=== PATIENT | female | born 1950 | race Caucasian/White ===

== ENCOUNTER 2018-11-19 18:16 | Inpatient (IN) | payer MEDICARE, OTHER ==
[~2018-11-19] VITALS: Ht 165.1 cm; Wt 105.5 kg
[2018-11-19] MEDS ORDERED: NORepinephrine 8MG/250 ML (PMX 250 ML IV STA ×2 (18:43→19:00)
[2018-11-19] MEDS ORDERED: ACET-2047 GTB (19:50)
[2018-11-19] MEDS ORDERED: ASCO500C7 GTB (19:50)
[2018-11-19] MEDS ORDERED: ASPI-903 GTB (19:51)
[2018-11-19] MEDS ORDERED: CALC600T24 GTB (19:51)
[2018-11-19] MEDS ORDERED: CLON-379 GTB (19:52)
[2018-11-19] MEDS ORDERED: UDFER GTB (19:52)
[2018-11-19] MEDS ORDERED: UDPHE GTB (19:53)
[2018-11-19] MEDS ORDERED: LISI10TA2 GTB (19:53)
[2018-11-19] MEDS ORDERED: FOLI-49 GTB (19:53)
[2018-11-19] MEDS ORDERED: LABE200T25 GTB (19:54)
[2018-11-19] MEDS ORDERED: SENN-120 GTB (19:55)
[2018-11-19] MEDS ORDERED: ALBU2.5V3 NEB (19:56)
[2018-11-19] MEDS ORDERED: AMIN887L GTB (19:56)
[2018-11-19] MEDS ORDERED: KEP100S GTB (19:56)
[2018-11-19] MEDS ORDERED: RANI150T5 GTB (19:57)
[2018-11-19] MEDS ORDERED: CHOL400T10 GTB (19:57)
--- NOTE | 2018-11-19 20:28 | ERD ---
ER Documentation Chief Complaint Chief Complaint HPI This is a 68-year-old female who is coming from [facility], who is chronically trach and vent dependent who presents for evaluation of low blood pressure, and concern for possible sepsis. At baseline patient is nonverbal, Dr. Montalvo, was contacted and recommended that the patient be evaluated in the emergency department. Patient had no noted fever on arrival, ROS All systems reviewed and are negative except as per history of present illness. Medications Home Meds Reported Medications Ranitidine Hcl* (Ranitidine Hcl*) 150 Mg Tablet, 150 MG GTB Q12, #60 TAB 11/19/18 Cholecalciferol* (Vitamin D*) 400 Unit Tablet, 400 UNIT GTB DAILY, TAB 11/19/18 Amino Acids/Protein Hydrolys (Pro-Stat 64 Liquid) 887 Ml Liquid, 30 ML GTB BID 11/19/18 Albuterol Sulfate* (Albuterol Sulfate* Neb) 0.083%-3 Ml Neb, 2.5 MG NEB Q6 PRN for WHEEZING AND SOB, #30 VIAL 11/19/18 Levetiracetam* (Keppra* (Ped)) 100 Mg/Ml Liq, 1500 MG GTB BID for 30 Days, BOTTL E 11/19/18 Sennosides* (Senna Lax*) 8.6 Mg Tablet, 1 TAB GTB DAILY, TAB 11/19/18 Labetalol Hcl* (Labetalol Hcl*) 200 Mg Tablet, 200 MG GTB BID PRN for ELEVATED BLOOD PRESSURE, TAB 11/19/18 Folic Acid* (Folic Acid*) 1 Mg Tablet, 1 MG GTB DAILY, TAB 11/19/18 Phenobarbital* (Phenobarbital* Liq) 20 Mg/5 Ml Elix, 5 MG GTB BID for 30 Days, BOTTLE 11/19/18 Lisinopril* (Lisinopril*) 10 Mg Tablet, 10 MG GTB DAILY, #30 TAB 11/19/18 Ferrous Sulfate (Ferrous Sulfate) 300 Mg/5 Ml Liquid, 300 MG GTB BID 11/19/18 Clonidine Hcl* (Clonidine Hcl*) 0.1 Mg Tab, 0.1 MG GTB Q6 PRN for ELEVATED BLOOD PRESSURE, TAB 11/19/18 Calcium Carbonate* (Calcium Carbonate*) 600 MG Ca Tab, 1200 MG GTB DAILY, TAB 11/19/18 Aspirin* (Aspirin* Chew) 81 Mg Tab.chew, 81 MG GTB DAILY, TAB.CHEW 11/19/18 Acetaminophen* (Acetaminophen*) 650 Mg Tablet, 650 MG GTB Q6H PRN for MILD PAIN LEVEL 1-3, #30 TAB 11/19/18 Ascorbic Acid* (Vitamin C*) 500 Mg Capsule.sa, 500 MG GTB DAILY, CAP 11/19/18 Allergies Allergies: Coded Allergies: No Known Allergy (Unverified , 11/19/18) PMhx/Soc Hx Neurological Disorder: Yes (Seizure) Hx Respiratory Disorders: Yes (Trach) Hx Cardiac Disorders: Yes (HTN) Hx Miscellaneous Medical Probl: Yes (Brain CA, Anemia) Smoking Status: Unknown if ever smoked Physical Exam Vitals Vital Signs Date Temp Pulse Resp B/P (MAP) Pulse Ox O2 O2 Flow FiO2 Time Delivery Rate 11/19/18 84 28 77/46 (56) 98 Trach 20:11 Collar 11/19/18 98.3 82 27 90/53 (65) 99 Trach 18:30 Collar Physical Exam Const: Chronically ill-appearing, on vent Head: Atraumatic Eyes: Normal Conjunctiva ENT: Normal External Ears, Nose and Mouth. Neck: Full range of motion. No meningismus. Trach site clean dry and intact Resp: Clear to auscultation bilaterally Cardio: Regular rate and rhythm, no murmurs Abd: Soft, non tender, non distended. Normal bowel sounds Skin: No petechiae or rashes Back: No midline or flank tenderness Ext: No cyanosis, diffuse anasarca Neur: Patient responsive to voice, nonverbal Psych: Unable to assess Result Diagram: 11/19/181945 Results 24 hrs Laboratory Tests Test 11/19/18 19:46 White Blood Count 17.2 10^3/ul Red Blood Count 2.77 10^6/ul Hemoglobin 9.4 g/dl Hematocrit 31.2 % Mean Corpuscular Volume 112.6 fl Mean Corpuscular Hemoglobin 33.9 pg Mean Corpuscular Hemoglobin Concent 30.1 g/dl Red Cell Distribution Width 13.9 % Platelet Count 256 10^3/UL Mean Platelet Volume 11.9 fl Immature Granulocytes % 0.900 % Neutrophils % 83.5 % Lymphocytes % 6.1 % Monocytes % 9.2 % Eosinophils % 0.1 % Basophils % 0.2 % Nucleated Red Blood Cells % 0.0 /100WBC Immature Granulocytes # 0.160 10^3/ul Neutrophils # 14.4 10^3/ul Lymphocytes # 1.1 10^3/ul Monocytes # 1.6 10^3/ul Eosinophils # 0.0 10^3/ul Basophils # 0.0 10^3/ul Nucleated Red Blood Cells # 0.0 10^3/ul Current Medications Medications Dose Sig/Pratik Start Time Status Last (Trade) Ordered Route PRN Stop Time Admin Dose Reason Admin 250 ml @ ONCE STAT 11/19/18 DC Norepinephrin 7.5 mls/hr IV 18:43 e 11/19/18 18:58 Clonidine 0.1 mg ONCE ONCE 11/19/18 DC (Catapres) PO 19:00 11/19/18 19:00 250 ml @ ONCE STAT 11/19/18 11/19/18 Norepinephrin 7.5 mls/hr IV 19:00 19:04 e 11/21/18 04:19 Albumin 100 ml @ Q1H IV 11/19/18 UNV Human 100 mls/hr 20:00 11/19/18 21:59 Procedures/MDM This is a 68-year-old female presents for evaluation of hypotension, patient's blood pressure was noted to be low, thus treated for severe sepsis, leukocytosis 17.2 was also noted, patient was given vancomycin and cefepime, noted elevation in LFTs as well. Patient will be admitted to medicine team. Sepsis Documentation: Patient's infectious symptoms have not stabilized and the patient is at risk of rapid decompensation. The patient will be admitted for careful hydration, antibiotic therapy, and infectious source control. SEVERE SEPSIS CRITERIA: Infectious source: [Pulmonary versus pyelonephritis End organ damage indicated by: Hypotension SEPSIS MANAGEMENT Time of recognition of sepsis: [Upon arrival]. Time of recognition of severe sepsis: [No severe sepsis at this time]. Time of recognition of septic shock: [No septic shock at this time]. 3 HOUR BUNDLE Blood cultures x 2 before broad-spectrum antibiotics: [Yes] 30 ml/kg NS bolus [Completed] Initial lactate [1.6] Repeat lactate 1.1] SEPTIC SHOCK ASSESSMENT: Persistent hypotension (SBP < 90 or 40 mmHg drop, MAP < 65) despite 30 mL/kg IV fluid bolus VOLUME REASSESSMENT FOR SEPTIC SHOCK: Reevaluation Time: 8:22 PM Temp [98.3 BP [77/46*], HR 84], RR[], Pox [98%] Heart [Regular rate & rhythm] Lungs crackles bilaterally Skin [Warm & dry] Cap Refill [Less than 2 seconds] Peripheral pulses [Radially present] PERSISTENT HYPOTENSION TREATMENT: Comfort care [No] Central line central line placed Vasopressor started Levophed I considered further perfusion assessment with CVP measurement, SCVO2, bedside ultrasound volume assessment, passive leg raise, trial of further fluid bolus. And proceeded with [Central line placement and pressor support, as the patient had diffuse anasarca, I felt that IV fluids, would not be beneficial, as she already appears significantly volume overloaded, she responded well to pressor support, she will be admitted to the ICU in critical condition. CRITICAL CARE Critical care time [35] minutes Emergent fluid management while maintaining close respiratory support. Provision of immediate and broad-spectrum antibiotic therapy. Simultaneous assessment for possible sources in order to direct targeted therapy. Considera tion for invasive and chemical support to prevent cardiopulmonary collapse. Critical care time is independent of procedures performed. Departure Diagnosis: Primary Impression: Hypotension Hypotension type: unspecified hypotension type Qualified Codes: I95.9 - Hypotension, unspecified Additional Impression: Septic shock Condition: Stable KAYLA ROMAN MD Nov 19, 2018 20:23
[2018-11-19] MEDS ORDERED: ONDANSETRON 4 MG INJ IV PRN (20:30)
[2018-11-19] MEDS ORDERED: VANCOMYCIN IV PER PHARMACY XX SCH (21:30)
[2018-11-19] MEDS: ALBUMIN HUMAN 25% 100 ML IV SCH ×2 (21:58→23:04)
[2018-11-19] MEDS ORDERED: VANCOMYCIN HCL 1.5 GM in SOD CHLORIDE 0.9% 250 ML IVPB ONE (22:00)
--- NOTE | 2018-11-19 22:14 | HP ---
Date/Time of Note Date/Time of Note DATE: 11/19/18 TIME: 22:14 Assessment/Plan VTE Prophylaxis SCD applied (from Nsg): Yes Pharmacological prophylaxis: NA/contraindicated Pharm contraindication: low risk/ambulating Assessment/Plan Hospital Course This is a 68-year-old female being admitted to the ICU floor for: #1 Suspect septic shock: Suspect underlying GI pathology. Patient does have hyperbilirubinemia with transaminitis concern for possible underlying choledocholithiasis versus stricture versus other. Given that she is septic and has an elevated white blood cell count will also keep a high suspicion for acute cholangitis. At the current time we will continue the patient on vancomycin and Zosyn. She did receive antibiotics already in the ED as well. Continue vasopressor support. IV fluid hydration with half-normal saline. Consult pulm falls at home. #2 hypernatremia: Secondary likely to dehydration. We will continue the patient at the current time with D5 half-normal saline at 75 cc an hour. Patient does appear to be clinically dry and likely will need volume resuscitation so we will give boluses as needed #3 dehydration: Mucous members dry, hypernatremia. Fluid management monitor sodium. #4 Painless jaundice: Patient does have scleral icterus, she has transaminitis along with hyperbilirubinemia. CAT scan does show concern for possible choledocholithiasis versus stricture versus gallbladder sludge. Will obtain an MRCP to further evaluate. GI is Kimani been consulted . Will also check a hepatitis panel. Avoid NSAIDs, will limit acetaminophen intake to 2 g daily. #5 history of malignant neoplasm of the brain: Patient is chronically bedridden and debilitated. She normally tracks to the eyes apparently however the current time she only is opening her eyes to verbal stimuli but she is not tracking. Continue supportive care. #6 tracheostomy: Continue trach care From 190 #7 dysphagia: Continue G-tube care #8 seizure disorder: Continue Keppra and phenobarbital #9 hypertension: Hold patient's home blood pressure medications given patient's septic shock and low blood pressures. #10 macrocytic anemia: We will check folate, B12, no signs of bleeding at the current time. Will check iron stores as well. #11 obesity: We will check hemoglobin A 1C, lipid panel, TSH #12 DVT GI prophylaxis: SCDs, Protonix IV CODE STATUS: Patient is a full code. POLST is in the chart, patient also has a conservator Further treatment strategy will be implemented as per the clinical course Greater than 45 minutes of critical care time was spent on care management this patient. Result Diagram: 11/19/18194511/19/18 194 Results 24hrs Laboratory Tests Test 11/19/18 19:46 11/19/18 20:45 White Blood Count 17.2 H Red Blood Count 2.77 L Hemoglobin 9.4 L Hematocrit 31.2 L Mean Corpuscular Volume 112.6 H Mean Corpuscular Hemoglobin 33.9 H Mean Corpuscular Hemoglobin Concent 30.1 L Red Cell Distribution Width 13.9 Platelet Count 256 Mean Platelet Volume 11.9 H Immature Granulocytes % 0.900 H Neutrophils % 83.5 H Lymphocytes % 6.1 L Monocytes % 9.2 Eosinophils % 0.1 Basophils % 0.2 Nucleated Red Blood Cells % 0.0 Immature Granulocytes # 0.160 H Neutrophils # 14.4 H Lymphocytes # 1.1 Monocytes # 1.6 H Eosinophils # 0.0 Basophils # 0.0 Nucleated Red Blood Cells # 0.0 Sodium Level 149 H Potassium Level 4.8 Chloride Level 114 H Carbon Dioxide Level 26 Anion Gap 9 Blood Urea Nitrogen 57 H Creatinine 1.42 H Est Glomerular Filtrat Rate mL/min 37 L Glucose Level 148 Calcium Level 8.8 Magnesium Level 3.4 H Total Bilirubin 3.9 H Direct Bilirubin 3.50 H Indirect Bilirubin 0.4 Aspartate Amino Transf (AST/SGOT) 307 H Alanine Aminotransferase (ALT/SGPT) 426 H Alkaline Phosphatase 362 H C-Reactive Protein Total Protein 7.0 Albumin 3.3 Globulin 3.70 H Albumin/Globulin Ratio 0.89 Thyroid Stimulating Hormone (TSH) 0.054 L Lactic Acid Level 1.4 Hepatitis A Antibody Total Pending Hepatitis B Surface Antigen NEGATIVE Hepatitis B Core Total Antibody Pending Hepatitis C Antibody Pending HPI/ROS Admit Date/Time Admit Date/Time Nov 19, 2018 at 19:01 Hx of Present Illness Chief complaint: Sent for evaluation of low blood pressure The following history was obtained from the ED physician documentation as well as from the chart as patient is not able to provide history given her clinical condition. This is a 68-year-old female with a history of malignant neoplasm of the brain, anemia seizures and hypertension who is bedbound chronic trach dependent G-tube dependent female was brought in from [facility] for low blood pressures. Patient was noted to have low blood pressures and presented to the ER. Recent lab work that was performed as an outpatient was significant for a white blood cell count of 15.01 hemoglobin of 10.5 hematocrit of 34.3 a sodium of 149 and potassium of 5.1 creatinine 0.87 as well as AST of 273 ALT of 437 and an alk phos of 302 and a total bilirubin of 4.8. Patient was noted to be hypotensive in the ED and a central line was placed and vasopressors were started. CT scan of the abdomen pelvis was ordered which showed Dilated common bile duct to the level of the ampulla. Differential diagnosis includes choledocholithiasis, distal duct sludge and distal duct stricture. Dr. Bartholomew of GI was consulted. Patient was subsequently brought to the ICU secondary to hypotension requiring pressor support. Patient apparently at baseline does track with her eyes, which she was doing less of as well today. Allergies: NKDA Medications: See MAR ROS Subjective hx not possible: pt non-verbal PMH/Family/Social Past Medical History history of malignant neoplasm of the brain, anemia seizures and hypertension, trach dependent, G-tube dependent Medications Current Medications Norepinephrine 250 ml @ 7.5 mls/hr ONCE STAT IV Last administered on 11/19/18at 19:04; Admin Dose 11.25 MLS/HR; Start 11/19/18 at 19:00; Stop 11/21/18 at 04:19 Ondansetron HCl (Zofran Inj) 4 mg Q6H PRN IV NAUSEA AND/OR VOMITING; Start 11/19/18 at 20:30 Pantoprazole (Protonix Iv) 40 mg DAILY@06 IV ; Start 11/20/18 at 06:00 Phenylephrine HCl 40 mg/Dextrose 250 ml @ 37.5 mls/hr TITRATE IV ; Start 11/19/18 at 20:30 Vancomycin HCl (Vanco Iv Per Pharmacy) VANCOMYCIN PER PHARMACY PER PROTOCOL XX ; Start 11/19/18 at 21:30 Vancomycin HCl 1.5 gm/Sodium Chloride 250 ml @ 166.667 mls/hr ONCE ONCE IVPB Last administered on 11/19/18at 22:00; Admin Dose 166.667 MLS/HR; Start 11/19/18 at 22:00; Stop 11/19/18 at 23:29 Vancomycin HCl 250 ml @ 125 mls/hr Q24H IVPB ; Start 11/20/18 at 22:00 Coded Allergies: No Known Allergy (Unverified , 11/19/18) Past Surgical History Tracheostomy, G-tube placement Family History Significant Family History: other (Unable to obtain secondary to clinical condition) Social History Smoking Status: Unknown if ever smoked Exam/Review of Systems Vital Signs Vitals Vital Signs Date Temp Pulse Resp B/P (MAP) Pulse Ox O2 O2 Flow FiO2 Time Delivery Rate 11/19/18 88 22 96 T Tube 8.0 35 20:40 11/19/18 101/50 20:26 (67) 11/19/18 98.3 18:30 Exam Exam General: Patient is currently lying in bed, she does open her eyes to verbal stimuli however she is currently not tracking. HEENT: Atraumatic, normocephalic. The pupils are equal, round and reactive. Extraocular motor are intact, tracheostomy site intact, mucous membranes dry, scleral icterus Neck: Supple with full range of motion. No rigidity or meningismus Chest: Nontender Lungs: Clear to auscultation bilaterally no crackles rales or wheezing Heart: Normal S1-S2, Regular rhythm and rate. No murmur, S3, or S4 Abdomen: Soft, nontender to palpation, nondistended, G-tube site in place, normal bowel sounds Extremities: Normal to inspection, no edema no cyanosis Neurologic: Opens eyes to verbal commands, she is not tracking with her eyes. Further neurological status unable to obtain given her patient's chronic debilitated mental and physical condition. Additional Comments PROCEDURE: CT abdomen and pelvis without contrast. CLINICAL INDICATION: Possible sepsis. TECHNIQUE: CT scan of the abdomen and pelvis without contrast was performed on a multi-slice CT scanner utilizing axial imaging from the lung bases through the pubis symphysis. One or more the following does reduction techniques were utilized: Automated exposure control, adjustment of the mA/ or kV according to patient's size, or use of iterative reconstruction technique. Sagittal and coronal reformatted images were made. DICOM images are available for review. The CTDIvol is 23.32 mGy and the DLP is 216 of 7.73 mGycm. COMPARISON: None. FINDINGS: CT abdomen Visualized lung bases: Atelectasis posterior inferior left right lower lobes. No significant pleural or pericardial effusion. Liver: Limited evaluation without IV contrast. No gross lesion. Gallbladder and bile ducts: Distended gallbladder with minimal pericholecystic fluid. 3 calcified gallstones are present in the gallbladder. Dilated common bile duct, measuring 14.5 mm. No distal ductal calcification. Spleen: Normal appearance. Pancreas: Normal appearance. No ductal dilatation. No mass. No peripancreatic stranding. Adrenal glands: Thickened left adrenal gland. Negative right adrenal gland. Kidneys: No hydronephrosis or renal stones. Vasculature: No abdominal aortic aneurysm. Calcified plaque present. Negative IVC. Lymph nodes: No adenopathy. GI: Small hiatal hernia. Percutaneous gastrostomy tube, tip and balloon in the gastric lumen. Mildly dilated air and fluid-filled small bowel loops left and right abdomen. Nondistended, stool containing colon. Gas distended sigmoid colon extends into the mid abdomen. Diverticulosis descending colon. Malrotated cecum. Peritoneal cavity: No free fluid or free air. CT pelvis GI: Negative terminal ileum. The appendix is not identified. Sigmoid diverticulosis. Sigmoid colon extends into the midabdomen. Negative rectum. : Jaime catheter decompresses the urinary bladder. Small uterus. 2.4 cm right ovarian cyst. Atrophic left ovary. Peritoneal cavity: No free fluid or loculated fluid collections. Lymph nodes: No adenopathy. Osseous structures: Bones are demineralized. No lytic or blastic lesions. No endplate fractures. IMPRESSION: 1. Cholelithiasis with distended gallbladder suspected acute cholecystitis. 2. Dilated common bile duct to the level of the ampulla. Differential diagnosis includes choledocholithiasis, distal duct sludge and distal duct stricture. 3. Atelectasis posterior inferior lower lobes. For percutaneous gastrostomy tube, tip and balloon in the gastric lumen. 5. Gas distended sigmoid colon extending to the mid abdomen. No evidence of obstruction. 6. Mildly dilated air and fluid-filled small bowel loops, probable ileus. 7. 2.4 cm right ovarian cyst.. RPTAT: [facility] Physician Silvestre Date Time Electronically viewed and signed by Physician Silvestre on 11/19/2018 23:22 RS/ CC: KAYLA ROMAN MD [id number] PROCEDURE: CT Brain without contrast. CLINICAL INDICATION: Infectious process. Right craniotomy. TECHNIQUE: A CT of the brain was performed utilizing axial imaging from the skull base through the vertex without IV contrast. Multiplanar reformatted images were made. Images were reviewed on a PACS workstation. The CTDIvol is 38.79 mGy and the DLP is 778.03 mGycm. DICOM images are available. One or more of the following dose reduction techniques were utilized: 1.) Automated exposure control 2.) Adjustment of the mA +/- kV according to patient's size 3.) Use of iterative reconstruction technique. COMPARISON: None FINDINGS: Remote right frontal temporal parietal craniotomy. Chronic changes of atrophy and small vessel disease of white matter, greater in the posterior fossa. Dilation of the left lateral ventricle may be secondary to volume loss. The remaining ventricles are unremarkable. 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 There is no intracranial hemorrhage, mass effect, or midline shift. No extra- axial fluid collection is seen. The sulci are otherwise normal in size and configuration. The density of the remaining brain is otherwise normal, and the bautista white matter differentiation appears well-preserved. The visualized paranasal sinuses and osseous structures are grossly unremarkable. IMPRESSION: 1. Dilation left lateral ventricle may be secondary to volume loss. 2. Chronic changes of atrophy and small vessel disease white matter, greater in the posterior fossa. 3. Small remote infarct in the left todd radiata. 4. Otherwise, no evident acute process in the head. RPTAT: [facility] Physician Bridgette Date Time Electronically viewed and signed by Physician Bridgette on 11/19/2018 22:43 RS/ CC: KAYLA ROMAN MD [id number] EKG: Normal sinus rhythm at approximately 80 bpm, no ST or T wave abnormalities concerning for acute ischemia SHANNON DURON Nov 19, 2018 22:14
[2018-11-19 22:40] VITALS: PULSE 87
[2018-11-19 22:45] VITALS: BP 135/63; PULSE 95; RESP 27
[2018-11-19 23:00] VITALS: BP 105/51; PULSE 88; RESP 26; Ht 165.1 cm; Wt 105.5 kg
[2018-11-19 23:15] VITALS: BP 95/52; PULSE 95; RESP 21
[2018-11-19 23:30] VITALS: BP 112/57; PULSE 91; RESP 24
[2018-11-19 23:45] VITALS: BP 118/57; PULSE 91; RESP 25
[2018-11-20] VITALS (102 sets, daily range): BP systolic 67–166; BP diastolic 30–135; PULSE 83–107; RESP 17–35
[2018-11-20] MEDS ORDERED: SOD CHLORIDE 0.9% 1,000 ML IV ONE (01:00)
[2018-11-20] MEDS: DEXTROSE 5%-0.45% NACL 1,000 ML IV SCH ×3 (01:14→21:55)
[2018-11-20] MEDS: PANTOPRAZOLE 40 MG INJ IV SCH (05:44)
[2018-11-20] MEDS: PIPER-TAZO 3.375 GM IV (PMX) 100 ML IVPB SCH ×3 (05:44→21:29)
[2018-11-20] MEDS ORDERED: SODIUM CHLORIDE 0.45% 500 ML BAG IV* ONE (06:30)
[2018-11-20] MEDS: ALBUTEROL 0.083% (NEB) 2.5 MG/3 ML AMP NEB PRN ×2 (07:52→14:14)
[2018-11-20] MEDS: FOLIC ACID 1 MG TAB GTB SCH (08:15)
[2018-11-20] MEDS: ACETAMINOPHEN 325 MG TAB GTB PRN ×2 (08:15→19:56)
[2018-11-20] MEDS: LEVETIRACETAM (100 MG/ML) 5ML CUP GTB SCH ×2 (08:15→20:25)
[2018-11-20] MEDS: PHENOBARBITAL (4 MG/ML) 5ML CUP GTB SCH ×2 (09:02→20:25)
--- NOTE | 2018-11-20 09:07 | PN ---
Date/Time of Note Date/Time of Note DATE: 11/20/18 TIME: 09:07 Assessment/Plan VTE Prophylaxis Risk score (from Ns)>0 risk: 11 SCD applied (from Ns): Yes Pharmacological prophylaxis: other Lines/Catheters IV Catheter Type (from Nrsg): Mid Line Urinary Cath still in place: Yes Reason Cath still needed: pres ulcer contaminated by urine Assessment/Plan Assessment/Plan 1. Septic shock secondary to GI pathology - Continue on pressor support with goal MAP >65 - Continue IVF and antibiotics - Lactic acid normal at presentation - low grade temp and WBC trending downward 2. Elevated LFT - CT abd shows choledocholithiasis and acute cholecystitis - GI on board and appreciate recommendations. MRCP ordered - continue monitoring 3. Acute kindra - give patients condition, she may be better off with percutaneous cholecystostomy rather than lap kindra once stable 4. Hypernatremia - most likely dehydration related - IVF on board 5. JUSTO - Nephrology consultation appreciated and will avoid nephrotoxic agents - IVF continued - most likely prerenal vs ATN 6. h/o Malignant neoplasm of brain - Patient is chronically bedridden and debilitated. She normally tracks to the eyes apparently however the current time she only is opening her eyes to verbal stimuli but she is not tracking. Continue supportive care. 7. Seizure disorder - Continue Keppra and phenobarbital 8. HTN - hold home BP medications in setting of hypotension 9. Iron deficiency anemia - no need for transfusion at this time 10. Chronic respiratory failure - trach dependent - continue trach care - Pulmonology on board and appreciate recommendations 11. Disposition - Continue monitoring in ICU while requiring pressor support >35 minutes of critical care time spent with patient Result Diagram: 11/20/18 0400 11/20/18 0400 Results 24hrs Laboratory Tests Test 11/19/18 19:46 11/19/18 20:45 11/20/18 04:00 11/20/18 04:30 White Blood Count 17.2 H 15.5 H Red Blood Count 2.77 L 2.39 L Hemoglobin 9.4 L 8.3 L Hematocrit 31.2 L 26.8 L Mean Corpuscular 112.6 H 112.1 H Volume Mean Corpuscular 33.9 H 34.7 H Hemoglobin Mean Corpuscular 30.1 L 31.0 L Hemoglobin Concen t Red Cell 13.9 14.1 Distribution Width Platelet Count 256 215 Mean Platelet 11.9 H 12.9 H Volume Immature 0.900 H 0.600 H Granulocytes % Neutrophils % 83.5 H 82.6 H Lymphocytes % 6.1 L 7.8 L Monocytes % 9.2 8.6 Eosinophils % 0.1 0.2 Basophils % 0.2 0.2 Nucleated Red 0.0 0.0 Blood Cells % Immature 0.160 H 0.100 H Granulocytes # Neutrophils # 14.4 H 12.8 H Lymphocytes # 1.1 1.2 Monocytes # 1.6 H 1.3 H Eosinophils # 0.0 0.0 Basophils # 0.0 0.0 Nucleated Red 0.0 0.0 Blood Cells # Sodium Level 149 H 149 H Potassium Level 4.8 4.2 Chloride Level 114 H 114 H Carbon Dioxide 26 25 Level Anion Gap 9 10 Blood Urea 57 H 54 H Nitrogen Creatinine 1.42 H 1.56 H Est Glomerular 37 L 33 L Filtrat Rate mL/min Glucose Level 148 147 Calcium Level 8.8 8.7 Magnesium Level 3.4 H Total Bilirubin 3.9 H 4.4 H Direct Bilirubin 3.50 H 3.90 H Indirect 0.4 0.5 Bilirubin Aspartate Amino 307 H 187 H Transf (AST/SGOT) Alanine 426 H 311 H Aminotransferase (ALT/SGPT) Alkaline 362 H 290 H Phosphatase C-Reactive Protein Total Protein 7.0 7.2 Albumin 3.3 3.6 Globulin 3.70 H 3.60 H Albumin/Globulin 0.89 1.00 Ratio Thyroid 0.054 L Stimulating Hormone (TSH) Lactic Acid Level 1.4 Hepatitis A POSITIVE H Antibody Total Hepatitis B NEGATIVE Surface Antigen Hepatitis B POSITIVE H Surface Antibody Hepatitis B Core NEGATIVE Total Antibody Hepatitis C NEGATIVE Antibody Iron Level 19 L Total Iron 188 L Binding Capacity Percent Iron 10 L Saturation Ferritin 390.0 H Triglycerides 144 Level Cholesterol Level 142 LDL Cholesterol, 95 Calculated HDL Cholesterol 18 L Cholesterol/HDL 7.8 Ratio Vitamin B12 Level 889 Folate > 20.0 H Free Thyroxine 1.62 Free 3.11 Triiodothyronine (T3) pg/mL Acetaminophen < 10.0 L Level Blood Gas Blood arterial Specimen Source Arterial Blood 11/20/2018 4:45:4 Date Drawn 8 AM Arterial Blood pH 7.408 (Temp corrected) Arterial Blood 38.3 pCO2 (Temp correct) Arterial Blood 77.2 L pO2 (Temp corrected) Arterial Blood 23.6 HCO3 Arterial Blood -0.8 Base Excess Arterial Blood 95.7 Oxygen Saturation Moshe Test N/A Arterial Blood Right Radial Gas Puncture Site Arterial 0.1 Blood Carboxyhemo globin Arterial Blood 0.3 Methemoglobin Blood Gas A-a O2 308.5 H Differential Oxyhemoglobin 95.3 Percent Blood Gas 37.0 Temperature Blood Gas Actual 27 Respiration Rate Blood Gas TRACH COLLAR Modality FiO2 60.0 Blood Gas [facility] Notified Whom Blood Gas 11/20/2018 4:52:0 Notified Time 4 AM Subjective 24 Hr Interval Summary Free Text/Dictation Patient remains lethargic. Opens eye to touch but not tracking. Still requiring pressor support. Exam/Review of Systems Exam Vitals Vital Signs Date Temp Pulse Resp B/P (MAP) Pulse Ox O2 O2 Flow FiO2 Time Delivery Rate 11/20/18 100.0 09:05 11/20/18 100 08:54 11/20/18 10.0 80 07:54 11/20/18 94 07:52 11/20/18 33 Aerosol 07:52 T Tube 11/20/18 166/135 07:45 (145) Intake and Output 11/19/18 11/19/18 11/20/18 1515:00 23:00 07:00 IntakeIntake Total 196.455 ml 1881.920 ml OutputOutput Total 10 ml 155 ml BalanceBalance 186.455 ml 1726.920 ml Exam General: Patient is currently lying in bed, opens eyes to touch but not tracking Neck: Supple, trach in place Lungs: Clear to auscultation bilaterally no crackles rales or wheezing Heart: Normal S1-S2, Regular rhythm and rate. No murmur, S3, or S4 Abdomen: Soft, nontender to palpation, nondistended, G-tube site in place, normal bowel sounds Skin: diffuse jaundice Ext: no edema appreciate Results Results 24hrs Laboratory Tests Test 11/19/18 19:46 11/19/18 20:45 11/20/18 04:00 11/20/18 04:30 White Blood Count 17.2 H 15.5 H Red Blood Count 2.77 L 2.39 L Hemoglobin 9.4 L 8.3 L Hematocrit 31.2 L 26.8 L Mean Corpuscular 112.6 H 112.1 H Volume Mean Corpuscular 33.9 H 34.7 H Hemoglobin Mean Corpuscular 30.1 L 31.0 L Hemoglobin Concen t Red Cell 13.9 14.1 Distribution Width Platelet Count 256 215 Mean Platelet 11.9 H 12.9 H Volume Immature 0.900 H 0.600 H Granulocytes % Neutrophils % 83.5 H 82.6 H Lymphocytes % 6.1 L 7.8 L Monocytes % 9.2 8.6 Eosinophils % 0.1 0.2 Basophils % 0.2 0.2 Nucleated Red 0.0 0.0 Blood Cells % Immature 0.160 H 0.100 H Granulocytes # Neutrophils # 14.4 H 12.8 H Lymphocytes # 1.1 1.2 Monocytes # 1.6 H 1.3 H Eosinophils # 0.0 0.0 Basophils # 0.0 0.0 Nucleated Red 0.0 0.0 Blood Cells # Sodium Level 149 H 149 H Potassium Level 4.8 4.2 Chloride Level 114 H 114 H Carbon Dioxide 26 25 Level Anion Gap 9 10 Blood Urea 57 H 54 H Nitrogen Creatinine 1.42 H 1.56 H Est Glomerular 37 L 33 L Filtrat Rate mL/min Glucose Level 148 147 Calcium Level 8.8 8.7 Magnesium Level 3.4 H Total Bilirubin 3.9 H 4.4 H Direct Bilirubin 3.50 H 3.90 H Indirect 0.4 0.5 Bilirubin Aspartate Amino 307 H 187 H Transf (AST/SGOT) Alanine 426 H 311 H Aminotransferase (ALT/SGPT) Alkaline 362 H 290 H Phosphatase C-Reactive Protein Total Protein 7.0 7.2 Albumin 3.3 3.6 Globulin 3.70 H 3.60 H Albumin/Globulin 0.89 1.00 Ratio Thyroid 0.054 L Stimulating Hormone (TSH) Lactic Acid Level 1.4 Hepatitis A POSITIVE H Antibody Total Hepatitis B NEGATIVE Surface Antigen Hepatitis B POSITIVE H Surface Antibody Hepatitis B Core NEGATIVE Total Antibody Hepatitis C NEGATIVE Antibody Iron Level 19 L Total Iron 188 L Binding Capacity Percent Iron 10 L Saturation Ferritin 390.0 H Triglycerides 144 Level Cholesterol Level 142 LDL Cholesterol, 95 Calculated HDL Cholesterol 18 L Cholesterol/HDL 7.8 Ratio Vitamin B12 Level 889 Folate > 20.0 H Free Thyroxine 1.62 Free 3.11 Triiodothyronine (T3) pg/mL Acetaminophen < 10.0 L Level Blood Gas Blood arterial Specimen Source Arterial Blood 11/20/2018 4:45:4 Date Drawn 8 AM Arterial Blood pH 7.408 (Temp corrected) Arterial Blood 38.3 pCO2 (Temp correct) Arterial Blood 77.2 L pO2 (Temp corrected) Arterial Blood 23.6 HCO3 Arterial Blood -0.8 Base Excess Arterial Blood 95.7 Oxygen Saturation Moshe Test N/A Arterial Blood Right Radial Gas Puncture Site Arterial 0.1 Blood Carboxyhemo globin Arterial Blood 0.3 Methemoglobin Blood Gas A-a O2 308.5 H Differential Oxyhemoglobin 95.3 Percent Blood Gas 37.0 Temperature Blood Gas Actual 27 Respiration Rate Blood Gas TRACH COLLAR Modality FiO2 60.0 Blood Gas [facility] Notified Whom Blood Gas 11/20/2018 4:52:0 Notified Time 4 AM Medications Medication Current Medications Norepinephrine 250 ml @ 7.5 mls/hr ONCE STAT IV Last administered on 11/19/18at 19:04; Admin Dose 11.25 MLS/HR; Start 11/19/18 at 19:00; Stop 11/21/18 at 04:19 Ondansetron HCl (Zofran Inj) 4 mg Q6H PRN IV NAUSEA AND/OR VOMITING; Start 11/19/18 at 20:30 Pantoprazole (Protonix Iv) 40 mg DAILY@06 IV Last administered on 11/20/18at 05:44; Admin Dose 40 MG; Start 11/20/18 at 06:00 Phenylephrine HCl 40 mg/Dextrose 250 ml @ 37.5 mls/hr TITRATE IV ; Start 11/19/18 at 20:30 Vancomycin HCl (Vanco Iv Per Pharmacy) VANCOMYCIN PER PHARMACY PER PROTOCOL XX ; Start 11/19/18 at 21:30 Vancomycin HCl 250 ml @ 125 mls/hr Q24H IVPB ; Start 11/20/18 at 22:00 Dextrose/Sodium Chloride 1,000 ml @ 100 mls/hr Q10H IV Last administered on 11/20/18at 01:14; Admin Dose 75 MLS/HR; Start 11/20/18 at 01:00 Piperacillin Sod/ Tazobactam Sod 100 ml @ 200 mls/hr Q8 IVPB Last administered on 11/20/18at 05:44; Admin Dose 200 MLS/HR; Start 11/20/18 at 06:00 Acetaminophen (Tylenol Tab) 650 mg Q6H PRN GTB MILD PAIN LEVEL 1-3 Last administered on 11/20/18 08:15; Admin Dose 650 MG; Start 11/20/18 at 06:00 Albuterol (Proventil 0.083% (Neb)) 2.5 mg Q6H RESP THERAPY PRN NEB WHEEZING AND SOB Last administered on 11/20/18 07:52; Admin Dose 2.5 MG; Start 11/20/18 at 06:00 Folic Acid (Folic Acid) 1 mg DAILY GTB Last administered on 11/20/18 08:15; Admin Dose 1 MG; Start 11/20/18 at 09:00 Levetiracetam (Keppra Liquid) 1,500 mg BID GTB Last administered on 11/20/18 08:15; Admin Dose 1,500 MG; Start 11/20/18 at 09:00 Phenobarbital (Luminal) 140 mg BID GTB Last administered on 11/20/18 09:02; Admin Dose 140 MG; Start 11/20/18 at 09:00 KENNETH SANTILLAN MD Nov 20, 2018 09:07
--- NOTE | 2018-11-20 10:08 | PN ---
Date/Time of Note Date/Time of Note DATE: 11/20/18 TIME: 10:05 Assessment/Plan VTE Prophylaxis Risk score (from Ns)>0 risk: 11 SCD applied (from Ns): Yes Pharmacological prophylaxis: LMWH Lines/Catheters IV Catheter Type (from Nrs): Mid Line Urinary Cath still in place: Yes Reason Cath still needed: other (indicate) Assessment/Plan Assessment/Plan resp failure ch/trach sepsis hypernatremia oliguria cholestasis monitor labs high risk for kizzy/sec to liver dz may develope atn supportive care Result Diagram: 11/20/18 0400 11/20/180 Results 24hrs Laboratory Tests Test 11/19/18 19:46 11/19/18 20:45 11/20/18 04:00 11/20/18 04:30 White Blood Count 17.2 H 15.5 H Red Blood Count 2.77 L 2.39 L Hemoglobin 9.4 L 8.3 L Hematocrit 31.2 L 26.8 L Mean Corpuscular 112.6 H 112.1 H Volume Mean Corpuscular 33.9 H 34.7 H Hemoglobin Mean Corpuscular 30.1 L 31.0 L Hemoglobin Concen t Red Cell 13.9 14.1 Distribution Width Platelet Count 256 215 Mean Platelet 11.9 H 12.9 H Volume Immature 0.900 H 0.600 H Granulocytes % Neutrophils % 83.5 H 82.6 H Lymphocytes % 6.1 L 7.8 L Monocytes % 9.2 8.6 Eosinophils % 0.1 0.2 Basophils % 0.2 0.2 Nucleated Red 0.0 0.0 Blood Cells % Immature 0.160 H 0.100 H Granulocytes # Neutrophils # 14.4 H 12.8 H Lymphocytes # 1.1 1.2 Monocytes # 1.6 H 1.3 H Eosinophils # 0.0 0.0 Basophils # 0.0 0.0 Nucleated Red 0.0 0.0 Blood Cells # Sodium Level 149 H 149 H Potassium Level 4.8 4.2 Chloride Level 114 H 114 H Carbon Dioxide 26 25 Level Anion Gap 9 10 Blood Urea 57 H 54 H Nitrogen Creatinine 1.42 H 1.56 H Est Glomerular 37 L 33 L Filtrat Rate mL/min Glucose Level 148 147 Calcium Level 8.8 8.7 Magnesium Level 3.4 H Total Bilirubin 3.9 H 4.4 H Direct Bilirubin 3.50 H 3.90 H Indirect 0.4 0.5 Bilirubin Aspartate Amino 307 H 187 H Transf (AST/SGOT) Alanine 426 H 311 H Aminotransferase (ALT/SGPT) Alkaline 362 H 290 H Phosphatase C-Reactive Protein Total Protein 7.0 7.2 Albumin 3.3 3.6 Globulin 3.70 H 3.60 H Albumin/Globulin 0.89 1.00 Ratio Thyroid 0.054 L Stimulating Hormone (TSH) Lactic Acid Level 1.4 Hepatitis A POSITIVE H Antibody Total Hepatitis B NEGATIVE Surface Antigen Hepatitis B POSITIVE H Surface Antibody Hepatitis B Core NEGATIVE Total Antibody Hepatitis C NEGATIVE Antibody Iron Level 19 L Total Iron 188 L Binding Capacity Percent Iron 10 L Saturation Ferritin 390.0 H Triglycerides 144 Level Cholesterol Level 142 LDL Cholesterol, 95 Calculated HDL Cholesterol 18 L Cholesterol/HDL 7.8 Ratio Vitamin B12 Level 889 Folate > 20.0 H Free Thyroxine 1.62 Free 3.11 Triiodothyronine (T3) pg/mL Acetaminophen < 10.0 L Level Blood Gas Blood arterial Specimen Source Arterial Blood 11/20/2018 4:45:4 Date Drawn 8 AM Arterial Blood pH 7.408 (Temp corrected) Arterial Blood 38.3 pCO2 (Temp correct) Arterial Blood 77.2 L pO2 (Temp corrected) Arterial Blood 23.6 HCO3 Arterial Blood -0.8 Base Excess Arterial Blood 95.7 Oxygen Saturation Moshe Test N/A Arterial Blood Right Radial Gas Puncture Site Arterial 0.1 Blood Carboxyhemo globin Arterial Blood 0.3 Methemoglobin Blood Gas A-a O2 308.5 H Differential Oxyhemoglobin 95.3 Percent Blood Gas 37.0 Temperature Blood Gas Actual 27 Respiration Rate Blood Gas TRACH COLLAR Modality FiO2 60.0 Blood Gas [facility] Notified Whom Blood Gas 11/20/2018 4:52:0 Notified Time 4 AM Exam/Review of Systems Exam Vitals Vital Signs Date Temp Pulse Resp B/P (MAP) Pulse Ox O2 O2 Flow FiO2 Time Delivery Rate 11/20/18 100.0 09:05 11/20/18 100 08:54 11/20/18 10.0 80 07:54 11/20/18 94 07:52 11/20/18 33 Aerosol 07:52 T Tube 11/20/18 166/135 07:45 (145) Intake and Output 11/19/18 11/19/18 11/20/18 1515:00 23:00 07:00 IntakeIntake Total 196.455 ml 1881.920 ml OutputOutput Total 10 ml 155 ml BalanceBalance 186.455 ml 1726.920 ml Constitutional: non-verbal Head: normocephalic, atraumatic Eyes: nl conjunctiva, EOMI ENMT: nl external ears & nose Neck: supple, non-tender Respiratory: normal air movement, diminished breath sounds Cardiovascular: regular rate and rhythm, nl pulses Gastrointestinal: soft Musculoskeletal: nl extremities to inspection Results Results 24hrs Laboratory Tests Test 11/19/18 19:46 11/19/18 20:45 11/20/18 04:00 11/20/18 04:30 White Blood Count 17.2 H 15.5 H Red Blood Count 2.77 L 2.39 L Hemoglobin 9.4 L 8.3 L Hematocrit 31.2 L 26.8 L Mean Corpuscular 112.6 H 112.1 H Volume Mean Corpuscular 33.9 H 34.7 H Hemoglobin Mean Corpuscular 30.1 L 31.0 L Hemoglobin Concen t Red Cell 13.9 14.1 Distribution Width Platelet Count 256 215 Mean Platelet 11.9 H 12.9 H Volume Immature 0.900 H 0.600 H Granulocytes % Neutrophils % 83.5 H 82.6 H Lymphocytes % 6.1 L 7.8 L Monocytes % 9.2 8.6 Eosinophils % 0.1 0.2 Basophils % 0.2 0.2 Nucleated Red 0.0 0.0 Blood Cells % Immature 0.160 H 0.100 H Granulocytes # Neutrophils # 14.4 H 12.8 H Lymphocytes # 1.1 1.2 Monocytes # 1.6 H 1.3 H Eosinophils # 0.0 0.0 Basophils # 0.0 0.0 Nucleated Red 0.0 0.0 Blood Cells # Sodium Level 149 H 149 H Potassium Level 4.8 4.2 Chloride Level 114 H 114 H Carbon Dioxide 26 25 Level Anion Gap 9 10 Blood Urea 57 H 54 H Nitrogen Creatinine 1.42 H 1.56 H Est Glomerular 37 L 33 L Filtrat Rate mL/min Glucose Level 148 147 Calcium Level 8.8 8.7 Magnesium Level 3.4 H Total Bilirubin 3.9 H 4.4 H Direct Bilirubin 3.50 H 3.90 H Indirect 0.4 0.5 Bilirubin Aspartate Amino 307 H 187 H Transf (AST/SGOT) Alanine 426 H 311 H Aminotransferase (ALT/SGPT) Alkaline 362 H 290 H Phosphatase C-Reactive Protein Total Protein 7.0 7.2 Albumin 3.3 3.6 Globulin 3.70 H 3.60 H Albumin/Globulin 0.89 1.00 Ratio Thyroid 0.054 L Stimulating Hormone (TSH) Lactic Acid Level 1.4 Hepatitis A POSITIVE H Antibody Total Hepatitis B NEGATIVE Surface Antigen Hepatitis B POSITIVE H Surface Antibody Hepatitis B Core NEGATIVE Total Antibody Hepatitis C NEGATIVE Antibody Iron Level 19 L Total Iron 188 L Binding Capacity Percent Iron 10 L Saturation Ferritin 390.0 H Triglycerides 144 Level Cholesterol Level 142 LDL Cholesterol, 95 Calculated HDL Cholesterol 18 L Cholesterol/HDL 7.8 Ratio Vitamin B12 Level 889 Folate > 20.0 H Free Thyroxine 1.62 Free 3.11 Triiodothyronine (T3) pg/mL Acetaminophen < 10.0 L Level Blood Gas Blood arterial Specimen Source Arterial Blood 11/20/2018 4:45:4 Date Drawn 8 AM Arterial Blood pH 7.408 (Temp corrected) Arterial Blood 38.3 pCO2 (Temp correct) Arterial Blood 77.2 L pO2 (Temp corrected) Arterial Blood 23.6 HCO3 Arterial Blood -0.8 Base Excess Arterial Blood 95.7 Oxygen Saturation Moshe Test N/A Arterial Blood Right Radial Gas Puncture Site Arterial 0.1 Blood Carboxyhemo globin Arterial Blood 0.3 Methemoglobin Blood Gas A-a O2 308.5 H Differential Oxyhemoglobin 95.3 Percent Blood Gas 37.0 Temperature Blood Gas Actual 27 Respiration Rate Blood Gas TRACH COLLAR Modality FiO2 60.0 Blood Gas [facility] Notified Whom Blood Gas 11/20/2018 4:52:0 Notified Time 4 AM Medications Medication Current Medications Norepinephrine 250 ml @ 7.5 mls/hr ONCE STAT IV Last administered on 9at 19:04; Admin Dose 11.25 MLS/HR; Start 11/19/18 at 19:00; Stop 11/21/18 at 04:19 Ondansetron HCl (Zofran Inj) 4 mg Q6H PRN IV NAUSEA AND/OR VOMITING; Start 11/19/18 at 20:30 Pantoprazole (Protonix Iv) 40 mg DAILY@06 IV Last administered on 11/20/18at 05:44; Admin Dose 40 MG; Start 11/20/18 at 06:00 Phenylephrine HCl 40 mg/Dextrose 250 ml @ 37.5 mls/hr TITRATE IV ; Start 11/19/18 at 20:30 Vancomycin HCl (Vanco Iv Per Pharmacy) VANCOMYCIN PER PHARMACY PER PROTOCOL XX ; Start 11/19/18 at 21:30 Vancomycin HCl 250 ml @ 125 mls/hr Q24H IVPB ; Start 11/20/18 at 22:00 Dextrose/Sodium Chloride 1,000 ml @ 100 mls/hr Q10H IV Last administered on 11/20/18at 01:14; Admin Dose 75 MLS/HR; Start 11/20/18 at 01:00 Piperacillin Sod/ Tazobactam Sod 100 ml @ 200 mls/hr Q8 IVPB Last administered on 11/20/18at 05:44; Admin Dose 200 MLS/HR; Start 11/20/18 at 06:00 Acetaminophen (Tylenol Tab) 650 mg Q6H PRN GTB MILD PAIN LEVEL 1-3 Last administered on 11/20/18at 08:15; Admin Dose 650 MG; Start 11/20/18 at 06:00 Albuterol (Proventil 0.083% (Neb)) 2.5 mg Q6H RESP THERAPY PRN NEB WHEEZING AND SOB Last administered on 11/20/18at 07:52; Admin Dose 2.5 MG; Start 11/20/18 at 06:00 Folic Acid (Folic Acid) 1 mg DAILY GTB Last administered on 11/20/18 08:15; Admin Dose 1 MG; Start 11/20/18 at 09:00 Levetiracetam (Keppra Liquid) 1,500 mg BID GTB Last administered on 11/20/18 08:15; Admin Dose 1,500 MG; Start 11/20/18 at 09:00 Phenobarbital (Luminal) 140 mg BID GTB Last administered on 11/20/18 09:02; Admin Dose 140 MG; Start 11/20/18 at 09:00 SADAF AMBROSE MD Nov 20, 2018 10:08
--- NOTE | 2018-11-20 11:50 | CONS ---
DATE OF ADMISSION: 11/19/2018 DATE OF CONSULTATION: REASON FOR CONSULTATION: Shortness of breath. Thank you, Dr. Montalvo, for this consultation. HISTORY OF PRESENT ILLNESS: This is an unfortunate 68-year-old lady with a history of chronic respir atory failure, tracheostomy, transferred from retirement facility yesterday for change in mentat ion. Apparently she has history of brain tumor, has chronic encephalopathy, but yesterday was even m ore lethargic, was brought here for further evaluation, found to have leukocytosis, mildly elevated p otassium and sodium with transaminitis. Central line was placed, vasopressor started. GI consult wa s called for evaluation of possible choledocholithiasis. PAST MEDICAL HISTORY: [employer] neoplasm, encephalopathy, chronic respiratory failure with tracheostomy, G -tube for dysphagia. MEDICATIONS: Per chart. ALLERGIES: NONE. SOCIAL HISTORY: She is a nonsmoker, no alcohol, no history of drug use. FAMILY HISTORY: Noncontributory. SYSTEMS REVIEW: A 12-point review of systems unable to perform. PHYSICAL EXAMINATION: GENERAL: Elderly-appearing lady, appears comfortable cool air aerosol. VITAL SIGNS: Currently afebrile, temperature 98, pulse is 90, blood pressure 102/50, O2 saturation 9 6%, FIO2 6%. HEENT: Extraocular movements intact. CARDIAC: S1, S2, no added sounds or murmurs. CHEST: Diminished air entry bilaterally. ABDOMEN: Soft, nontender. No guarding or rebound. EXTREMITIES: No cyanosis, clubbing. NEUROLOGIC: Unable to assess. LABORATORY DATA: White count initially 15.2, now 15.5, hemoglobin 8.3, platelets of 215, BUN 54, cre atinine 1.56, AST, ALT elevated as stated. Arterial blood gas pH 7.4, pCO2 38, pO2 of 77. U-tox unr emarkable. DIAGNOSTIC STUDIES: CT brain shows atrophy, remote infarct and dilatation of left lateral ventricle. CT abdomen and pelvis demonstrates choledocholithiasis, possible acute cholecystitis. IMPRESSION: 1. Acute on chronic encephalopathy, possibly secondary to acute cholecystitis. 2. Chronic respiratory failure. 3. Questionable [employer] lesion. 4. Dysphagia with G-tube. PLAN: 1. Broad-spectrum antibiotics. 2. Gastrointestinal evaluation. 3. Renal recommendations for cool aerosol as tolerated. 4. Deep venous thrombosis and GI prophylaxis. Dictated By: MONO HOYOS MD SV/NTS Conf#: [id number] DID#: [id number] CC: KENNETH SANTILLAN MD;*EndCC*
[2018-11-20] MEDS ORDERED: NA PHOSPHATE/BIPHOS 133 ML ENEMA PR ONE (12:00)
--- NOTE | 2018-11-20 14:20 | RADRPT ---
Echocardiogram Report Patient Name: IRMA DOVERatient ID: [id number] : 1950 (68y 2m)Study Date: 11/20/2018 7:37:45 AM Gender: FAccession #: [id number] Tech: LE Location: Ref.Physician: SHANNON DURON Height(Cm): BSA: Weight(Kg): Quality: Technically Difficult StudyAccount #: Procedures: Echocardiographic Report: Transthoracic echocardiogram with complete 2D, M-Mode, and doppler examination. Indications: Cardiomegaly. Measurements: 2D/M Mode Doppler Measurement Value Normal Range Measurement Value Normal Range LVIDd 2D 4.6 [ 3.8 - 5.2 ] cm AV Mean Jorge 1.1 [ 70.0 - 90.0 ] cm/sec LVIDs 2D 2.8 [ 2.2 - 3.5 ] cm AV Mean PG 5.0 [ 2.0 - 4.0 ] mmHg LVPWd 2D 1.2 [ 0.6 - 0.9 ] cm AV Peak Jorge 1.5 [ 100.0 - 170.0 ] cm/sec IVSd 2D 1.2 [ 0.6 - 0.9 ] cm AV Peak PG 9.0 [ 2.0 - 9.0 ] mmHg EDV 2D 84.0 [ 46.0 - 106.0 ] ml AV VTI 26.7 cm ESV 2D 37.9 [ 14.0 - 42.0 ] ml LVOT Peak Jorge 1.1 [ 70.0 - 110.0 ] cm/sec EF 2D 70.0 [ 54.0 - 74.0 ] percent LVOT Peak PG 5.0 [ 2.0 - 6.0 ] mmHg LVOT Diam 2.0 [ 2.1 - 2.5 ] cm MV E Peak Jorge 0.8 [ 60.0 - 130.0 ] cm/sec MV A Peak Jorge 1.2 [ 100.0 - 120.0 ] cm/sec MV E/A 0.7 [ 0.8 - 1.5 ] ratio MV Decel Time 162 [ 104 - 258 ] msec Lat E` Jorge 0.1 [ 10.0 - 15.0 ] cm/sec Lateral E/E` 9.8 [ 1.0 - 2.0 ] ratio Med E` Jorge 0.1 cm/sec MV E/A 0.7 [ 0.8 - 1.5 ] ratio PV Peak Jorge 0.9 [ 40.0 - 80.0 ] cm/sec PV Peak PG 3.0 mmHg Findings: Left Ventricle: Hyperdynamic left ventricular systolic function. Normal left ventricular cavity size. Normal left ventricular wall thickness. Ejection fraction is visually estimated at >70 %. Right Ventricle: Normal right ventricular size. Normal right ventricular systolic function. Left Atrium: The left atrium is normal in size. Right Atrium: The right atrium is normal in size. Mitral Valve: Normal appearance and function of the mitral valve with trace physiologic regurgitation. Aortic Valve: Normal appearance of the aortic valve. No significant aortic stenosis or insufficiency. Tricuspid Valve: Tricuspid valve not well visualized. Unable to obtain RVSP due to minimal presence of tricuspid regurgitation. Pulmonic Valve: Pulmonic valve not well visualized. No evidence of pulmonic regurgitation. Pericardium: Normal pericardium with no significant pericardial effusion. No pleural effusion noted. Aorta: Normal aortic root. IVC: The IVC is not well visualized. Conclusions: Technically difficult study with poor endocardial visualization. Hyperdynamic left ventricular systolic function. Normal left ventricular cavity size. Normal left ventricular wall thickness. Ejection fraction is visually estimated at >70 %. No significant valvular stenosis or regurgitation seen. Tricuspid valve not well visualized. Unable to obtain RVSP due to minimal presence of tricuspid regurgitation. Electronically Signed By: Robert Donato 2018-11-20 14:19:58 PST
[2018-11-20] MEDS ORDERED: LORAZEPAM 2 MG INJ IV PRN (14:30)
[2018-11-20] MEDS: NORepinephrine 8MG/250 ML (PMX 250 ML IV SCH (14:52)
--- NOTE | 2018-11-20 15:19 | CONS ---
DATE OF ADMISSION: 11/19/2018 DATE OF CONSULTATION: SUBJECTIVE: The patient is in intensive care unit now. She is intubated. She is unresponsive. She is jaundiced. Blood pressure is still in the range of 410/80. OBJECTIVE: CARDIOVASCULAR: Normal heart sounds. RESPIRATORY: Normal breath sounds. ABDOMEN: Soft abdomen. LABORATORY WORKUP: Today, WBC count is 15,500. Total bilirubin 4.4, direct 3.9, AST 187, ALT 311, a lk phos 90. CLINICAL IMPRESSION AND PLAN: The patient has evidence of obstructive jaundice, probably due to chol edocholithiasis; however, her general status is not strong enough to do ERCP. However, if it can be considered, we will discuss it with her primary doctor, consultants and the family, and ERCP can be p erformed when it is appropriate. Dictated By: FRANKLIN JAMESON MD NC/NTS Conf#: [id number] DID#: [id number] CC: REFUGIO CARRERA MD; SHANNON DURON MD; KENNETH SANTILLAN MD;*EndCC*
--- NOTE | 2018-11-20 15:22 | CONS ---
DATE OF ADMISSION: 11/19/2018 DATE OF CONSULTATION: TYPE OF CONSULTATION: Gastroenterology. Dear Dr. Walker Montalvo and Dr. Duron: Thank you for asking me to see Mrs. Clement in GI consultation. HISTORY OF PRESENT ILLNESS: The patient, as you know, is a 68-year-old white female who is admitted to the hospital from the halfway because of hypotension and it was felt that she had a septic sh ock. She also had jaundice. The patient is unable to give any history. Most of the history is obta ined from the medical records and the doctors' information. The patient is bedbound and she is a chr onic respiratory failure, tracheostomy and ventilator dependent. Obviously, when I saw her yesterday , she was unresponsive. She did have jaundice on clinical exam. REVIEW OF SYSTEMS: Positive for unresponsive status, respiratory failure, status post gastrostomy an d a tracheostomy. Other medical problems include: She has a history of a malignant neoplasm of the brain, chronically bedridden and the debilitated. History of seizure disorder, hypertension, anemia, obesity. MEDICATIONS: 1. Prior to this admission includes Tylenol. 2. Ascorbic acid. 3. Aspirin. 4. Calcium carbonate. 5. Clonidine. 6. Ferrous sulfate. 7. Lisinopril. 8. Phenobarbital. 9. Folic acid. 10. Labetalol: 11. Senna. 12. Keppra. 13. Albuterol. 14. Ranitidine PHYSICAL EXAMINATION: The patient at the time of my consultation in the emergency room: GENERAL: The patient is a 68-year-old white female who when I saw her, she was unresponsive jaundice d obese, status post tracheostomy. VITAL SIGNS: Blood pressure was around 80/50 yesterday when I saw her. CARDIOVASCULAR: Normal heart sounds. RESPIRATORY: Normal breath sounds. ABDOMEN: Shows soft abdomen with obesity of the abdomen noted. No tenderness appreciated. LABORATORY WORKUP: When I saw her yesterday, potassium 4.8, bilirubin 3.9, direct is 3.5, AST 307, A LT 426, alkaline phosphatase is 62. WBC 17,200, hemoglobin 9.4. CLINICAL IMPRESSION: The patient presenting with history of hypotension jaundice, hyperbilirubinemia and elevated liver functions. The AST is 207, ALT 426, alkaline phosphatase 362. It is quite possible that we are dealing with choledocholithiasis based on the fact that the CAT scan of the abdomen shows evidence of cholelithiasis and distended gallbladder, dilated common bile duct with possible stricture or a stone in the distal bile duct near the ampulla, gas distended sigmoid co tyler noted. PLAN: At this time, recommend stabilize the patient. Once she gets blood pressure comes up ERCP can be considered. Meanwhile, continue antibiotic therapy. Once again, doctor, thank you for this consultation. Dictated By: FRANKLIN JAMESON MD NC/NTS Conf#: [id number] DID#: [id number] CC: SHANNON DURON MD; KENNETH SANTILLAN MD;*EndCC*
[2018-11-20] MEDS ORDERED: FENTAnyl (DRIP) 1000 mcg/100mL 100 ML IV SCH (16:30)
[2018-11-20] MEDS: VANCOMYCIN 1 GM 250 ML IVPB SCH (21:57)
[2018-11-21] VITALS (109 sets, daily range): BP systolic 38–152; BP diastolic 19–126; PULSE 71–165; RESP 16–26
[2018-11-21] MEDS: NORepinephrine 8MG/250 ML (PMX 250 ML IV SCH ×5 (00:38→22:23)
[2018-11-21] MEDS: PIPER-TAZO 3.375 GM IV (PMX) 100 ML IVPB SCH ×3 (05:12→22:30)
[2018-11-21] MEDS: PANTOPRAZOLE 40 MG INJ IV SCH (05:12)
[2018-11-21] MEDS: ACETAMINOPHEN 325 MG TAB GTB PRN ×2 (05:19→12:14)
[2018-11-21] MEDS: DEXTROSE 5% 1,000 ML IV SCH ×2 (06:14→15:52)
--- NOTE | 2018-11-21 08:43 | PN ---
Date/Time of Note Date/Time of Note DATE: 11/21/18 TIME: 08:43 Assessment/Plan VTE Prophylaxis Risk score (from Nsg)>0 risk: 10 SCD applied (from Nsg): Yes Pharmacological prophylaxis: LMWH Lines/Catheters IV Catheter Type (from Nrsg): Mid Line Urinary Cath still in place: Yes Reason Cath still needed: terminal illness/intractable pain Assessment/Plan Assessment/Plan 1. Septic shock secondary to acute choledocholithiasis - Continue on pressor support with goal MAP >65 - Continue IVF and antibiotics - Lactic acid normal at presentation 2. Elevated LFT - CT abd shows choledocholithiasis and acute cholecystitis - GI on board and appreciate recommendations. Patient not stable enough for any interventions at this time including ERCP - MRCP ordered but unable to complete at this time given unable to complete questionnaire. - continue monitoring 3. Acute kindra - give patients condition, she may be better off with percutaneous cholecyst ostomy rather than lap kindra once stable 4. Hypernatremia - most likely dehydration related - started on D5W this am 5. JUSTO - Nephrology consultation appreciated and will avoid nephrotoxic agents - IVF continued - most likely prerenal vs ATN 6. h/o Malignant neoplasm of brain - Patient is chronically bedridden and debilitated. Tracking present this am which is her baseline 7. Seizure disorder - Continue Keppra and phenobarbital 8. HTN - hold home BP medications in setting of hypotension 9. Iron deficiency anemia - no need for transfusion at this time 10. Chronic respiratory failure - trach dependent - continue trach care - Pulmonology on board and appreciate recommendations 11. Disposition - Continue monitoring in ICU while requiring pressor support >30 minutes of critical care time spent with patient Result Diagram: 11/21/18 0415 11/21/18 0415 Results 24hrs Laboratory Tests Test 11/20/18 11:54 11/20/18 12:35 11/20/18 14:33 11/21/18 04:15 Lab Scanned LAB Report Prothrombin Time 16.6 H Prothrombin Time 1.3 Ratio INR International 1.33 Normalized Ratio Blood Gas Blood arterial Specimen Source Arterial Blood 11/20/2018 2:45:4 Date Drawn 1 PM Arterial Blood pH 7.273 *L (Temp corrected) Arterial Blood 50.7 H pCO2 (Temp correct) Arterial Blood 74.5 L pO2 (Temp corrected) Arterial Blood 22.9 HCO3 Arterial Blood -4.1 L Base Excess Arterial Blood 94.0 L Oxygen Saturation Moshe Test ACCEPTAB Arterial Blood Right Radial Gas Puncture Site Arterial 0.3 Blood Carboxyhemo globin Arterial Blood 0.2 Methemoglobin Blood Gas A-a O2 573.3 H Differential Oxyhemoglobin 93.5 Percent Blood Gas 37.0 Temperature Blood Gas Actual 32 Respiration Rate Blood Gas TRACH COLLAR Modality FiO2 98.0 Blood Gas RN LARS MURPHY Critical Value Read Back Blood Gas Notified Whom Blood Gas 11/20/2018 2:57:3 Notified Time 8 PM White Blood Count 15.3 H Red Blood Count 2.48 L Hemoglobin 8.4 L Hematocrit 27.5 L Mean Corpuscular 110.9 H Volume Mean Corpuscular 33.9 H Hemoglobin Mean Corpuscular 30.5 L Hemoglobin Concen t Red Cell 14.4 Distribution Width Platelet Count 239 Mean Platelet 12.5 H Volume Immature 0.700 H Granulocytes % Neutrophils % 78.0 H Lymphocytes % 11.5 L Monocytes % 6.4 Eosinophils % 3.2 Basophils % 0.2 Nucleated Red 0.0 Blood Cells % Immature 0.100 H Granulocytes # Neutrophils # 12.0 H Lymphocytes # 1.8 Monocytes # 1.0 H Eosinophils # 0.5 Basophils # 0.0 Nucleated Red 0.0 Blood Cells # Sodium Level 149 H Potassium Level 3.6 Chloride Level 116 H Carbon Dioxide 20 L Level Anion Gap 13 Blood Urea 55 H Nitrogen Creatinine 2.03 H Est Glomerular 24 L Filtrat Rate mL/min Glucose Level 165 Calcium Level 8.1 L Total Bilirubin 3.1 H Direct Bilirubin 2.70 #H Indirect 0.4 Bilirubin Aspartate Amino 210 H Transf (AST/SGOT) Alanine 275 H Aminotransferase (ALT/SGPT) Alkaline 293 H Phosphatase Total Protein 6.7 Albumin 3.2 L Globulin 3.50 H Albumin/Globulin 0.91 Ratio Subjective 24 Hr Interval Summary Free Text/Dictation Patient was placed on vent yesterday due to respiratory distress. Still requiring pressor support for hypotension. Tracking with eyes this am but not following commands. Exam/Review of Systems Exam Vitals Vital Signs Date Temp Pulse Resp B/P (MAP) Pulse Ox O2 O2 Flow FiO2 Time Delivery Rate 11/21/18 87 16 118/63 98 06:15 (81) 11/21/18 99.7 06:14 11/21/18 Mechanical 06:00 Ventilator 11/21/18 50 05:10 11/20/18 10.0 14:30 Intake and Output 11/20/18 11/20/18 11/21/18 1515:00 23:00 07:00 IntakeIntake Total 1045.625 ml 1259.250 ml 1382.5 ml OutputOutput Total 60 ml 165 ml 330 ml BalanceBalance 985.625 ml 1094.250 ml 1052.5 ml Exam General: Patient is currently lying in bed, opens eyes and tracking Neck: Supple, trach in place Lungs: Clear to auscultation bilaterally, diminished, no wheezing appreciated. Heart: Normal S1-S2, Regular rhythm and rate. No murmur, S3, or S4 Abdomen: Soft, tender to palpation, nondistended, G-tube site in place, normal bowel sounds Skin: diffuse jaundice neuro: unable to assess, foot drop bilaterally Ext: swelling of LE b/l Results Results 24hrs Laboratory Tests Test 11/20/18 11:54 11/20/18 12:35 11/20/18 14:33 11/21/18 04:15 Lab Scanned LAB Report Prothrombin Time 16.6 H Prothrombin Time 1.3 Ratio INR International 1.33 Normalized Ratio Blood Gas Blood arterial Specimen Source Arterial Blood 11/20/2018 2:45:4 Date Drawn 1 PM Arterial Blood pH 7.273 *L (Temp corrected) Arterial Blood 50.7 H pCO2 (Temp correct) Arterial Blood 74.5 L pO2 (Temp corrected) Arterial Blood 22.9 HCO3 Arterial Blood -4.1 L Base Excess Arterial Blood 94.0 L Oxygen Saturation Moshe Test ACCEPTAB Arterial Blood Right Radial Gas Puncture Site Arterial 0.3 Blood Carboxyhemo globin Arterial Blood 0.2 Methemoglobin Blood Gas A-a O2 573.3 H Differential Oxyhemoglobin 93.5 Percent Blood Gas 37.0 Temperature Blood Gas Actual 32 Respiration Rate Blood Gas TRACH COLLAR Modality FiO2 98.0 Blood Gas JENN MURPHY Critical Value Read Back Blood Gas Notified Whom Blood Gas 11/20/2018 2:57:3 Notified Time 8 PM White Blood Count 15.3 H Red Blood Count 2.48 L Hemoglobin 8.4 L Hematocrit 27.5 L Mean Corpuscular 110.9 H Volume Mean Corpuscular 33.9 H Hemoglobin Mean Corpuscular 30.5 L Hemoglobin Concen t Red Cell 14.4 Distribution Width Platelet Count 239 Mean Platelet 12.5 H Volume Immature 0.700 H Granulocytes % Neutrophils % 78.0 H Lymphocytes % 11.5 L Monocytes % 6.4 Eosinophils % 3.2 Basophils % 0.2 Nucleated Red 0.0 Blood Cells % Immature 0.100 H Granulocytes # Neutrophils # 12.0 H Lymphocytes # 1.8 Monocytes # 1.0 H Eosinophils # 0.5 Basophils # 0.0 Nucleated Red 0.0 Blood Cells # Sodium Level 149 H Potassium Level 3.6 Chloride Level 116 H Carbon Dioxide 20 L Level Anion Gap 13 Blood Urea 55 H Nitrogen Creatinine 2.03 H Est Glomerular 24 L Filtrat Rate mL/min Glucose Level 165 Calcium Level 8.1 L Total Bilirubin 3.1 H Direct Bilirubin 2.70 #H Indirect 0.4 Bilirubin Aspartate Amino 210 H Transf (AST/SGOT) Alanine 275 H Aminotransferase (ALT/SGPT) Alkaline 293 H Phosphatase Total Protein 6.7 Albumin 3.2 L Globulin 3.50 H Albumin/Globulin 0.91 Ratio Medications Medication Current Medications Ondansetron HCl (Zofran Inj) 4 mg Q6H PRN IV NAUSEA AND/OR VOMITING; Start 11/19/18 at 20:30 Pantoprazole (Protonix Iv) 40 mg DAILY@06 IV Last administered on 11/21/18at 05:12; Admin Dose 40 MG; Start 11/20/18 at 06:00 Phenylephrine HCl 40 mg/Dextrose 250 ml @ 37.5 mls/hr TITRATE IV ; Start 11/19/18 at 20:30 Vancomycin HCl (Vanco Iv Per Pharmacy) VANCOMYCIN PER PHARMACY PER PROTOCOL XX ; Start 11/19/18 at 21:30 Vancomycin HCl 250 ml @ 125 mls/hr Q24H IVPB Last administered on 11/20/18at 21:57; Admin Dose 125 MLS/HR; Start 11/20/18 at 22:00 Piperacillin Sod/ Tazobactam Sod 100 ml @ 200 mls/hr Q8 IVPB Last administered on 11/21/18at 05:12; Admin Dose 200 MLS/HR; Start 11/20/18 at 06:00 Acetaminophen (Tylenol Tab) 650 mg Q6H PRN GTB MILD PAIN LEVEL 1-3 Last administered on 11/21/18at 05:19; Admin Dose 650 MG; Start 11/20/18 at 06:00 Albuterol (Proventil 0.083% (Neb)) 2.5 mg Q6H RESP THERAPY PRN NEB WHEEZING AND SOB Last administered on 11/20/18 14:14; Admin Dose 2.5 MG; Start 11/20/18 at 06:00 Folic Acid (Folic Acid) 1 mg DAILY GTB Last administered on 11/20/18 08:15; Admin Dose 1 MG; Start 11/20/18 at 09:00 Levetiracetam (Keppra Liquid) 1,500 mg BID GTB Last administered on 11/20/18 20:25; Admin Dose 1,500 MG; Start 11/20/18 at 09:00 Phenobarbital (Luminal) 140 mg BID GTB Last administered on 11/20/18 20:25; Admin Dose 140 MG; Start 11/20/18 at 09:00 Lorazepam (Ativan) 1 mg Q10MIN PRN IV agitation; Start 11/20/18 at 14:30 Norepinephrine 250 ml @ 1.875 mls/ hr TITRATE IV Last administered on 11/21/18 06:13; Admin Dose 45 MLS/HR; Start 11/20/18 at 15:00 Fentanyl 100 ml @ 2.5 mls/hr TITRATE IV Last administered on 11/20/18 15:48; Admin Dose 2.5 MLS/HR; Start 11/20/18 at 16:30 Dextrose 1,000 ml @ 100 mls/hr Q10H IV Last administered on 11/21/18 06:14; Admin Dose 100 MLS/HR; Start 11/21/18 at 06:30 KENNETH SANTILLAN MD Nov 21, 2018 08:43
[2018-11-21] MEDS: LEVETIRACETAM (100 MG/ML) 5ML CUP GTB SCH ×2 (09:30→20:51)
[2018-11-21] MEDS: PHENOBARBITAL (4 MG/ML) 5ML CUP GTB SCH ×2 (09:31→20:52)
[2018-11-21] MEDS: FOLIC ACID 1 MG TAB GTB SCH (09:31)
--- NOTE | 2018-11-21 10:03 | PN ---
Date/Time of Note Date/Time of Note DATE: 11/21/18 TIME: 10:01 Assessment/Plan VTE Prophylaxis Risk score (from Ns)>0 risk: 10 SCD applied (from Ns): Yes Pharmacological prophylaxis: other Lines/Catheters IV C[facility]ter Type (from [facility]): Urinary Cath still in place: Yes Reason Cath still needed: other (indicate) Assessment/Plan Assessment/Plan Assessment/Plan resp failure ch/trach sepsis hypernatremia oliguria cholestasis non oliguric on pressors on ivf iv abx cont plan labs am Result Diagram: 11/21/18 0415 11/21/18 0415 Results 24hrs Laboratory Tests Test 11/20/18 11:54 11/20/18 12:35 11/20/18 14:33 11/21/18 04:15 Lab Scanned LAB Report Prothrombin Time 16.6 H Prothrombin Time 1.3 Ratio INR International 1.33 Normalized Ratio Blood Gas Blood arterial Specimen Source Arterial Blood 11/20/2018 2:45:4 Date Drawn 1 PM Arterial Blood pH 7.273 *L (Temp corrected) Arterial Blood 50.7 H pCO2 (Temp correct) Arterial Blood 74.5 L pO2 (Temp corrected) Arterial Blood 22.9 HCO3 Arterial Blood -4.1 L Base Excess Arterial Blood 94.0 L Oxygen Saturation Moshe Test ACCEPTAB Arterial Blood Right Radial Gas Puncture Site Arterial 0.3 Blood Carboxyhemo globin Arterial Blood 0.2 Methemoglobin Blood Gas A-a O2 573.3 H Differential Oxyhemoglobin 93.5 Percent Blood Gas 37.0 Temperature Blood Gas Actual 32 Respiration Rate Blood Gas TRACH COLLAR Modality FiO2 98.0 Blood Gas RN LARS MURPHY Critical Value Read Back Blood Gas Notified Whom Blood Gas 11/20/2018 2:57:3 Notified Time 8 PM White Blood Count 15.3 H Red Blood Count 2.48 L Hemoglobin 8.4 L Hematocrit 27.5 L Mean Corpuscular 110.9 H Volume Mean Corpuscular 33.9 H Hemoglobin Mean Corpuscular 30.5 L Hemoglobin Concen t Red Cell 14.4 Distribution Width Platelet Count 239 Mean Platelet 12.5 H Volume Immature 0.700 H Granulocytes % Neutrophils % 78.0 H Lymphocytes % 11.5 L Monocytes % 6.4 Eosinophils % 3.2 Basophils % 0.2 Nucleated Red 0.0 Blood Cells % Immature 0.100 H Granulocytes # Neutrophils # 12.0 H Lymphocytes # 1.8 Monocytes # 1.0 H Eosinophils # 0.5 Basophils # 0.0 Nucleated Red 0.0 Blood Cells # Sodium Level 149 H Potassium Level 3.6 Chloride Level 116 H Carbon Dioxide 20 L Level Anion Gap 13 Blood Urea 55 H Nitrogen Creatinine 2.03 H Est Glomerular 24 L Filtrat Rate mL/min Glucose Level 165 Calcium Level 8.1 L Total Bilirubin 3.1 H Direct Bilirubin 2.70 #H Indirect 0.4 Bilirubin Aspartate Amino 210 H Transf (AST/SGOT) Alanine 275 H Aminotransferase (ALT/SGPT) Alkaline 293 H Phosphatase Total Protein 6.7 Albumin 3.2 L Globulin 3.50 H Albumin/Globulin 0.91 Ratio Exam/Review of Systems Exam Vitals Vital Signs Date Temp Pulse Resp B/P (MAP) Pulse Ox O2 O2 Flow FiO2 Time Delivery Rate 11/21/18 78 08:00 11/21/18 16 118/63 98 06:15 (81) 11/21/18 99.7 06:14 11/21/18 Mechanical 06:00 Ventilator 11/21/18 50 05:10 11/20/18 10.0 14:30 Intake and Output 11/20/18 11/20/18 11/21/18 1515:00 23:00 07:00 IntakeIntake Total 1045.625 ml 1259.250 ml 1382.5 ml OutputOutput Total 60 ml 165 ml 330 ml BalanceBalance 985.625 ml 1094.250 ml 1052.5 ml Head: normocephalic Eyes: nl conjunctiva Neck: supple Respiratory: normal air movement, diminished breath sounds Cardiovascular: regular rate and rhythm Gastrointestinal: soft, nl liver, spleen, non-tender Musculoskeletal: swelling Results Results 24hrs Laboratory Tests Test 11/20/18 11:54 11/20/18 12:35 11/20/18 14:33 11/21/18 04:15 Lab Scanned LAB Report Prothrombin Time 16.6 H Prothrombin Time 1.3 Ratio INR International 1.33 Normalized Ratio Blood Gas Blood arterial Specimen Source Arterial Blood 11/20/2018 2:45:4 Date Drawn 1 PM Arterial Blood pH 7.273 *L (Temp corrected) Arterial Blood 50.7 H pCO2 (Temp correct) Arterial Blood 74.5 L pO2 (Temp corrected) Arterial Blood 22.9 HCO3 Arterial Blood -4.1 L Base Excess Arterial Blood 94.0 L Oxygen Saturation Moseh Test ACCEPTAB Arterial Blood Right Radial Gas Puncture Site Arterial 0.3 Blood Carboxyhemo globin Arterial Blood 0.2 Methemoglobin Blood Gas A-a O2 573.3 H Differential Oxyhemoglobin 93.5 Percent Blood Gas 37.0 Temperature Blood Gas Actual 32 Respiration Rate Blood Gas TRACH COLLAR Modality FiO2 98.0 Blood Gas JENN LARS KATHERINE Critical Value Read Back Blood Gas Notified Whom Blood Gas 11/20/2018 2:57:3 Notified Time 8 PM White Blood Count 15.3 H Red Blood Count 2.48 L Hemoglobin 8.4 L Hematocrit 27.5 L Mean Corpuscular 110.9 H Volume Mean Corpuscular 33.9 H Hemoglobin Mean Corpuscular 30.5 L Hemoglobin Concen t Red Cell 14.4 Distribution Width Platelet Count 239 Mean Platelet 12.5 H Volume Immature 0.700 H Granulocytes % Neutrophils % 78.0 H Lymphocytes % 11.5 L Monocytes % 6.4 Eosinophils % 3.2 Basophils % 0.2 Nucleated Red 0.0 Blood Cells % Immature 0.100 H Granulocytes # Neutrophils # 12.0 H Lymphocytes # 1.8 Monocytes # 1.0 H Eosinophils # 0.5 Basophils # 0.0 Nucleated Red 0.0 Blood Cells # Sodium Level 149 H Potassium Level 3.6 Chloride Level 116 H Carbon Dioxide 20 L Level Anion Gap 13 Blood Urea 55 H Nitrogen Creatinine 2.03 H Est Glomerular 24 L Filtrat Rate mL/min Glucose Level 165 Calcium Level 8.1 L Total Bilirubin 3.1 H Direct Bilirubin 2.70 #H Indirect 0.4 Bilirubin Aspartate Amino 210 H Transf (AST/SGOT) Alanine 275 H Aminotransferase (ALT/SGPT) Alkaline 293 H Phosphatase Total Protein 6.7 Albumin 3.2 L Globulin 3.50 H Albumin/Globulin 0.91 Ratio Medications Medication Current Medications Ondansetron HCl (Zofran Inj) 4 mg Q6H PRN IV NAUSEA AND/OR VOMITING; Start 11/19/18 at 20:30 Pantoprazole (Protonix Iv) 40 mg DAILY@06 IV Last administered on 11/21/18at 05:12; Admin Dose 40 MG; Start 11/20/18 at 06:00 Phenylephrine HCl 40 mg/Dextrose 250 ml @ 37.5 mls/hr TITRATE IV ; Start 11/19/18 at 20:30 Vancomycin HCl (Vanco Iv Per Pharmacy) VANCOMYCIN PER PHARMACY PER PROTOCOL XX ; Start 11/19/18 at 21:30 Vancomycin HCl 250 ml @ 125 mls/hr Q24H IVPB Last administered on 11/20/18 21:57; Admin Dose 125 MLS/HR; Start 11/20/18 at 22:00 Piperacillin Sod/ Tazobactam Sod 100 ml @ 200 mls/hr Q8 IVPB Last administered on 11/21/18 05:12; Admin Dose 200 MLS/HR; Start 11/20/18 at 06:00 Acetaminophen (Tylenol Tab) 650 mg Q6H PRN GTB MILD PAIN LEVEL 1-3 Last administered on 11/21/18 05:19; Admin Dose 650 MG; Start 11/20/18 at 06:00 Albuterol (Proventil 0.083% (Neb)) 2.5 mg Q6H RESP THERAPY PRN NEB WHEEZING AND SOB Last administered on 11/20/18 14:14; Admin Dose 2.5 MG; Start 11/20/18 at 0 6:00 Folic Acid (Folic Acid) 1 mg DAILY GTB Last administered on 11/21/18 09:31; Admin Dose 1 MG; Start 11/20/18 at 09:00 Levetiracetam (Keppra Liquid) 1,500 mg BID GTB Last administered on 11/21/18 09:30; Admin Dose 1,500 MG; Start 11/20/18 at 09:00 Phenobarbital (Luminal) 140 mg BID GTB Last administered on 11/21/18 09:31; Admin Dose 140 MG; Start 11/20/18 at 09:00 Lorazepam (Ativan) 1 mg Q10MIN PRN IV agitation; Start 11/20/18 at 14:30 Norepinephrine 250 ml @ 1.875 mls/ hr TITRATE IV Last administered on 11/21/18 06:13; Admin Dose 45 MLS/HR; Start 11/20/18 at 15:00 Fentanyl 100 ml @ 2.5 mls/hr TITRATE IV Last administered on 11/20/18 15:48; Admin Dose 2.5 MLS/HR; Start 11/20/18 at 16:30 Dextrose 1,000 ml @ 100 mls/hr Q10H IV Last administered on 2/24/19at 06:14; Admin Dose 100 MLS/HR; Start 11/21/18 at 06:30 SADAF AMBROSE MD Nov 21, 2018 10:03
--- NOTE | 2018-11-21 10:32 | CONS ---
Consult Date/Type/Reason Admit Date/Time Nov 19, 2018 at 19:01 Initial Consult Date Type of Consult Pulmonary Date/Time of Note DATE: 11/21/18 TIME: 10:30 Subjective Patient continues mechanical ventilation. Chest x-ray shows right lower lobe infiltrate. ERCP on hold this patient remains on vasopressors. Objective Vital Signs Date Temp Pulse Resp B/P (MAP) Pulse Ox O2 O2 Flow FiO2 Time Delivery Rate 11/21/18 78 08:00 11/21/18 16 118/63 98 06:15 (81) 11/21/18 99.7 06:14 11/21/18 Mechanical 06:00 Ventilator 11/21/18 50 05:10 11/20/18 10.0 14:30 Intake and Output 11/20/18 11/20/18 11/21/18 1515:00 23:00 07:00 IntakeIntake Total 1045.625 ml 1259.250 ml 1382.5 ml OutputOutput Total 60 ml 165 ml 330 ml BalanceBalance 985.625 ml 1094.250 ml 1052.5 ml Exam PHYSICAL EXAMINATION: GENERAL: Elderly-appearing lady, appears comfortable cool air aerosol. VITAL SIGNS: HEENT: Extraocular movements intact. CARDIAC: S1, S2, no added sounds or murmurs. CHEST: Diminished air entry bilaterally. ABDOMEN: Soft, nontender. No guarding or rebound. EXTREMITIES: No cyanosis, clubbing. NEUROLOGIC: Unable to assess. Vent Setting Ventilator Support Mode: AC Fraction of Inspired Oxygen pe: 50 Positive End Expiratory Pressu: 5.0 Results/Medications Result Diagram: 11/21/18 0415 11/21/18 0415 Results 24 hrs Laboratory Tests Test 11/20/18 11:54 11/20/18 12:35 11/20/18 14:33 11/21/18 04:15 Lab Scanned LAB Report Prothrombin Time 16.6 H Prothrombin Time 1.3 Ratio INR International 1.33 Normalized Ratio Blood Gas Blood arterial Specimen Source Arterial Blood 11/20/2018 2:45:4 Date Drawn 1 PM Arterial Blood pH 7.273 *L (Temp corrected) Arterial Blood 50.7 H pCO2 (Temp correct) Arterial Blood 74.5 L pO2 (Temp corrected) Arterial Blood 22.9 HCO3 Arterial Blood -4.1 L Base Excess Arterial Blood 94.0 L Oxygen Saturation Moshe Test ACCEPTAB Arterial Blood Right Radial Gas Puncture Site Arterial 0.3 Blood Carboxyhemo globin Arterial Blood 0.2 Methemoglobin Blood Gas A-a O2 573.3 H Differential Oxyhemoglobin 93.5 Percent Blood Gas 37.0 Temperature Blood Gas Actual 32 Respiration Rate Blood Gas TRACH COLLAR Modality FiO2 98.0 Blood Gas JENN LARS KATHERINE Critical Value Read Back Blood Gas Notified Whom Blood Gas 11/20/2018 2:57:3 Notified Time 8 PM White Blood Count 15.3 H Red Blood Count 2.48 L Hemoglobin 8.4 L Hematocrit 27.5 L Mean Corpuscular 110.9 H Volume Mean Corpuscular 33.9 H Hemoglobin Mean Corpuscular 30.5 L Hemoglobin Concen t Red Cell 14.4 Distribution Width Platelet Count 239 Mean Platelet 12.5 H Volume Immature 0.700 H Granulocytes % Neutrophils % 78.0 H Lymphocytes % 11.5 L Monocytes % 6.4 Eosinophils % 3.2 Basophils % 0.2 Nucleated Red 0.0 Blood Cells % Immature 0.100 H Granulocytes # Neutrophils # 12.0 H Lymphocytes # 1.8 Monocytes # 1.0 H Eosinophils # 0.5 Basophils # 0.0 Nucleated Red 0.0 Blood Cells # Sodium Level 149 H Potassium Level 3.6 Chloride Level 116 H Carbon Dioxide 20 L Level Anion Gap 13 Blood Urea 55 H Nitrogen Creatinine 2.03 H Est Glomerular 24 L Filtrat Rate mL/min Glucose Level 165 Calcium Level 8.1 L Total Bilirubin 3.1 H Direct Bilirubin 2.70 #H Indirect 0.4 Bilirubin Aspartate Amino 210 H Transf (AST/SGOT) Alanine 275 H Aminotransferase (ALT/SGPT) Alkaline 293 H Phosphatase Total Protein 6.7 Albumin 3.2 L Globulin 3.50 H Albumin/Globulin 0.91 Ratio Medications Current Medications Ondansetron HCl (Zofran Inj) 4 mg Q6H PRN IV NAUSEA AND/OR VOMITING; Start 11/19/18 at 20:30 Pantoprazole (Protonix Iv) 40 mg DAILY@06 IV Last administered on 11/21/18at 05:12; Admin Dose 40 MG; Start 11/20/18 at 06:00 Phenylephrine HCl 40 mg/Dextrose 250 ml @ 37.5 mls/hr TITRATE IV ; Start 11/19/18 at 20:30 Vancomycin HCl (Vanco Iv Per Pharmacy) VANCOMYCIN PER PHARMACY PER PROTOCOL XX ; Start 11/19/18 at 21:30 Vancomycin HCl 250 ml @ 125 mls/hr Q24H IVPB Last administered on 11/20/18 21:57; Admin Dose 125 MLS/HR; Start 11/20/18 at 22:00 Piperacillin Sod/ Tazobactam Sod 100 ml @ 200 mls/hr Q8 IVPB Last administered on 11/21/18 05:12; Admin Dose 200 MLS/HR; Start 11/20/18 at 06:00 Acetaminophen (Tylenol Tab) 650 mg Q6H PRN GTB MILD PAIN LEVEL 1-3 Last administered on 11/21/18 05:19; Admin Dose 650 MG; Start 11/20/18 at 06:00 Albuterol (Proventil 0.083% (Neb)) 2.5 mg Q6H RESP THERAPY PRN NEB WHEEZING AND SOB Last administered on 11/20/18 14:14; Admin Dose 2.5 MG; Start 11/20/18 at 06:00 Folic Acid (Folic Acid) 1 mg DAILY GTB Last administered on 11/21/18 09:31; Admin Dose 1 MG; Start 11/20/18 at 09:00 Levetiracetam (Keppra Liquid) 1,500 mg BID GTB Last administered on 11/21/18 09:30; Admin Dose 1,500 MG; Start 11/20/18 at 09:00 Phenobarbital (Luminal) 140 mg BID GTB Last administered on 11/21/18 09:31; Admin Dose 140 MG; Start 11/20/18 at 09:00 Lorazepam (Ativan) 1 mg Q10MIN PRN IV agitation; Start 11/20/18 at 14:30 Norepinephrine 250 ml @ 1.875 mls/ hr TITRATE IV Last administered on 11/21/18 06:13; Admin Dose 45 MLS/HR; Start 11/20/18 at 15:00 Fentanyl 100 ml @ 2.5 mls/hr TITRATE IV Last administered on 11/20/18 15:48; Admin Dose 2.5 MLS/HR; Start 11/20/18 at 16:30 Dextrose 1,000 ml @ 100 mls/hr Q10H IV Last administered on 11/21/18 06:14; Admin Dose 100 MLS/HR; Start 11/21/18 at 06:30 Assessment/Plan Hospital Course (Demo Recall) IMPRESSION: 1. Acute on chronic encephalopathy, possibly secondary to acute cholecystitis. 2. Chronic respiratory failure. Placed back on mechanical ventilation for hypercapnia. 3. 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 4. Dysphagia with G-tube. 5. Renal insufficiency with metabolic acidosis possible ATN injury PLAN: 1. Broad-spectrum antibiotics. 2. Gastrointestinal evaluation. Recommendations 3. Continue IV fluids 4. Deep venous thrombosis and GI prophylaxis. 5. Continue AC mechanical ventilation Critical care time 40 minutes. MONO HOYOS MD, [facility] Nov 21, 2018 10:32
[2018-11-21] MEDS: PHENYLephrine 40 MG in DEXTROSE 5% 246 ML IV SCH ×4 (11:08→22:22)
[2018-11-21] MEDS: POTASSIUM CHLORIDE 100 ML IVPB SCH ×2 (15:51→18:29)
[2018-11-21] MEDS ORDERED: AMIODARONE 150MG/D5W BOLUS 100 ML IV ONE (16:00)
[2018-11-21] MEDS ORDERED: DILTIAZEM 25 MG INJ IV ONE (16:00)
[2018-11-21] MEDS: AMIODARONE 900 MG in DEXTROSE 5% 482 ML IV SCH ×2 (16:20→22:26)
[2018-11-21] MEDS: ALBUTEROL 0.083% (NEB) 2.5 MG/3 ML AMP NEB PRN (19:40)
[2018-11-21] MEDS: VANCOMYCIN 1 GM 250 ML IVPB SCH (23:10)
[2018-11-22] VITALS (110 sets, daily range): BP systolic 53–183; BP diastolic 30–97; PULSE 60–212; RESP 17–28
[2018-11-22] MEDS: PHENYLephrine 40 MG in DEXTROSE 5% 246 ML IV SCH ×5 (00:17→21:22)
[2018-11-22] MEDS: NORepinephrine 8MG/250 ML (PMX 250 ML IV SCH ×3 (00:44→14:35)
[2018-11-22] MEDS: VASOPRESSIN 60 UNIT in DEXTROSE 5% 57 ML IV SCH ×3 (00:55→23:29)
[2018-11-22] MEDS: DEXTROSE 5% 1,000 ML IV SCH (01:45)
[2018-11-22] MEDS: ACETAMINOPHEN 325 MG TAB GTB PRN (03:04)
[2018-11-22] MEDS: PANTOPRAZOLE 40 MG INJ IV SCH (06:08)
[2018-11-22] MEDS: PIPER-TAZO 3.375 GM IV (PMX) 100 ML IVPB SCH ×3 (06:11→22:08)
[2018-11-22] MEDS: FOLIC ACID 1 MG TAB GTB SCH (08:31)
[2018-11-22] MEDS: LEVETIRACETAM (100 MG/ML) 5ML CUP GTB SCH (08:31)
--- NOTE | 2018-11-22 08:59 | CONS ---
Assessment/Plan Assessment/Plan Hospital Course (Demo Recall) Paroxysmal atrial fibrillation: No known prior diagnosis. Will consider chronic anticoagulation pending clinic course and need for procedures. Now back in sinus after amiodarone. Septic shock: still on levophed but improving Choledocholithiasis with acute cholecystitis: LFTs/bili improving. Currently conservative management Acute renal failure VDRF/tracheostomy h/o brain tumor Seizure disorder Bedridden -continue amiodarone per protocol to complete 24 hrs -if LFTs continue to improve will place on PO amiodarone for rhythm control -if off pressors and BP tolerates, AV babs blockers -wean levophed to keep MAP >65 -antibiotics -GI follow up >40 min critical care time Consultation Date/Type/Reason Admit Date/Time Nov 19, 2018 at 19:01 Date of Consultation: Nov 22, 2018 Type of Consult Cardiology Reason for Consultation Afib with RVR Requesting Provider: KENNETH SANTILLAN MD Date/Time of Note DATE: 11/22/18 TIME: 08:51 Hx of Present Illness 68 yo F with a h/o VDRF/tracheostomy, h/o brain tumor, seizure disorder, bedridden, who presented from SNF with hypotension and was found to have septic shock requiring pressors, choledocholithiasis with acute cholecystitis, renal failure. She has been evaluated by GI and found to be too unstable for ERCP. LFTs have actually improved and bili this am is normal. Last night she had afib with RVR 180-200. She was placed on amiodarone and since has converted to sinus. She is unresponsive and unable to give history. unable to obtain Past Medical History per hPI Home Meds Reported Medications Ranitidine Hcl* (Ranitidine Hcl*) 150 Mg Tablet, 150 MG GTB Q12, #60 TAB 11/19/18 Cholecalciferol* (Vitamin D*) 400 Unit Tablet, 400 UNIT GTB DAILY, TAB 11/19/18 Amino Acids/Protein Hydrolys (Pro-Stat 64 Liquid) 887 Ml Liquid, 30 ML GTB BID 11/19/18 Albuterol Sulfate* (Albuterol Sulfate* Neb) 0.083%-3 Ml Neb, 2.5 MG NEB Q6 PRN for WHEEZING AND SOB, #30 VIAL 11/19/18 Levetiracetam* (Keppra* (Ped)) 100 Mg/Ml Liq, 1500 MG GTB BID for 30 Days, BOTTLE 11/19/18 Sennosides* (Senna Lax*) 8.6 Mg Tablet, 1 TAB GTB DAILY, TAB 11/19/18 Labetalol Hcl* (Labetalol Hcl*) 200 Mg Tablet, 200 MG GTB BID PRN for ELEVATED BLOOD PRESSURE, TAB 11/19/18 Folic Acid* (Folic Acid*) 1 Mg Tablet, 1 MG GTB DAILY, TAB 11/19/18 Phenobarbital* (Phenobarbital* Liq) 20 Mg/5 Ml Elix, 5 MG GTB BID for 30 Days, BOTTLE 11/19/18 Lisinopril* (Lisinopril*) 10 Mg Tablet, 10 MG GTB DAILY, #30 TAB 11/19/18 Ferrous Sulfate (Ferrous Sulfate) 300 Mg/5 Ml Liquid, 300 MG GTB BID 11/19/18 Clonidine Hcl* (Clonidine Hcl*) 0.1 Mg Tab, 0.1 MG GTB Q6 PRN for ELEVATED BLOOD PRESSURE, TAB 11/19/18 Calcium Carbonate* (Calcium Carbonate*) 600 MG Ca Tab, 1200 MG GTB DAILY, TAB 11/19/18 Aspirin* (Aspirin* Chew) 81 Mg Tab.chew, 81 MG GTB DAILY, TAB.CHEW 11/19/18 Acetaminophen* (Acetaminophen*) 650 Mg Tablet, 650 MG GTB Q6H PRN for MILD PAIN LEVEL 1-3, #30 TAB 11/19/18 Ascorbic Acid* (Vitamin C*) 500 Mg Capsule.sa, 500 MG GTB DAILY, CAP 11/19/18 Medications Current Medications Ondansetron HCl (Zofran Inj) 4 mg Q6H PRN IV NAUSEA AND/OR VOMITING; Start 11/19/18 at 20:30 Pantoprazole (Protonix Iv) 40 mg DAILY@06 IV Last administered on 11/22/18at 06:08; Admin Dose 40 MG; Start 11/20/18 at 06:00 Phenylephrine HCl 40 mg/Dextrose 250 ml @ 37.5 mls/hr TITRATE IV Last administered on 11/22/18at 05:31; Admin Dose 60 MLS/HR; Start 11/19/18 at 20:30 Vancomycin HCl (Vanco Iv Per Pharmacy) VANCOMYCIN PER PHARMACY PER PROTOCOL XX ; Start 11/19/18 at 21:30 Vancomycin HCl 250 ml @ 125 mls/hr Q24H IVPB Last administered on 11/21/18 23:10; Admin Dose 125 MLS/HR; Start 11/20/18 at 22:00 Piperacillin Sod/ Tazobactam Sod 100 ml @ 200 mls/hr Q8 IVPB Last administered on 11/22/18 06:11; Admin Dose 200 MLS/HR; Start 11/20/18 at 06:00 Acetaminophen (Tylenol Tab) 650 mg Q6H PRN GTB MILD PAIN LEVEL 1-3 Last administered on 11/22/18 03:04; Admin Dose 650 MG; Start 11/20/18 at 06:00 Albuterol (Proventil 0.083% (Neb)) 2.5 mg Q6H RESP THERAPY PRN NEB WHEEZING AND SOB Last administered on 11/21/18 19:40; Admin Dose 2.5 MG; Start 11/20/18 at 06:00 Folic Acid (Folic Acid) 1 mg DAILY GTB Last administered on 11/22/18 08:31; Admin Dose 1 MG; Start 11/20/18 at 09:00 Levetiracetam (Keppra Liquid) 1,500 mg BID GTB Last administered on 11/22/18 08:31; Admin Dose 1,500 MG; Start 11/20/18 at 09:00 Phenobarbital (Luminal) 140 mg BID GTB Last administered on 11/21/18 20:52; Admin Dose 140 MG; Start 11/20/18 at 09:00 Lorazepam (Ativan) 1 mg Q10MIN PRN IV agitation; Start 11/20/18 at 14:30 Norepinephrine 250 ml @ 1.875 mls/ hr TITRATE IV Last administered on 11/22/18 02:36; Admin Dose 30 MLS/HR; Start 11/20/18 at 15:00 Fentanyl 100 ml @ 2.5 mls/hr TITRATE IV Last administered on 11/20/18 15:48; Admin Dose 2.5 MLS/HR; Start 11/20/18 at 16:30 Dextrose 1,000 ml @ 100 mls/hr Q10H IV Last administered on 11/22/18 01:45; Admin Dose 100 MLS/HR; Start 11/21/18 at 06:30 Amiodarone HCl 900 mg/Dextrose 500 ml @ 0 mls/hr Q0M IV Last administered on at 22:26; Admin Dose 16.7 MLS/HR; Start 11/21/18 at 16:30 Vasopressin 60 unit/Dextrose 60 ml @ 0 mls/hr Q12H IV Last administered on 11/22/18at 00:55; Admin Dose 1.2 MLS/HR; Start 11/22/18 at 00:00 Allergies: Coded Allergies: No Known Allergy (Unverified , 11/19/18) Social History Smoking Status: Unknown if ever smoked Exam/Review of Systems Exam Vitals Vital Signs Date Temp Pulse Resp B/P (MAP) Pulse Ox O2 O2 Flow FiO2 Time Delivery Rate 11/22/18 74 20 92 45 07:43 11/22/18 158/76 06:15 (103) 11/22/18 98.5 Mechanical 06:00 Ventilator 11/20/18 10.0 14:30 Intake and Output 11/21/18 11/21/18 11/22/18 1515:00 23:00 07:00 IntakeIntake Total 1528.1250 ml 1293.8450 ml 0 ml OutputOutput Total 265 ml 475 ml 700 ml BalanceBalance 1263.1250 ml 818.8450 ml -700 ml Constitutional: No alert Head: normocephalic ENMT: other (s/p trach) Neck: No jvd Respiratory: diminished breath sounds; No clear to auscultation Cardiovascular: regular rate and rhythm, edema (1+); No systolic murmur Gastrointestinal: soft, non-tender (RUQ winces to palpation), distended (mild) Musculoskeletal: No nl extremities to inspection Neurological: No nl mental status, No nl speech Results Result Diagram: 11/22/18 0520 11/22/18 0520 Results 24hrs Laboratory Tests Test 11/22/18 05:20 11/22/18 07:00 White Blood Count 15.2 H Red Blood Count 2.37 L Hemoglobin 8.1 L Hematocrit 25.5 L Mean Corpuscular Volume 107.6 H Mean Corpuscular Hemoglobin 34.2 H Mean Corpuscular Hemoglobin Concent 31.8 L Red Cell Distribution Width 14.1 Platelet Count 238 Mean Platelet Volume 12.1 H Immature Granulocytes % 0.500 H Neutrophils % 76.1 Lymphocytes % 10.7 L Monocytes % 6.3 Eosinophils % 6.1 Basophils % 0.3 Nucleated Red Blood Cells % 0.0 Immature Granulocytes # 0.070 H Neutrophils # 11.6 H Lymphocytes # 1.6 Monocytes # 1.0 H Eosinophils # 0.9 H Basophils # 0.1 Nucleated Red Blood Cells # 0.0 Sodium Level 135 Potassium Level 3.7 Chloride Level 107 Carbon Dioxide Level 17 L Anion Gap 11 Blood Urea Nitrogen 48 H Creatinine 1.99 H Est Glomerular Filtrat Rate mL/min 25 L Glucose Level 175 Calcium Level 7.4 L Total Bilirubin 0.7 # Direct Bilirubin 0.40 #H Indirect Bilirubin 0.3 Aspartate Amino Transf (AST/SGOT) 93 H Alanine Aminotransferase (ALT/SGPT) 165 H Alkaline Phosphatase 202 H Total Protein 5.9 L Albumin 2.6 L Globulin 3.30 H Albumin/Globulin Ratio 0.78 Random Vancomycin Level 25.3 Blood Gas Specimen Source Blood arterial Arterial Blood Date Drawn 11/22/2018 7:16:19 AM Arterial Blood pH (Temp corrected) 7.345 L Arterial Blood pCO2 (Temp correct) 29.9 L Arterial Blood pO2 (Temp corrected) 159.2 H Arterial Blood HCO3 16.0 L Arterial Blood Base Excess -8.7 L Arterial Blood Oxygen Saturation 99.1 H Moshe Test ACCEPTAB Arterial Blood Gas Puncture Site Right Radial Arterial Blood Carboxyhemoglobin 0.3 Arterial Blood Methemoglobin 0.4 Blood Gas A-a O2 Differential 127.6 H Oxyhemoglobin Percent 98.4 Blood Gas Temperature 37.0 Blood Gas Respiration Rate 18.0 Blood Gas Actual Respiration Rate 18 Blood Gas Modality VENT - AC FiO2 45.0 Blood Gas Tidal Volume 500.0 Blood Gas Low PEEP Setting 5.0 Blood Gas Notified Whom TM Blood Gas Notified Time 11/22/2018 7:50:02 AM Medications Medication Current Medications Ondansetron HCl (Zofran Inj) 4 mg Q6H PRN IV NAUSEA AND/OR VOMITING; Start 11/19/18 at 20:30 Pantoprazole (Protonix Iv) 40 mg DAILY@06 IV Last administered on 11/22/18at 06 :08; Admin Dose 40 MG; Start 11/20/18 at 06:00 Phenylephrine HCl 40 mg/Dextrose 250 ml @ 37.5 mls/hr TITRATE IV Last administered on 11/22/18 05:31; Admin Dose 60 MLS/HR; Start 11/19/18 at 20:30 Vancomycin HCl (Vanco Iv Per Pharmacy) VANCOMYCIN PER PHARMACY PER PROTOCOL XX ; Start 11/19/18 at 21:30 Vancomycin HCl 250 ml @ 125 mls/hr Q24H IVPB Last administered on 11/21/18 23:10; Admin Dose 125 MLS/HR; Start 11/20/18 at 22:00 Piperacillin Sod/ Tazobactam Sod 100 ml @ 200 mls/hr Q8 IVPB Last administered on 11/22/18 06:11; Admin Dose 200 MLS/HR; Start 11/20/18 at 06:00 Acetaminophen (Tylenol Tab) 650 mg Q6H PRN GTB MILD PAIN LEVEL 1-3 Last administered on 11/22/18 03:04; Admin Dose 650 MG; Start 11/20/18 at 06:00 Albuterol (Proventil 0.083% (Neb)) 2.5 mg Q6H RESP THERAPY PRN NEB WHEEZING AND SOB Last administered on 11/21/18 19:40; Admin Dose 2.5 MG; Start 11/20/18 at 06:00 Folic Acid (Folic Acid) 1 mg DAILY GTB Last administered on 11/22/18 08:31; Admin Dose 1 MG; Start 11/20/18 at 09:00 Levetiracetam (Keppra Liquid) 1,500 mg BID GTB Last administered on 11/22/18 08:31; Admin Dose 1,500 MG; Start 11/20/18 at 09:00 Phenobarbital (Luminal) 140 mg BID GTB Last administered on 11/21/18 20:52; Admin Dose 140 MG; Start 11/20/18 at 09:00 Lorazepam (Ativan) 1 mg Q10MIN PRN IV agitation; Start 11/20/18 at 14:30 Norepinephrine 250 ml @ 1.875 mls/ hr TITRATE IV Last administered on 11/22/18 02:36; Admin Dose 30 MLS/HR; Start 11/20/18 at 15:00 Fentanyl 100 ml @ 2.5 mls/hr TITRATE IV Last administered on 11/20/18 15:48; Admin Dose 2.5 MLS/HR; Start 11/20/18 at 16:30 Dextrose 1,000 ml @ 100 mls/hr Q10H IV Last administered on 11/22/18at 01:45; Admin Dose 100 MLS/HR; Start 11/21/18 at 06:30 Amiodarone HCl 900 mg/Dextrose 500 ml @ 0 mls/hr Q0M IV Last administered on 11/21/18at 22:26; Admin Dose 16.7 MLS/HR; Start 11/21/18 at 16:30 Vasopressin 60 unit/Dextrose 60 ml @ 0 mls/hr Q12H IV Last administered on 11/22/18at 00:55; Admin Dose 1.2 MLS/HR; Start 11/22/18 at 00:00 FRANSISCO SALCIDO Nov 22, 2018 08:59
--- NOTE | 2018-11-22 09:16 | PN ---
Date/Time of Note Date/Time of Note DATE: 11/22/18 TIME: 09:16 Objective Vitals Vital Signs Date Temp Pulse Resp B/P (MAP) Pulse Ox O2 O2 Flow FiO2 Time Delivery Rate 11/22/18 69 25 100 40 09:04 11/22/18 158/76 06:15 (103) 11/22/18 98.5 Mechanical 06:00 Ventilator 11/20/18 10.0 14:30 Intake and Output 11/21/18 11/21/18 11/22/18 1515:00 23:00 07:00 IntakeIntake Total 1528.1250 ml 1293.8450 ml 0 ml OutputOutput Total 265 ml 475 ml 700 ml BalanceBalance 1263.1250 ml 818.8450 ml -700 ml Results Result Diagram: 11/22/1851911/22/18 0520 Medications Medications Current Medications Ondansetron HCl (Zofran Inj) 4 mg Q6H PRN IV NAUSEA AND/OR VOMITING; Start 11/19/18 at 20:30 Pantoprazole (Protonix Iv) 40 mg DAILY@06 IV Last administered on 11/22/18at 06:08; Admin Dose 40 MG; Start 11/20/18 at 06:00 Phenylephrine HCl 40 mg/Dextrose 250 ml @ 37.5 mls/hr TITRATE IV Last administ ered on 11/22/18at 05:31; Admin Dose 60 MLS/HR; Start 11/19/18 at 20:30 Vancomycin HCl (Vanco Iv Per Pharmacy) VANCOMYCIN PER PHARMACY PER PROTOCOL XX ; Start 11/19/18 at 21:30 Vancomycin HCl 250 ml @ 125 mls/hr Q24H IVPB Last administered on 11/21/18at 23:10; Admin Dose 125 MLS/HR; Start 11/20/18 at 22:00 Piperacillin Sod/ Tazobactam Sod 100 ml @ 200 mls/hr Q8 IVPB Last administered on 11/22/18at 06:11; Admin Dose 200 MLS/HR; Start 11/20/18 at 06:00 Acetaminophen (Tylenol Tab) 650 mg Q6H PRN GTB MILD PAIN LEVEL 1-3 Last administered on 11/22/18at 03:04; Admin Dose 650 MG; Start 11/20/18 at 06:00 Albuterol (Proventil 0.083% (Neb)) 2.5 mg Q6H RESP THERAPY PRN NEB WHEEZING AND SOB Last administered on 11/21/18 19:40; Admin Dose 2.5 MG; Start 11/20/18 at 06:00 Folic Acid (Folic Acid) 1 mg DAILY GTB Last administered on 11/22/18 08:31; Admin Dose 1 MG; Start 11/20/18 at 09:00 Levetiracetam (Keppra Liquid) 1,500 mg BID GTB Last administered on 11/22/18 08:31; Admin Dose 1,500 MG; Start 11/20/18 at 09:00 Phenobarbital (Luminal) 140 mg BID GTB Last administered on 11/21/18 20:52; A dmin Dose 140 MG; Start 11/20/18 at 09:00 Lorazepam (Ativan) 1 mg Q10MIN PRN IV agitation; Start 11/20/18 at 14:30 Norepinephrine 250 ml @ 1.875 mls/ hr TITRATE IV Last administered on 11/22/18 02:36; Admin Dose 30 MLS/HR; Start 11/20/18 at 15:00 Fentanyl 100 ml @ 2.5 mls/hr TITRATE IV Last administered on 11/20/18 15:48; Admin Dose 2.5 MLS/HR; Start 11/20/18 at 16:30 Amiodarone HCl 900 mg/Dextrose 500 ml @ 0 mls/hr Q0M IV Last administered on 11/21/18 22:26; Admin Dose 16.7 MLS/HR; Start 11/21/18 at 16:30 Vasopressin 60 unit/Dextrose 60 ml @ 0 mls/hr Q12H IV Last administered on 10/30 00:55; Admin Dose 1.2 MLS/HR; Start 11/22/18 at 00:00 Dextrose/Sodium Chloride 1,000 ml @ 100 mls/hr Q10H IV ; Start 11/22/18 at 09:00 VTE Prophylaxis Risk score (from Nsg)>0 risk: 14 SCD applied (from Nsg): No SCD contraindication: other Lines/Catheters IV Catheter Type: Zabala in Place: Yes Cont'd zabala catheter reason: urinary retention, terminal illness/intractable pain Assessment/Plan Hospital Course Subjective Patient opens her eyes and tracks somewhat, however no other purposeful movement, apparently patient's baseline Objective Physical exam General: Patient is laying in bed, Mentation: Patient is alert but not oriented Head: Normocephalic atraumatic Eyes: EOMI, pupils reactive to light sluggish Neck: Supple, nontender, midline Respiratory: Coarse to auscultation bilaterally Cardiovascular: regular rate, no obvious murmurs Gastrointestinal: Mildly tender in the right upper quadrant, bowel sounds heard. Neurological: Unable to fully assess due to neurological status Skin: No new skin lesions Assessment/Plan Septic shock secondary to acute choledocholithiasis - Continue on pressor support with goal MAP >65 - Continue IVF and antibiotics - Lactic acid normal at presentation Elevated LFT - CT abd shows choledocholithiasis and acute cholecystitis - GI on board and appreciate recommendations. Patient not stable enough for any interventions at this time including ERCP - MRCP ordered but unable to complete at this time given unable to complete questionnaire. - continue monitoring Acute kindra - give patients condition, she may be better off with percutaneous cholecystostomy rather than lap kindra once stable, but will defer to general surgeon, Dr. Ramon Andrews consulted Hypernatremia - most likely dehydration related, resolving - started on D5W this am JUSTO - Nephrology consultation appreciated and will avoid nephrotoxic agents - IVF continued - most likely prerenal vs ATN h/o Malignant neoplasm of brain - Patient is chronically bedridden and debilitated. Tracking present this am which is her baseline Seizure disorder - Continue Keppra and phenobarbital HTN - hold home BP medications in setting of hypotension Iron deficiency anemia - no need for transfusion at this time Chronic respiratory failure - trach dependent - continue trach care - Pulmonology on board and appreciate recommendations Disposition - Continue monitoring in ICU while requiring pressor support >30 minutes of critical care time spent with patient KAYLA CELESTIN Nov 22, 2018 09:16
[2018-11-22] MEDS: DEXTROSE 5%-0.45% NACL 1,000 ML IV SCH ×2 (09:56→20:14)
[2018-11-22] MEDS ORDERED: PHENOBARBITAL (4 MG/ML) 5ML CUP GTB SCH ×2 (10:30→21:00)
--- NOTE | 2018-11-22 10:55 | CONS ---
Consult Date/Type/Reason Admit Date/Time Nov 19, 2018 at 19:01 Initial Consult Date Type of Consult Pulmonary Requesting Provider: KENNETH SANTILLAN MD Date/Time of Note DATE: 11/22/18 TIME: 10:53 Subjective Patient continues mechanical ventilation. Continues to vasopressors and amiodarone drip. Pending PICC line placement and MRCP. Objective Vital Signs Date Temp Pulse Resp B/P (MAP) Pulse Ox O2 O2 Flow FiO2 Time Delivery Rate 11/22/18 73 17 106/57 96 09:15 (73) 11/22/18 40 09:04 11/22/18 Mechanical 09:00 Ventilator 11/22/18 99.3 08:00 11/20/18 10.0 14:30 Intake and Output 11/21/18 11/21/18 11/22/18 1515:00 23:00 07:00 IntakeIntake Total 1528.1250 ml 2374.1200 ml 1921.965 ml OutputOutput Total 265 ml 475 ml 700 ml BalanceBalance 1263.1250 ml 1899.1200 ml 1221.965 ml Exam PHYSICAL EXAMINATION: GENERAL: Elderly-appearing lady, appears on mechanical ventilation. VITAL SIGNS: HEENT: Extraocular movements intact. CARDIAC: S1, S2, no added sounds or murmurs. CHEST: Diminished air entry bilaterally. ABDOMEN: Soft, nontender. No guarding or rebound. EXTREMITIES: No cyanosis, clubbing. NEUROLOGIC: Unable to assess. Vent Setting Ventilator Support Mode: AC Fraction of Inspired Oxygen pe: 40 Positive End Expiratory Pressu: 5.0 Results/Medications Result Diagram: 11/22/1851911/22/1820 Results 24 hrs Laboratory Tests Test 11/22/18 05:20 11/22/18 07:00 White Blood Count 15.2 H Red Blood Count 2.37 L Hemoglobin 8.1 L Hematocrit 25.5 L Mean Corpuscular Volume 107.6 H Mean Corpuscular Hemoglobin 34.2 H Mean Corpuscular Hemoglobin Concent 31.8 L Red Cell Distribution Width 14.1 Platelet Count 238 Mean Platelet Volume 12.1 H Immature Granulocytes % 0.500 H Neutrophils % 76.1 Lymphocytes % 10.7 L Monocytes % 6.3 Eosinophils % 6.1 Basophils % 0.3 Nucleated Red Blood Cells % 0.0 Immature Granulocytes # 0.070 H Neutrophils # 11.6 H Lymphocytes # 1.6 Monocytes # 1.0 H Eosinophils # 0.9 H Basophils # 0.1 Nucleated Red Blood Cells # 0.0 Sodium Level 135 Potassium Level 3.7 Chloride Level 107 Carbon Dioxide Level 17 L Anion Gap 11 Blood Urea Nitrogen 48 H Creatinine 1.99 H Est Glomerular Filtrat Rate mL/min 25 L Glucose Level 175 Calcium Level 7.4 L Total Bilirubin 0.7 # Direct Bilirubin 0.40 #H Indirect Bilirubin 0.3 Aspartate Amino Transf (AST/SGOT) 93 H Alanine Aminotransferase (ALT/SGPT) 165 H Alkaline Phosphatase 202 H Total Protein 5.9 L Albumin 2.6 L Globulin 3.30 H Albumin/Globulin Ratio 0.78 Random Vancomycin Level 25.3 Blood Gas Specimen Source Blood arterial Arterial Blood Date Drawn 11/22/2018 7:16:19 AM Arterial Blood pH (Temp corrected) 7.345 L Arterial Blood pCO2 (Temp correct) 29.9 L Arterial Blood pO2 (Temp corrected) 159.2 H Arterial Blood HCO3 16.0 L Arterial Blood Base Excess -8.7 L Arterial Blood Oxygen Saturation 99.1 H Moshe Test ACCEPTAB Arterial Blood Gas Puncture Site Right Radial Arterial Blood Carboxyhemoglobin 0.3 Arterial Blood Methemoglobin 0.4 Blood Gas A-a O2 Differential 127.6 H Oxyhemoglobin Percent 98.4 Blood Gas Temperature 37.0 Blood Gas Respiration Rate 18.0 Blood Gas Actual Respiration Rate 18 Blood Gas Modality VENT - AC FiO2 45.0 Blood Gas Tidal Volume 500.0 Blood Gas Low PEEP Setting 5.0 Blood Gas Notified Whom TM Blood Gas Notified Time 11/22/2018 7:50:02 AM Medications Current Medications Ondansetron HCl (Zofran Inj) 4 mg Q6H PRN IV NAUSEA AND/OR VOMITING; Start 11/19/18 at 20:30 Pantoprazole (Protonix Iv) 40 mg DAILY@06 IV Last administered on 11/22/18at 06:08; Admin Dose 40 MG; Start 11/20/18 at 06:00 Phenylephrine HCl 40 mg/Dextrose 250 ml @ 37.5 mls/hr TITRATE IV Last administered on 11/22/18at 10:26; Admin Dose 48.75 MLS/HR; Start 11/19/18 at 20:30 Vancomycin HCl (Vanco Iv Per Pharmacy) VANCOMYCIN PER PHARMACY PER PROTOCOL XX ; Start 11/19/18 at 21:30 Vancomycin HCl 250 ml @ 125 mls/hr Q24H IVPB Last administered on 11/21/18 23:10; Admin Dose 125 MLS/HR; Start 11/20/18 at 22:00 Piperacillin Sod/ Tazobactam Sod 100 ml @ 200 mls/hr Q8 IVPB Last administered on 11/22/18 06:11; Admin Dose 200 MLS/HR; Start 11/20/18 at 06:00 Acetaminophen (Tylenol Tab) 650 mg Q6H PRN GTB MILD PAIN LEVEL 1-3 Last adminis tered on 11/22/18 03:04; Admin Dose 650 MG; Start 11/20/18 at 06:00 Albuterol (Proventil 0.083% (Neb)) 2.5 mg Q6H RESP THERAPY PRN NEB WHEEZING AND SOB Last administered on 11/21/18 19:40; Admin Dose 2.5 MG; Start 11/20/18 at 06:00 Folic Acid (Folic Acid) 1 mg DAILY GTB Last administered on 11/22/18 08:31; Admin Dose 1 MG; Start 11/20/18 at 09:00 Lorazepam (Ativan) 1 mg Q10MIN PRN IV agitation; Start 11/20/18 at 14:30 Norepinephrine 250 ml @ 1.875 mls/ hr TITRATE IV Last administered on 11/22/18at 02:36; Admin Dose 30 MLS/HR; Start 11/20/18 at 15:00 Fentanyl 100 ml @ 2.5 mls/hr TITRATE IV Last administered on 11/20/18at 15:48; Admin Dose 2.5 MLS/HR; Start 11/20/18 at 16:30 Amiodarone HCl 900 mg/Dextrose 500 ml @ 0 mls/hr Q0M IV Last administered on 11/21/18 22:26; Admin Dose 16.7 MLS/HR; Start 11/21/18 at 16:30 Vasopressin 60 unit/Dextrose 60 ml @ 0 mls/hr Q12H IV Last administered on 11/22/18at 00:55; Admin Dose 1.2 MLS/HR; Start 11/22/18 at 00:00 Dextrose/Sodium Chloride 1,000 ml @ 100 mls/hr Q10H IV Last administered on 11/22/18at 09:56; Admin Dose 100 MLS/HR; Start 11/22/18 at 09:00 Levetiracetam 100 ml @ 400 mls/hr Q12 IVPB ; Start 11/22/18 at 21:00 Phenobarbital (Phenobarbital Liq (Nicu)) 140 mg BID GTB ; Start 11/22/18 at 10:30 Assessment/Plan Hospital Course (Demo Recall) IMPRESSION: 1. Acute on chronic encephalopathy, possibly secondary to acute cholecystitis. 2. Chronic respiratory failure. Placed back on mechanical ventilation for hypercapnia. 3. Questionable [employer] MANAGER lesion. 4. Dysphagia with G-tube. 5. Renal insufficiency with metabolic acidosis possible ATN injury. Persistent metabolic acidosis. PLAN: 1. Broad-spectrum antibiotics. 2. Gastrointestinal evaluation. Recommendations pending MRCP when more stable. 3. Continue IV fluids 4. Deep venous thrombosis and GI prophylaxis. 5. Continue AC mechanical ventilation Critical care time 40 minutes. MONO HOYOS MD, [facility] Nov 22, 2018 10:55
[2018-11-22] MEDS ORDERED: PHENOBARBITAL (4 MG/ML) 5ML CUP ONE (11:30)
--- NOTE | 2018-11-22 13:20 | CONS ---
DATE OF ADMISSION: 11/19/2018 DATE OF CONSULTATION: 11/22/2018 TYPE OF CONSULTATION: Infectious disease. REASON FOR CONSULTATION: Antibiotic management. HISTORY OF PRESENT ILLNESS: Delia Clement is a 68-year-old female admitted on 11/19/2018, [facility] She has a chronic tracheostomy and vent. She has ventilator dependen t respiratory failure on a trach and she was admitted with hypotension. The patient is nonverbal. H er problems include seizure disorder, hypertension, history of CA of the brain and anemia. On admiss ion, her vital signs are stable. She is chronically ill-appearing on a ventilator and her white coun t was 17.2, H and H of 9.4 and 31.2, platelet count 256,000. She was started on norepinephrine. Inf ectious source was thought to be pulmonary versus pyelonephritis. Her BUN and creatinine was 57/1.42 . HOSPITAL COURSE: A CT scan of the abdomen and pelvis was done and showed cholelithiasis with distend ed gallbladder, suspected acute cholecystitis. Dilated common bile duct to the level of the ampulla. Differential diagnosis includes choledocholithiasis, distal duct sludge in the distal duct strictur e dilated common bile duct to the level of the ampulla, atelectasis, posterior inferior lower lobes, percutaneous gastrostomy tube tip and balloon in the gastric lumen. Gas distended sigmoid colon, mi ld dilated [id number] small loops of bowel. The patient was seen by Dr. Bartholomew. She has neopl asm of the brain, chronically bedridden and debilitated: The patient presenting with history of hype rtension, jaundice, hyperbilirubinemia and elevated liver function tests; AST 207, ALT 426, alkaline phosphatase 362. It is quite possible that we are dealing with choledocholithiasis based on the fact that the CT scan shows evidence of cholelithiasis and distended gallbladder, dilated common bile mikey t with possible stricture or stone in the distal bile duct near the ampulla. recommend stabilizing the patient once her blood pressure is up, we can do an ERCP according to Dr. Bartholomew. Currently, her white count is 15.2. BUN and creatinine 48/1.9. The patient is on vancomycin and Zosyn. She has a Jaime catheter in place for urinary retention. PHYSICAL EXAMINATION: GENERAL: She is lying in bed in no acute distress. SKIN: Without generalized rash. HEENT: Within normal limits. NECK: Supple. LYMPH NODES: None palpable. CHEST: Decreased breath sounds at the bases. HEART: Without murmur or gallop. ABDOMEN: Mildly tender in the right upper quadrant. Bowel sounds heard. G-tube in place. EXTREMITIES: Without cyanosis, clubbing, or edema. RECTAL AND GENITAL: Deferred. NEUROLOGIC: No focal neurological abnormalities. IMPRESSION AND PLAN: The patient has septic shock secondary to acute choledocholithiasis. She is on pressor support. An MRCP was ordered but unable to complete because she is unstable. We will emmanuel nue her on vancomycin and Zosyn. She may need a cholecystostomy drain before we end up doing the ERC P, since it is more benign. I will dictate my findings to the hospitalist, Dr. Bartholomew and the arleen hunter on the case. Dictated By: NATHAN MITCHELL MD, JD/LOUIS Conf#: [id number] DID#: [id number] CC: KENNETH SANTILLAN MD;*EndCC*
--- NOTE | 2018-11-22 14:23 | CONS ---
DATE OF ADMISSION: 11/19/2018 DATE OF CONSULTATION: The patient at this time is still intubated. She was admitted with septic shock with hyperbilirubine shirley. She is still on multiple vasopressors. On physical exam, she is extremely lethargic. Sometimes she responds and some combining questions we re asked. Her pulse has gone up to 200 at one time because of the atrial fibrillation and fast RVR. Her lungs are clear. Blood pressure in the range of 110/70 with triple medications including Ernie-Syn ephrine and Levophed and also she is on amiodarone drip now for the fast ventricular response. [place] of the abdomen unremarkable. She is still icteric. LABORATORY WORKUP: WBC count 15,300, hemoglobin 8.4, potassium 3.1, AST 210, ALT 275, alkaline phosp hatase 293. The patient presenting with history of septic shock. She has got severe cholangitis, probably due to choledocholithiasis as noted on the CAT scan of the abdomen. She is very hypotensive and also in respiratory failure, status post trach. PLAN: Continue present medications and wait for cardiology recommendations. She needs a cardiac farshad arance for ERCP. Dictated By: FRANKLIN JAMESON MD NC/NTS Conf#: [id number] DID#: [id number] CC: KENNETH SANTILLAN MD;*EndCC*
[2018-11-22] MEDS: AMIODARONE 900 MG in DEXTROSE 5% 482 ML IV SCH (15:29)
--- NOTE | 2018-11-22 15:30 | CONS ---
Assessment/Plan Assessment/Plan Hospital Course 68 F c/ reported Hx of malignant brain neoplasm NOS c/b epilepsy..and other comorbidities, who presents for management of hypotension and GI abnl. Neurology is consulted for epilepsy medication management. P: Phb outpatient dose clarification when able Phb 65mg iv bid for now; check baseline level today and again in a few day Agree w/ Keppra 1500mg iv q12hr while npo/vt Ativan iv prn prolonged seizure of cluster Other management per primary Will follow Consultation Date/Type/Reason Admit Date/Time Nov 19, 2018 at 19:01 Type of Consult Neurology Reason for Consultation epilepsy management Requesting Provider: KENNETH SANTILLAN MD Date/Time of Note DATE: 11/22/18 TIME: 15:30 Hx of Present Illness The following history was obtained from the ED physician documentation as well as from the chart as patient is not able to provide history given her clinical condition. This is a 68-year-old female with a history of malignant neoplasm of the brain, anemia seizures and hypertension who is bedbound chronic trach dependent G-tube dependent female was brought in from [facility] for low blood pressures. Patient was noted to have low blood pressures and presented to the ER. Recent lab work that was performed as an outpatient was significant for a white blood cell count of 15.01 hemoglobin of 10.5 hematocrit of 34.3 a sodium of 149 and potassium of 5.1 creatinine 0.87 as well as AST of 273 ALT of 437 and an alk phos of 302 and a total bilirubin of 4.8. Patient was noted to be hypotensive in the ED and a central line was placed and vasopressors were sta rted. CT scan of the abdomen pelvis was ordered which showed Dilated common bile duct to the level of the ampulla. Differential diagnosis includes choledocholithiasis, distal duct sludge and distal duct stricture. Dr. Bartholomew of GI was consulted. Patient was subsequently brought to the ICU secondary to hypotension requiring pressor support. Patient apparently at baseline does track with her eyes, which she was doing less of as well today. Allergies: NKDA Medications: See MAR Subjective hx not possible: pt non-verbal, pt critical Exam/Review of Systems Exam Vitals Vital Signs Date Temp Pulse Resp B/P (MAP) Pulse Ox O2 O2 Flow FiO2 Time Delivery Rate 11/22/18 83 22 97 30 15:01 11/22/18 126/63 12:30 (84) 11/22/18 100.0 [place] 12:00 l Ventilato r 11/20/18 10.0 14:30 Intake and Output 11/21/18 11/21/18 11/22/18 1515:00 23:00 07:00 IntakeIntake Total 1528.1250 ml 2374.1200 ml 1921.965 ml OutputOutput Total 265 ml 475 ml 700 ml BalanceBalance 1263.1250 ml 1899.1200 ml 1221.965 ml Results Result Diagram: 11/22/1820 11/22/18519 Results 24hrs Laboratory Tests Test 11/22/18 05:20 11/22/18 07:00 White Blood Count 15.2 H Red Blood Count 2.37 L Hemoglobin 8.1 L Hematocrit 25.5 L Mean Corpuscular Volume 107.6 H Mean Corpuscular Hemoglobin 34.2 H Mean Corpuscular Hemoglobin Concent 31.8 L Red Cell Distribution Width 14.1 Platelet Count 238 Mean Platelet Volume 12.1 H Immature Granulocytes % 0.500 H Neutrophils % 76.1 Lymphocytes % 10.7 L Monocytes % 6.3 Eosinophils % 6.1 Basophils % 0.3 Nucleated Red Blood Cells % 0.0 Immature Granulocytes # 0.070 H Neutrophils # 11.6 H Lymphocytes # 1.6 Monocytes # 1.0 H Eosinophils # 0.9 H Basophils # 0.1 Nucleated Red Blood Cells # 0.0 Sodium Level 135 Potassium Level 3.7 Chloride Level 107 Carbon Dioxide Level 17 L Anion Gap 11 Blood Urea Nitrogen 48 H Creatinine 1.99 H Est Glomerular Filtrat Rate mL/min 25 L Glucose Level 175 Calcium Level 7.4 L Total Bilirubin 0.7 # Direct Bilirubin 0.40 #H Indirect Bilirubin 0.3 Aspartate Amino Transf (AST/SGOT) 93 H Alanine Aminotransferase (ALT/SGPT) 165 H Alkaline Phosphatase 202 H Total Protein 5.9 L Albumin 2.6 L Globulin 3.30 H Albumin/Globulin Ratio 0.78 Amylase Level 136 H Lipase 246 Random Vancomycin Level 25.3 Blood Gas Specimen Source Blood arterial Arterial Blood Date Drawn 11/22/2018 7:16:19 AM Arterial Blood pH (Temp corrected) 7.345 L Arterial Blood pCO2 (Temp correct) 29.9 L Arterial Blood pO2 (Temp corrected) 159.2 H Arterial Blood HCO3 16.0 L Arterial Blood Base Excess -8.7 L Arterial Blood Oxygen Saturation 99.1 H Moshe Test ACCEPTAB Arterial Blood Gas Puncture Site Right Radial Arterial Blood Carboxyhemoglobin 0.3 Arterial Blood Methemoglobin 0.4 Blood Gas A-a O2 Differential 127.6 H Oxyhemoglobin Percent 98.4 Blood Gas Temperature 37.0 Blood Gas Respiration Rate 18.0 Blood Gas Actual Respiration Rate 18 Blood Gas Modality VENT - AC FiO2 45.0 Blood Gas Tidal Volume 500.0 Blood Gas Low PEEP Setting 5.0 Blood Gas Notified Whom TM Blood Gas Notified Time 11/22/2018 7:50:02 AM Medications Medication Current Medications Ondansetron HCl (Zofran Inj) 4 mg Q6H PRN IV NAUSEA AND/OR VOMITING; Start 11/19/18 at 20:30 Pantoprazole (Protonix Iv) 40 mg DAILY@06 IV Last administered on 11/22/18 06:08; Admin Dose 40 MG; Start 11/20/18 at 06:00 Phenylephrine HCl 40 mg/Dextrose 250 ml @ 37.5 mls/hr TITRATE IV Last administered on 11/22/18 10:26; Admin Dose 48.75 MLS/HR; Start 11/19/18 at 20:30 Vancomycin HCl (Vanco Iv Per Pharmacy) VANCOMYCIN PER PHARMACY PER PROTOCOL XX ; Start 11/19/18 at 21:30 Vancomycin HCl 250 ml @ 125 mls/hr Q24H IVPB Last administered on 11/21/18 23:10; Admin Dose 125 MLS/HR; Start 11/20/18 at 22:00 Piperacillin Sod/ Tazobactam Sod 100 ml @ 200 mls/hr Q8 IVPB Last administered on 11/22/18 14:14; Admin Dose 200 MLS/HR; Start 11/20/18 at 06:00 Acetaminophen (Tylenol Tab) 650 mg Q6H PRN GTB MILD PAIN LEVEL 1-3 Last administered on 11/22/18 03:04; Admin Dose 650 MG; Start 11/20/18 at 06:00 Albuterol (Proventil 0.083% (Neb)) 2.5 mg Q6H RESP THERAPY PRN NEB WHEEZING AND SOB Last administered on 11/21/18 19:40; Admin Dose 2.5 MG; Start 11/20/18 at 06:00 Folic Acid (Folic Acid) 1 mg DAILY GTB Last administered on 11/22/18at 08:31; Admin Dose 1 MG; Start 11/20/18 at 09:00 Lorazepam (Ativan) 1 mg Q10MIN PRN IV agitation; Start 11/20/18 at 14:30 Norepinephrine 250 ml @ 1.875 mls/ hr TITRATE IV Last administered on 9at 14:35; Admin Dose 18.75 MLS/HR; Start 11/20/18 at 15:00 Fentanyl 100 ml @ 2.5 mls/hr TITRATE IV Last administered on 11/20/18at 15:48; Admin Dose 2.5 MLS/HR; Start 11/20/18 at 16:30 Amiodarone HCl 900 mg/Dextrose 500 ml @ 0 mls/hr Q0M IV Last administered on 11/21/18at 22:26; Admin Dose 16.7 MLS/HR; Start 11/21/18 at 16:30 Vasopressin 60 unit/Dextrose 60 ml @ 0 mls/hr Q12H IV Last administered on 11/22/18at 00:55; Admin Dose 1.2 MLS/HR; Start 11/22/18 at 00:00 Dextrose/Sodium Chloride 1,000 ml @ 100 mls/hr Q10H IV Last administered on 11/22/18at 09:56; Admin Dose 100 MLS/HR; Start 11/22/18 at 09:00 Levetiracetam 100 ml @ 400 mls/hr Q12 IVPB ; Start 11/22/18 at 21:00 Phenobarbital (Luminal) 140 mg BID GTB ; Start 11/22/18 at 21:00 Past Medical History reviewed Home Meds Reported Medications Ranitidine Hcl* (Ranitidine Hcl*) 150 Mg Tablet, 150 MG GTB Q12, #60 TAB 11/19/18 Cholecalciferol* (Vitamin D*) 400 Unit Tablet, 400 UNIT GTB DAILY, TAB 11/19/18 Amino Acids/Protein Hydrolys (Pro-Stat 64 Liquid) 887 Ml Liquid, 30 ML GTB BID 11/19/18 Albuterol Sulfate* (Albuterol Sulfate* Neb) 0.083%-3 Ml Neb, 2.5 MG NEB Q6 PRN for WHEEZING AND SOB, #30 VIAL 11/19/18 Levetiracetam* (Keppra* (Ped)) 100 Mg/Ml Liq, 1500 MG GTB BID for 30 Days, BOTTLE 11/19/18 Sennosides* (Senna Lax*) 8.6 Mg Tablet, 1 TAB GTB DAILY, TAB 11/19/18 Labetalol Hcl* (Labetalol Hcl*) 200 Mg Tablet, 200 MG GTB BID PRN for ELEVATED BLOOD PRESSURE, TAB 11/19/18 Folic Acid* (Folic Acid*) 1 Mg Tablet, 1 MG GTB DAILY, TAB 11/19/18 Phenobarbital* (Phenobarbital* Liq) 20 Mg/5 Ml Elix, 5 MG GTB BID for 30 Days, BOTTLE 11/19/18 Lisinopril* (Lisinopril*) 10 Mg Tablet, 10 MG GTB DAILY, #30 TAB 11/19/18 Ferrous Sulfate (Ferrous Sulfate) 300 Mg/5 Ml Liquid, 300 MG GTB BID 11/19/18 Clonidine Hcl* (Clonidine Hcl*) 0.1 Mg Tab, 0.1 MG GTB Q6 PRN for ELEVATED BLOOD PRESSURE, TAB 11/19/18 Calcium Carbonate* (Calcium Carbonate*) 600 MG Ca Tab, 1200 MG GTB DAILY, TAB 11/19/18 Aspirin* (Aspirin* Chew) 81 Mg Tab.chew, 81 MG GTB DAILY, TAB.CHEW 11/19/18 Acetaminophen* (Acetaminophen*) 650 Mg Tablet, 650 MG GTB Q6H PRN for MILD PAIN LEVEL 1-3, #30 TAB 11/19/18 Ascorbic Acid* (Vitamin C*) 500 Mg Capsule.sa, 500 MG GTB DAILY, CAP 11/19/18 Medications Current Medications Ondansetron HCl (Zofran Inj) 4 mg Q6H PRN IV NAUSEA AND/OR VOMITING; Start 11/19/18 at 20:30 Pantoprazole (Protonix Iv) 40 mg DAILY@06 IV Last administered on 11/22/18at 06:08; Admin Dose 40 MG; Start 11/20/18 at 06:00 Phenylephrine HCl 40 mg/Dextrose 250 ml @ 37.5 mls/hr TITRATE IV Last administered on 11/22/18at 10:26; Admin Dose 48.75 MLS/HR; Start 11/19/18 at 20:30 Vancomycin HCl (Vanco Iv Per Pharmacy) VANCOMYCIN PER PHARMACY PER PROTOCOL XX ; Start 11/19/18 at 21:30 Vancomycin HCl 250 ml @ 125 mls/hr Q24H IVPB Last administered on 11/21/18 23:10; Admin Dose 125 MLS/HR; Start 11/20/18 at 22:00 Piperacillin Sod/ Tazobactam Sod 100 ml @ 200 mls/hr Q8 IVPB Last administered on 11/22/18 14:14; Admin Dose 200 MLS/HR; Start 11/20/18 at 06:00 Acetaminophen (Tylenol Tab) 650 mg Q6H PRN GTB MILD PAIN LEVEL 1-3 Last administered on 11/22/18 03:04; Admin Dose 650 MG; Start 11/20/18 at 06:00 Albuterol (Proventil 0.083% (Neb)) 2.5 mg Q6H RESP THERAPY PRN NEB WHEEZING AND SOB Last administered on 11/21/18 19:40; Admin Dose 2.5 MG; Start 11/20/18 at 06:00 Folic Acid (Folic Acid) 1 mg DAILY GTB Last administered on 11/22/18 08:31; A dmin Dose 1 MG; Start 11/20/18 at 09:00 Lorazepam (Ativan) 1 mg Q10MIN PRN IV agitation; Start 11/20/18 at 14:30 Norepinephrine 250 ml @ 1.875 mls/ hr TITRATE IV Last administered on 11/22/18 14:35; Admin Dose 18.75 MLS/HR; Start 11/20/18 at 15:00 Fentanyl 100 ml @ 2.5 mls/hr TITRATE IV Last administered on 11/20/18 15:48; Admin Dose 2.5 MLS/HR; Start 11/20/18 at 16:30 Amiodarone HCl 900 mg/Dextrose 500 ml @ 0 mls/hr Q0M IV Last administered on 11/21/18 22:26; Admin Dose 16.7 MLS/HR; Start 11/21/18 at 16:30 Vasopressin 60 unit/Dextrose 60 ml @ 0 mls/hr Q12H IV Last administered on 00:55; Admin Dose 1.2 MLS/HR; Start 11/22/18 at 00:00 Dextrose/Sodium Chloride 1,000 ml @ 100 mls/hr Q10H IV Last administered on 11/22/18at 09:56; Admin Dose 100 MLS/HR; Start 11/22/18 at 09:00 Levetiracetam 100 ml @ 400 mls/hr Q12 IVPB ; Start 11/22/18 at 21:00 Phenobarbital (Luminal) 140 mg BID GTB ; Start 11/22/18 at 21:00 Allergies: Coded Allergies: No Known Allergy (Unverified , 11/19/18) Past Surgical History reviewed Social History reviewed Smoking Status: Unknown if ever smoked HIPOLITO GLOVER NP Nov 22, 2018 15:30 RACHEL ESTEBAN Nov 22, 2018 16:15
[2018-11-22] MEDS ORDERED: AMIODARONE 150MG/D5W BOLUS 100 ML IV ONE (17:30)
--- NOTE | 2018-11-22 19:53 | CONS ---
Assessment/Plan Assessment/Plan Assessment/Plan 68 yo Female with 1) Chronic resp failure S/p Trach 2) Sepsis 2nd PNA 3) Hypernatremia- Resolved 4) oliguria improved, Cr stable 5) Rapid Afib, currently on treatment 6) Hypotension Septic Shock, requiring IV pressors 7) AG acidosis in the setting of JUSTO- Compensated Cont current Rx and plan Now off Levophed Cont to monitor UO, Electrolytes, Acid base status and renal function Pt in non oliguric NO acute indication for HD at this time time Keep MAPS>65mmHG Avoid Nephrotoxic Rx Renal Dose Rx to eGFR <30 at this time. Thank you for the opportunity to participate in the care of Ms Pritesh SOLORIO time spent >15 min. Consultation Date/Type/Reason Admit Date/Time Nov 19, 2018 at 19:01 Type of Consult Nephrology Date/Time of Note DATE: 11/22/18 TIME: 19:48 Hx of Present Illness Rapid Afib Amio Bolus UO 50-150 cc UO On Levo and Ernie Subjective hx not possible: pt critical status Constitutional: requiring O2 Exam/Review of Systems Vital Signs Vitals Vital Signs Date Temp Pulse Resp B/P (MAP) Pulse Ox O2 O2 Flow FiO2 Time Delivery Rate 11/22/18 170 24 108/97 95 18:45 (101) 11/22/18 Mechanical 18:00 Ventilator 11/22/18 30 17:05 11/22/18 99.9 16:00 11/20/18 10.0 14:30 Intake and Output 11/21/18 11/21/18 11/22/18 1414:59 22:59 06:59 IntakeIntake Total 1383.8250 ml 2374.6700 ml 1973.465 ml OutputOutput Total 250 ml 520 ml 700 ml BalanceBalance 1133.8250 ml 1854.6700 ml 1273.465 ml Exam Eyes: EOMI ENMT: mucosa pink and moist, other (Trach) Respiratory: crackles/rales, other (Vent); No diminished breath sounds Cardiovascular: edema, irregular rhythm Gastrointestinal: soft, other (PEG); No non-tender, No rebound or guarding Extremities: edema Neurological: unresponsive Skin: nl turgor; No diaphoresis Labs Result Diagram: 11/22/18 0520 11/22/18 0520 Results 24hrs Laboratory Tests Test 2/25/19 05:20 11/22/18 07:00 White Blood Count 15.2 H Red Blood Count 2.37 L Hemoglobin 8.1 L Hematocrit 25.5 L Mean Corpuscular Volume 107.6 H Mean Corpuscular Hemoglobin 34.2 H Mean Corpuscular Hemoglobin Concent 31.8 L Red Cell Distribution Width 14.1 Platelet Count 238 Mean Platelet Volume 12.1 H Immature Granulocytes % 0.500 H Neutrophils % 76.1 Lymphocytes % 10.7 L Monocytes % 6.3 Eosinophils % 6.1 Basophils % 0.3 Nucleated Red Blood Cells % 0.0 Immature Granulocytes # 0.070 H Neutrophils # 11.6 H Lymphocytes # 1.6 Monocytes # 1.0 H Eosinophils # 0.9 H Basophils # 0.1 Nucleated Red Blood Cells # 0.0 Sodium Level 135 Potassium Level 3.7 Chloride Level 107 Carbon Dioxide Level 17 L Anion Gap 11 Blood Urea Nitrogen 48 H Creatinine 1.99 H Est Glomerular Filtrat Rate mL/min 25 L Glucose Level 175 Calcium Level 7.4 L Total Bilirubin 0.7 # Direct Bilirubin 0.40 #H Indirect Bilirubin 0.3 Aspartate Amino Transf (AST/SGOT) 93 H Alanine Aminotransferase (ALT/SGPT) 165 H Alkaline Phosphatase 202 H Total Protein 5.9 L Albumin 2.6 L Globulin 3.30 H Albumin/Globulin Ratio 0.78 Amylase Level 136 H Lipase 246 Random Vancomycin Level 25.3 Blood Gas Specimen Source Blood arterial Arterial Blood Date Drawn 11/22/2018 7:16:19 AM Arterial Blood pH (Temp corrected) 7.345 L Arterial Blood pCO2 (Temp correct) 29.9 L Arterial Blood pO2 (Temp corrected) 159.2 H Arterial Blood HCO3 16.0 L Arterial Blood Base Excess -8.7 L Arterial Blood Oxygen Saturation 99.1 H Moshe Test ACCEPTAB Arterial Blood Gas Puncture Site Right Radial Arterial Blood Carboxyhemoglobin 0.3 Arterial Blood Methemoglobin 0.4 Blood Gas A-a O2 Differential 127.6 H Oxyhemoglobin Percent 98.4 Blood Gas Temperature 37.0 Blood Gas Respiration Rate 18.0 Blood Gas Actual Respiration Rate 18 Blood Gas Modality VENT - AC FiO2 45.0 Blood Gas Tidal Volume 500.0 Blood Gas Low PEEP Setting 5.0 Blood Gas Notified Whom TM Blood Gas Notified Time 11/22/2018 7:50:02 AM Imaging Imaging IMPRESSION: 1. No significant change since the prior exam. 2. Low lung volumes with crowding of the lung markings and bibasilar atelectasis. Small pleural effusion/infiltrate not completely excluded. 3. Mild cardiomegaly and atherosclerotic calcification of the aorta. Pacemaker / electrode generator overlying the left lower chest noted again without leads. 4. Tracheostomy tube intact. Medications Medications Current Medications Ondansetron HCl (Zofran Inj) 4 mg Q6H PRN IV NAUSEA AND/OR VOMITING; Start 11/19/18 at 20:30 Pantoprazole (Protonix Iv) 40 mg DAILY@06 IV Last administered on 11/22/18 06:08; Admin Dose 40 MG; Start 11/20/18 at 06:00 Phenylephrine HCl 40 mg/Dextrose 250 ml @ 37.5 mls/hr TITRATE IV Last administered on 11/22/18 10:26; Admin Dose 48.75 MLS/HR; Start 11/19/18 at 20:30 Vancomycin HCl (Vanco Iv Per Pharmacy) VANCOMYCIN PER PHARMACY PER PROTOCOL XX ; Start 11/19/18 at 21:30 Vancomycin HCl 250 ml @ 125 mls/hr Q24H IVPB Last administered on 11/21/18 23:10; Admin Dose 125 MLS/HR; Start 11/20/18 at 22:00 Piperacillin Sod/ Tazobactam Sod 100 ml @ 200 mls/hr Q8 IVPB Last administered on 11/22/18 14:14; Admin Dose 200 MLS/HR; Start 11/20/18 at 06:00 Acetaminophen (Tylenol Tab) 650 mg Q6H PRN GTB MILD PAIN LEVEL 1-3 Last administered on 11/22/18 03:04; Admin Dose 650 MG; Start 11/20/18 at 06:00 Albuterol (Proventil 0.083% (Neb)) 2.5 mg Q6H RESP THERAPY PRN NEB WHEEZING AND SOB Last administered on 11/21/18 19:40; Admin Dose 2.5 MG; Start 11/20/18 at 06:00 Folic Acid (Folic Acid) 1 mg DAILY GTB Last administered on 11/22/18 08:31; Admin Dose 1 MG; Start 11/20/18 at 09:00 Lorazepam (Ativan) 1 mg Q10MIN PRN IV agitation; Start 11/20/18 at 14:30 Norepinephrine 250 ml @ 1.875 mls/ hr TITRATE IV Last administered on 11/22/18at 14:35; Admin Dose 18.75 MLS/HR; Start 11/20/18 at 15:00 Fentanyl 100 ml @ 2.5 mls/hr TITRATE IV Last administered on 11/20/18at 15:48; Admin Dose 2.5 MLS/HR; Start 11/20/18 at 16:30 Amiodarone HCl 900 mg/Dextrose 500 ml @ 0 mls/hr Q0M IV Last administered on 11/22/18at 15:29; Admin Dose 16.7 MLS/HR; Start 11/21/18 at 16:30 Vasopressin 60 unit/Dextrose 60 ml @ 0 mls/hr Q12H IV Last administered on 11/22/18at 00:55; Admin Dose 1.2 MLS/HR; Start 11/22/18 at 00:00 Dextrose/Sodium Chloride 1,000 ml @ 100 mls/hr Q10H IV Last administered on 11/22/18at 09:56; Admin Dose 100 MLS/HR; Start 11/22/18 at 09:00 Phenobarbital (Luminal) 65 mg BID IV ; Start 11/22/18 at 21:00 Levetiracetam 100 ml @ 400 mls/hr Q12 IVPB ; Start 11/22/18 at 21:00 ALTAF WALLIS MD Nov 22, 2018 19:53
[2018-11-22] MEDS: LEVETIRACETAM 500 MG (PMX) 100 ML IVPB SCH (20:14)
[2018-11-22] MEDS: PHENOBARBITAL 65 MG INJ IV SCH (20:15)
[2018-11-22] MEDS ORDERED: LEVETIRACETAM 1500 MG (PMX) 100 ML IVPB SCH (21:00)
[2018-11-23] VITALS (105 sets, daily range): BP systolic 70–166; BP diastolic 31–103; PULSE 59–79; RESP 16–30
[2018-11-23] MEDS: PHENYLephrine 40 MG in DEXTROSE 5% 246 ML IV SCH ×4 (01:55→19:59)
[2018-11-23] MEDS: DEXTROSE 5%-0.45% NACL 1,000 ML IV SCH (05:23)
[2018-11-23] MEDS: PIPER-TAZO 3.375 GM IV (PMX) 100 ML IVPB SCH (05:38)
[2018-11-23] MEDS: PANTOPRAZOLE 40 MG INJ IV SCH (05:39)
[2018-11-23] MEDS ORDERED: POTASSIUM CHLORIDE 20 MEQ POWDER FOR ORAL SOLN PO ONE (08:30)
--- NOTE | 2018-11-23 08:34 | CONS ---
Assessment/Plan Assessment/Plan Hospital Course (Demo Recall) Paroxysmal atrial fibrillation: No known prior diagnosis. Will consider chronic anticoagulation pending clinic course and need for procedures but also has anemia. Now back in sinus after amiodarone. Septic shock: increasing pressor requirements this am Anemia: no active bleeding but hgb 7 Acute on chronic diastolic CHF: due to third spacing from low albumin/IVF Choledocholithiasis with acute cholecystitis: LFTs/bili improving. Currently conservative management Acute renal failure VDRF/tracheostomy h/o brain tumor Seizure disorder Bedridden -currently the pt is not optimized for surgery and would be high risk. Her hemodynamics are not stable and her pressor requirements are increasing. She has anemia which should be corrected to hgb >8 for surgery. She also has anasarca from low albumin and IVF -once hemodynamics stable, decrease IVF or stop -start amiodarone 400mg BID -continue amiodarone per protocol to complete 24 hrs -wean phenylephrine to keep MAP >65 -antibiotics -GI follow up >40 min critical care time Consultation Date/Type/Reason Admit Date/Time Nov 19, 2018 at 19:01 Initial Consult Date 11/22/18 Type of Consult Cardiology Requesting Provider: KENNETH SANTILLAN MD Date/Time of Note DATE: 11/23/18 TIME: 08:28 24 HR Interval Summary Free Text/Dictation Had short episodes of afib with RVR. Amio rebolused. Then had bradycardia and amio discontinued. This am Hgb 7 but no active bleeding. BP low and pressors being uptitrated. LFTs continue to improve. Exam/Review of Systems Exam Vitals Vital Signs Date Temp Pulse Resp B/P (MAP) Pulse Ox O2 O2 Flow FiO2 Time Delivery Rate 11/23/18 66 21 103/42 95 06:45 (62) 11/23/18 Mechanical 06:00 Ventilator 11/23/18 30 05:56 11/23/18 97.6 04:00 11/20/18 10.0 14:30 Intake and Output 11/22/18 11/22/18 11/23/18 1515:00 23:00 07:00 IntakeIntake Total 1490.475 ml 1523.600 ml 1460.6 ml OutputOutput Total 675 ml 360 ml 555 ml BalanceBalance 815.475 ml 1163.600 ml 905.6 ml Constitutional: No alert Head: normocephalic ENMT: other (s/p trach) Respiratory: No clear to auscultation Cardiovascular: regular rate and rhythm, edema (2+); No systolic murmur Gastrointestinal: soft, distended Neurological: No nl mental status, No nl speech Results Result Diagram: 11/23/18 0430 11/23/18 0430 Results 24hrs Laboratory Tests Test 11/22/18 16:28 11/22/18 21:00 11/23/18 04:30 11/23/18 07:00 Phenobarbital 29.9 Level Vancomycin Level 21.5 *H Trough White Blood Count 10.5 # Red Blood Count 2.10 L Hemoglobin 7.0 L Hematocrit 22.5 L Mean Corpuscular 107.1 H Volume Mean Corpuscular 33.3 H Hemoglobin Mean Corpuscular 31.1 L Hemoglobin Concen t Red Cell 13.7 Distribution Width Platelet Count 217 Mean Platelet 12.0 H Volume Immature 0.600 H Granulocytes % Neutrophils % 72.9 Lymphocytes % 13.3 L Monocytes % 6.6 Eosinophils % 6.3 Basophils % 0.3 Nucleated Red 0.0 Blood Cells % Immature 0.060 H Granulocytes # Neutrophils # 7.6 H Lymphocytes # 1.4 Monocytes # 0.7 Eosinophils # 0.7 H Basophils # 0.0 Nucleated Red 0.0 Blood Cells # Sodium Level 131 L Potassium Level 3.1 L Chloride Level 101 Carbon Dioxide 16 L Level Anion Gap 14 H Blood Urea 40 H Nitrogen Creatinine 2.18 H Est Glomerular 22 L Filtrat Rate mL/min Glucose Level 113 # Calcium Level 7.2 L Magnesium Level 2.1 Total Bilirubin 0.1 L Direct Bilirubin 0.00 # Indirect 0.1 Bilirubin Aspartate Amino 47 H Transf (AST/SGOT) Alanine 115 H Aminotransferase (ALT/SGPT) Alkaline 168 H Phosphatase Total Protein 5.5 L Albumin 2.4 L Globulin 3.10 Albumin/Globulin 0.77 Ratio Blood Gas Blood arterial Specimen Source Arterial Blood 11/23/2018 7:07:5 Date Drawn 3 AM Arterial Blood pH 7.412 (Temp corrected) Arterial Blood 24.9 L pCO2 (Temp correct) Arterial Blood 112.3 H pO2 (Temp corrected) Arterial Blood 15.5 L HCO3 Arterial Blood -8.1 L Base Excess Arterial Blood 98.4 H Oxygen Saturation Moshe Test ACCEPTAB Arterial Blood Right Radial Gas Puncture Site Arterial 0.2 Blood Carboxyhemo globin Arterial Blood 0.2 Methemoglobin Blood Gas A-a O2 72.3 H Differential Oxyhemoglobin 98.0 Percent Blood Gas 37.0 Temperature Blood Gas 18.0 Respiration Rate Blood Gas Actual 24 Respiration Rate Blood Gas VENT - AC Modality FiO2 30.0 Blood Gas Tidal 500.0 Volume Blood Gas Low 5.0 PEEP Setting Blood Gas TM Notified Whom Blood Gas 11/23/2018 7:49:3 Notified Time 6 AM Medications Medication Current Medications Ondansetron HCl (Zofran Inj) 4 mg Q6H PRN IV NAUSEA AND/OR VOMITING; Start 11/19/18 at 20:30 Pantoprazole (Protonix Iv) 40 mg DAILY@06 IV Last administered on 11/23/18 05:39; Admin Dose 40 MG; Start 11/20/18 at 06:00 Phenylephrine HCl 40 mg/Dextrose 250 ml @ 37.5 mls/hr TITRATE IV Last administered on 11/23/18 08:25; Admin Dose 52.5 MLS/HR; Start 11/19/18 at 20:30 Vancomycin HCl (Vanco Iv Per Pharmacy) VANCOMYCIN PER PHARMACY PER PROTOCOL XX ; Start 11/19/18 at 21:30 Piperacillin Sod/ Tazobactam Sod 100 ml @ 200 mls/hr Q8 IVPB Last administered on 11/23/18 05:38; Admin Dose 200 MLS/HR; Start 11/20/18 at 06:00 Acetaminophen (Tylenol Tab) 650 mg Q6H PRN GTB MILD PAIN LEVEL 1-3 Last administered on 11/22/18 03:04; Admin Dose 650 MG; Start 11/20/18 at 06:00 Albuterol (Proventil 0.083% (Neb)) 2.5 mg Q6H RESP THERAPY PRN NEB WHEEZING AND SOB Last administered on 11/21/18 19:40; Admin Dose 2.5 MG; Start 11/20/18 at 06:00 Folic Acid (Folic Acid) 1 mg DAILY GTB Last administered on 11/22/18 08:31; Ad min Dose 1 MG; Start 11/20/18 at 09:00 Lorazepam (Ativan) 1 mg Q10MIN PRN IV agitation Last administered on 11/22/18 20:15; Admin Dose 1 MG; Start 11/20/18 at 14:30 Norepinephrine 250 ml @ 1.875 mls/ hr TITRATE IV Last administered on 11/22/18at 14:35; Admin Dose 18.75 MLS/HR; Start 11/20/18 at 15:00 Fentanyl 100 ml @ 2.5 mls/hr TITRATE IV Last administered on 11/20/18at 15:48; Admin Dose 2.5 MLS/HR; Start 11/20/18 at 16:30 Amiodarone HCl 900 mg/Dextrose 500 ml @ 0 mls/hr Q0M IV Last administered on 11/22/18 15:29; Admin Dose 16.7 MLS/HR; Start 11/21/18 at 16:30 Vasopressin 60 unit/Dextrose 60 ml @ 0 mls/hr Q12H IV Last administered on 11/22/18 00:55; Admin Dose 1.2 MLS/HR; Start 11/22/18 at 00:00 Dextrose/Sodium Chloride 1,000 ml @ 100 mls/hr Q10H IV Last administered on 11/23/18at 05:23; Admin Dose 100 MLS/HR; Start 11/22/18 at 09:00 Phenobarbital (Luminal) 65 mg BID IV Last administered on 11/22/18 20:15; Admin Dose 65 MG; Start 11/22/18 at 21:00 Levetiracetam 100 ml @ 400 mls/hr Q12 IVPB Last administered on 11/22/18 20:14; Admin Dose 400 MLS/HR; Start 11/22/18 at 21:00 Vancomycin HCl 250 ml @ 125 mls/hr Q36H IVPB ; Start 11/23/18 at 10:00 Potassium Chloride (Potassium Chloride Pwd/Soln) 40 meq ONCE ONCE PO ; Start 11/23/18 at 08:30; Stop 11/23/18 at 08:31 FRANSISCO SALCIDO Nov 23, 2018 08:34
--- NOTE | 2018-11-23 08:43 | CONS ---
Assessment/Plan Assessment/Plan Assessment/Plan (Daily) Acute respiratory distress Sepsis syndrome aggressive treatment has been done with IV antibiotics and pressers as needed, patient is trachd Acute cholecystitis workup in progress depending upon goals of care, this is the address patients conservative At this time I would suggest bioethics consultation at least to get started on scheduling a meeting while social work service is in the process of trying to contact patients conservative. In the meantime I agree that interventions that are lifesaving should be done with two physicians documentation. Consultation Date/Type/Reason Admit Date/Time Nov 19, 2018 at 19:01 Date/Time of Note DATE: 11/23/18 TIME: 08:36 Hx of Present Illness Brief note on this 68-year-old female admitted to [facility] in septic shock. Patient is status post tracheostomy and G-tube placement. She is a non-historian. She is on presser's at this time, encephalopathic, elevated liver functions test, septic, acute kidney injury, fluid and electrolyte abnormalities. Patient is conserved case management have been aggressively trying to contact patients conservator to establish ongoing level of care. Patient also needs to have interventions including thoracentesis and work up for acute cholecystitis as well as placement of IV line. I've had a brief discussion with patients critical care nurse and Dr. Landeros and initially patient will be referred to bioethics while case management is in the process of contacting patients conservator. Past Medical History Home Meds Reported Medications Ranitidine Hcl* (Ranitidine Hcl*) 150 Mg Tablet, 150 MG GTB Q12, #60 TAB 11/19/18 Cholecalciferol* (Vitamin D*) 400 Unit Tablet, 400 UNIT GTB DAILY, TAB 11/19/18 Amino Acids/Protein Hydrolys (Pro-Stat 64 Liquid) 887 Ml Liquid, 30 ML GTB BID 11/19/18 Albuterol Sulfate* (Albuterol Sulfate* Neb) 0.083%-3 Ml Neb, 2.5 MG NEB Q6 PRN for WHEEZING AND SOB, #30 VIAL 11/19/18 Levetiracetam* (Keppra* (Ped)) 100 Mg/Ml Liq, 1500 MG GTB BID for 30 Days, BOTTLE 11/19/18 Sennosides* (Senna Lax*) 8.6 Mg Tablet, 1 TAB GTB DAILY, TAB 11/19/18 Labetalol Hcl* (Labetalol Hcl*) 200 Mg Tablet, 200 MG GTB BID PRN for ELEVATED BLOOD PRESSURE, TAB 11/19/18 Folic Acid* (Folic Acid*) 1 Mg Tablet, 1 MG GTB DAILY, TAB 11/19/18 Phenobarbital* (Phenobarbital* Liq) 20 Mg/5 Ml Elix, 5 MG GTB BID for 30 Days, B OTTLE 11/19/18 Lisinopril* (Lisinopril*) 10 Mg Tablet, 10 MG GTB DAILY, #30 TAB 11/19/18 Ferrous Sulfate (Ferrous Sulfate) 300 Mg/5 Ml Liquid, 300 MG GTB BID 11/19/18 Clonidine Hcl* (Clonidine Hcl*) 0.1 Mg Tab, 0.1 MG GTB Q6 PRN for ELEVATED BLOOD PRESSURE, TAB 11/19/18 Calcium Carbonate* (Calcium Carbonate*) 600 MG Ca Tab, 1200 MG GTB DAILY, TAB 11/19/18 Aspirin* (Aspirin* Chew) 81 Mg Tab.chew, 81 MG GTB DAILY, TAB.CHEW 11/19/18 Acetaminophen* (Acetaminophen*) 650 Mg Tablet, 650 MG GTB Q6H PRN for MILD PAIN LEVEL 1-3, #30 TAB 11/19/18 Ascorbic Acid* (Vitamin C*) 500 Mg Capsule.sa, 500 MG GTB DAILY, CAP 11/19/18 Medications Current Medications Ondansetron HCl (Zofran Inj) 4 mg Q6H PRN IV NAUSEA AND/OR VOMITING; Start 11/19/18 at 20:30 Pantoprazole (Protonix Iv) 40 mg DAILY@06 IV Last administered on 11/23/18at 05:39; Admin Dose 40 MG; Start 11/20/18 at 06:00 Phenylephrine HCl 40 mg/Dextrose 250 ml @ 37.5 mls/hr TITRATE IV Last administered on 11/23/18at 08:25; Admin Dose 52.5 MLS/HR; Start 11/19/18 at 20:30 Vancomycin HCl (Vanco Iv Per Pharmacy) VANCOMYCIN PER PHARMACY PER PROTOCOL XX ; Start 11/19/18 at 21:30 Piperacillin Sod/ Tazobactam Sod 100 ml @ 200 mls/hr Q8 IVPB Last administered on 11/23/18at 05:38; Admin Dose 200 MLS/HR; Start 11/20/18 at 06:00 Acetaminophen (Tylenol Tab) 650 mg Q6H PRN GTB MILD PAIN LEVEL 1-3 Last administered on 11/22/18 03:04; Admin Dose 650 MG; Start 11/20/18 at 06:00 Albuterol (Proventil 0.083% (Neb)) 2.5 mg Q6H RESP THERAPY PRN NEB WHEEZING AND SOB Last administered on 11/21/18 19:40; Admin Dose 2.5 MG; Start 11/20/18 at 06:00 Folic Acid (Folic Acid) 1 mg DAILY GTB Last administered on 11/22/18 08:31; Admin Dose 1 MG; Start 11/20/18 at 09:00 Lorazepam (Ativan) 1 mg Q10MIN PRN IV agitation Last administered on 11/22/18 20:15; Admin Dose 1 MG; Start 11/20/18 at 14:30 Norepinephrine 250 ml @ 1.875 mls/ hr TITRATE IV Last administered on 11/22/18 14:35; Admin Dose 18.75 MLS/HR; Start 11/20/18 at 15:00 Fentanyl 100 ml @ 2.5 mls/hr TITRATE IV Last administered on 11/20/18 15:48; Admin Dose 2.5 MLS/HR; Start 11/20/18 at 16:30 Amiodarone HCl 900 mg/Dextrose 500 ml @ 0 mls/hr Q0M IV Last administered on 11/22/18 15:29; Admin Dose 16.7 MLS/HR; Start 11/21/18 at 16:30 Vasopressin 60 unit/Dextrose 60 ml @ 0 mls/hr Q12H IV Last administered on 11/22/18 00:55; Admin Dose 1.2 MLS/HR; Start 11/22/18 at 00:00 Dextrose/Sodium Chloride 1,000 ml @ 100 mls/hr Q10H IV Last administered on 11/23/18 05:23; Admin Dose 100 MLS/HR; Start 11/22/18 at 09:00 Phenobarbital (Luminal) 65 mg BID IV Last administered on 11/22/18 20:15; Admi n Dose 65 MG; Start 11/22/18 at 21:00 Levetiracetam 100 ml @ 400 mls/hr Q12 IVPB Last administered on 11/22/18at 20:14; Admin Dose 400 MLS/HR; Start 11/22/18 at 21:00 Vancomycin HCl 250 ml @ 125 mls/hr Q36H IVPB ; Start 11/23/18 at 10:00 Amiodarone HCl (Cordarone) 400 mg BID PO ; Start 11/23/18 at 09:00 Allergies: Coded Allergies: No Known Allergy (Unverified , 11/19/18) Social History Smoking Status: Unknown if ever smoked Exam/Review of Systems Exam Vitals Vital Signs Date Temp Pulse Resp B/P (MAP) Pulse Ox O2 O2 Flow FiO2 Time Delivery Rate 11/23/18 66 21 103/42 95 06:45 (62) 11/23/18 Mechanical 06:00 Ventilator 11/23/18 30 05:56 11/23/18 97.6 04:00 11/20/18 10.0 14:30 Intake and Output 11/22/18 11/22/18 11/23/18 1515:00 23:00 07:00 IntakeIntake Total 1490.475 ml 1523.600 ml 1460.6 ml OutputOutput Total 675 ml 360 ml 555 ml BalanceBalance 815.475 ml 1163.600 ml 905.6 ml Constitutional: non-verbal, distress, obese Eyes: nl conjunctiva, EOMI, nl lids, nl sclera, PERRL Respiratory: congested cough, crackles/rales Cardiovascular: regular rate and rhythm, nl pulses Results Result Diagram: 11/23/1842911/23/18 0430 Results 24hrs Laboratory Tests Test 11/22/18 16:28 11/22/18 21:00 11/23/18 04:30 11/23/18 07:00 Phenobarbital 29.9 Level Vancomycin Level 21.5 *H Trough White Blood Count 10.5 # Red Blood Count 2.10 L Hemoglobin 7.0 L Hematocrit 22.5 L Mean Corpuscular 107.1 H Volume Mean Corpuscular 33.3 H Hemoglobin Mean Corpuscular 31.1 L Hemoglobin Concen t Red Cell 13.7 Distribution Width Platelet Count 217 Mean Platelet 12.0 H Volume Immature 0.600 H Granulocytes % Neutrophils % 72.9 Lymphocytes % 13.3 L Monocytes % 6.6 Eosinophils % 6.3 Basophils % 0.3 Nucleated Red 0.0 Blood Cells % Immature 0.060 H Granulocytes # Neutrophils # 7.6 H Lymphocytes # 1.4 Monocytes # 0.7 Eosinophils # 0.7 H Basophils # 0.0 Nucleated Red 0.0 Blood Cells # Sodium Level 131 L Potassium Level 3.1 L Chloride Level 101 Carbon Dioxide 16 L Level Anion Gap 14 H Blood Urea 40 H Nitrogen Creatinine 2.18 H Est Glomerular 22 L Filtrat Rate mL/min Glucose Level 113 # Calcium Level 7.2 L Magnesium Level 2.1 Total Bilirubin 0.1 L Direct Bilirubin 0.00 # Indirect 0.1 Bilirubin Aspartate Amino 47 H Transf (AST/SGOT) Alanine 115 H Aminotransferase (ALT/SGPT) Alkaline 168 H Phosphatase Total Protein 5.5 L Albumin 2.4 L Globulin 3.10 Albumin/Globulin 0.77 Ratio Blood Gas Blood arterial Specimen Source Arterial Blood 11/23/2018 7:07:5 Date Drawn 3 AM Arterial Blood pH 7.412 (Temp corrected) Arterial Blood 24.9 L pCO2 (Temp correct) Arterial Blood 112.3 H pO2 (Temp corrected) Arterial Blood 15.5 L HCO3 Arterial Blood -8.1 L Base Excess Arterial Blood 98.4 H Oxygen Saturation Moshe Test ACCEPTAB Arterial Blood Right Radial Gas Puncture Site Arterial 0.2 Blood Carboxyhemo globin Arterial Blood 0.2 Methemoglobin Blood Gas A-a O2 72.3 H Differential Oxyhemoglobin 98.0 Percent Blood Gas 37.0 Temperature Blood Gas 18.0 Respiration Rate Blood Gas Actual 24 Respiration Rate Blood Gas VENT - AC Modality FiO2 30.0 Blood Gas Tidal 500.0 Volume Blood Gas Low 5.0 PEEP Setting Blood Gas TM Notified Whom Blood Gas 11/23/2018 7:49:3 Notified Time 6 AM Medications Medication Current Medications Ondansetron HCl (Zofran Inj) 4 mg Q6H PRN IV NAUSEA AND/OR VOMITING; Start 11/19/18 at 20:30 Pantoprazole (Protonix Iv) 40 mg DAILY@06 IV Last administered on 11/23/18at 05:39; Admin Dose 40 MG; Start 11/20/18 at 06:00 Phenylephrine HCl 40 mg/Dextrose 250 ml @ 37.5 mls/hr TITRATE IV Last administered on 11/23/18at 08:25; Admin Dose 52.5 MLS/HR; Start 11/19/18 at 20:30 Vancomycin HCl (Vanco Iv Per Pharmacy) VANCOMYCIN PER PHARMACY PER PROTOCOL XX ; Start 11/19/18 at 21:30 Piperacillin Sod/ Tazobactam Sod 100 ml @ 200 mls/hr Q8 IVPB Last administered on 11/23/18 05:38; Admin Dose 200 MLS/HR; Start 11/20/18 at 06:00 Acetaminophen (Tylenol Tab) 650 mg Q6H PRN GTB MILD PAIN LEVEL 1-3 Last administered on 11/22/18 03:04; Admin Dose 650 MG; Start 11/20/18 at 06:00 Albuterol (Proventil 0.083% (Neb)) 2.5 mg Q6H RESP THERAPY PRN NEB WHEEZING AND SOB Last administered on 11/21/18 19:40; Admin Dose 2.5 MG; Start 11/20/18 at 06:00 Folic Acid (Folic Acid) 1 mg DAILY GTB Last administered on 11/22/18 08:31; Admin Dose 1 MG; Start 11/20/18 at 09:00 Lorazepam (Ativan) 1 mg Q10MIN PRN IV agitation Last administered on 11/22/18 20:15; Admin Dose 1 MG; Start 11/20/18 at 14:30 Norepinephrine 250 ml @ 1.875 mls/ hr TITRATE IV Last administered on 11/22/18 14:35; Admin Dose 18.75 MLS/HR; Start 11/20/18 at 15:00 Fentanyl 100 ml @ 2.5 mls/hr TITRATE IV Last administered on 11/20/18 15:48; Admin Dose 2.5 MLS/HR; Start 11/20/18 at 16:30 Amiodarone HCl 900 mg/Dextrose 500 ml @ 0 mls/hr Q0M IV Last administered on 11/22/18 15:29; Admin Dose 16.7 MLS/HR; Start 11/21/18 at 16:30 Vasopressin 60 unit/Dextrose 60 ml @ 0 mls/hr Q12H IV Last administered on 11/22/18 00:55; Admin Dose 1.2 MLS/HR; Start 11/22/18 at 00:00 Dextrose/Sodium Chloride 1,000 ml @ 100 mls/hr Q10H IV Last administered on 2/26/19at 05:23; Admin Dose 100 MLS/HR; Start 11/22/18 at 09:00 Phenobarbital (Luminal) 65 mg BID IV Last administered on 11/22/18at 20:15; Admin Dose 65 MG; Start 11/22/18 at 21:00 Levetiracetam 100 ml @ 400 mls/hr Q12 IVPB Last administered on 11/22/18at 20:14; Admin Dose 400 MLS/HR; Start 11/22/18 at 21:00 Vancomycin HCl 250 ml @ 125 mls/hr Q36H IVPB ; Start 11/23/18 at 10:00 Amiodarone HCl (Cordarone) 400 mg BID PO ; Start 11/23/18 at 09:00 HERBERT ANN Nov 23, 2018 08:43
--- NOTE | 2018-11-23 08:44 | CONS ---
Assessment/Plan Assessment/Plan Assessment/Plan (Daily) 1) Chronic resp failure S/p Trach 2) Sepsis 2nd PNA 3) Hypernatremia- Resolved 4) oliguria improved, Cr stable 5) Rapid Afib, currently on treatment 6) Hypotension Septic Shock, requiring IV pressors 7) AG acidosis in the setting of JUSTO- Compensated Plan: Now off Levophed, plan is to titrate off neosynephrine today BUN/Cr went upto 40/2.18,K 3.3, Na 121- K has been replaced for today, D/c Current IVF< will start D51/2 NS with KCl 20meQ at 80 cc/hr NO acute indication for HD at this time time Hb 7.0, monitor it prn transfusin, will order iron panel with AM labs Keep MAPS>65mmHG Avoid Nephrotoxic Rx will follow up Consultation Date/Type/Reason Admit Date/Time Nov 19, 2018 at 19:01 Initial Consult Date 11/22/18 Requesting Provider: KENNETH SANTILLAN MD Date/Time of Note DATE: 11/23/18 TIME: 08:42 Exam/Review of Systems Exam Vitals Vital Signs Date Temp Pulse Resp B/P (MAP) Pulse Ox O2 O2 Flow FiO2 Time Delivery Rate 11/23/18 66 21 103/42 95 06:45 (62) 11/23/18 Mechanical 06:00 Ventilator 11/23/18 30 05:56 11/23/18 97.6 04:00 11/20/18 10.0 14:30 Intake and Output 11/22/18 11/22/18 11/23/18 1515:00 23:00 07:00 IntakeIntake Total 1490.475 ml 1523.600 ml 1460.6 ml OutputOutput Total 675 ml 360 ml 555 ml BalanceBalance 815.475 ml 1163.600 ml 905.6 ml Exam Eyes: EOMI ENMT: mucosa pink and moist, other (Trach) Respiratory: crackles/rales, other (Vent); No diminished breath sounds Cardiovascular: edema, irregular rhythm Gastrointestinal: soft, other (PEG); No non-tender, No rebound or guarding Extremities: edema Neurological: unresponsive Skin: nl turgor; No diaphoresis Results Result Diagram: 11/23/180 11/23/18 0430 Results 24hrs Laboratory Tests Test 11/22/18 16:28 11/22/18 21:00 11/23/18 04:30 11/23/18 07:00 Phenobarbital 29.9 Level Vancomycin Level 21.5 *H Trough White Blood Count 10.5 # Red Blood Count 2.10 L Hemoglobin 7.0 L Hematocrit 22.5 L Mean Corpuscular 107.1 H Volume Mean Corpuscular 33.3 H Hemoglobin Mean Corpuscular 31.1 L Hemoglobin Concen t Red Cell 13.7 Distribution Width Platelet Count 217 Mean Platelet 12.0 H Volume Immature 0.600 H Granulocytes % Neutrophils % 72.9 Lymphocytes % 13.3 L Monocytes % 6.6 Eosinophils % 6.3 Basophils % 0.3 Nucleated Red 0.0 Blood Cells % Immature 0.060 H Granulocytes # Neutrophils # 7.6 H Lymphocytes # 1.4 Monocytes # 0.7 Eosinophils # 0.7 H Basophils # 0.0 Nucleated Red 0.0 Blood Cells # Sodium Level 131 L Potassium Level 3.1 L Chloride Level 101 Carbon Dioxide 16 L Level Anion Gap 14 H Blood Urea 40 H Nitrogen Creatinine 2.18 H Est Glomerular 22 L Filtrat Rate mL/min Glucose Level 113 # Calcium Level 7.2 L Magnesium Level 2.1 Total Bilirubin 0.1 L Direct Bilirubin 0.00 # Indirect 0.1 Bilirubin Aspartate Amino 47 H Transf (AST/SGOT) Alanine 115 H Aminotransferase (ALT/SGPT) Alkaline 168 H Phosphatase Total Protein 5.5 L Albumin 2.4 L Globulin 3.10 Albumin/Globulin 0.77 Ratio Blood Gas Blood arterial Specimen Source Arterial Blood 11/23/2018 7:07:5 Date Drawn 3 AM Arterial Blood pH 7.412 (Temp corrected) Arterial Blood 24.9 L pCO2 (Temp correct) Arterial Blood 112.3 H pO2 (Temp corrected) Arterial Blood 15.5 L HCO3 Arterial Blood -8.1 L Base Excess Arterial Blood 98.4 H Oxygen Saturation Moshe Test ACCEPTAB Arterial Blood Right Radial Gas Puncture Site Arterial 0.2 Blood Carboxyhemo globin Arterial Blood 0.2 Methemoglobin Blood Gas A-a O2 72.3 H Differential Oxyhemoglobin 98.0 Percent Blood Gas 37.0 Temperature Blood Gas 18.0 Respiration Rate Blood Gas Actual 24 Respiration Rate Blood Gas VENT - AC Modality FiO2 30.0 Blood Gas Tidal 500.0 Volume Blood Gas Low 5.0 PEEP Setting Blood Gas TM Notified Whom Blood Gas 11/23/2018 7:49:3 Notified Time 6 AM Medications Medication Current Medications Ondansetron HCl (Zofran Inj) 4 mg Q6H PRN IV NAUSEA AND/OR VOMITING; Start 11/19/18 at 20:30 Pantoprazole (Protonix Iv) 40 mg DAILY@06 IV Last administered on 11/23/18 05:39; Admin Dose 40 MG; Start 11/20/18 at 06:00 Phenylephrine HCl 40 mg/Dextrose 250 ml @ 37.5 mls/hr TITRATE IV Last administered on 11/23/18 08:25; Admin Dose 52.5 MLS/HR; Start 11/19/18 at 20:30 Vancomycin HCl (Vanco Iv Per Pharmacy) VANCOMYCIN PER PHARMACY PER PROTOCOL XX ; Start 11/19/18 at 21:30 Piperacillin Sod/ Tazobactam Sod 100 ml @ 200 mls/hr Q8 IVPB Last administered on 11/23/18 05:38; Admin Dose 200 MLS/HR; Start 11/20/18 at 06:00 Acetaminophen (Tylenol Tab) 650 mg Q6H PRN GTB MILD PAIN LEVEL 1-3 Last administered on 11/22/18 03:04; Admin Dose 650 MG; Start 11/20/18 at 06:00 Albuterol (Proventil 0.083% (Neb)) 2.5 mg Q6H RESP THERAPY PRN NEB WHEEZING AND SOB Last administered on 11/21/18 19:40; Admin Dose 2.5 MG; Start 11/20/18 at 06:00 Folic Acid (Folic Acid) 1 mg DAILY GTB Last administered on 11/22/18 08:31; Admin Dose 1 MG; Start 11/20/18 at 09:00 Lorazepam (Ativan) 1 mg Q10MIN PRN IV agitation Last administered on 11/22/18 20:15; Admin Dose 1 MG; Start 11/20/18 at 14:30 Norepinephrine 250 ml @ 1.875 mls/ hr TITRATE IV Last administered on 11/22/18 14:35; Admin Dose 18.75 MLS/HR; Start 11/20/18 at 15:00 Fentanyl 100 ml @ 2.5 mls/hr TITRATE IV Last administered on 11/20/18 15:48; Admin Dose 2.5 MLS/HR; Start 11/20/18 at 16:30 Amiodarone HCl 900 mg/Dextrose 500 ml @ 0 mls/hr Q0M IV Last administered on 11/22/18at 15:29; Admin Dose 16.7 MLS/HR; Start 11/21/18 at 16:30 Vasopressin 60 unit/Dextrose 60 ml @ 0 mls/hr Q12H IV Last administered on 11/22/18at 00:55; Admin Dose 1.2 MLS/HR; Start 11/22/18 at 00:00 Dextrose/Sodium Chloride 1,000 ml @ 100 mls/hr Q10H IV Last administered on 11/23/18at 05:23; Admin Dose 100 MLS/HR; Start 11/22/18 at 09:00 Phenobarbital (Luminal) 65 mg BID IV Last administered on 11/22/18at 20:15; Admin Dose 65 MG; Start 11/22/18 at 21:00 Levetiracetam 100 ml @ 400 mls/hr Q12 IVPB Last administered on 11/22/18at 20:14; Admin Dose 400 MLS/HR; Start 11/22/18 at 21:00 Vancomycin HCl 250 ml @ 125 mls/hr Q36H IVPB ; Start 11/23/18 at 10:00 Amiodarone HCl (Cordarone) 400 mg BID PO ; Start 11/23/18 at 09:00 DEANNA CARRERA MD Nov 23, 2018 08:44
[2018-11-23] MEDS: FOLIC ACID 1 MG TAB GTB SCH (09:14)
[2018-11-23] MEDS: AMIODARONE 200 MG TAB PO SCH ×2 (09:14→20:58)
[2018-11-23] MEDS: PHENOBARBITAL 65 MG INJ IV SCH ×2 (09:14→20:57)
[2018-11-23] MEDS: LEVETIRACETAM 500 MG (PMX) 100 ML IVPB SCH ×2 (09:15→20:57)
[2018-11-23] MEDS: D5W-0.45 NACL + KCL 20 MEQ 1,000 ML IV SCH ×2 (09:15→22:05)
--- NOTE | 2018-11-23 09:54 | CONS ---
Consult Date/Type/Reason Admit Date/Time Nov 19, 2018 at 19:01 Initial Consult Date Type of Consult Pulmonary Requesting Provider: KENNETH SANTILLAN MD Date/Time of Note DATE: 11/23/18 TIME: 09:52 Subjective Patient remains somnolent on mechanical ventilation via tracheostomy. Still on vasopressor support although decreased doses. Now on p.o. amiodarone. Objective Vital Signs Date Temp Pulse Resp B/P (MAP) Pulse Ox O2 O2 Flow FiO2 Time Delivery Rate 11/23/18 69 20 99/54 (69) 97 08:30 11/23/18 99.2 Mechanical 08:00 Ventilator 11/23/18 30 05:56 11/20/18 10.0 14:30 Intake and Output 11/22/18 11/22/18 11/23/18 1515:00 23:00 07:00 IntakeIntake Total 1490.475 ml 1523.600 ml 1460.6 ml OutputOutput Total 675 ml 360 ml 615 ml BalanceBalance 815.475 ml 1163.600 ml 845.6 ml Exam PHYSICAL EXAMINATION: GENERAL: Elderly-appearing lady, appears on mechanical ventilation. VITAL SIGNS: HEENT: Extraocular movements intact. CARDIAC: S1, S2, no added sounds or murmurs. CHEST: Diminished air entry bilaterally. ABDOMEN: Soft, nontender. No guarding or rebound. EXTREMITIES: No cyanosis, clubbing. NEUROLOGIC: Unable to assess. Vent Setting Ventilator Support Mode: AC Fraction of Inspired Oxygen pe: 30 Positive End Expiratory Pressu: 5.0 Results/Medications Result Diagram: 11/23/18 0430 11/23/18 0430 Results 24 hrs Laboratory Tests Test 11/22/18 16:28 11/22/18 21:00 11/23/18 04:30 11/23/18 07:00 Phenobarbital 29.9 Level Vancomycin Level 21.5 *H Trough White Blood Count 10.5 # Red Blood Count 2.10 L Hemoglobin 7.0 L Hematocrit 22.5 L Mean Corpuscular 107.1 H Volume Mean Corpuscular 33.3 H Hemoglobin Mean Corpuscular 31.1 L Hemoglobin Concen t Red Cell 13.7 Distribution Width Platelet Count 217 Mean Platelet 12.0 H Volume Immature 0.600 H Granulocytes % Neutrophils % 72.9 Lymphocytes % 13.3 L Monocytes % 6.6 Eosinophils % 6.3 Basophils % 0.3 Nucleated Red 0.0 Blood Cells % Immature 0.060 H Granulocytes # Neutrophils # 7.6 H Lymphocytes # 1.4 Monocytes # 0.7 Eosinophils # 0.7 H Basophils # 0.0 Nucleated Red 0.0 Blood Cells # Sodium Level 131 L Potassium Level 3.1 L Chloride Level 101 Carbon Dioxide 16 L Level Anion Gap 14 H Blood Urea 40 H Nitrogen Creatinine 2.18 H Est Glomerular 22 L Filtrat Rate mL/min Glucose Level 113 # Calcium Level 7.2 L Magnesium Level 2.1 Total Bilirubin 0.1 L Direct Bilirubin 0.00 # Indirect 0.1 Bilirubin Aspartate Amino 47 H Transf (AST/SGOT) Alanine 115 H Aminotransferase (ALT/SGPT) Alkaline 168 H Phosphatase Total Protein 5.5 L Albumin 2.4 L Globulin 3.10 Albumin/Globulin 0.77 Ratio Blood Gas Blood arterial Specimen Source Arterial Blood 11/23/2018 7:07:5 Date Drawn 3 AM Arterial Blood pH 7.412 (Temp corrected) Arterial Blood 24.9 L pCO2 (Temp correct) Arterial Blood 112.3 H pO2 (Temp corrected) Arterial Blood 15.5 L HCO3 Arterial Blood -8.1 L Base Excess Arterial Blood 98.4 H Oxygen Saturation Moshe Test ACCEPTAB Arterial Blood Right Radial Gas Puncture Site Arterial 0.2 Blood Carboxyhemo globin Arterial Blood 0.2 Methemoglobin Blood Gas A-a O2 72.3 H Differential Oxyhemoglobin 98.0 Percent Blood Gas 37.0 Temperature Blood Gas 18.0 Respiration Rate Blood Gas Actual 24 Respiration Rate Blood Gas VENT - AC Modality FiO2 30.0 Blood Gas Tidal 500.0 Volume Blood Gas Low 5.0 PEEP Setting Blood Gas TM Notified Whom Blood Gas 11/23/2018 7:49:3 Notified Time 6 AM Medications Current Medications Ondansetron HCl (Zofran Inj) 4 mg Q6H PRN IV NAUSEA AND/OR VOMITING; Start 11/19/18 at 20:30 Pantoprazole (Protonix Iv) 40 mg DAILY@06 IV Last administered on 11/23/18at 05:39; Admin Dose 40 MG; Start 11/20/18 at 06:00 Phenylephrine HCl 40 mg/Dextrose 250 ml @ 37.5 mls/hr TITRATE IV Last administered on 11/23/18at 08:25; Admin Dose 52.5 MLS/HR; Start 11/19/18 at 20:30 Vancomycin HCl (Vanco Iv Per Pharmacy) VANCOMYCIN PER PHARMACY PER PROTOCOL XX ; Start 11/19/18 at 21:30 Piperacillin Sod/ Tazobactam Sod 100 ml @ 200 mls/hr Q8 IVPB Last administered on 11/23/18 05:38; Admin Dose 200 MLS/HR; Start 11/20/18 at 06:00 Acetaminophen (Tylenol Tab) 650 mg Q6H PRN GTB MILD PAIN LEVEL 1-3 Last ad ministered on 11/22/18 03:04; Admin Dose 650 MG; Start 11/20/18 at 06:00 Albuterol (Proventil 0.083% (Neb)) 2.5 mg Q6H RESP THERAPY PRN NEB WHEEZING AND SOB Last administered on 11/21/18 19:40; Admin Dose 2.5 MG; Start 11/20/18 at 06:00 Folic Acid (Folic Acid) 1 mg DAILY GTB Last administered on 11/23/18 09:14; Admin Dose 1 MG; Start 11/20/18 at 09:00 Lorazepam (Ativan) 1 mg Q10MIN PRN IV agitation Last administered on 11/22/18 20:15; Admin Dose 1 MG; Start 11/20/18 at 14:30 Norepinephrine 250 ml @ 1.875 mls/ hr TITRATE IV Last administered on 11/22/18 14:35; Admin Dose 18.75 MLS/HR; Start 11/20/18 at 15:00 Fentanyl 100 ml @ 2.5 mls/hr TITRATE IV Last administered on 11/20/18 15:48; Admin Dose 2.5 MLS/HR; Start 11/20/18 at 16:30 Amiodarone HCl 900 mg/Dextrose 500 ml @ 0 mls/hr Q0M IV Last administered on 11/22/18 15:29; Admin Dose 16.7 MLS/HR; Start 11/21/18 at 16:30 Vasopressin 60 unit/Dextrose 60 ml @ 0 mls/hr Q12H IV Last administered on 11/22/18 00:55; Admin Dose 1.2 MLS/HR; Start 11/22/18 at 00:00 Phenobarbital (Luminal) 65 mg BID IV Last administered on 11/23/18 09:14; Admin Dose 65 MG; Start 11/22/18 at 21:00 Levetiracetam 100 ml @ 400 mls/hr Q12 IVPB Last administered on 11/23/18 09:15; Admin Dose 400 MLS/HR; Start 11/22/18 at 21:00 Vancomycin HCl 250 ml @ 125 mls/hr Q36H IVPB ; Start 11/23/18 at 10:00 Amiodarone HCl (Cordarone) 400 mg BID PO Last administered on 11/23/18 09:14; Admin Dose 400 MG; Start 11/23/18 at 09:00 Potassium Chloride/Dextrose/ Sod Cl 1,000 ml @ 80 mls/hr [id number] IV Last administered on 11/23/18 09:15; Admin Dose 80 MLS/HR; Start 11/23/18 at 09:00 Assessment/Plan Hospital Course (Demo Recall) IMPRESSION: 1. Septic shock secondary to acute cholecystitis 2. Chronic respiratory failure. Placed back on mechanical ventilation for hypercapnia. 3. GI bleed? Drop in hemoglobin noted 4. Dysphagia with G-tube. 5. Renal insufficiency with metabolic acidosis possible ATN injury. Persistent metabolic acidosis. PLAN: 1. Broad-spectrum antibiotics. 2. Gastrointestinal evaluation. Recommendations pending MRCP when more stable. May need EGD also 3. Continue IV fluids decrease vasopressors as tolerated 4. Deep venous thrombosis and GI prophylaxis. 5. Continue AC mechanical ventilation 6. Renal recommendations and evaluation for renal insufficiency and persistent metabolic acidosis. Critical care time 40 minutes. MONO HOYOS MD, [facility] Nov 23, 2018 09:54
[2018-11-23] MEDS ORDERED: VANCOMYCIN 1 GM 250 ML IVPB SCH (10:00)
--- NOTE | 2018-11-23 10:18 | PN ---
Date/Time of Note Date/Time of Note DATE: 11/23/18 TIME: 10:16 Objective Vitals Vital Signs Date Temp Pulse Resp B/P (MAP) Pulse Ox O2 O2 Flow FiO2 Time Delivery Rate 11/23/18 69 20 99/54 (69) 97 08:30 11/23/18 99.2 Mechanical 08:00 Ventilator 11/23/18 30 05:56 11/20/18 10.0 14:30 Intake and Output 11/22/18 11/22/18 11/23/18 1515:00 23:00 07:00 IntakeIntake Total 1490.475 ml 1523.600 ml 1460.6 ml OutputOutput Total 675 ml 360 ml 615 ml BalanceBalance 815.475 ml 1163.600 ml 845.6 ml Results Result Diagram: 11/23/1842911/23/18429 Medications Medications Current Medications Ondansetron HCl (Zofran Inj) 4 mg Q6H PRN IV NAUSEA AND/OR VOMITING; Start 11/19/18 at 20:30 Pantoprazole (Protonix Iv) 40 mg DAILY@06 IV Last administered on 11/23/18at 05:39; Admin Dose 40 MG; Start 11/20/18 at 06:00 Phenylephrine HCl 40 mg/Dextrose 250 ml @ 37.5 mls/hr TITRATE IV Last administered on 11/23/18at 08:25; Admin Dose 52.5 MLS/HR; Start 11/19/18 at 20:30 Vancomycin HCl (Vanco Iv Per Pharmacy) VANCOMYCIN PER PHARMACY PER PROTOCOL XX ; Start 11/19/18 at 21:30 Piperacillin Sod/ Tazobactam Sod 100 ml @ 200 mls/hr Q8 IVPB Last administered on 11/23/18at 05:38; Admin Dose 200 MLS/HR; Start 11/20/18 at 06:00 Acetaminophen (Tylenol Tab) 650 mg Q6H PRN GTB MILD PAIN LEVEL 1-3 Last ad ministered on 11/22/18at 03:04; Admin Dose 650 MG; Start 11/20/18 at 06:00 Albuterol (Proventil 0.083% (Neb)) 2.5 mg Q6H RESP THERAPY PRN NEB WHEEZING AND SOB Last administered on 11/21/18at 19:40; Admin Dose 2.5 MG; Start 11/20/18 at 06:00 Folic Acid (Folic Acid) 1 mg DAILY GTB Last administered on 11/23/18 09:14; Admin Dose 1 MG; Start 11/20/18 at 09:00 Lorazepam (Ativan) 1 mg Q10MIN PRN IV agitation Last administered on 11/22/18 20:15; Admin Dose 1 MG; Start 11/20/18 at 14:30 Norepinephrine 250 ml @ 1.875 mls/ hr TITRATE IV Last administered on 11/22/18 14:35; Admin Dose 18.75 MLS/HR; Start 11/20/18 at 15:00 Fentanyl 100 ml @ 2.5 mls/hr TITRATE IV Last administered on 11/20/18 15:48; Admin Dose 2.5 MLS/HR; Start 11/20/18 at 16:30 Amiodarone HCl 900 mg/Dextrose 500 ml @ 0 mls/hr Q0M IV Last administered on 11/22/18 15:29; Admin Dose 16.7 MLS/HR; Start 11/21/18 at 16:30 Vasopressin 60 unit/Dextrose 60 ml @ 0 mls/hr Q12H IV Last administered on 11/22/18 00:55; Admin Dose 1.2 MLS/HR; Start 11/22/18 at 00:00 Phenobarbital (Luminal) 65 mg BID IV Last administered on 11/23/18 09:14; Admin Dose 65 MG; Start 11/22/18 at 21:00 Levetiracetam 100 ml @ 400 mls/hr Q12 IVPB Last administered on 11/23/18 09:15; Admin Dose 400 MLS/HR; Start 11/22/18 at 21:00 Vancomycin HCl 250 ml @ 125 mls/hr Q36H IVPB ; Start 11/23/18 at 10:00 Amiodarone HCl (Cordarone) 400 mg BID PO Last administered on 11/23/18 09:14; Admin Dose 400 MG; Start 11/23/18 at 09:00 Potassium Chloride/Dextrose/ Sod Cl 1,000 ml @ 80 mls/hr [id number] IV Last administered on 11/23/18 09:15; Admin Dose 80 MLS/HR; Start 11/23/18 at 09:00 VTE Prophylaxis Risk score (from Nsg)>0 risk: 14 SCD applied (from [facility]): Yes Lines/Catheters IV Catheter Type: Jaime in Place: No Assessment/Plan Hospital Course Subjective Patient opens her eyes and tracks somewhat, however no other purposeful movement, apparently patient's baseline Objective Physical exam General: Patient is laying in bed, Mentation: Patient is alert but not oriented Head: Normocephalic atraumatic Eyes: EOMI, pupils reactive to light sluggish Neck: Supple, nontender, midline Respiratory: Coarse to auscultation bilaterally Cardiovascular: regular rate, no obvious murmurs Gastrointestinal: Mildly tender in the right upper quadrant, bowel sounds heard. Neurological: Unable to fully assess due to neurological status Skin: No new skin lesions Assessment/Plan Septic shock secondary to acute cholecystitis/choledocholithiasis - Continue on pressor support with goal MAP >65 - Continue IVF and antibiotics - Lactic acid normal at presentation Elevated LFT-resolving - CT abd shows choledocholithiasis and acute cholecystitis - GI on board and appreciate recommendations. Patient not stable enough for any interventions at this time including ERCP - MRCP ordered but unable to complete at this time given unable to complete questionnaire. - continue monitoring -bilirubin resolving, stone may have passed? Acute kindra - give patients condition, will need to be stabilized and get an ERCP done prior to any possible thoughts on intervention per general surgery, however Dr. Andrews has been consulted and will follow. Hypernatremia - management per nephro JUSTO - Nephrology consultation appreciated and will avoid nephrotoxic agents - IVF continued - most likely prerenal vs ATN h/o Malignant neoplasm of brain - Patient is chronically bedridden and debilitated. Tracking present this am which is her baseline Seizure disorder - Continue Keppra and phenobarbital - neurology consulted HTN - hold home BP medications in setting of hypotension Iron deficiency anemia - no need for transfusion at this time Chronic respiratory failure - trach dependent - continue trach care - Pulmonology on board and appreciate recommendations Disposition - Continue monitoring in ICU while requiring pressor support -medical social worker to continue to find who exactly makes decisions for the patient before bioethics meeting >30 minutes of critical care time spent with patient KAYLA CELESTIN Nov 23, 2018 10:18
[2018-11-23] MEDS: VASOPRESSIN 60 UNIT in DEXTROSE 5% 57 ML IV SCH (12:00)
--- NOTE | 2018-11-23 12:58 | CONS ---
Assessment/Plan Assessment/Plan Hospital Course (Demo Recall) No acute changes per report. Patient looks comfortable and remains on Ernie- Synephrine drip. No fevers. WBC 10.5 H&H 7 and 22.5 platelets 217 BUN 40 creatinine 2.18 Chest x-ray revealed no significant change. Indwelling: Trach, PEG, Jaime, femoral triple-lumen catheter Antimicrobials: Vancomycin, Zosyn Physical examination: Morbidly obese well-developed chronically ill-appearing elderly woman who is in no distress. Head atraumatic normocephalic neck is obese tracheostomy present chest rise symmetrical breath sounds diminished bases. Heart: S1-S2. Abdomen soft bowel sounds hypoactive. Extremities with bilateral edema Assessment: 1. Severe sepsis with shock 2. Acute cholecystitis with suspected choledocholithiasis 3. Acute renal failure 4. Chronic respiratory failure and dysphagia 5. Acute on chronic anemia 6. Paroxysmal atrial fibrillation Plan: Send cultures, change antibiotics to Zyvox and meropenem given worsening renal function. Pending ERCP Consultation Date/Type/Reason Admit Date/Time Nov 19, 2018 at 19:01 Initial Consult Date 11/22/18 Type of Consult id Requesting Provider: KENNETH SANTILLAN MD Date/Time of Note DATE: 11/23/18 TIME: 12:58 Exam/Review of Systems Exam Vitals Vital Signs Date Temp Pulse Resp B/P (MAP) Pulse Ox O2 O2 Flow FiO2 Time Delivery Rate 11/23/18 71 24 128/68 95 12:45 (88) 11/23/18 99.7 Mechanical 12:00 Ventilator 11/23/18 30 08:00 11/20/18 10.0 14:30 Intake and Output 11/22/18 11/22/18 11/23/18 1515:00 23:00 07:00 IntakeIntake Total 1490.475 ml 1523.600 ml 1460.6 ml OutputOutput Total 675 ml 360 ml 615 ml BalanceBalance 815.475 ml 1163.600 ml 845.6 ml Results Result Diagram: 11/23/18 0430 11/23/18 0430 Results 24hrs Laboratory Tests Test 11/22/18 16:28 11/22/18 21:00 11/23/18 04:30 11/23/18 07:00 Phenobarbital 29.9 Level Vancomycin Level 21.5 *H Trough White Blood Count 10.5 # Red Blood Count 2.10 L Hemoglobin 7.0 L Hematocrit 22.5 L Mean Corpuscular 107.1 H Volume Mean Corpuscular 33.3 H Hemoglobin Mean Corpuscular 31.1 L Hemoglobin Concen t Red Cell 13.7 Distribution Width Platelet Count 217 Mean Platelet 12.0 H Volume Immature 0.600 H Granulocytes % Neutrophils % 72.9 Lymphocytes % 13.3 L Monocytes % 6.6 Eosinophils % 6.3 Basophils % 0.3 Nucleated Red 0.0 Blood Cells % Immature 0.060 H Granulocytes # Neutrophils # 7.6 H Lymphocytes # 1.4 Monocytes # 0.7 Eosinophils # 0.7 H Basophils # 0.0 Nucleated Red 0.0 Blood Cells # Sodium Level 131 L Potassium Level 3.1 L Chloride Level 101 Carbon Dioxide 16 L Level Anion Gap 14 H Blood Urea 40 H Nitrogen Creatinine 2.18 H Est Glomerular 22 L Filtrat Rate mL/min Glucose Level 113 # Calcium Level 7.2 L Magnesium Level 2.1 Total Bilirubin 0.1 L Direct Bilirubin 0.00 # Indirect 0.1 Bilirubin Aspartate Amino 47 H Transf (AST/SGOT) Alanine 115 H Aminotransferase (ALT/SGPT) Alkaline 168 H Phosphatase Total Protein 5.5 L Albumin 2.4 L Globulin 3.10 Albumin/Globulin 0.77 Ratio Blood Gas Blood arterial Specimen Source Arterial Blood 11/23/2018 7:07:5 Date Drawn 3 AM Arterial Blood pH 7.412 (Temp corrected) Arterial Blood 24.9 L pCO2 (Temp correct) Arterial Blood 112.3 H pO2 (Temp corrected) Arterial Blood 15.5 L HCO3 Arterial Blood -8.1 L Base Excess Arterial Blood 98.4 H Oxygen Saturation Moshe Test ACCEPTAB Arterial Blood Right Radial Gas Puncture Site Arterial 0.2 Blood Carboxyhemo globin Arterial Blood 0.2 Methemoglobin Blood Gas A-a O2 72.3 H Differential Oxyhemoglobin 98.0 Percent Blood Gas 37.0 Temperature Blood Gas 18.0 Respiration Rate Blood Gas Actual 24 Respiration Rate Blood Gas VENT - AC Modality FiO2 30.0 Blood Gas Tidal 500.0 Volume Blood Gas Low 5.0 PEEP Setting Blood Gas TM Notified Whom Blood Gas 11/23/2018 7:49:3 Notified Time 6 AM Medications Medication Current Medications Ondansetron HCl (Zofran Inj) 4 mg Q6H PRN IV NAUSEA AND/OR VOMITING; Start 11/19/18 at 20:30 Pantoprazole (Protonix Iv) 40 mg DAILY@06 IV Last administered on 11/23/18 05:39; Admin Dose 40 MG; Start 11/20/18 at 06:00 Phenylephrine HCl 40 mg/Dextrose 250 ml @ 37.5 mls/hr TITRATE IV Last administered on 11/23/18 08:25; Admin Dose 52.5 MLS/HR; Start 11/19/18 at 20:30 Vancomycin HCl (Vanco Iv Per Pharmacy) VANCOMYCIN PER PHARMACY PER PROTOCOL XX ; Start 11/19/18 at 21:30 Piperacillin Sod/ Tazobactam Sod 100 ml @ 200 mls/hr Q8 IVPB Last administered on 11/23/18 05:38; Admin Dose 200 MLS/HR; Start 11/20/18 at 06:00 Acetaminophen (Tylenol Tab) 650 mg Q6H PRN GTB MILD PAIN LEVEL 1-3 Last admin istered on 11/22/18 03:04; Admin Dose 650 MG; Start 11/20/18 at 06:00 Albuterol (Proventil 0.083% (Neb)) 2.5 mg Q6H RESP THERAPY PRN NEB WHEEZING AND SOB Last administered on 11/21/18 19:40; Admin Dose 2.5 MG; Start 11/20/18 at 06:00 Folic Acid (Folic Acid) 1 mg DAILY GTB Last administered on 11/23/18 09:14; Admin Dose 1 MG; Start 11/20/18 at 09:00 Lorazepam (Ativan) 1 mg Q10MIN PRN IV agitation Last administered on 11/22/18 20:15; Admin Dose 1 MG; Start 11/20/18 at 14:30 Norepinephrine 250 ml @ 1.875 mls/ hr TITRATE IV Last administered on 11/22/18 14:35; Admin Dose 18.75 MLS/HR; Start 11/20/18 at 15:00 Fentanyl 100 ml @ 2.5 mls/hr TITRATE IV Last administered on 11/20/18 15:48; Admin Dose 2.5 MLS/HR; Start 11/20/18 at 16:30 Amiodarone HCl 900 mg/Dextrose 500 ml @ 0 mls/hr Q0M IV Last administered on 11/22/18 15:29; Admin Dose 16.7 MLS/HR; Start 11/21/18 at 16:30 Vasopressin 60 unit/Dextrose 60 ml @ 0 mls/hr Q12H IV Last administered on 11/22/18 00:55; Admin Dose 1.2 MLS/HR; Start 11/22/18 at 00:00 Phenobarbital (Luminal) 65 mg BID IV Last administered on 11/23/18 09:14; Admin Dose 65 MG; Start 11/22/18 at 21:00 Levetiracetam 100 ml @ 400 mls/hr Q12 IVPB Last administered on 11/23/18 09:15; Admin Dose 400 MLS/HR; Start 11/22/18 at 21:00 Vancomycin HCl 250 ml @ 125 mls/hr Q36H IVPB Last administered on 11/23/18 10:56; Admin Dose 125 MLS/HR; Start 11/23/18 at 10:00 Amiodarone HCl (Cordarone) 400 mg BID PO Last administered on 11/23/18 09:14; Admin Dose 400 MG; Start 11/23/18 at 09:00 Potassium Chloride/Dextrose/ Sod Cl 1,000 ml @ 80 mls/hr [id number] IV Last administered on 11/23/18 09:15; Admin Dose 80 MLS/HR; Start 11/23/18 at 09:00 KAREN LOMAS NP Nov 23, 2018 12:58
--- NOTE | 2018-11-23 13:13 | CONS ---
Assessment/Plan Assessment/Plan Hospital Course 68 F c/ reported Hx of malignant brain neoplasm NOS c/b epilepsy..and other comorbidities, who presents for management of hypotension and GI abnl. Neurology is consulted for epilepsy medication management. P: Continue Phb 65mg iv bid for now; repeat phb level today (Goal 20-30) Continue Keppra 500mg iv q12hr while GFR is severely compromised.. Ativan iv prn prolonged seizure of cluster Other management per primary Will follow Consultation Date/Type/Reason Admit Date/Time Nov 19, 2018 at 19:01 Type of Consult Neurology Reason for Consultation epilepsy management Requesting Provider: KENNETH SANTILLAN MD Date/Time of Note DATE: 11/23/18 TIME: 13:13 24 HR Interval Summary Free Text/Dictation Continues critical care. Exam Vital Signs Vitals Vital Signs Date Temp Pulse Resp B/P (MAP) Pulse Ox O2 O2 Flow FiO2 Time Delivery Rate 11/23/18 71 24 128/68 95 12:45 (88) 11/23/18 99.7 Mechanical 12:00 Ventilator 11/23/18 30 08:00 11/20/18 10.0 14:30 Intake and Output 11/22/18 11/22/18 11/23/18 1515:00 23:00 07:00 IntakeIntake Total 1490.475 ml 1523.600 ml 1460.6 ml OutputOutput Total 675 ml 360 ml 615 ml BalanceBalance 815.475 ml 1163.600 ml 845.6 ml Exam PE: Gen Appearance: No Apparent Distress HEENT: trached Cardiovascular: Regular rate Abdomen: Soft; with PEG Extremities: Dry NE: The patient was obtunded and nonverbal. Intermittently able to fix. Unable to follow commands. Cranial nerve examination was limited by mental status. Pupils were equal and reactive to light. There was no afferent pupillary defect. Funduscopic examination was limited. Face was grossly symmetric, w/ present corneal and cough reflexes. Tone was normal. Muscle bulk was normal. I did not see fasciculations. The patient minimally withdrew to noxious stimulation x 4. Coordination and gait testing was limited by mental status. Arm and leg reflexes were within normal limits and symmetric. Whitman's sign was absent. Plantar responses were flexor. HIPOLITO GLOVER NP Nov 23, 2018 13:13 RACHEL ESTEBAN Nov 23, 2018 14:23
[2018-11-23] MEDS: MEROPENEM 500MG/50 ML (PMX) 50 ML IVPB SCH ×2 (15:12→23:51)
[2018-11-23] MEDS: LINEZOLID 600 MG/D5W (PMX) 300 ML IVPB SCH (21:18)
[2018-11-24] VITALS (77 sets, daily range): BP systolic 82–147; BP diastolic 39–90; PULSE 64–79; RESP 16–35
[2018-11-24] MEDS: PANTOPRAZOLE 40 MG INJ IV SCH (05:38)
[2018-11-24] MEDS: PHENYLephrine 40 MG in DEXTROSE 5% 246 ML IV SCH (05:43)
--- NOTE | 2018-11-24 06:35 | PN ---
DATE: 11/23/2018 SUBJECTIVE: The patient still very lethargic, very minimally responding. The patient was seen by me for sepsis and probably cholangitis. OBJECTIVE: VITAL SIGNS: At this time, shows that temperature is 99.4, pulse is 69, blood pressure is 106/50. CARDIOVASCULAR: Right now, she seems to be in sinus rhythm, but she had atrial fibrillation with RVR of 200 yesterday. She has been treated with amiodarone. Heart sounds are well heard. RESPIRATORY: Normal breath sounds. ABDOMEN: Soft and minimal tenderness. LABORATORY WORKUP: WBC is 10,500, hemoglobin 7.0. The potassium 3.1. The total bilirubin is 0.1, A ST 47, ALT of 115, alkaline phosphatase 168, amylase 136, and lipase is 246. The discussion is that the patient admitted with sepsis felt to be a cholangitis secondary to a kindra docholithiasis as noted on the CT scan of the abdomen. There could be a stricture of the distal bile duct. The patient continues to be hypotensive. She is currently only on Ernie-Synephrine, but until sometime ago she was on vasopressin, Levophed, amiodarone and also Ernie-Synephrine. PLAN: At this time, she seems to be improving. Her blood pressure stable, once she is off of the pressors, we could consider ERCP to rule out choledocholithiasis. She seems to gallstone p ancreatitis. Once again, doctor, thank you for this consult this consultation. I will be happy to follow this pat ient with you. Dictated By: FRANKLIN BROWN/LOUIS Conf#: [id number] DID#: [id number] CC: KENNETH SANTILLAN MD;*EndCC*
[2018-11-24] MEDS ORDERED: LIDOCAINE 1% (MPF) 5 ML VIAL SC ONE (08:00)
--- NOTE | 2018-11-24 08:58 | CONS ---
Assessment/Plan Assessment/Plan Assessment/Plan (Daily) 1) Chronic resp failure S/p Trach 2) Sepsis 2nd PNA 3) Hypernatremia- Resolved 4) oliguria improved, Cr stable 5) Rapid Afib, currently on treatment 6) Hypotension Septic Shock, requiring IV pressors 7) AG acidosis in the setting of JUSTO- Compensated Plan: BUN/Cr slightly went up 36/2.39, Na 131, pt remaiend on ventilator, need PICC line today , BP stable, off pressors now IVF D51/2 NS with KCl 20meQ at 80 cc/hr NO acute indication for HD at this time time Hb 7.0, monitor it prn transfusin, IV abx meropenem and zyvox, Renally dose all abx and monitor electorlytes Avoid Nephrotoxic Rx Ok to have PICC line for IV access, will follow up Consultation Date/Type/Reason Admit Date/Time Nov 19, 2018 at 19:01 Initial Consult Date 11/22/18 Type of Consult NEPHROLOGY Requesting Provider: KENNETH SANTILLAN MD Date/Time of Note DATE: 11/24/18 TIME: 08:58 24 HR Interval Summary Free Text/Dictation BUN/Cr slightly went up 36/2.39, Na 131, pt remaiend on ventilator, need PICC line today Exam/Review of Systems Exam Vitals Vital Signs Date Temp Pulse Resp B/P (MAP) Pulse Ox O2 O2 Flow FiO2 Time Delivery Rate 11/24/18 73 26 101/63 99 Mechanical 06:00 (76) Ventilator 11/24/18 30 05:56 11/24/18 99.3 04:00 11/20/18 10.0 14:30 Intake and Output 11/23/18 11/23/18 11/24/18 1414:59 22:59 06:59 IntakeIntake Total 1467.5 ml 1180.0 ml 1132.5 ml OutputOutput Total 770 ml 950 ml 1100 ml BalanceBalance 697.5 ml 230.0 ml 32.5 ml Exam Eyes: EOMI ENMT: mucosa pink and moist, other (Trach) Respiratory: crackles/rales, other (Vent); No diminished breath sounds Cardiovascular: edema, irregular rhythm Gastrointestinal: soft, other (PEG); No non-tender, No rebound or guarding Extremities: edema Neurological: unresponsive Results Result Diagram: 11/24/1842911/24/18429 Results 24hrs Laboratory Tests Test 11/24/18 04:30 White Blood Count 9.1 Red Blood Count 2.12 L Hemoglobin 7.2 L Hematocrit 21.9 L Mean Corpuscular Volume 103.3 H Mean Corpuscular Hemoglobin 34.0 H Mean Corpuscular Hemoglobin Concent 32.9 Red Cell Distribution Width 13.6 Platelet Count 243 Mean Platelet Volume 11.7 H Immature Granulocytes % 0.700 H Neutrophils % 72.0 Lymphocytes % 12.3 L Monocytes % 7.8 Eosinophils % 7.0 Basophils % 0.2 Nucleated Red Blood Cells % 0.0 Immature Granulocytes # 0.060 H Neutrophils # 6.5 Lymphocytes # 1.1 Monocytes # 0.7 Eosinophils # 0.6 H Basophils # 0.0 Nucleated Red Blood Cells # 0.0 Sodium Level 131 L Potassium Level 3.8 Chloride Level 104 Carbon Dioxide Level 15 L Anion Gap 12 Blood Urea Nitrogen 36 H Creatinine 2.39 H Est Glomerular Filtrat Rate mL/min 20 L Glucose Level 95 Calcium Level 7.8 L Phosphorus Level 3.3 Magnesium Level 2.0 Iron Level 37 Total Iron Binding Capacity 147 L Percent Iron Saturation 25 Ferritin 432.0 H Total Bilirubin 0.2 Direct Bilirubin 0.00 Indirect Bilirubin 0.2 Aspartate Amino Transf (AST/SGOT) 38 Alanine Aminotransferase (ALT/SGPT) 93 H Alkaline Phosphatase 172 H Total Protein 5.7 L Albumin 2.6 L Globulin 3.10 Albumin/Globulin Ratio 0.83 Medications Medication Current Medications Ondansetron HCl (Zofran Inj) 4 mg Q6H PRN IV NAUSEA AND/OR VOMITING; Start 11/19/18 at 20:30 Pantoprazole (Protonix Iv) 40 mg DAILY@06 IV Last administered on 11/24/18at 05:38; Admin Dose 40 MG; Start 11/20/18 at 06:00 Phenylephrine HCl 40 mg/Dextrose 250 ml @ 37.5 mls/hr TITRATE IV Last administered on 11/24/18at 05:43; Admin Dose 15 MLS/HR; Start 11/19/18 at 20:30 Acetaminophen (Tylenol Tab) 650 mg Q6H PRN GTB MILD PAIN LEVEL 1-3 Last administered on 11/22/18at 03:04; Admin Dose 650 MG; Start 11/20/18 at 06:00 Albuterol (Proventil 0.083% (Neb)) 2.5 mg Q6H RESP THERAPY PRN NEB WHEEZING AND SOB Last administered on 11/21/18 19:40; Admin Dose 2.5 MG; Start 11/20/18 at 06:00 Folic Acid (Folic Acid) 1 mg DAILY GTB Last administered on 11/23/18 09:14; Admin Dose 1 MG; Start 11/20/18 at 09:00 Lorazepam (Ativan) 1 mg Q10MIN PRN IV agitation Last administered on 11/22/18 20:15; Admin Dose 1 MG; Start 11/20/18 at 14:30 Norepinephrine 250 ml @ 1.875 mls/ hr TITRATE IV Last administered on 11/22/18 14:35; Admin Dose 18.75 MLS/HR; Start 11/20/18 at 15:00 Fentanyl 100 ml @ 2.5 mls/hr TITRATE IV Last administered on 11/20/18 15:48; Admin Dose 2.5 MLS/HR; Start 11/20/18 at 16:30 Amiodarone HCl 900 mg/Dextrose 500 ml @ 0 mls/hr Q0M IV Last administered on 11/22/18 15:29; Admin Dose 16.7 MLS/HR; Start 11/21/18 at 16:30 Vasopressin 60 unit/Dextrose 60 ml @ 0 mls/hr Q12H IV Last administered on 00:55; Admin Dose 1.2 MLS/HR; Start 11/22/18 at 00:00 Phenobarbital (Luminal) 65 mg BID IV Last administered on 11/23/18 20:57; Admin Dose 65 MG; Start 11/22/18 at 21:00 Levetiracetam 100 ml @ 400 mls/hr Q12 IVPB Last administered on 11/23/18 20:57; Admin Dose 400 MLS/HR; Start 11/22/18 at 21:00 Amiodarone HCl (Cordarone) 400 mg BID PO Last administered on 11/23/18 20:58; Admin Dose 400 MG; Start 11/23/18 at 09:00 Potassium Chloride/Dextrose/ Sod Cl 1,000 ml @ 80 mls/hr [id number] IV Last administered on 2/26/19at 22:05; Admin Dose 80 MLS/HR; Start 11/23/18 at 09:00 Linezolid 300 ml @ 300 mls/hr Q12 IVPB Last administered on 11/23/18at 21:18; Admin Dose 300 MLS/HR; Start 11/23/18 at 21:00 Meropenem/Sodium Chloride 50 ml @ 100 mls/hr Q12 IVPB Last administered on 11/23/18at 23:51; Admin Dose 100 MLS/HR; Start 11/23/18 at 15:00 DEANNA CARRERA MD Nov 24, 2018 08:58
[2018-11-24] MEDS: LEVETIRACETAM 500 MG (PMX) 100 ML IVPB SCH ×2 (09:35→20:49)
[2018-11-24] MEDS: AMIODARONE 200 MG TAB PO SCH ×2 (09:38→20:53)
[2018-11-24] MEDS: FOLIC ACID 1 MG TAB GTB SCH (09:38)
[2018-11-24] MEDS: MEROPENEM 500MG/50 ML (PMX) 50 ML IVPB SCH ×2 (09:50→20:49)
[2018-11-24] MEDS: PHENOBARBITAL 65 MG INJ IV SCH ×2 (09:50→20:50)
--- NOTE | 2018-11-24 09:51 | CONS ---
Assessment/Plan Assessment/Plan Hospital Course (Demo Recall) 5-year-old female with sepsis and hypotension secondary to possible cholecystitis choledocholithiasis respiratory failure on ventilator none interactive lethargic. CAT scan suspicious for possible common duct obstruction though no definitive stone noted however with elevated LFTs strongly suspicious. Possibility of cholecystitis as well. Patient is on pressors will need to be weaned off pressors so that she can undergo probable ERCP to assess and possibly treat common duct. After that time we will discuss whether cholecystostomy or cholecystectomy are warranted. Consultation Date/Type/Reason Admit Date/Time Nov 19, 2018 at 19:01 Date of Consultation: Nov 23, 2018 Type of Consult General surgery consult Reason for Consultation Choledocholithiasis sepsis jaundice Requesting Provider: KYALA CELESTIN Date/Time of Note DATE: 11/24/18 TIME: 09:44 Hx of Present Illness Patient 68-year-old female who is brought from [facility] because of hypotension. Patient on admitted admission and evaluation emergency room was hypotensive and septic notably jaundice. An elevated bilirubin patient is unable to give history she is lethargic she is a chronic respiratory failure and currently on ventilator in the ICU on pressors. Question was raised whether cholecystostomy was indicated in this patient. However with the findings of a possible common bile duct stones with elevated bilirubin and it seems clear that the patient first would be to have common duct cleared by ERCP. She is being evaluated by GI by Dr. Weiss. Thought is that once the patient is stable hemodynamically she may be able to undergo ERCP. Surgical evaluation for cholecystitis or cholecystostomy to be deferred until that time Patient is unable to interact therefore information regarding patient is from other consultants physicians and medical record Past Medical History Home Meds Reported Medications Ranitidine Hcl* (Ranitidine Hcl*) 150 Mg Tablet, 150 MG GTB Q12, #60 TAB 11/19/18 Cholecalciferol* (Vitamin D*) 400 Unit Tablet, 400 UNIT GTB DAILY, TAB 11/19/18 Amino Acids/Protein Hydrolys (Pro-Stat 64 Liquid) 887 Ml Liquid, 30 ML GTB BID 11/19/18 Albuterol Sulfate* (Albuterol Sulfate* Neb) 0.083%-3 Ml Neb, 2.5 MG NEB Q6 PRN for WHEEZING AND SOB, #30 VIAL 11/19/18 Levetiracetam* (Keppra* (Ped)) 100 Mg/Ml Liq, 1500 MG GTB BID for 30 Days, BOTTLE 11/19/18 Sennosides* (Senna Lax*) 8.6 Mg Tablet, 1 TAB GTB DAILY, TAB 11/19/18 Labetalol Hcl* (Labetalol Hcl*) 200 Mg Tablet, 200 MG GTB BID PRN for ELEVATED BLOOD PRESSURE, TAB 11/19/18 Folic Acid* (Folic Acid*) 1 Mg Tablet, 1 MG GTB DAILY, TAB 11/19/18 Phenobarbital* (Phenobarbital* Liq) 20 Mg/5 Ml Elix, 5 MG GTB BID for 30 Days, BOTTLE 11/19/18 Lisinopril* (Lisinopril*) 10 Mg Tablet, 10 MG GTB DAILY, #30 TAB 11/19/18 Ferrous Sulfate (Ferrous Sulfate) 300 Mg/5 Ml Liquid, 300 MG GTB BID 11/19/18 Clonidine Hcl* (Clonidine Hcl*) 0.1 Mg Tab, 0.1 MG GTB Q6 PRN for ELEVATED BLOOD PRESSURE, TAB 11/19/18 Calcium Carbonate* (Calcium Carbonate*) 600 MG Ca Tab, 1200 MG GTB DAILY, TAB 11/19/18 Aspirin* (Aspirin* Chew) 81 Mg Tab.chew, 81 MG GTB DAILY, TAB.CHEW 11/19/18 Acetaminophen* (Acetaminophen*) 650 Mg Tablet, 650 MG GTB Q6H PRN for MILD PAIN LEVEL 1-3, #30 TAB 11/19/18 Ascorbic Acid* (Vitamin C*) 500 Mg Capsule.sa, 500 MG GTB DAILY, CAP 11/19/18 Medications Current Medications Ondansetron HCl (Zofran Inj) 4 mg Q6H PRN IV NAUSEA AND/OR VOMITING; Start 11/19/18 at 20:30 Pantoprazole (Protonix Iv) 40 mg DAILY@06 IV Last administered on 11/24/18at 05:38; Admin Dose 40 MG; Start 11/20/18 at 06:00 Phenylephrine HCl 40 mg/Dextrose 250 ml @ 37.5 mls/hr TITRATE IV Last administered on 11/24/18at 05:43; Admin Dose 15 MLS/HR; Start 11/19/18 at 20:30 Acetaminophen (Tylenol Tab) 650 mg Q6H PRN GTB MILD PAIN LEVEL 1-3 Last administered on 11/22/18 03:04; Admin Dose 650 MG; Start 11/20/18 at 06:00 Albuterol (Proventil 0.083% (Neb)) 2.5 mg Q6H RESP THERAPY PRN NEB WHEEZING AND SOB Last administered on 11/21/18 19:40; Admin Dose 2.5 MG; Start 11/20/18 at 06:00 Folic Acid (Folic Acid) 1 mg DAILY GTB Last administered on 11/23/18 09:14; Admin Dose 1 MG; Start 11/20/18 at 09:00 Lorazepam (Ativan) 1 mg Q10MIN PRN IV agitation Last administered on 11/22/18 20:15; Admin Dose 1 MG; Start 11/20/18 at 14:30 Norepinephrine 250 ml @ 1.875 mls/ hr TITRATE IV Last administered on 11/22/18 at 14:35; Admin Dose 18.75 MLS/HR; Start 11/20/18 at 15:00 Fentanyl 100 ml @ 2.5 mls/hr TITRATE IV Last administered on 11/20/18 15:48; Admin Dose 2.5 MLS/HR; Start 11/20/18 at 16:30 Amiodarone HCl 900 mg/Dextrose 500 ml @ 0 mls/hr Q0M IV Last administered on 11/22/18 15:29; Admin Dose 16.7 MLS/HR; Start 11/21/18 at 16:30 Vasopressin 60 unit/Dextrose 60 ml @ 0 mls/hr Q12H IV Last administered on 11/22/18 00:55; Admin Dose 1.2 MLS/HR; Start 11/22/18 at 00:00 Phenobarbital (Luminal) 65 mg BID IV Last administered on 11/23/18 20:57; Admin Dose 65 MG; Start 11/22/18 at 21:00 Levetiracetam 100 ml @ 400 mls/hr Q12 IVPB Last administered on 11/24/18 09:35; Admin Dose 400 MLS/HR; Start 11/22/18 at 21:00 Amiodarone HCl (Cordarone) 400 mg BID PO Last administered on 11/23/18 20:58; Admin Dose 400 MG; Start 11/23/18 at 09:00 Potassium Chloride/Dextrose/ Sod Cl 1,000 ml @ 80 mls/hr [id number] IV Last administered on 11/23/18at 22:05; Admin Dose 80 MLS/HR; Start 11/23/18 at 09:00 Linezolid 300 ml @ 300 mls/hr Q12 IVPB Last administered on 11/23/18at 21:18; Admin Dose 300 MLS/HR; Start 11/23/18 at 21:00 Meropenem/Sodium Chloride 50 ml @ 100 mls/hr Q12 IVPB Last administered on 10/30 03/16at 23:51; Admin Dose 100 MLS/HR; Start 11/23/18 at 15:00 Allergies: Coded Allergies: No Known Allergy (Unverified , 11/19/18) Social History Smoking Status: Unknown if ever smoked Exam/Review of Systems Exam Vitals Vital Signs Date Temp Pulse Resp B/P (MAP) Pulse Ox O2 O2 Flow FiO2 Time Delivery Rate 11/24/18 73 26 101/63 99 Mechanical 06:00 (76) Ventilator 11/24/18 30 05:56 11/24/18 99.3 04:00 11/20/18 10.0 14:30 Intake and Output 11/23/18 11/23/18 11/24/18 1515:00 23:00 07:00 IntakeIntake Total 1450.0 ml 1465.0 ml 715 ml OutputOutput Total 860 ml 950 ml 950 ml BalanceBalance 590.0 ml 515.0 ml -235 ml Constitutional: non-verbal Respiratory: diminished breath sounds Neurological: lethargic Results Result Diagram: 11/24/180 11/24/18 0430 Results 24hrs Laboratory Tests Test 11/24/18 04:30 White Blood Count 9.1 Red Blood Count 2.12 L Hemoglobin 7.2 L Hematocrit 21.9 L Mean Corpuscular Volume 103.3 H Mean Corpuscular Hemoglobin 34.0 H Mean Corpuscular Hemoglobin Concent 32.9 Red Cell Distribution Width 13.6 Platelet Count 243 Mean Platelet Volume 11.7 H Immature Granulocytes % 0.700 H Neutrophils % 72.0 Lymphocytes % 12.3 L Monocytes % 7.8 Eosinophils % 7.0 Basophils % 0.2 Nucleated Red Blood Cells % 0.0 Immature Granulocytes # 0.060 H Neutrophils # 6.5 Lymphocytes # 1.1 Monocytes # 0.7 Eosinophils # 0.6 H Basophils # 0.0 Nucleated Red Blood Cells # 0.0 Sodium Level 131 L Potassium Level 3.8 Chloride Level 104 Carbon Dioxide Level 15 L Anion Gap 12 Blood Urea Nitrogen 36 H Creatinine 2.39 H Est Glomerular Filtrat Rate mL/min 20 L Glucose Level 95 Calcium Level 7.8 L Phosphorus Level 3.3 Magnesium Level 2.0 Iron Level 37 Total Iron Binding Capacity 147 L Percent Iron Saturation 25 Ferritin 432.0 H Total Bilirubin 0.2 Direct Bilirubin 0.00 Indirect Bilirubin 0.2 Aspartate Amino Transf (AST/SGOT) 38 Alanine Aminotransferase (ALT/SGPT) 93 H Alkaline Phosphatase 172 H Total Protein 5.7 L Albumin 2.6 L Globulin 3.10 Albumin/Globulin Ratio 0.83 Imaging Imaging CAT scan abdomen pelvis shows distended gallbladder with cholelithiasis and dil ated common bile duct without definitive common bile duct stone appreciated. Abilities of cholecystitis versus and for choledocholithiasis Medications Medication Current Medications Ondansetron HCl (Zofran Inj) 4 mg Q6H PRN IV NAUSEA AND/OR VOMITING; Start 11/19/18 at 20:30 Pantoprazole (Protonix Iv) 40 mg DAILY@06 IV Last administered on 11/24/18at 05:38; Admin Dose 40 MG; Start 11/20/18 at 06:00 Phenylephrine HCl 40 mg/Dextrose 250 ml @ 37.5 mls/hr TITRATE IV Last administered on 11/24/18 05:43; Admin Dose 15 MLS/HR; Start 11/19/18 at 20:30 Acetaminophen (Tylenol Tab) 650 mg Q6H PRN GTB MILD PAIN LEVEL 1-3 Last administered on 11/22/18at 03:04; Admin Dose 650 MG; Start 11/20/18 at 06:00 Albuterol (Proventil 0.083% (Neb)) 2.5 mg Q6H RESP THERAPY PRN NEB WHEEZING AND SOB Last administered on 11/21/18at 19:40; Admin Dose 2.5 MG; Start 11/20/18 at 06:00 Folic Acid (Folic Acid) 1 mg DAILY GTB Last administered on 11/23/18at 09:14; Admin Dose 1 MG; Start 11/20/18 at 09:00 Lorazepam (Ativan) 1 mg Q10MIN PRN IV agitation Last administered on 11/22/18 20:15; Admin Dose 1 MG; Start 11/20/18 at 14:30 Norepinephrine 250 ml @ 1.875 mls/ hr TITRATE IV Last administered on 11/22/18 14:35; Admin Dose 18.75 MLS/HR; Start 11/20/18 at 15:00 Fentanyl 100 ml @ 2.5 mls/hr TITRATE IV Last administered on 11/20/18 15:48; Admin Dose 2.5 MLS/HR; Start 11/20/18 at 16:30 Amiodarone HCl 900 mg/Dextrose 500 ml @ 0 mls/hr Q0M IV Last administered on 11/22/18 15:29; Admin Dose 16.7 MLS/HR; Start 11/21/18 at 16:30 Vasopressin 60 unit/Dextrose 60 ml @ 0 mls/hr Q12H IV Last administered on 11/22/18 00:55; Admin Dose 1.2 MLS/HR; Start 11/22/18 at 00:00 Phenobarbital (Luminal) 65 mg BID IV Last administered on 11/23/18 20:57; Admin Dose 65 MG; Start 11/22/18 at 21:00 Levetiracetam 100 ml @ 400 mls/hr Q12 IVPB Last administered on 11/24/18 09:35; Admin Dose 400 MLS/HR; Start 11/22/18 at 21:00 Amiodarone HCl (Cordarone) 400 mg BID PO Last administered on 11/23/18 20:58; Admin Dose 400 MG; Start 11/23/18 at 09:00 Potassium Chloride/Dextrose/ Sod Cl 1,000 ml @ 80 mls/hr [id number] IV Last administered on 11/23/18 22:05; Admin Dose 80 MLS/HR; Start 11/23/18 at 09:00 Linezolid 300 ml @ 300 mls/hr Q12 IVPB Last administered on 11/23/18 21:18; Admin Dose 300 MLS/HR; Start 11/23/18 at 21:00 Meropenem/Sodium Chloride 50 ml @ 100 mls/hr Q12 IVPB Last administered on 11/23/18 23:51; Admin Dose 100 MLS/HR; Start 11/23/18 at 15:00 FATOU DEVINE MD Nov 24, 2018 09:51
--- NOTE | 2018-11-24 10:25 | PN ---
Date/Time of Note Date/Time of Note DATE: 11/24/18 TIME: 10:25 Objective Vitals Vital Signs Date Temp Pulse Resp B/P (MAP) Pulse Ox O2 O2 Flow FiO2 Time Delivery Rate 11/24/18 68 08:00 11/24/18 26 101/63 99 Mechanical 06:00 (76) Ventilator 11/24/18 30 05:56 11/24/18 99.3 04:00 11/20/18 10.0 14:30 Intake and Output 11/23/18 11/23/18 11/24/18 1515:00 23:00 07:00 IntakeIntake Total 1450.0 ml 1465.0 ml 715 ml OutputOutput Total 860 ml 950 ml 950 ml BalanceBalance 590.0 ml 515.0 ml -235 ml Results Result Diagram: 11/24/1842911/24/18429 Medications Medications Current Medications Ondansetron HCl (Zofran Inj) 4 mg Q6H PRN IV NAUSEA AND/OR VOMITING; Start 11/19/18 at 20:30 Pantoprazole (Protonix Iv) 40 mg DAILY@06 IV Last administered on 11/24/18 05:38; Admin Dose 40 MG; Start 11/20/18 at 06:00 Phenylephrine HCl 40 mg/Dextrose 250 ml @ 37.5 mls/hr TITRATE IV Last administered on 11/24/18 05:43; Admin Dose 15 MLS/HR; Start 11/19/18 at 20:30 Acetaminophen (Tylenol Tab) 650 mg Q6H PRN GTB MILD PAIN LEVEL 1-3 Last administered on 11/22/18 03:04; Admin Dose 650 MG; Start 11/20/18 at 06:00 Albuterol (Proventil 0.083% (Neb)) 2.5 mg Q6H RESP THERAPY PRN NEB WHEEZING AND SOB Last administered on 11/21/18 19:40; Admin Dose 2.5 MG; Start 11/20/18 at 06:00 Folic Acid (Folic Acid) 1 mg DAILY GTB Last administered on 11/24/18 09:38; Admin Dose 1 MG; Start 11/20/18 at 09:00 Lorazepam (Ativan) 1 mg Q10MIN PRN IV agitation Last administered on 11/22/18 20:15; Admin Dose 1 MG; Start 11/20/18 at 14:30 Norepinephrine 250 ml @ 1.875 mls/ hr TITRATE IV Last administered on 11/22/18 14:35; Admin Dose 18.75 MLS/HR; Start 11/20/18 at 15:00 Fentanyl 100 ml @ 2.5 mls/hr TITRATE IV Last administered on 11/20/18 15:48; Admin Dose 2.5 MLS/HR; Start 11/20/18 at 16:30 Amiodarone HCl 900 mg/Dextrose 500 ml @ 0 mls/hr Q0M IV Last administered on 11/22/18 15:29; Admin Dose 16.7 MLS/HR; Start 11/21/18 at 16:30 Vasopressin 60 unit/Dextrose 60 ml @ 0 mls/hr Q12H IV Last administered on 11/22/18 00:55; Admin Dose 1.2 MLS/HR; Start 11/22/18 at 00:00 Phenobarbital (Luminal) 65 mg BID IV Last administered on 11/24/18 09:50; Admin Dose 65 MG; Start 11/22/18 at 21:00 Levetiracetam 100 ml @ 400 mls/hr Q12 IVPB Last administered on 11/24/18 09:35; Admin Dose 400 MLS/HR; Start 11/22/18 at 21:00 Amiodarone HCl (Cordarone) 400 mg BID PO Last administered on 11/24/18 09:38; Admin Dose 400 MG; Start 11/23/18 at 09:00 Potassium Chloride/Dextrose/ Sod Cl 1,000 ml @ 80 mls/hr [id number] IV Last administered on 11/23/18 22:05; Admin Dose 80 MLS/HR; Start 11/23/18 at 09:00 Linezolid 300 ml @ 300 mls/hr Q12 IVPB Last administered on 11/23/18 21:18; Admin Dose 300 MLS/HR; Start 11/23/18 at 21:00 Meropenem/Sodium Chloride 50 ml @ 100 mls/hr Q12 IVPB Last administered on 11/24/18 09:50; Admin Dose 100 MLS/HR; Start 11/23/18 at 15:00 VTE Prophylaxis Risk score (from Nsg)>0 risk: 14 SCD applied (from Nsg): Yes Lines/Catheters IV Catheter Type: Zabala in Place: Yes Cont'd zabala catheter reason: terminal illness/intractable pain Assessment/Plan Hospital Course Subjective Patient opens her eyes and tracks somewhat, however no other purposeful movement, apparently patient's baseline Objective Physical exam General: Patient is laying in bed, Mentation: Patient is alert but not oriented Head: Normocephalic atraumatic Eyes: EOMI, pupils reactive to light sluggish Neck: Supple, nontender, midline Respiratory: Coarse to auscultation bilaterally Cardiovascular: regular rate, no obvious murmurs Gastrointestinal: Mildly tender in the right upper quadrant, bowel sounds heard. Neurological: Unable to fully assess due to neurological status Skin: No new skin lesions Assessment/Plan Septic shock secondary to acute cholecystitis/choledocholithiasis - Continue on pressor support with goal MAP >65 - Continue IVF and antibiotics - Lactic acid normal at presentation Elevated LFT-resolving - CT abd shows choledocholithiasis and acute cholecystitis - GI on board and appreciate recommendations. Patient not stable enough for any interventions at this time including ERCP - MRCP ordered but unable to complete at this time given unable to complete questionnaire. - continue monitoring -bilirubin resolving, stone may have passed? Acute kindra - give patients condition, will need to be stabilized and get an ERCP done prior to any possible thoughts on intervention per general surgery, however Dr. Andrews has been consulted and will follow. Hypernatremia - management per nephro JUSTO - Nephrology consultation appreciated and will avoid nephrotoxic agents - IVF continued - most likely prerenal vs ATN h/o Malignant neoplasm of brain - Patient is chronically bedridden and debilitated. Tracking present this am which is her baseline Seizure disorder - Continue Keppra and phenobarbital - neurology consulted HTN - hold home BP medications in setting of hypotension Iron deficiency anemia - no need for transfusion at this time Chronic respiratory failure - trach dependent - continue trach care - Pulmonology on board and appreciate recommendations Disposition - Continue monitoring in ICU while requiring pressor support -found the person who makes medical decisions for patient, able to consent as needed >30 minutes of critical care time spent with patient KAYLA CELESTIN Nov 24, 2018 10:25
[2018-11-24] MEDS: LINEZOLID 600 MG/D5W (PMX) 300 ML IVPB SCH ×2 (10:49→20:49)
--- NOTE | 2018-11-24 10:51 | CONS ---
Consult Date/Type/Reason Admit Date/Time Nov 19, 2018 at 19:01 Initial Consult Date Type of Consult Pulmonary Requesting Provider: KAYLA CELESTIN Date/Time of Note DATE: 11/24/18 TIME: 10:50 Subjective Patient continues to remain stable. Decreased vasopressor requirements. Objective Vital Signs Date Temp Pulse Resp B/P (MAP) Pulse Ox O2 O2 Flow FiO2 Time Delivery Rate 11/24/18 73 23 94 30 10:00 11/24/18 101/63 Mechanical 06:00 (76) Ventilator 11/24/18 99.3 04:00 11/20/18 10.0 14:30 Intake and Output 11/23/18 11/23/18 11/24/18 1515:00 23:00 07:00 IntakeIntake Total 1450.0 ml 1465.0 ml 715 ml OutputOutput Total 860 ml 950 ml 950 ml BalanceBalance 590.0 ml 515.0 ml -235 ml Exam PHYSICAL EXAMINATION: GENERAL: Elderly-appearing lady, appears on mechanical ventilation. VITAL SIGNS: HEENT: Extraocular movements intact. CARDIAC: S1, S2, no added sounds or murmurs. CHEST: Diminished air entry bilaterally. ABDOMEN: Soft, nontender. No guarding or rebound. EXTREMITIES: No cyanosis, clubbing. NEUROLOGIC: Unable to assess. Vent Setting Ventilator Support Mode: AC Fraction of Inspired Oxygen pe: 30 Positive End Expiratory Pressu: 5.0 Results/Medications Result Diagram: 11/24/18 04311/24/18 043 Results 24 hrs Laboratory Tests Test 11/24/18 04:30 White Blood Count 9.1 Red Blood Count 2.12 L Hemoglobin 7.2 L Hematocrit 21.9 L Mean Corpuscular Volume 103.3 H Mean Corpuscular Hemoglobin 34.0 H Mean Corpuscular Hemoglobin Concent 32.9 Red Cell Distribution Width 13.6 Platelet Count 243 Mean Platelet Volume 11.7 H Immature Granulocytes % 0.700 H Neutrophils % 72.0 Lymphocytes % 12.3 L Monocytes % 7.8 Eosinophils % 7.0 Basophils % 0.2 Nucleated Red Blood Cells % 0.0 Immature Granulocytes # 0.060 H Neutrophils # 6.5 Lymphocytes # 1.1 Monocytes # 0.7 Eosinophils # 0.6 H Basophils # 0.0 Nucleated Red Blood Cells # 0.0 Sodium Level 131 L Potassium Level 3.8 Chloride Level 104 Carbon Dioxide Level 15 L Anion Gap 12 Blood Urea Nitrogen 36 H Creatinine 2.39 H Est Glomerular Filtrat Rate mL/min 20 L Glucose Level 95 Calcium Level 7.8 L Phosphorus Level 3.3 Magnesium Level 2.0 Iron Level 37 Total Iron Binding Capacity 147 L Percent Iron Saturation 25 Ferritin 432.0 H Total Bilirubin 0.2 Direct Bilirubin 0.00 Indirect Bilirubin 0.2 Aspartate Amino Transf (AST/SGOT) 38 Alanine Aminotransferase (ALT/SGPT) 93 H Alkaline Phosphatase 172 H Total Protein 5.7 L Albumin 2.6 L Globulin 3.10 Albumin/Globulin Ratio 0.83 Medications Current Medications Ondansetron HCl (Zofran Inj) 4 mg Q6H PRN IV NAUSEA AND/OR VOMITING; Start 11/19/18 at 20:30 Pantoprazole (Protonix Iv) 40 mg DAILY@06 IV Last administered on 11/24/18 05:38; Admin Dose 40 MG; Start 11/20/18 at 06:00 Phenylephrine HCl 40 mg/Dextrose 250 ml @ 37.5 mls/hr TITRATE IV Last administered on 11/24/18 05:43; Admin Dose 15 MLS/HR; Start 11/19/18 at 20:30 Acetaminophen (Tylenol Tab) 650 mg Q6H PRN GTB MILD PAIN LEVEL 1-3 Last administered on 11/22/18 03:04; Admin Dose 650 MG; Start 11/20/18 at 06:00 Albuterol (Proventil 0.083% (Neb)) 2.5 mg Q6H RESP THERAPY PRN NEB WHEEZING AND SOB Last administered on 11/21/18 19:40; Admin Dose 2.5 MG; Start 11/20/18 at 06:00 Folic Acid (Folic Acid) 1 mg DAILY GTB Last administered on 11/24/18 09:38; Admin Dose 1 MG; Start 11/20/18 at 09:00 Lorazepam (Ativan) 1 mg Q10MIN PRN IV agitation Last administered on 11/22/18 20:15; Admin Dose 1 MG; Start 11/20/18 at 14:30 Norepinephrine 250 ml @ 1.875 mls/ hr TITRATE IV Last administered on 14:35; Admin Dose 18.75 MLS/HR; Start 11/20/18 at 15:00 Fentanyl 100 ml @ 2.5 mls/hr TITRATE IV Last administered on 11/20/18 15:48; Admin Dose 2.5 MLS/HR; Start 11/20/18 at 16:30 Amiodarone HCl 900 mg/Dextrose 500 ml @ 0 mls/hr Q0M IV Last administered on 11/22/18 15:29; Admin Dose 16.7 MLS/HR; Start 11/21/18 at 16:30 Vasopressin 60 unit/Dextrose 60 ml @ 0 mls/hr Q12H IV Last administered on 11/22/18 00:55; Admin Dose 1.2 MLS/HR; Start 11/22/18 at 00:00 Phenobarbital (Luminal) 65 mg BID IV Last administered on 11/24/18 09:50; Admin Dose 65 MG; Start 11/22/18 at 21:00 Levetiracetam 100 ml @ 400 mls/hr Q12 IVPB Last administered on 11/24/18 09:35; Admin Dose 400 MLS/HR; Start 11/22/18 at 21:00 Amiodarone HCl (Cordarone) 400 mg BID PO Last administered on 11/24/18 09:38; Admin Dose 400 MG; Start 11/23/18 at 09:00 Potassium Chloride/Dextrose/ Sod Cl 1,000 ml @ 80 mls/hr [id number] IV Last administered on 11/23/18 22:05; Admin Dose 80 MLS/HR; Start 11/23/18 at 09:00 Linezolid 300 ml @ 300 mls/hr Q12 IVPB Last administered on 11/23/18 21:18; Admin Dose 300 MLS/HR; Start 11/23/18 at 21:00 Meropenem/Sodium Chloride 50 ml @ 100 mls/hr Q12 IVPB Last administered on 11/24/18 09:50; Admin Dose 100 MLS/HR; Start 11/23/18 at 15:00 Assessment/Plan Hospital Course (Demo Recall) IMPRESSION: 1. Septic shock secondary to acute cholecystitis, decreased pressor requirements. 2. Chronic respiratory failure. Placed back on mechanical ventilation for hypercapnia. 3. GI bleed? Drop in hemoglobin noted 4. Dysphagia with G-tube. 5. Renal insufficiency with metabolic acidosis possible ATN injury. Persistent metabolic acidosis. PLAN: 1. Broad-spectrum antibiotics. 2. Gastrointestinal evaluation. Consider proceed to ERCP if unable to perform MRCP. Otherwise consider cholecystostomy tube. 3. Continue IV fluids decrease vasopressors as tolerated 4. Deep venous thrombosis and GI prophylaxis. 5. Continue AC mechanical ventilation 6. Renal recommendations and evaluation for renal insufficiency and persistent metabolic acidosis. Critical care time 40 minutes. Transfusion 1 unit packed red blood cells MONO HOYOS MD, [facility] Nov 24, 2018 10:51
[2018-11-24] MEDS: D5W-0.45 NACL + KCL 20 MEQ 1,000 ML IV SCH ×2 (10:59→22:50)
--- NOTE | 2018-11-24 11:50 | CONS ---
Assessment/Plan Assessment/Plan Hospital Course (Demo Recall) Paroxysmal atrial fibrillation: No known prior diagnosis. Will consider chronic anticoagulation pending clinic course and need for procedures but also has anemia. Now back in sinus after amiodarone. Septic shock: almost pff pressors Anemia: no active bleeding. Hgb 7.2 Acute on chronic diastolic CHF: due to third spacing from low albumin/IVF Choledocholithiasis with acute cholecystitis: LFTs/bili improving. Currently conservative management Acute renal failure VDRF/tracheostomy h/o brain tumor Seizure disorder Bedridden -hemodynamics significantly improved and remains in sinus. High risk for surgery but more optimized. Would try to keep hgb >8 prior to surgery -amiodarone 400mg BID -wean phenylephrine to keep MAP >65 -antibiotics -GI follow up Consultation Date/Type/Reason Admit Date/Time Nov 19, 2018 at 19:01 Initial Consult Date 11/22/18 Type of Consult Cardiology Requesting Provider: KAYLA CELESTIN Date/Time of Note DATE: 11/24/18 TIME: 11:48 24 HR Interval Summary Free Text/Dictation Remains in sinus. Now on low dose phenylephrine. Hgb stable at 7.2. Exam/Review of Systems Exam Vitals Vital Signs Date Temp Pulse Resp B/P (MAP) Pulse Ox O2 O2 Flow FiO2 Time Delivery Rate 11/24/18 73 23 94 30 10:00 11/24/18 101/63 Mechanical 06:00 (76) Ventilator 11/24/18 99.3 04:00 11/20/18 10.0 14:30 Intake and Output 11/23/18 11/23/18 11/24/18 1515:00 23:00 07:00 IntakeIntake Total 1450.0 ml 1465.0 ml 715 ml OutputOutput Total 860 ml 950 ml 950 ml BalanceBalance 590.0 ml 515.0 ml -235 ml Constitutional: No alert ENMT: other (s/p trach) Neck: No jvd (unable to assess) Respiratory: diminished breath sounds; No clear to auscultation Cardiovascular: edema (1-2+) Neurological: No nl mental status, No nl speech Results Result Diagram: 11/24/18 0430 11/24/18 0430 Results 24hrs Laboratory Tests Test 11/24/18 04:30 White Blood Count 9.1 Red Blood Count 2.12 L Hemoglobin 7.2 L Hematocrit 21.9 L Mean Corpuscular Volume 103.3 H Mean Corpuscular Hemoglobin 34.0 H Mean Corpuscular Hemoglobin Concent 32.9 Red Cell Distribution Width 13.6 Platelet Count 243 Mean Platelet Volume 11.7 H Immature Granulocytes % 0.700 H Neutrophils % 72.0 Lymphocytes % 12.3 L Monocytes % 7.8 Eosinophils % 7.0 Basophils % 0.2 Nucleated Red Blood Cells % 0.0 Immature Granulocytes # 0.060 H Neutrophils # 6.5 Lymphocytes # 1.1 Monocytes # 0.7 Eosinophils # 0.6 H Basophils # 0.0 Nucleated Red Blood Cells # 0.0 Sodium Level 131 L Potassium Level 3.8 Chloride Level 104 Carbon Dioxide Level 15 L Anion Gap 12 Blood Urea Nitrogen 36 H Creatinine 2.39 H Est Glomerular Filtrat Rate mL/min 20 L Glucose Level 95 Calcium Level 7.8 L Phosphorus Level 3.3 Magnesium Level 2.0 Iron Level 37 Total Iron Binding Capacity 147 L Percent Iron Saturation 25 Ferritin 432.0 H Total Bilirubin 0.2 Direct Bilirubin 0.00 Indirect Bilirubin 0.2 Aspartate Amino Transf (AST/SGOT) 38 Alanine Aminotransferase (ALT/SGPT) 93 H Alkaline Phosphatase 172 H Total Protein 5.7 L Albumin 2.6 L Globulin 3.10 Albumin/Globulin Ratio 0.83 Medications Medication Current Medications Ondansetron HCl (Zofran Inj) 4 mg Q6H PRN IV NAUSEA AND/OR VOMITING; Start 11/19/18 at 20:30 Pantoprazole (Protonix Iv) 40 mg DAILY@06 IV Last administered on 11/24/18at 05:38; Admin Dose 40 MG; Start 11/20/18 at 06:00 Phenylephrine HCl 40 mg/Dextrose 250 ml @ 37.5 mls/hr TITRATE IV Last administered on 11/24/18 05:43; Admin Dose 15 MLS/HR; Start 11/19/18 at 20:30 Acetaminophen (Tylenol Tab) 650 mg Q6H PRN GTB MILD PAIN LEVEL 1-3 Last administered on 11/22/18at 03:04; Admin Dose 650 MG; Start 11/20/18 at 06:00 Albuterol (Proventil 0.083% (Neb)) 2.5 mg Q6H RESP THERAPY PRN NEB WHEEZING AND SOB Last administered on 11/21/18 19:40; Admin Dose 2.5 MG; Start 11/20/18 at 06:00 Folic Acid (Folic Acid) 1 mg DAILY GTB Last administered on 11/24/18 09:38; Admin Dose 1 MG; Start 11/20/18 at 09:00 Lorazepam (Ativan) 1 mg Q10MIN PRN IV agitation Last administered on 11/22/18 20:15; Admin Dose 1 MG; Start 11/20/18 at 14:30 Norepinephrine 250 ml @ 1.875 mls/ hr TITRATE IV Last administered on 11/22/18 14:35; Admin Dose 18.75 MLS/HR; Start 11/20/18 at 15:00 Fentanyl 100 ml @ 2.5 mls/hr TITRATE IV Last administered on 11/20/18 15:48; Admin Dose 2.5 MLS/HR; Start 11/20/18 at 16:30 Amiodarone HCl 900 mg/Dextrose 500 ml @ 0 mls/hr Q0M IV Last administered on 11/22/18 15:29; Admin Dose 16.7 MLS/HR; Start 11/21/18 at 16:30 Vasopressin 60 unit/Dextrose 60 ml @ 0 mls/hr Q12H IV Last administered on 11/22/18 00:55; Admin Dose 1.2 MLS/HR; Start 11/22/18 at 00:00 Phenobarbital (Luminal) 65 mg BID IV Last administered on 11/24/18 09:50; Admin Dose 65 MG; Start 11/22/18 at 21:00 Levetiracetam 100 ml @ 400 mls/hr Q12 IVPB Last administered on 11/24/18 09:35; Admin Dose 400 MLS/HR; Start 11/22/18 at 21:00 Amiodarone HCl (Cordarone) 400 mg BID PO Last administered on 11/24/18 09:38; Admin Dose 400 MG; Start 11/23/18 at 09:00 Potassium Chloride/Dextrose/ Sod Cl 1,000 ml @ 80 mls/hr [id number] IV Last administered on 11/24/18 10:59; Admin Dose 80 MLS/HR; Start 11/23/18 at 09:00 Linezolid 300 ml @ 300 mls/hr Q12 IVPB Last administered on 11/24/18at 10:49; Admin Dose 300 MLS/HR; Start 11/23/18 at 21:00 Meropenem/Sodium Chloride 50 ml @ 100 mls/hr Q12 IVPB Last administered on 11/24/18at 09:50; Admin Dose 100 MLS/HR; Start 11/23/18 at 15:00 FRANSISCO SALCIDO Nov 24, 2018 11:50
[2018-11-24] MEDS: VASOPRESSIN 60 UNIT in DEXTROSE 5% 57 ML IV SCH ×4 (12:00→22:47)
--- NOTE | 2018-11-24 14:50 | CONS ---
Assessment/Plan Assessment/Plan Hospital Course 68 F c/ reported Hx of malignant brain neoplasm NOS c/b epilepsy..and other comorbidities, who presents for management of hypotension and GI abnl. Neurology is consulted for epilepsy medication management. P: Continue Phb 65mg iv bid for now; await repeat phb level (Goal 20-30) Continue Keppra 500mg iv q12hr while GFR is severely compromised.. Ativan iv prn prolonged seizure of cluster Other management per primary Will follow Consultation Date/Type/Reason Admit Date/Time Nov 19, 2018 at 19:01 Type of Consult Neurology Reason for Consultation epilepsy management Requesting Provider: KAYLA CELESTIN Date/Time of Note DATE: 11/24/18 TIME: 14:48 24 HR Interval Summary Free Text/Dictation Continues critical care. Subjective hx not possible: pt non-verbal Exam Vital Signs Vitals Vital Signs Date Temp Pulse Resp B/P (MAP) Pulse Ox O2 O2 Flow FiO2 Time Delivery Rate 11/24/18 73 34 117/69 Mechanical 13:45 (85) Ventilator 11/24/18 97 12:30 11/24/18 98.0 12:00 11/24/18 30 12:00 11/20/18 10.0 14:30 Intake and Output 11/23/18 11/23/18 11/24/18 1515:00 23:00 07:00 IntakeIntake Total 1450.0 ml 1465.0 ml 810 ml OutputOutput Total 860 ml 950 ml 1050 ml BalanceBalance 590.0 ml 515.0 ml -240 ml Exam PE: Gen Appearance: No Apparent Distress HEENT: trached Cardiovascular: Regular rate Abdomen: Soft; with PEG Extremities: Dry NE: The patient was asleep, able to open her eyes to voice. Unable to fix or follow commands. Cranial nerve examination was limited by mental status. Pupils were equal and reactive to light. There was no afferent pupillary defect. Funduscopic examination was limited. Face was grossly symmetric, w/ present corneal and cough reflexes. Tone was spastic in the UE. Muscle bulk was normal. I did not see fasciculations. The patient minimally withdrew to noxious stimulation x 4. Coordination and gait testing was limited by mental status. Arm and leg reflexes were within normal limits and symmetric. Whitman's sign was absent. Plantar responses were flexor. HIPOLITO GLOVER FILE MACHINE OPERATOR Nov 24, 2018 14:50 RACHEL ESTEBAN Nov 24, 2018 14:57
--- NOTE | 2018-11-24 15:19 | CONS ---
Assessment/Plan Assessment/Plan Hospital Course (Demo Recall) No acute events overnight. Patient is laying comfortably in bed. T-max 100.1. WBC today 9.1 platelets 243 neutrophils 72 BUN 36 creatinine 2.39 Indwelling: Trach PEG right femoral triple-lumen catheter, Jaime Antimicrobials: Zyvox meropenem Physical examination: Morbidly obese well-developed chronically ill-appearing elderly woman who is in no distress. Head atraumatic normocephalic neck is obese tracheostomy present chest rise symmetrical breath sounds diminished bases. Heart: S1-S2. Abdomen soft bowel sounds hypoactive. Extremities with bilateral edema Assessment: 1. Severe sepsis with shock 2. Acute cholecystitis with suspected choledocholithiasis 3. Acute renal failure 4. Chronic respiratory failure and dysphagia 5. Acute on chronic anemia 6. Paroxysmal atrial fibrillation Plan: Remains unchanged, continue present care and antibiotics, pending ERCP, F/U CX'S Consultation Date/Type/Reason Admit Date/Time Nov 19, 2018 at 19:01 Initial Consult Date 11/22/18 Type of Consult id Requesting Provider: KAYLA CELESTIN Date/Time of Note DATE: 11/24/18 TIME: 15:17 Exam/Review of Systems Exam Vitals Vital Signs Date Temp Pulse Resp B/P (MAP) Pulse Ox O2 O2 Flow FiO2 Time Delivery Rate 11/24/18 73 34 117/69 Mechanical 13:45 (85) Ventilator 11/24/18 97 12:30 11/24/18 98.0 12:00 11/24/18 30 12:00 11/20/18 10.0 14:30 Intake and Output 11/23/18 11/23/18 11/24/18 1515:00 23:00 07:00 IntakeIntake Total 1450.0 ml 1465.0 ml 810 ml OutputOutput Total 860 ml 950 ml 1050 ml BalanceBalance 590.0 ml 515.0 ml -240 ml Results Result Diagram: 11/24/18 0430 11/24/18 0430 Results 24hrs Laboratory Tests Test 11/24/18 04:30 White Blood Count 9.1 Red Blood Count 2.12 L Hemoglobin 7.2 L Hematocrit 21.9 L Mean Corpuscular Volume 103.3 H Mean Corpuscular Hemoglobin 34.0 H Mean Corpuscular Hemoglobin Concent 32.9 Red Cell Distribution Width 13.6 Platelet Count 243 Mean Platelet Volume 11.7 H Immature Granulocytes % 0.700 H Neutrophils % 72.0 Lymphocytes % 12.3 L Monocytes % 7.8 Eosinophils % 7.0 Basophils % 0.2 Nucleated Red Blood Cells % 0.0 Immature Granulocytes # 0.060 H Neutrophils # 6.5 Lymphocytes # 1.1 Monocytes # 0.7 Eosinophils # 0.6 H Basophils # 0.0 Nucleated Red Blood Cells # 0.0 Sodium Level 131 L Potassium Level 3.8 Chloride Level 104 Carbon Dioxide Level 15 L Anion Gap 12 Blood Urea Nitrogen 36 H Creatinine 2.39 H Est Glomerular Filtrat Rate mL/min 20 L Glucose Level 95 Calcium Level 7.8 L Phosphorus Level 3.3 Magnesium Level 2.0 Iron Level 37 Total Iron Binding Capacity 147 L Percent Iron Saturation 25 Ferritin 432.0 H Total Bilirubin 0.2 Direct Bilirubin 0.00 Indirect Bilirubin 0.2 Aspartate Amino Transf (AST/SGOT) 38 Alanine Aminotransferase (ALT/SGPT) 93 H Alkaline Phosphatase 172 H Total Protein 5.7 L Albumin 2.6 L Globulin 3.10 Albumin/Globulin Ratio 0.83 Medications Medication Current Medications Ondansetron HCl (Zofran Inj) 4 mg Q6H PRN IV NAUSEA AND/OR VOMITING; Start 11/19/18 at 20:30 Pantoprazole (Protonix Iv) 40 mg DAILY@06 IV Last administered on 11/24/18at 05:38; Admin Dose 40 MG; Start 11/20/18 at 06:00 Phenylephrine HCl 40 mg/Dextrose 250 ml @ 37.5 mls/hr TITRATE IV Last ad ministered on 11/24/18at 05:43; Admin Dose 15 MLS/HR; Start 11/19/18 at 20:30 Acetaminophen (Tylenol Tab) 650 mg Q6H PRN GTB MILD PAIN LEVEL 1-3 Last administered on 11/22/18 03:04; Admin Dose 650 MG; Start 11/20/18 at 06:00 Albuterol (Proventil 0.083% (Neb)) 2.5 mg Q6H RESP THERAPY PRN NEB WHEEZING AND SOB Last administered on 11/21/18 19:40; Admin Dose 2.5 MG; Start 11/20/18 at 06:00 Folic Acid (Folic Acid) 1 mg DAILY GTB Last administered on 11/24/18 09:38; Admin Dose 1 MG; Start 11/20/18 at 09:00 Lorazepam (Ativan) 1 mg Q10MIN PRN IV agitation Last administered on 11/22/18 20:15; Admin Dose 1 MG; Start 11/20/18 at 14:30 Norepinephrine 250 ml @ 1.875 mls/ hr TITRATE IV Last administered on 11/22/18 14:35; Admin Dose 18.75 MLS/HR; Start 11/20/18 at 15:00 Fentanyl 100 ml @ 2.5 mls/hr TITRATE IV Last administered on 11/20/18 15:48; Admin Dose 2.5 MLS/HR; Start 11/20/18 at 16:30 Amiodarone HCl 900 mg/Dextrose 500 ml @ 0 mls/hr Q0M IV Last administered on 11/22/18 15:29; Admin Dose 16.7 MLS/HR; Start 11/21/18 at 16:30 Vasopressin 60 unit/Dextrose 60 ml @ 0 mls/hr Q12H IV Last administered on 11/22/18 00:55; Admin Dose 1.2 MLS/HR; Start 11/22/18 at 00:00 Phenobarbital (Luminal) 65 mg BID IV Last administered on 11/24/18 09:50; Admin Dose 65 MG; Start 11/22/18 at 21:00 Levetiracetam 100 ml @ 400 mls/hr Q12 IVPB Last administered on 11/24/18 09:35; Admin Dose 400 MLS/HR; Start 11/22/18 at 21:00 Amiodarone HCl (Cordarone) 400 mg BID PO Last administered on 11/24/18 09:38; Admin Dose 400 MG; Start 11/23/18 at 09:00 Potassium Chloride/Dextrose/ Sod Cl 1,000 ml @ 80 mls/hr [id number] IV Last administered on 11/24/18 10:59; Admin Dose 80 MLS/HR; Start 11/23/18 at 09:00 Linezolid 300 ml @ 300 mls/hr Q12 IVPB Last administered on 11/24/18 10:49; Admin Dose 300 MLS/HR; Start 11/23/18 at 21:00 Meropenem/Sodium Chloride 50 ml @ 100 mls/hr Q12 IVPB Last administered on 11/24/18at 09:50; Admin Dose 100 MLS/HR; Start 11/23/18 at 15:00 KAREN LOMAS NP Nov 24, 2018 15:19
[2018-11-24] MEDS: EPOETIN 4000 UNITS/ML (NON ESRD/NON ONCOLOGY) SC SCH (20:51)
[2018-11-25] VITALS (39 sets, daily range): BP systolic 89–168; BP diastolic 44–84; PULSE 72–96; RESP 16–25
[2018-11-25] MEDS: PANTOPRAZOLE 40 MG INJ IV SCH (05:51)
--- NOTE | 2018-11-25 07:04 | PN ---
DATE: 11/24/2018 HISTORY OF PRESENT ILLNESS: The patient was admitted with sepsis to the intensive care unit and she was on 3 pressors to maintain the blood pressure, but today for several hours, she is off of the pres sors. She is more alert now. She is opening her eyes. PHYSICAL EXAMINATION: VITAL SIGNS: Pulse is around 80. DICTATION ENDS HERE Dictated By: FRANKLIN BROWN/NTS Conf#: [id number] DID#: [id number] CC: KENNETH SANTILLAN MD; KAYLA CELESTIN MD;*EndCC*
--- NOTE | 2018-11-25 07:08 | PN ---
DATE: 11/24/2018 ADDENDUM PHYSICAL EXAMINATION: GENERAL: She is more alert. VITAL SIGNS: The pulse is around 80 to 85. Blood pressure is around 110/80. Temperature today is 98.4. HEART: Normal heart sounds. RESPIRATORY: Normal breath sounds. ABDOMEN: Obese abdomen. LABORATORY WORKUP: WBC count is 9100, hemoglobin 7.2. She received 1 unit of packed cells. The pot assium is 3.8, bilirubin 0.2 at this moment. AST is 38, ALT 93, alkaline phosphatase 172. CLINICAL IMPRESSION: The patient still has evidence of a cholangitis due to choledocholithiasis. Orin dong probably also has a cholecystitis. The patient was seen and evaluated by Dr. Andrews from the surgery standpoint and he is also of the op inion that ERCP needs to be done and the patient is stable. It appears that the patient seems to be reasonably stable, although she is a very highly risky candidate to undergo ERCP. However, without c learing the common bile duct, her sepsis may never get better. Again, the treatment of the cholecyst itis will be deferred to Dr. Andrews. PLAN: At this time, I discussed with the conservator regarding the consent for ERCP. He says he is appropriate, and he consented for the ERCP. We will also obtain cardiology and pulmonary clearance b efore we can do the procedure. Dictated By: FRANKLIN BROWN/LOUIS Conf#: [id number] DID#: [id number]
[2018-11-25] MEDS: LEVETIRACETAM 500 MG (PMX) 100 ML IVPB SCH ×2 (09:03→20:44)
[2018-11-25] MEDS: AMIODARONE 200 MG TAB PO SCH ×2 (09:06→20:45)
[2018-11-25] MEDS: FOLIC ACID 1 MG TAB GTB SCH (09:06)
[2018-11-25] MEDS: PHENOBARBITAL 65 MG INJ IV SCH ×2 (09:16→20:44)
--- NOTE | 2018-11-25 09:50 | CONS ---
Assessment/Plan Assessment/Plan Hospital Course (Demo Recall) Paroxysmal atrial fibrillation: No known prior diagnosis. Will consider chronic anticoagulation pending clinic course and need for procedures but also has anemia. Now back in sinus after amiodarone. Septic shock: now off pressors Anemia: no active bleeding. Hgb >8 after 1 unit Acute on chronic diastolic CHF: due to third spacing from low albumin/IVF Choledocholithiasis with acute cholecystitis: LFTs/bili improved Acute renal failure VDRF/tracheostomy h/o brain tumor Seizure disorder Bedridden -Remains high risk for any procedure of surgery but now off pressors, hgb >8, and overall optimized from cardiac standpoint for ERCP -amiodarone 400mg BID -antibiotics -GI follow up Consultation Date/Type/Reason Admit Date/Time Nov 19, 2018 at 19:01 Initial Consult Date 11/22/18 Type of Consult Cardiology Requesting Provider: KAYLA CELESTIN Date/Time of Note DATE: 11/25/18 TIME: 09:46 24 HR Interval Summary Free Text/Dictation Off pressors. No further afib. Otherwise condition unchanged. Plan for ERCP Exam/Review of Systems Exam Vitals Vital Signs Date Temp Pulse Resp B/P (MAP) Pulse Ox O2 O2 Flow FiO2 Time Delivery Rate 11/25/18 74 23 93 30 09:20 11/25/18 118/49 Mechanical 06:00 (72) Ventilator 11/25/18 99.2 04:00 Intake and Output 11/24/18 11/24/18 11/25/18 1414:59 22:59 06:59 IntakeIntake Total 1196.50 ml 1486.88 ml 575 ml OutputOutput Total 825 ml 1010 ml 770 ml BalanceBalance 371.50 ml 476.88 ml -195 ml Constitutional: No alert, No oriented ENMT: other (s/p trach) Neck: supple; No jvd (difficul to assess) Cardiovascular: regular rate and rhythm, edema (2+); No systolic murmur Gastrointestinal: soft, distended; No non-tender Neurological: No nl mental status, No nl speech Results Result Diagram: 11/25/18 0426 11/25/18 0426 Results 24hrs Laboratory Tests Test 11/24/18 19:13 11/25/18 04:26 11/25/18 05:06 11/25/18 07:00 Prothrombin Time 14.4 Prothrombin Time 1.1 Ratio INR 1.11 International Normalized Ratio Activated 28.0 Partial Thrombop last Time White Blood 7.5 Count Red Blood Count 2.50 L Hemoglobin 8.1 L Hematocrit 25.5 L Mean Corpuscular 102.0 H Volume Mean Corpuscular 32.4 Hemoglobin Mean Corpuscular 31.8 L Hemoglobin Sherrill nt Red Cell 16.7 #H Distribution Width Platelet Count 258 Mean Platelet 11.3 H Volume Immature 0.500 H Granulocytes % Neutrophils % 70.1 Lymphocytes % 13.8 L Monocytes % 8.5 Eosinophils % 6.8 Basophils % 0.3 Nucleated Red 0.0 Blood Cells % Immature 0.040 H Granulocytes # Neutrophils # 5.3 Lymphocytes # 1.0 Monocytes # 0.6 Eosinophils # 0.5 Basophils # 0.0 Nucleated Red 0.0 Blood Cells # Sodium Level 135 Potassium Level 3.8 Chloride Level 111 H Carbon Dioxide 16 L Level Anion Gap 8 Blood Urea 33 H Nitrogen Creatinine 2.15 H Est Glomerular 23 L Filtrat Rate mL/min Glucose Level 97 Calcium Level 8.1 L Phosphorus Level 3.6 Magnesium Level 1.8 Lab Scanned REFERENCE LAB Report Blood Gas Blood arterial Specimen Source Arterial Blood 11/25/2018 7:15: Date Drawn 01 AM Arterial Blood 7.365 pH (Temp corrected) Arterial Blood 24.5 L pCO2 (Temp correct) Arterial Blood 106.9 H pO2 (Temp corrected) Arterial Blood 13.7 L HCO3 Arterial Blood -10.2 L Base Excess Arterial Blood 97.9 Oxygen Saturatio n Moshe Test ACCEPTAB Arterial Blood Right Radial Gas Puncture Site Arterial 0.3 Blood Carboxyhem oglobin Arterial Blood 0.2 Methemoglobin Blood Gas A-a O2 78.2 H Differential Oxyhemoglobin 97.4 Percent Blood Gas 37.0 Temperature Blood Gas 18.0 Respiration Rate Blood Gas Actual 20 Respiration Rate Blood Gas VENT - AC Modality FiO2 30.0 Blood Gas Tidal 500.0 Volume Blood Gas Low 5.0 PEEP Setting Blood Gas TM Notified Whom Blood Gas 11/25/2018 7:35: Notified Time 37 AM Medications Medication Current Medications Ondansetron HCl (Zofran Inj) 4 mg Q6H PRN IV NAUSEA AND/OR VOMITING; Start 11/19/18 at 20:30 Pantoprazole (Protonix Iv) 40 mg DAILY@06 IV Last administered on 11/25/18 05:51; Admin Dose 40 MG; Start 11/20/18 at 06:00 Phenylephrine HCl 40 mg/Dextrose 250 ml @ 37.5 mls/hr TITRATE IV Last administered on 11/24/18 05:43; Admin Dose 15 MLS/HR; Start 11/19/18 at 20:30 Acetaminophen (Tylenol Tab) 650 mg Q6H PRN GTB MILD PAIN LEVEL 1-3 Last administered on 11/22/18 03:04; Admin Dose 650 MG; Start 11/20/18 at 06:00 Albuterol (Proventil 0.083% (Neb)) 2.5 mg Q6H RESP THERAPY PRN NEB WHEEZING AND SOB Last administered on 11/21/18 19:40; Admin Dose 2.5 MG; Start 11/20/18 at 06:00 Folic Acid (Folic Acid) 1 mg DAILY GTB Last administered on 11/25/18 09:06; Admin Dose 1 MG; Start 11/20/18 at 09:00 Lorazepam (Ativan) 1 mg Q10MIN PRN IV agitation Last administered on 11/22/18 20:15; Admin Dose 1 MG; Start 11/20/18 at 14:30 Norepinephrine 250 ml @ 1.875 mls/ hr TITRATE IV Last administered on 11/22/18 14:35; Admin Dose 18.75 MLS/HR; Start 11/20/18 at 15:00 Fentanyl 100 ml @ 2.5 mls/hr TITRATE IV Last administered on 11/20/18 15:48; Admin Dose 2.5 MLS/HR; Start 11/20/18 at 16:30 Amiodarone HCl 900 mg/Dextrose 500 ml @ 0 mls/hr Q0M IV Last administered on 11/22/18 15:29; Admin Dose 16.7 MLS/HR; Start 11/21/18 at 16:30 Vasopressin 60 unit/Dextrose 60 ml @ 0 mls/hr Q12H IV Last administered on 11/22/18 00:55; Admin Dose 1.2 MLS/HR; Start 11/22/18 at 00:00 Phenobarbital (Luminal) 65 mg BID IV Last administered on 11/25/18 09:16; Admin Dose 65 MG; Start 11/22/18 at 21:00 Levetiracetam 100 ml @ 400 mls/hr Q12 IVPB Last administered on 11/25/18 09:03; Admin Dose 400 MLS/HR; Start 11/22/18 at 21:00 Amiodarone HCl (Cordarone) 400 mg BID PO Last administered on 11/25/18 09:06; Admin Dose 400 MG; Start 11/23/18 at 09:00 Potassium Chloride/Dextrose/ Sod Cl 1,000 ml @ 80 mls/hr [id number] IV Last ad ministered on 11/24/18 22:50; Admin Dose 80 MLS/HR; Start 11/23/18 at 09:00 Linezolid 300 ml @ 300 mls/hr Q12 IVPB Last administered on 11/24/18at 20:49; Admin Dose 300 MLS/HR; Start 11/23/18 at 21:00 Meropenem/Sodium Chloride 50 ml @ 100 mls/hr Q12 IVPB Last administered on 11/24/18 20:49; Admin Dose 100 MLS/HR; Start 11/23/18 at 15:00 Ferric Sodium Gluconate Complex 125 mg/Sodium Chloride 110 ml @ 110 mls/hr DAILY@1300 IVPB ; Start 11/25/18 at 13:00; Stop 11/29/18 at 13:59 Epoetin Theodore (Epogen (Non Esrd/Non Oncology)) 8,000 units MoWeFr@17 SC Last administered on 11/24/18at 20:51; Admin Dose 8,000 UNITS; Start 11/24/18 at 17:30 FRANSISCO SALCIDO Nov 25, 2018 09:50
[2018-11-25] MEDS: MEROPENEM 500MG/50 ML (PMX) 50 ML IVPB SCH ×2 (09:55→20:44)
--- NOTE | 2018-11-25 10:19 | CONS ---
Assessment/Plan Assessment/Plan Assessment/Plan (Daily) 1) Chronic resp failure S/p Trach 2) Sepsis 2nd PNA 3) Hypernatremia- Resolved 4) oliguria improved, Cr stable 5) Rapid Afib, currently on treatment 6) Hypotension Septic Shock, requiring IV pressors 7) AG acidosis in the setting of JUSTO- Compensated Plan: BUN/Cr slighlty better 33/2.15, Na 135, HCo3 16- will start Bicitral 30ml PO BID, pt remaiend on ventilator IVF D51/2 NS with KCl 20meQ at 80 cc/hr - Continue it, amiodarone gtt, IV keppra NO acute indication for HD at this time time IV abx meropenem and zyvox, Renally dose all abx and monitor electorlytes Ferrlecit 125mg IV daily x 5 doses for severe iron deficiency Epogen 8000 units SQ MWFfor anemia, Hb 8.1 today will follow up Consultation Date/Type/Reason Admit Date/Time Nov 19, 2018 at 19:01 Initial Consult Date 11/22/18 Type of Consult NEPHROLOGY Requesting Provider: KAYLA CELESTIN Date/Time of Note DATE: 11/25/18 TIME: 10:19 Exam/Review of Systems Exam Vitals Vital Signs Date Temp Pulse Resp B/P (MAP) Pulse Ox O2 O2 Flow FiO2 Time Delivery Rate 11/25/18 74 23 93 30 09:20 11/25/18 118/49 Mechanical 06:00 (72) Ventilator 11/25/18 99.2 04:00 Intake and Output 11/24/18 11/24/18 11/25/18 1515:00 23:00 07:00 IntakeIntake Total 1186.50 ml 1416.88 ml 560 ml OutputOutput Total 900 ml 945 ml 660 ml BalanceBalance 286.50 ml 471.88 ml -100 ml Exam Eyes: EOMI ENMT: mucosa pink and moist, other (Trach) Respiratory: crackles/rales, other (Vent); No diminished breath sounds Cardiovascular: edema, irregular rhythm Gastrointestinal: soft, other (PEG); No non-tender, No rebound or guarding Extremities: edema Neurological: unresponsive Results Result Diagram: 11/25/18 0426 11/25/18 0426 Results 24hrs Laboratory Tests Test 11/24/18 19:13 11/25/18 04:26 11/25/18 05:06 11/25/18 07:00 Prothrombin Time 14.4 Prothrombin Time 1.1 Ratio INR 1.11 International Normalized Ratio Activated 28.0 Partial Thrombop last Time White Blood 7.5 Count Red Blood Count 2.50 L Hemoglobin 8.1 L Hematocrit 25.5 L Mean Corpuscular 102.0 H Volume Mean Corpuscular 32.4 Hemoglobin Mean Corpuscular 31.8 L Hemoglobin Sherrill nt Red Cell 16.7 #H Distribution Width Platelet Count 258 Mean Platelet 11.3 H Volume Immature 0.500 H Granulocytes % Neutrophils % 70.1 Lymphocytes % 13.8 L Monocytes % 8.5 Eosinophils % 6.8 Basophils % 0.3 Nucleated Red 0.0 Blood Cells % Immature 0.040 H Granulocytes # Neutrophils # 5.3 Lymphocytes # 1.0 Monocytes # 0.6 Eosinophils # 0.5 Basophils # 0.0 Nucleated Red 0.0 Blood Cells # Sodium Level 135 Potassium Level 3.8 Chloride Level 111 H Carbon Dioxide 16 L Level Anion Gap 8 Blood Urea 33 H Nitrogen Creatinine 2.15 H Est Glomerular 23 L Filtrat Rate mL/min Glucose Level 97 Calcium Level 8.1 L Phosphorus Level 3.6 Magnesium Level 1.8 Lab Scanned REFERENCE LAB Report Blood Gas Blood arterial Specimen Source Arterial Blood 11/25/2018 7:15: Date Drawn 01 AM Arterial Blood 7.365 pH (Temp corrected) Arterial Blood 24.5 L pCO2 (Temp correct) Arterial Blood 106.9 H pO2 (Temp corrected) Arterial Blood 13.7 L HCO3 Arterial Blood -10.2 L Base Excess Arterial Blood 97.9 Oxygen Saturatio n Moshe Test ACCEPTAB Arterial Blood Right Radial Gas Puncture Site Arterial 0.3 Blood Carboxyhem oglobin Arterial Blood 0.2 Methemoglobin Blood Gas A-a O2 78.2 H Differential Oxyhemoglobin 97.4 Percent Blood Gas 37.0 Temperature Blood Gas 18.0 Respiration Rate Blood Gas Actual 20 Respiration Rate Blood Gas VENT - AC Modality FiO2 30.0 Blood Gas Tidal 500.0 Volume Blood Gas Low 5.0 PEEP Setting Blood Gas TM Notified Whom Blood Gas 11/25/2018 7:35: Notified Time 37 AM Medications Medication Current Medications Ondansetron HCl (Zofran Inj) 4 mg Q6H PRN IV NAUSEA AND/OR VOMITING; Start 11/19/18 at 20:30 Pantoprazole (Protonix Iv) 40 mg DAILY@06 IV Last administered on 11/25/18 05:51; Admin Dose 40 MG; Start 11/20/18 at 06:00 Phenylephrine HCl 40 mg/Dextrose 250 ml @ 37.5 mls/hr TITRATE IV Last administered on 11/24/18 05:43; Admin Dose 15 MLS/HR; Start 11/19/18 at 20:30 Acetaminophen (Tylenol Tab) 650 mg Q6H PRN GTB MILD PAIN LEVEL 1-3 Last administered on 11/22/18 03:04; Admin Dose 650 MG; Start 11/20/18 at 06:00 Albuterol (Proventil 0.083% (Neb)) 2.5 mg Q6H RESP THERAPY PRN NEB WHEEZING AND SOB Last administered on 11/21/18 19:40; Admin Dose 2.5 MG; Start 11/20/18 at 06:00 Folic Acid (Folic Acid) 1 mg DAILY GTB Last administered on 11/25/18 09:06; Admin Dose 1 MG; Start 11/20/18 at 09:00 Lorazepam (Ativan) 1 mg Q10MIN PRN IV agitation Last administered on 11/22/18 20:15; Admin Dose 1 MG; Start 11/20/18 at 14:30 Norepinephrine 250 ml @ 1.875 mls/ hr TITRATE IV Last administered on 11/22/18 14:35; Admin Dose 18.75 MLS/HR; Start 11/20/18 at 15:00 Fentanyl 100 ml @ 2.5 mls/hr TITRATE IV Last administered on 11/20/18 15:48; Admin Dose 2.5 MLS/HR; Start 11/20/18 at 16:30 Amiodarone HCl 900 mg/Dextrose 500 ml @ 0 mls/hr Q0M IV Last administered on 11/22/18 15:29; Admin Dose 16.7 MLS/HR; Start 11/21/18 at 16:30 Vasopressin 60 unit/Dextrose 60 ml @ 0 mls/hr Q12H IV Last administered on 00:55; Admin Dose 1.2 MLS/HR; Start 11/22/18 at 00:00 Phenobarbital (Luminal) 65 mg BID IV Last administered on 2/28/19at 09:16; Admin Dose 65 MG; Start 11/22/18 at 21:00 Levetiracetam 100 ml @ 400 mls/hr Q12 IVPB Last administered on 11/25/18at 09:03; Admin Dose 400 MLS/HR; Start 11/22/18 at 21:00 Amiodarone HCl (Cordarone) 400 mg BID PO Last administered on 11/25/18at 09:06; Admin Dose 400 MG; Start 11/23/18 at 09:00 Potassium Chloride/Dextrose/ Sod Cl 1,000 ml @ 80 mls/hr [id number] IV Last administered on 11/24/18at 22:50; Admin Dose 80 MLS/HR; Start 11/23/18 at 09:00 Linezolid 300 ml @ 300 mls/hr Q12 IVPB Last administered on 11/24/18at 20:49; Admin Dose 300 MLS/HR; Start 11/23/18 at 21:00 Meropenem/Sodium Chloride 50 ml @ 100 mls/hr Q12 IVPB Last administered on 11/25/18at 09:55; Admin Dose 100 MLS/HR; Start 11/23/18 at 15:00 Ferric Sodium Gluconate Complex 125 mg/Sodium Chloride 110 ml @ 110 mls/hr DAILY@1300 IVPB ; Start 11/25/18 at 13:00; Stop 11/29/18 at 13:59 Epoetin Theodore (Epogen (Non Esrd/Non Oncology)) 8,000 units MoWeFr@17 SC Last administered on 11/24/18at 20:51; Admin Dose 8,000 UNITS; Start 11/24/18 at 17:30 DEANNA CARRERA MD Nov 25, 2018 10:19
--- NOTE | 2018-11-25 10:21 | CONS ---
Consult Date/Type/Reason Admit Date/Time Nov 19, 2018 at 19:01 Initial Consult Date Type of Consult Pulmonary Requesting Provider: KAYLA CELESTIN Date/Time of Note DATE: 11/25/18 TIME: 10:20 Subjective Patient scheduled for MRCP and ERCP today. Off vasopressors remains hemodynamically stable. Objective Vital Signs Date Temp Pulse Resp B/P (MAP) Pulse Ox O2 O2 Flow FiO2 Time Delivery Rate 11/25/18 74 23 93 30 09:20 11/25/18 118/49 Mechanical 06:00 (72) Ventilator 11/25/18 99.2 04:00 Intake and Output 11/24/18 11/24/18 11/25/18 1515:00 23:00 07:00 IntakeIntake Total 1186.50 ml 1416.88 ml 560 ml OutputOutput Total 900 ml 945 ml 660 ml BalanceBalance 286.50 ml 471.88 ml -100 ml Exam PHYSICAL EXAMINATION: GENERAL: Elderly-appearing lady, appears on mechanical ventilation. VITAL SIGNS: HEENT: Extraocular movements intact. CARDIAC: S1, S2, no added sounds or murmurs. CHEST: Diminished air entry bilaterally. ABDOMEN: Soft, nontender. No guarding or rebound. EXTREMITIES: No cyanosis, clubbing. NEUROLOGIC: Unable to assess. Vent Setting Ventilator Support Mode: AC Fraction of Inspired Oxygen pe: 30 Positive End Expiratory Pressu: 5.0 Results/Medications Result Diagram: 11/25/186 11/25/18 0426 Results 24 hrs Laboratory Tests Test 11/24/18 19:13 11/25/18 04:26 11/25/18 05:06 11/25/18 07:00 Prothrombin Time 14.4 Prothrombin Time 1.1 Ratio INR 1.11 International Normalized Ratio Activated 28.0 Partial Thrombop last Time White Blood 7.5 Count Red Blood Count 2.50 L Hemoglobin 8.1 L Hematocrit 25.5 L Mean Corpuscular 102.0 H Volume Mean Corpuscular 32.4 Hemoglobin Mean Corpuscular 31.8 L Hemoglobin Sherrill nt Red Cell 16.7 #H Distribution Width Platelet Count 258 Mean Platelet 11.3 H Volume Immature 0.500 H Granulocytes % Neutrophils % 70.1 Lymphocytes % 13.8 L Monocytes % 8.5 Eosinophils % 6.8 Basophils % 0.3 Nucleated Red 0.0 Blood Cells % Immature 0.040 H Granulocytes # Neutrophils # 5.3 Lymphocytes # 1.0 Monocytes # 0.6 Eosinophils # 0.5 Basophils # 0.0 Nucleated Red 0.0 Blood Cells # Sodium Level 135 Potassium Level 3.8 Chloride Level 111 H Carbon Dioxide 16 L Level Anion Gap 8 Blood Urea 33 H Nitrogen Creatinine 2.15 H Est Glomerular 23 L Filtrat Rate mL/min Glucose Level 97 Calcium Level 8.1 L Phosphorus Level 3.6 Magnesium Level 1.8 Lab Scanned REFERENCE LAB Report Blood Gas Blood arterial Specimen Source Arterial Blood 11/25/2018 7:15: Date Drawn 01 AM Arterial Blood 7.365 pH (Temp corrected) Arterial Blood 24.5 L pCO2 (Temp correct) Arterial Blood 106.9 H pO2 (Temp corrected) Arterial Blood 13.7 L HCO3 Arterial Blood -10.2 L Base Excess Arterial Blood 97.9 Oxygen Saturatio n Moshe Test ACCEPTAB Arterial Blood Right Radial Gas Puncture Site Arterial 0.3 Blood Carboxyhem oglobin Arterial Blood 0.2 Methemoglobin Blood Gas A-a O2 78.2 H Differential Oxyhemoglobin 97.4 Percent Blood Gas 37.0 Temperature Blood Gas 18.0 Respiration Rate Blood Gas Actual 20 Respiration Rate Blood Gas VENT - AC Modality FiO2 30.0 Blood Gas Tidal 500.0 Volume Blood Gas Low 5.0 PEEP Setting Blood Gas TM Notified Whom Blood Gas 11/25/2018 7:35: Notified Time 37 AM Medications Current Medications Ondansetron HCl (Zofran Inj) 4 mg Q6H PRN IV NAUSEA AND/OR VOMITING; Start 11/19/18 at 20:30 Pantoprazole (Protonix Iv) 40 mg DAILY@06 IV Last administered on 11/25/18at 05:51; Admin Dose 40 MG; Start 11/20/18 at 06:00 Phenylephrine HCl 40 mg/Dextrose 250 ml @ 37.5 mls/hr TITRATE IV Last administered on 11/24/18at 05:43; Admin Dose 15 MLS/HR; Start 11/19/18 at 20:30 Acetaminophen (Tylenol Tab) 650 mg Q6H PRN GTB MILD PAIN LEVEL 1-3 Last administered on 11/22/18at 03:04; Admin Dose 650 MG; Start 11/20/18 at 06:00 Albuterol (Proventil 0.083% (Neb)) 2.5 mg Q6H RESP THERAPY PRN NEB WHEEZING AND SOB Last administered on 11/21/18 19:40; Admin Dose 2.5 MG; Start 11/20/18 at 06:00 Folic Acid (Folic Acid) 1 mg DAILY GTB Last administered on 11/25/18 09:06; Ad min Dose 1 MG; Start 11/20/18 at 09:00 Lorazepam (Ativan) 1 mg Q10MIN PRN IV agitation Last administered on 11/22/18 20:15; Admin Dose 1 MG; Start 11/20/18 at 14:30 Norepinephrine 250 ml @ 1.875 mls/ hr TITRATE IV Last administered on 11/22/18 14:35; Admin Dose 18.75 MLS/HR; Start 11/20/18 at 15:00 Fentanyl 100 ml @ 2.5 mls/hr TITRATE IV Last administered on 11/20/18 15:48; Admin Dose 2.5 MLS/HR; Start 11/20/18 at 16:30 Amiodarone HCl 900 mg/Dextrose 500 ml @ 0 mls/hr Q0M IV Last administered on 11/22/18 15:29; Admin Dose 16.7 MLS/HR; Start 11/21/18 at 16:30 Vasopressin 60 unit/Dextrose 60 ml @ 0 mls/hr Q12H IV Last administered on 11/22/18 00:55; Admin Dose 1.2 MLS/HR; Start 11/22/18 at 00:00 Phenobarbital (Luminal) 65 mg BID IV Last administered on 11/25/18 09:16; Admin Dose 65 MG; Start 11/22/18 at 21:00 Levetiracetam 100 ml @ 400 mls/hr Q12 IVPB Last administered on 11/25/18 09:03; Admin Dose 400 MLS/HR; Start 11/22/18 at 21:00 Amiodarone HCl (Cordarone) 400 mg BID PO Last administered on 11/25/18 09:06; Admin Dose 400 MG; Start 11/23/18 at 09:00 Potassium Chloride/Dextrose/ Sod Cl 1,000 ml @ 80 mls/hr [id number] IV Last administered on 11/24/18 22:50; Admin Dose 80 MLS/HR; Start 11/23/18 at 09:00 Linezolid 300 ml @ 300 mls/hr Q12 IVPB Last administered on 11/24/18at 20:49; Admin Dose 300 MLS/HR; Start 11/23/18 at 21:00 Meropenem/Sodium Chloride 50 ml @ 100 mls/hr Q12 IVPB Last administered on 11/25/18at 09:55; Admin Dose 100 MLS/HR; Start 11/23/18 at 15:00 Ferric Sodium Gluconate Complex 125 mg/Sodium Chloride 110 ml @ 110 mls/hr DAILY@1300 IVPB ; Start 11/25/18 at 13:00; Stop 11/29/18 at 13:59 Epoetin Theodore (Epogen (Non Esrd/Non Oncology)) 8,000 units MoWeFr@17 SC Last administered on 11/24/18at 20:51; Admin Dose 8,000 UNITS; Start 11/24/18 at 17:30 Assessment/Plan Hospital Course (Demo Recall) IMPRESSION: 1. Status post septic shock secondary to acute cholecystitis, decreased pressor requirements. 2. Chronic respiratory failure. Placed back on mechanical ventilation for hypercapnia. 3. GI bleed ERCP and MRCP today. 4. Dysphagia with G-tube. 5. Renal insufficiency with metabolic acidosis possible ATN injury. Persistent metabolic acidosis. PLAN: 1. Broad-spectrum antibiotics. 2. Gastrointestinal evaluation. Procedures as above. 3. Continue IV fluids decrease vasopressors as tolerated 4. Deep venous thrombosis and GI prophylaxis. 5. Continue AC mechanical ventilation 6. Renal recommendations and evaluation for renal insufficiency and persistent metabolic acidosis. Critical care time 40 minutes. Stable to proceed to MRCP from pulmonary standpoint. MONO HOYOS MD, FCCP Nov 25, 2018 10:21
[2018-11-25] MEDS ORDERED: CITRIC ACID/NA CITRATE 30 ML CUP PO ONE (10:30)
[2018-11-25] MEDS: LINEZOLID 600 MG/D5W (PMX) 300 ML IVPB SCH ×2 (11:23→20:44)
--- NOTE | 2018-11-25 11:40 | PN ---
Date/Time of Note Date/Time of Note DATE: 11/25/18 TIME: 11:39 Objective Vitals Vital Signs Date Temp Pulse Resp B/P (MAP) Pulse Ox O2 O2 Flow FiO2 Time Delivery Rate 11/25/18 74 23 93 30 09:20 11/25/18 118/49 Mechanical 06:00 (72) Ventilator 11/25/18 99.2 04:00 Intake and Output 11/24/18 11/24/18 11/25/18 1515:00 23:00 07:00 IntakeIntake Total 1186.50 ml 1416.88 ml 560 ml OutputOutput Total 900 ml 945 ml 660 ml BalanceBalance 286.50 ml 471.88 ml -100 ml Results Result Diagram: 11/25/18 0426 11/25/18 0426 Medications Medications Current Medications Ondansetron HCl (Zofran Inj) 4 mg Q6H PRN IV NAUSEA AND/OR VOMITING; Start 11/19/18 at 20:30 Pantoprazole (Protonix Iv) 40 mg DAILY@06 IV Last administered on 11/25/18at 05:51; Admin Dose 40 MG; Start 11/20/18 at 06:00 Phenylephrine HCl 40 mg/Dextrose 250 ml @ 37.5 mls/hr TITRATE IV Last administered on 11/24/18at 05:43; Admin Dose 15 MLS/HR; Start 11/19/18 at 20:30 Acetaminophen (Tylenol Tab) 650 mg Q6H PRN GTB MILD PAIN LEVEL 1-3 Last administered on 11/22/18at 03:04; Admin Dose 650 MG; Start 11/20/18 at 06:00 Albuterol (Proventil 0.083% (Neb)) 2.5 mg Q6H RESP THERAPY PRN NEB WHEEZING AND SOB Last administered on 11/21/18 19:40; Admin Dose 2.5 MG; Start 11/20/18 at 06:00 Folic Acid (Folic Acid) 1 mg DAILY GTB Last administered on 11/25/18at 09:06; Admin Dose 1 MG; Start 11/20/18 at 09:00 Lorazepam (Ativan) 1 mg Q10MIN PRN IV agitation Last administered on 11/22/18at 20:15; Admin Dose 1 MG; Start 11/20/18 at 14:30 Norepinephrine 250 ml @ 1.875 mls/ hr TITRATE IV Last administered on 11/22/18 14:35; Admin Dose 18.75 MLS/HR; Start 11/20/18 at 15:00 Fentanyl 100 ml @ 2.5 mls/hr TITRATE IV Last administered on 11/20/18 15:48; Admin Dose 2.5 MLS/HR; Start 11/20/18 at 16:30 Amiodarone HCl 900 mg/Dextrose 500 ml @ 0 mls/hr Q0M IV Last administered on 11/22/18 15:29; Admin Dose 16.7 MLS/HR; Start 11/21/18 at 16:30 Vasopressin 60 unit/Dextrose 60 ml @ 0 mls/hr Q12H IV Last administered on 11/22/18 00:55; Admin Dose 1.2 MLS/HR; Start 11/22/18 at 00:00 Phenobarbital (Luminal) 65 mg BID IV Last administered on 11/25/18 09:16; Admin Dose 65 MG; Start 11/22/18 at 21:00 Levetiracetam 100 ml @ 400 mls/hr Q12 IVPB Last administered on 11/25/18 09:03; Admin Dose 400 MLS/HR; Start 11/22/18 at 21:00 Amiodarone HCl (Cordarone) 400 mg BID PO Last administered on 11/25/18 09:06; Admin Dose 400 MG; Start 11/23/18 at 09:00 Potassium Chloride/Dextrose/ Sod Cl 1,000 ml @ 80 mls/hr [id number] IV Last administered on 11/24/18 22:50; Admin Dose 80 MLS/HR; Start 11/23/18 at 09:00 Linezolid 300 ml @ 300 mls/hr Q12 IVPB Last administered on 11/25/18 11:23; Admin Dose 300 MLS/HR; Start 11/23/18 at 21:00 Meropenem/Sodium Chloride 50 ml @ 100 mls/hr Q12 IVPB Last administered on 11/25/18 09:55; Admin Dose 100 MLS/HR; Start 11/23/18 at 15:00 Ferric Sodium Gluconate Complex 125 mg/Sodium Chloride 110 ml @ 110 mls/hr DAILY@1300 IVPB ; Start 2/28/19 at 13:00; Stop 11/29/18 at 13:59 Epoetin Theodore (Epogen (Non Esrd/Non Oncology)) 8,000 units MoWeFr@17 SC Last administered on 11/24/18at 20:51; Admin Dose 8,000 UNITS; Start 11/24/18 at 17:30 Citric Acid/ Sodium Citrate (Bicitra) 30 ml TID PO ; Start 11/25/18 at 13:00 VTE Prophylaxis Risk score (from Ns)>0 risk: 12 SCD applied (from [facility] [place]): Yes Lines/Catheters IV Catheter Type: Zabala in Place: Yes Cont'd zabala catheter reason: terminal illness/intractable pain Assessment/Plan Hospital Course Subjective Patient opens her eyes and tracks somewhat, however no other purposeful movement, apparently patient's baseline Objective Physical exam General: Patient is laying in bed, Mentation: Patient is alert but not oriented Head: Normocephalic atraumatic Eyes: EOMI, pupils reactive to light sluggish Neck: Supple, nontender, midline Respiratory: Coarse to auscultation bilaterally Cardiovascular: regular rate, no obvious murmurs Gastrointestinal: Mildly tender in the right upper quadrant, bowel sounds heard. Neurological: Unable to fully assess due to neurological status Skin: No new skin lesions Assessment/Plan Septic shock secondary to acute cholecystitis/choledocholithiasis - off pressors - Continue IVF and antibiotics - Lactic acid normal at presentation Elevated LFT-resolving - CT abd shows choledocholithiasis and acute cholecystitis - GI on board and appreciate recommendations. - MRCP ordered - continue monitoring -bilirubin resolving, stone may have passed? -MRCP and ERCP pending Acute kindra - give patients condition, will need to be stabilized and get an ERCP done prior to any possible thoughts on intervention per general surgery, however Dr. Andrews has been consulted and will follow. Hypernatremia - management per nephro JUSTO - Nephrology consultation appreciated and will avoid nephrotoxic agents - IVF continued - most likely prerenal vs ATN h/o Malignant neoplasm of brain - Patient is chronically bedridden and debilitated. Tracking present this am which is her baseline Seizure disorder - Continue Keppra and phenobarbital - neurology consulted HTN - hold home BP medications in setting of hypotension Iron deficiency anemia - no need for transfusion at this time Chronic respiratory failure - trach dependent - continue trach care - Pulmonology on board and appreciate recommendations Disposition - Continue monitoring in ICU while requiring pressor support -found the person who makes medical decisions for patient, able to consent as needed >30 minutes of critical care time spent with patient KAYLA CELESTIN Nov 25, 2018 11:40
[2018-11-25] MEDS: VASOPRESSIN 60 UNIT in DEXTROSE 5% 57 ML IV SCH (12:00)
[2018-11-25] MEDS: D5W-0.45 NACL + KCL 20 MEQ 1,000 ML IV SCH ×2 (12:15→23:30)
--- NOTE | 2018-11-25 12:44 | PREAC ---
Date/Time of Note Date/Time of Note DATE: 11/25/18 TIME: 12:41 Anesthesia Eval and Record Evaluation Time Pre-Procedure Interview DATE: 11/25/18 TIME: 12:41 Age 68 Sex female NPO: 8 hrs Preoperative diagnosis cholangitis due to choledocholithiasis Planned procedure ERCP Past Medical History Past Medical History: Includes Cardio: HTN, Arrythmia (A-fib) Neuro: Seizure disorder, Other (malignant neoplasm of the brain) GI: Morbid obesity Heme: Anemia Surgery & Anesthesia Issues No known issue Meds Anticoagulation: No Beta Lily within 24 hr: No Reason Beta Lily not given: Pt. not on B-Lily Reported Medications Ranitidine Hcl* (Ranitidine Hcl*) 150 Mg Tablet, 150 MG GTB Q12, #60 TAB 11/19/18 Cholecalciferol* (Vitamin D*) 400 Unit Tablet, 400 UNIT GTB DAILY, TAB 11/19/18 Amino Acids/Protein Hydrolys (Pro-Stat 64 Liquid) 887 Ml Liquid, 30 ML GTB BID 11/19/18 Albuterol Sulfate* (Albuterol Sulfate* Neb) 0.083%-3 Ml Neb, 2.5 MG NEB Q6 PRN for WHEEZING AND SOB, #30 VIAL 11/19/18 Levetiracetam* (Keppra* (Ped)) 100 Mg/Ml Liq, 1500 MG GTB BID for 30 Days, BOTTLE 11/19/18 Sennosides* (Senna Lax*) 8.6 Mg Tablet, 1 TAB GTB DAILY, TAB 11/19/18 Labetalol Hcl* (Labetalol Hcl*) 200 Mg Tablet, 200 MG GTB BID PRN for ELEVATED BLOOD PRESSURE, TAB 11/19/18 Folic Acid* (Folic Acid*) 1 Mg Tablet, 1 MG GTB DAILY, TAB 11/19/18 Phenobarbital* (Phenobarbital* Liq) 20 Mg/5 Ml Elix, 5 MG GTB BID for 30 Days, BOTTLE 11/19/18 Lisinopril* (Lisinopril*) 10 Mg Tablet, 10 MG GTB DAILY, #30 TAB 11/19/18 Ferrous Sulfate (Ferrous Sulfate) 300 Mg/5 Ml Liquid, 300 MG GTB BID 11/19/18 Clonidine Hcl* (Clonidine Hcl*) 0.1 Mg Tab, 0.1 MG GTB Q6 PRN for ELEVATED BLOOD PRESSURE, TAB 11/19/18 Calcium Carbonate* (Calcium Carbonate*) 600 MG Ca Tab, 1200 MG GTB DAILY, TAB 11/19/18 Aspirin* (Aspirin* Chew) 81 Mg Tab.chew, 81 MG GTB DAILY, TAB.CHEW 11/19/18 Acetaminophen* (Acetaminophen*) 650 Mg Tablet, 650 MG GTB Q6H PRN for MILD PAIN LEVEL 1-3, #30 TAB 11/19/18 Ascorbic Acid* (Vitamin C*) 500 Mg Capsule.sa, 500 MG GTB DAILY, CAP 11/19/18 Current Medications Ondansetron HCl (Zofran Inj) 4 mg Q6H PRN IV NAUSEA AND/OR VOMITING; Start 11/19/18 at 20:30 Pantoprazole (Protonix Iv) 40 mg DAILY@06 IV Last administered on 11/25/18at 05:51; Admin Dose 40 MG; Start 11/20/18 at 06:00 Phenylephrine HCl 40 mg/Dextrose 250 ml @ 37.5 mls/hr TITRATE IV Last administered on 11/24/18 05:43; Admin Dose 15 MLS/HR; Start 11/19/18 at 20:30 Acetaminophen (Tylenol Tab) 650 mg Q6H PRN GTB MILD PAIN LEVEL 1-3 Last administered on 11/22/18 03:04; Admin Dose 650 MG; Start 11/20/18 at 06:00 Albuterol (Proventil 0.083% (Neb)) 2.5 mg Q6H RESP THERAPY PRN NEB WHEEZING AND SOB Last administered on 11/21/18 19:40; Admin Dose 2.5 MG; Start 11/20/18 at 06:00 Folic Acid (Folic Acid) 1 mg DAILY GTB Last administered on 11/25/18 09:06; Admin Dose 1 MG; Start 11/20/18 at 09:00 Lorazepam (Ativan) 1 mg Q10MIN PRN IV agitation Last administered on 11/22/18 20:15; Admin Dose 1 MG; Start 11/20/18 at 14:30 Norepinephrine 250 ml @ 1.875 mls/ hr TITRATE IV Last administered on 11/22/18 14:35; Admin Dose 18.75 MLS/HR; Start 11/20/18 at 15:00 Fentanyl 100 ml @ 2.5 mls/hr TITRATE IV Last administered on 11/20/18 15:48; Admin Dose 2.5 MLS/HR; Start 11/20/18 at 16:30 Amiodarone HCl 900 mg/Dextrose 500 ml @ 0 mls/hr Q0M IV Last administered on 11/22/18 15:29; Admin Dose 16.7 MLS/HR; Start 11/21/18 at 16:30 Vasopressin 60 unit/Dextrose 60 ml @ 0 mls/hr Q12H IV Last administered on 11/22/18 00:55; Admin Dose 1.2 MLS/HR; Start 11/22/18 at 00:00 Phenobarbital (Luminal) 65 mg BID IV Last administered on 11/25/18 09:16; Admin Dose 65 MG; Start 11/22/18 at 21:00 Levetiracetam 100 ml @ 400 mls/hr Q12 IVPB Last administered on 11/25/18 09:03; Admin Dose 400 MLS/HR; Start 11/22/18 at 21:00 Amiodarone HCl (Cordarone) 400 mg BID PO Last administered on 11/25/18 09:06; Admin Dose 400 MG; Start 11/23/18 at 09:00 Potassium Chloride/Dextrose/ Sod Cl 1,000 ml @ 80 mls/hr [id number] IV Last administered on 11/25/18 12:15; Admin Dose 80 MLS/HR; Start 11/23/18 at 09:00 Linezolid 300 ml @ 300 mls/hr Q12 IVPB Last administered on 11/25/18 11:23; Admin Dose 300 MLS/HR; Start 11/23/18 at 21:00 Meropenem/Sodium Chloride 50 ml @ 100 mls/hr Q12 IVPB Last administered on 11/25/18 09:55; Admin Dose 100 MLS/HR; Start 11/23/18 at 15:00 Ferric Sodium Gluconate Complex 125 mg/Sodium Chloride 110 ml @ 110 mls/hr DAILY@1300 IVPB ; Start 11/25/18 at 13:00; Stop 11/29/18 at 13:59 Epoetin Theodoer (Epogen (Non Esrd/Non Oncology)) 8,000 units MoWeFr@17 SC Last administered on 2/27/19at 20:51; Admin Dose 8,000 UNITS; Start 11/24/18 at 17:30 Citric Acid/ Sodium Citrate (Bicitra) 30 ml TID PO ; Start 11/25/18 at 13:00 Meds reviewed: Yes Allergies Coded Allergies: No Known Allergy (Unverified , 11/19/18) Allergies Reviewed: Yes Labs/Studies Labs Reviewed: Reviewed by anesthesiologist Result Diagram: 11/25/18 0426 11/25/18 0426 Laboratory Tests 11/25/18 04:26 test: N/A Studies: ECG (A-fib), CXR (Small bilateral pleural effusions are unchanged.), 2D Echo (Ejection fraction is visually estimated at >70 %.) Pre-procedure Exam Last vitals Vital Signs Date Temp Pulse Resp B/P (MAP) Pulse Ox O2 O2 Flow FiO2 Time Delivery Rate 11/25/18 73 12:00 11/25/18 24 99 30 11:20 11/25/18 118/49 Mechanical 06:00 (72) Ventilator 11/25/18 99.2 04:00 Airway: Adequate mouth opening Mallampati: Mallampati II Teeth: Normal Lung: Normal Heart: Normal ASA Physical Status ASA physical status: 4 Emergency: None Planned Anesthetic General/MAC: ETT Pre-operative Attestations Prior to commencing anesthesia and surgery, the patient was re-evaluated, there was verification of: *The patient's identity *The results of appropriate recent lab work and preoperative vital signs *The above evaluation not changing prior to induction *Anesthetic plan, risk benefits, alternative and complications discussed with patient/family; questions answered; patient/family understands, accepts and wi shes to proceed. ELI VERAS Nov 25, 2018 12:44
[2018-11-25] MEDS: CITRIC ACID/NA CITRATE 30 ML CUP PO SCH ×2 (13:00→21:47)
[2018-11-25] MEDS: SOD FERRIC GLUC COMPLX 125 MG in SOD CHLORIDE 0.9% 100 ML IVPB SCH (13:58)
--- NOTE | 2018-11-25 13:59 | CONS ---
Assessment/Plan Assessment/Plan Hospital Course 68 F c/ reported Hx of malignant brain neoplasm NOS c/b epilepsy..and other comorbidities, who presents for management of hypotension and GI abnl. Neurology is consulted for epilepsy medication management. P: Continue Phb 65mg iv bid for now Continue Keppra 500mg iv q12hr while GFR is severely compromised.. Ativan iv prn prolonged seizure of cluster Other management per primary Will follow Consultation Date/Type/Reason Admit Date/Time Nov 19, 2018 at 19:01 Type of Consult Neurology Reason for Consultation epilepsy Requesting Provider: KAYLA CELESTIN Date/Time of Note DATE: 11/25/18 TIME: 13:59 24 HR Interval Summary Free Text/Dictation Continues critical care. Exam Vital Signs Vitals Vital Signs Date Temp Pulse Resp B/P (MAP) Pulse Ox O2 O2 Flow FiO2 Time Delivery Rate 11/25/18 73 12:00 11/25/18 24 99 30 11:20 11/25/18 118/49 Mechanical 06:00 (72) Ventilator 11/25/18 99.2 04:00 Intake and Output 11/24/18 11/24/18 11/25/18 1515:00 23:00 07:00 IntakeIntake Total 1186.50 ml 1416.88 ml 560 ml OutputOutput Total 900 ml 945 ml 660 ml BalanceBalance 286.50 ml 471.88 ml -100 ml Exam PE: Gen Appearance: No Apparent Distress HEENT: trached Cardiovascular: Regular rate Abdomen: Soft; with PEG Extremities: Dry NE: The patient was asleep, able to open her eyes to voice. Unable to fix or follow commands. Cranial nerve examination was limited by mental status. Pupils were equal and reactive to light. There was no afferent pupillary defect. Funduscopic examination was limited. Face was grossly symmetric, w/ present corneal and cough reflexes. Tone was spastic in the UE. Muscle bulk was normal. I did not see fasciculations. The patient minimally withdrew to noxious stimulation x 4. Coordination and gait testing was limited by mental status. Arm and leg reflexes were within normal limits and symmetric. Whitman's sign was absent. Plantar responses were flexor. HIPOLITO GLOVER NP Nov 25, 2018 13:59 RACHEL ESTEBAN Nov 25, 2018 16:31
--- NOTE | 2018-11-25 15:47 | CONS ---
Assessment/Plan Assessment/Plan Hospital Course (Demo Recall) No changes overnight. Patient is afebrile in no distress WBC 7.5 no shift BUN 33 creatinine 2.15 Indwelling: Trach PEG right femoral triple-lumen catheter, Jaime Antimicrobials: Zyvox, meropenem Physical examination: Morbidly obese well-developed chronically ill-appearing elderly woman who is in no distress. Head atraumatic normocephalic neck is obese tracheostomy present chest rise symmetrical breath sounds diminished bases. Heart: S1-S2. Abdomen soft bowel sounds hypoactive. Extremities with bilateral edema Assessment: 1. Severe sepsis s/p shock 2. Acute cholecystitis with suspected choledocholithiasis 3. Acute renal failure 4. Chronic respiratory failure and dysphagia 5. Acute on chronic anemia 6. Paroxysmal atrial fibrillation Plan: Remains unchanged, continue present care and antibiotics, pending ERCP Consultation Date/Type/Reason Admit Date/Time Nov 19, 2018 at 19:01 Initial Consult Date 11/22/18 Type of Consult id Requesting Provider: KAYLA CELESTIN Date/Time of Note DATE: 11/25/18 TIME: 15:45 Exam/Review of Systems Exam Vitals Vital Signs Date Temp Pulse Resp B/P (MAP) Pulse Ox O2 O2 Flow FiO2 Time Delivery Rate 11/25/18 76 19 123/62 98 Mechanical 15:00 (82) Ventilator 11/25/18 30 12:00 11/25/18 98.6 12:00 Intake and Output 11/24/18 11/24/18 11/25/18 1515:00 23:00 07:00 IntakeIntake Total 1186.50 ml 1416.88 ml 640 ml OutputOutput Total 900 ml 945 ml 735 ml BalanceBalance 286.50 ml 471.88 ml -95 ml Results Result Diagram: 11/25/18 0426 11/25/18 0426 Results 24hrs Laboratory Tests Test 11/24/18 19:13 11/25/18 04:26 11/25/18 05:00 11/25/18 05:06 Prothrombin Time 14.4 Prothrombin Time 1.1 Ratio INR 1.11 International Normalized Ratio Activated 28.0 Partial Thrombop last Time White Blood 7.5 Count Red Blood Count 2.50 L Hemoglobin 8.1 L Hematocrit 25.5 L Mean Corpuscular 102.0 H Volume Mean Corpuscular 32.4 Hemoglobin Mean Corpuscular 31.8 L Hemoglobin Sherrill nt Red Cell 16.7 #H Distribution Width Platelet Count 258 Mean Platelet 11.3 H Volume Immature 0.500 H Granulocytes % Neutrophils % 70.1 Lymphocytes % 13.8 L Monocytes % 8.5 Eosinophils % 6.8 Basophils % 0.3 Nucleated Red 0.0 Blood Cells % Immature 0.040 H Granulocytes # Neutrophils # 5.3 Lymphocytes # 1.0 Monocytes # 0.6 Eosinophils # 0.5 Basophils # 0.0 Nucleated Red 0.0 Blood Cells # Sodium Level 135 Potassium Level 3.8 Chloride Level 111 H Carbon Dioxide 16 L Level Anion Gap 8 Blood Urea 33 H Nitrogen Creatinine 2.15 H Est Glomerular 23 L Filtrat Rate mL/min Glucose Level 97 Calcium Level 8.1 L Phosphorus Level 3.6 Magnesium Level 1.8 Stool Occult NEGATIVE Blood Lab Scanned REFERENCE LAB Report Test 11/25/18 07:00 Blood Gas Blood arterial Specimen Source Arterial Blood 11/25/2018 7:15: Date Drawn 01 AM Arterial Blood 7.365 pH (Temp corrected) Arterial Blood 24.5 L pCO2 (Temp correct) Arterial Blood 106.9 H pO2 (Temp corrected) Arterial Blood 13.7 L HCO3 Arterial Blood -10.2 L Base Excess Arterial Blood 97.9 Oxygen Saturatio n Moshe Test ACCEPTAB Arterial Blood Right Radial Gas Puncture Site Arterial 0.3 Blood Carboxyhem oglobin Arterial Blood 0.2 Methemoglobin Blood Gas A-a O2 78.2 H Differential Oxyhemoglobin 97.4 Percent Blood Gas 37.0 Temperature Blood Gas 18.0 Respiration Rate Blood Gas Actual 20 Respiration Rate Blood Gas VENT - AC Modality FiO2 30.0 Blood Gas Tidal 500.0 Volume Blood Gas Low 5.0 PEEP Setting Blood Gas TM Notified Whom Blood Gas 11/25/2018 7:35: Notified Time 37 AM Medications Medication Current Medications Ondansetron HCl (Zofran Inj) 4 mg Q6H PRN IV NAUSEA AND/OR VOMITING; Start 11/19/18 at 20:30 Pantoprazole (Protonix Iv) 40 mg DAILY@06 IV Last administered on 11/25/18at 05:51; Admin Dose 40 MG; Start 11/20/18 at 06:00 Phenylephrine HCl 40 mg/Dextrose 250 ml @ 37.5 mls/hr TITRATE IV Last adm inistered on 11/24/18at 05:43; Admin Dose 15 MLS/HR; Start 11/19/18 at 20:30 Acetaminophen (Tylenol Tab) 650 mg Q6H PRN GTB MILD PAIN LEVEL 1-3 Last administered on 11/22/18 03:04; Admin Dose 650 MG; Start 11/20/18 at 06:00 Albuterol (Proventil 0.083% (Neb)) 2.5 mg Q6H RESP THERAPY PRN NEB WHEEZING AND SOB Last administered on 11/21/18 19:40; Admin Dose 2.5 MG; Start 11/20/18 at 06:00 Folic Acid (Folic Acid) 1 mg DAILY GTB Last administered on 11/25/18 09:06; Admin Dose 1 MG; Start 11/20/18 at 09:00 Lorazepam (Ativan) 1 mg Q10MIN PRN IV agitation Last administered on 11/22/18 20:15; Admin Dose 1 MG; Start 11/20/18 at 14:30 Norepinephrine 250 ml @ 1.875 mls/ hr TITRATE IV Last administered on 11/22/18 14:35; Admin Dose 18.75 MLS/HR; Start 11/20/18 at 15:00 Fentanyl 100 ml @ 2.5 mls/hr TITRATE IV Last administered on 11/20/18 15:48; Admin Dose 2.5 MLS/HR; Start 11/20/18 at 16:30 Amiodarone HCl 900 mg/Dextrose 500 ml @ 0 mls/hr Q0M IV Last administered on 11/22/18 15:29; Admin Dose 16.7 MLS/HR; Start 11/21/18 at 16:30 Vasopressin 60 unit/Dextrose 60 ml @ 0 mls/hr Q12H IV Last administered on 11/22/18 00:55; Admin Dose 1.2 MLS/HR; Start 11/22/18 at 00:00 Phenobarbital (Luminal) 65 mg BID IV Last administered on 11/25/18 09:16; Admin Dose 65 MG; Start 11/22/18 at 21:00 Levetiracetam 100 ml @ 400 mls/hr Q12 IVPB Last administered on 11/25/18 09:03; Admin Dose 400 MLS/HR; Start 11/22/18 at 21:00 Amiodarone HCl (Cordarone) 400 mg BID PO Last administered on 11/25/18 09:06; Admin Dose 400 MG; Start 11/23/18 at 09:00 Potassium Chloride/Dextrose/ Sod Cl 1,000 ml @ 80 mls/hr [id number] IV Last administered on 11/25/18at 12:15; Admin Dose 80 MLS/HR; Start 11/23/18 at 09:00 Linezolid 300 ml @ 300 mls/hr Q12 IVPB Last administered on 11/25/18at 11:23; Admin Dose 300 MLS/HR; Start 11/23/18 at 21:00 Meropenem/Sodium Chloride 50 ml @ 100 mls/hr Q12 IVPB Last administered on 11/25/18 09:55; Admin Dose 100 MLS/HR; Start 11/23/18 at 15:00 Ferric Sodium Gluconate Complex 125 mg/Sodium Chloride 110 ml @ 110 mls/hr DAILY@1300 IVPB Last administered on 11/25/18 13:58; Admin Dose 110 MLS/HR; Start 11/25/18 at 13:00; Stop 11/29/18 at 13:59 Epoetin Theodore (Epogen (Non Esrd/Non Oncology)) 8,000 units MoWeFr@17 SC Last administered on 11/24/18at 20:51; Admin Dose 8,000 UNITS; Start 11/24/18 at 17:30 Citric Acid/ Sodium Citrate (Bicitra) 30 ml TID PO ; Start 11/25/18 at 13:00 KAREN LOMAS NP Nov 25, 2018 15:47
[2018-11-25] MEDS ORDERED: IOHEXOL 300MG/ML 30 ML BTL ONE (16:51)
[2018-11-25] MEDS ORDERED: INDOMETHACIN 50 MG SUPP PR ONE (17:30)
--- NOTE | 2018-11-25 19:39 | OPR ---
Date/Time of Note Date/Time of Note DATE: 11/25/18 TIME: 19:33 Operative Report Preoperative Diagnosis cbd stone with obstructive jaundise dilated cbd Postoperative Diagnosis dilated cbd stricture at distal cbd sphincterotomy done sludge thick bile retrieved 07/04 cbd stent placed pd mildly dilated Operation/Procedure Performed ercp sphincterotomy sludge removed cbd stent placed Surgeon see signature line Drupal Programmer none Anesthesia Type: general Anesthesiologist: Ricky Mena M.D. Estimated Blood Loss: none Transfusion none Specimen none Grafts/Implants none Complications none Pt Condition Post Procedure: stable Disposition: PACU Indications obstructive jaundise dilated cbd cbd stone on ct Procedure Description ercp and sphincterotomy done cbd dilated with prob stricture distally sludge removed 07/04 cbd stent placed pd mildly dilated FRANKLIN JAMESON MD Nov 25, 2018 19:39
--- NOTE | 2018-11-25 19:39 | PAC ---
Date/Time of Note Date/Time of Note DATE: 11/25/18 TIME: 19:39 Post-Anesthesia Notes Post-Anesthesia Note Last documented vital signs Vital Signs Date Temp Pulse Resp B/P (MAP) Pulse Ox O2 O2 Flow FiO2 Time Delivery Rate 11/25/18 75 22 95 30 17:20 11/25/18 134/66 Mechanical 17:00 (88) Ventilator 11/25/18 98.6 16:00 Activity: WNL Respiratory function: WNL Cardiovascular function: WNL Mental status: Baseline Pain reasonably controlled: Yes Hydration appropriate: Yes Nausea/Vomiting absent: Yes Ricky Mena M.D. Nov 25, 2018 19:39
--- NOTE | 2018-11-25 20:38 | GILP ---
DATE OF PROCEDURE: 11/19/2018 PROCEDURES: ERCP, sphincterotomy, removal of sludge from the common bile duct, and CBD stent placeme nt. PREOPERATIVE DIAGNOSES: The patient presenting with history of obstructive jaundice and the CT scan showed a dilated common bile duct with possible distal common bile duct stone and liver functions and bilirubin total was about 4 at the time of admission although it has improved to normal levels. Pro cedure needs performed to remove the CBD stones left behind and put a stent if possible. POSTOPERATIVE DIAGNOSES: 1. Mildly dilated pancreatic duct. 2. Grossly dilated common bile duct with possible stricture in the distal common bile duct. No larg e filling defects were noted. DESCRIPTION OF PROCEDURE: After the informed written consent was obtained, the patient was intubated by anesthesiologist, Dr. Mena. While the patient was in left lateral position, Olympus video s hannah-viewing duodenoscope was inserted into the oropharynx then into the esophagus. Esophagus appeare d to be rather tight particularly in the superior esophageal sphincter area. The scope could not be advanced and hence, the scope was withdrawn. Again, the scope was reinserted through the superior es ophageal sphincter into the esophagus and stomach. A PEG tube balloon was noted. Scope, at this nicholas e, was advanced into the duodenum through the pyloric sphincter. The ampulla appeared to be in kaylin l location. There seems to be disruption of the papillary opening indicating that she may have passe d a stone. By using the Dreamtome, cannulation was performed. Pancreatic duct appeared to be mildly dilated. Subsequently, common bile duct was cannulated, which showed significant dilatation. The p atient is obese, hence, there are any stones that cannot be visualized upon injection of the contrast . However, at this time, I elected to do a sphincterotomy and about 8 to 9 mm cut of the ampulla was made. At this time, a balloon was inserted into the common hepatic duct. Multiple times the ballo on sweeping was performed. Significant amount of sludge and thick bile was drained from the common b ile duct following the sphincterotomy. Since were multiple sweepings were performed, no significant large stones noted. At this time, over the guidewire, a 10 x 7 [place] type of endobiliary prosthe sis was inserted into the common bile duct across the ampulla into the duodenum, and photographs were obtained. The procedure was terminated. PLAN: Recommend to follow the patient closely. Dictated By: FRANKLIN BROWN/NTS Conf#: [id number] DID#: [id number] CC: FATOU DEVINE MD; KAYLA CELESTIN MD; FRANSISCO SALCIDO MD; KENNETH SANTILLAN MD; FRANKLIN JAMESON MD; *EndCC*
[2018-11-26] VITALS (36 sets, daily range): BP systolic 91–139; BP diastolic 41–73; PULSE 71–85; RESP 17–24
[2018-11-26] MEDS: D5W-0.45 NACL + KCL 20 MEQ 1,000 ML IV SCH ×2 (02:45→17:16)
[2018-11-26] MEDS: PANTOPRAZOLE 40 MG INJ IV SCH (05:21)
--- NOTE | 2018-11-26 07:02 | CONS ---
Assessment/Plan Assessment/Plan Hospital Course (Demo Recall) Paroxysmal atrial fibrillation: No known prior diagnosis. Will consider chronic anticoagulation pending clinic course and need for procedures but also has anemia. Now back in sinus after amiodarone. Septic shock: now off pressors Anemia: no active bleeding. Hgb >8 after 1 unit Acute on chronic diastolic CHF: due to third spacing from low albumin/IVF Choledocholithiasis with acute cholecystitis: LFTs/bili improved Acute renal failure VDRF/tracheostomy h/o brain tumor Seizure disorder Bedridden -Remains high risk for any procedure of surgery but now off pressors, hgb >8, and overall optimized from cardiac standpoint for ERCP -start lasix 20mg IV dialy -amiodarone 400mg BID -antibiotics -GI follow up Consultation Date/Type/Reason Admit Date/Time Nov 19, 2018 at 19:01 Initial Consult Date 11/22/18 Type of Consult Cardiology Requesting Provider: KAYLA CELESTIN Date/Time of Note DATE: 11/26/18 TIME: 07:01 24 HR Interval Summary Free Text/Dictation No events. No afib Exam/Review of Systems Exam Vitals Vital Signs Date Temp Pulse Resp B/P (MAP) Pulse Ox O2 O2 Flow FiO2 Time Delivery Rate 11/26/18 76 21 104/59 98 Mechanical 06:00 (74) Ventilator 11/26/18 30 05:13 11/26/18 97.6 04:00 Intake and Output 11/25/18 11/25/18 11/26/18 1515:00 23:00 07:00 IntakeIntake Total 1210 ml 930 ml 660 ml OutputOutput Total 675 ml 500 ml 460 ml BalanceBalance 535 ml 430 ml 200 ml Constitutional: No alert ENMT: other (s/p trach) Neck: supple; No jvd (unable to assess) Respiratory: diminished breath sounds; No clear to auscultation Cardiovascular: regular rate and rhythm, edema (2+ anasarca) Gastrointestinal: soft; No distended Neurological: No nl mental status, No nl speech Results Result Diagram: 11/26/18 0430 11/26/18 0430 Results 24hrs Laboratory Tests Test 11/25/18 16:13 11/26/18 04:30 Phenobarbital Level 26.8 White Blood Count 8.9 Red Blood Count 2.54 L Hemoglobin 8.3 L Hematocrit 26.1 L Mean Corpuscular Volume 102.8 H Mean Corpuscular Hemoglobin 32.7 Mean Corpuscular Hemoglobin Concent 31.8 L Red Cell Distribution Width 16.8 H Platelet Count 351 # Mean Platelet Volume 10.9 H Immature Granulocytes % 0.800 H Neutrophils % 74.5 Lymphocytes % 12.5 L Monocytes % 7.6 Eosinophils % 4.3 Basophils % 0.3 Nucleated Red Blood Cells % 0.0 Immature Granulocytes # 0.070 H Neutrophils # 6.6 Lymphocytes # 1.1 Monocytes # 0.7 Eosinophils # 0.4 Basophils # 0.0 Nucleated Red Blood Cells # 0.0 Sodium Level 137 Potassium Level 4.0 Chloride Level 112 H Carbon Dioxide Level 16 L Anion Gap 9 Blood Urea Nitrogen 29 H Creatinine 2.02 H Est Glomerular Filtrat Rate mL/min 24 L Glucose Level 120 Calcium Level 8.1 L Magnesium Level 1.7 Total Bilirubin 0.1 L Direct Bilirubin 0.00 Indirect Bilirubin 0.1 Aspartate Amino Transf (AST/SGOT) 31 Alanine Aminotransferase (ALT/SGPT) 61 Alkaline Phosphatase 169 H Total Protein 5.6 L Albumin 2.5 L Globulin 3.10 Albumin/Globulin Ratio 0.80 Medications Medication Current Medications Ondansetron HCl (Zofran Inj) 4 mg Q6H PRN IV NAUSEA AND/OR VOMITING; Start 11/19/18 at 20:30 Pantoprazole (Protonix Iv) 40 mg DAILY@06 IV Last administered on 11/26/18 05:21; Admin Dose 40 MG; Start 11/20/18 at 06:00 Phenylephrine HCl 40 mg/Dextrose 250 ml @ 37.5 mls/hr TITRATE IV Last administered on 11/24/18at 05:43; Admin Dose 15 MLS/HR; Start 11/19/18 at 20:30 Acetaminophen (Tylenol Tab) 650 mg Q6H PRN GTB MILD PAIN LEVEL 1-3 Last administered on 11/22/18at 03:04; Admin Dose 650 MG; Start 11/20/18 at 06:00 Albuterol (Proventil 0.083% (Neb)) 2.5 mg Q6H RESP THERAPY PRN NEB WHEEZING AND SOB Last administered on 11/21/18at 19:40; Admin Dose 2.5 MG; Start 11/20/18 at 06:00 Folic Acid (Folic Acid) 1 mg DAILY GTB Last administered on 11/25/18 09:06; Admin Dose 1 MG; Start 11/20/18 at 09:00 Lorazepam (Ativan) 1 mg Q10MIN PRN IV agitation Last administered on 11/22/18 20:15; Admin Dose 1 MG; Start 11/20/18 at 14:30 Norepinephrine 250 ml @ 1.875 mls/ hr TITRATE IV Last administered on 11/22/18 14:35; Admin Dose 18.75 MLS/HR; Start 11/20/18 at 15:00 Fentanyl 100 ml @ 2.5 mls/hr TITRATE IV Last administered on 11/20/18 15:48; Admin Dose 2.5 MLS/HR; Start 11/20/18 at 16:30 Amiodarone HCl 900 mg/Dextrose 500 ml @ 0 mls/hr Q0M IV Last administered on 11/22/18 15:29; Admin Dose 16.7 MLS/HR; Start 11/21/18 at 16:30 Vasopressin 60 unit/Dextrose 60 ml @ 0 mls/hr Q12H IV Last administered on 11/22/18 00:55; Admin Dose 1.2 MLS/HR; Start 11/22/18 at 00:00 Phenobarbital (Luminal) 65 mg BID IV Last administered on 11/25/18 20:44; Admin Dose 65 MG; Start 11/22/18 at 21:00 Levetiracetam 100 ml @ 400 mls/hr Q12 IVPB Last administered on 11/25/18 20:44; Admin Dose 400 MLS/HR; Start 11/22/18 at 21:00 Amiodarone HCl (Cordarone) 400 mg BID PO Last administered on 11/25/18 20:45; Admin Dose 400 MG; Start 11/23/18 at 09:00 Potassium Chloride/Dextrose/ Sod Cl 1,000 ml @ 80 mls/hr [id number] IV Last administered on 11/26/18 02:45; Admin Dose 80 MLS/HR; Start 11/23/18 at 09:00 Linezolid 300 ml @ 300 mls/hr Q12 IVPB Last administered on 11/25/18 20:44; Admin Dose 300 MLS/HR; Start 11/23/18 at 21:00 Meropenem/Sodium Chloride 50 ml @ 100 mls/hr Q12 IVPB Last administered on 11/25/18at 20:44; Admin Dose 100 MLS/HR; Start 11/23/18 at 15:00 Ferric Sodium Gluconate Complex 125 mg/Sodium Chloride 110 ml @ 110 mls/hr DAILY@1300 IVPB Last administered on 11/25/18at 13:58; Admin Dose 110 MLS/HR; Start 11/25/18 at 13:00; Stop 11/29/18 at 13:59 Epoetin Theodore (Epogen (Non Esrd/Non Oncology)) 8,000 units MoWeFr@17 SC Last administered on 11/24/18at 20:51; Admin Dose 8,000 UNITS; Start 11/24/18 at 17:30 Citric Acid/ Sodium Citrate (Bicitra) 30 ml TID PO Last administered on 11/25/18at 21:47; Admin Dose 30 ML; Start 11/25/18 at 13:00 FRANSISCO SALCIDO Nov 26, 2018 07:02
[2018-11-26] MEDS: CITRIC ACID/NA CITRATE 30 ML CUP PO SCH ×3 (09:17→20:14)
[2018-11-26] MEDS: FUROSEMIDE 20 MG INJ IV SCH (09:17)
[2018-11-26] MEDS: AMIODARONE 200 MG TAB PO SCH ×2 (09:20→20:14)
[2018-11-26] MEDS: MEROPENEM 500MG/50 ML (PMX) 50 ML IVPB SCH ×2 (09:20→20:35)
[2018-11-26] MEDS: LEVETIRACETAM 500 MG (PMX) 100 ML IVPB SCH ×2 (09:20→20:35)
[2018-11-26] MEDS: FOLIC ACID 1 MG TAB GTB SCH (09:20)
[2018-11-26] MEDS: LINEZOLID 600 MG/D5W (PMX) 300 ML IVPB SCH (09:36)
[2018-11-26] MEDS: PHENOBARBITAL 65 MG INJ IV SCH ×2 (10:15→20:13)
--- NOTE | 2018-11-26 11:16 | CONS ---
Consult Date/Type/Reason Admit Date/Time Nov 19, 2018 at 19:01 Initial Consult Date Type of Consult Pulmonary Requesting Provider: KAYLA CELESTIN Date/Time of Note DATE: 11/26/18 TIME: 11:14 Subjective Patient status post ERCP. Remains stable currently on no vasopressors. Objective Vital Signs Date Temp Pulse Resp B/P (MAP) Pulse Ox O2 O2 Flow FiO2 Time Delivery Rate 11/26/18 77 18 128/59 96 Mechanical 10:00 (82) Ventilator 11/26/18 30 09:10 11/26/18 97.9 08:00 Intake and Output 11/25/18 11/25/18 11/26/18 1515:00 23:00 07:00 IntakeIntake Total 1210 ml 930 ml 670 ml OutputOutput Total 675 ml 500 ml 535 ml BalanceBalance 535 ml 430 ml 135 ml Exam PHYSICAL EXAMINATION: GENERAL: Elderly-appearing lady, appears on mechanical ventilation. VITAL SIGNS: HEENT: Extraocular movements intact. CARDIAC: S1, S2, no added sounds or murmurs. CHEST: Diminished air entry bilaterally. ABDOMEN: Soft, nontender. No guarding or rebound. EXTREMITIES: No cyanosis, clubbing. NEUROLOGIC: Unable to assess. Vent Setting Ventilator Support Mode: AC Fraction of Inspired Oxygen pe: 30 Positive End Expiratory Pressu: 5.0 Results/Medications Result Diagram: 11/26/18 0430 11/26/18 0430 Results 24 hrs Laboratory Tests Test 11/25/18 16:13 11/26/18 04:30 Phenobarbital Level 26.8 White Blood Count 8.9 Red Blood Count 2.54 L Hemoglobin 8.3 L Hematocrit 26.1 L Mean Corpuscular Volume 102.8 H Mean Corpuscular Hemoglobin 32.7 Mean Corpuscular Hemoglobin Concent 31.8 L Red Cell Distribution Width 16.8 H Platelet Count 351 # Mean Platelet Volume 10.9 H Immature Granulocytes % 0.800 H Neutrophils % 74.5 Lymphocytes % 12.5 L Monocytes % 7.6 Eosinophils % 4.3 Basophils % 0.3 Nucleated Red Blood Cells % 0.0 Immature Granulocytes # 0.070 H Neutrophils # 6.6 Lymphocytes # 1.1 Monocytes # 0.7 Eosinophils # 0.4 Basophils # 0.0 Nucleated Red Blood Cells # 0.0 Sodium Level 137 Potassium Level 4.0 Chloride Level 112 H Carbon Dioxide Level 16 L Anion Gap 9 Blood Urea Nitrogen 29 H Creatinine 2.02 H Est Glomerular Filtrat Rate mL/min 24 L Glucose Level 120 Calcium Level 8.1 L Magnesium Level 1.7 Total Bilirubin 0.1 L Direct Bilirubin 0.00 Indirect Bilirubin 0.1 Aspartate Amino Transf (AST/SGOT) 31 Alanine Aminotransferase (ALT/SGPT) 61 Alkaline Phosphatase 169 H Total Protein 5.6 L Albumin 2.5 L Globulin 3.10 Albumin/Globulin Ratio 0.80 Medications Current Medications Ondansetron HCl (Zofran Inj) 4 mg Q6H PRN IV NAUSEA AND/OR VOMITING; Start 11/19/18 at 20:30 Pantoprazole (Protonix Iv) 40 mg DAILY@06 IV Last administered on 11/26/18 05:21; Admin Dose 40 MG; Start 11/20/18 at 06:00 Phenylephrine HCl 40 mg/Dextrose 250 ml @ 37.5 mls/hr TITRATE IV Last administered on 11/24/18 05:43; Admin Dose 15 MLS/HR; Start 11/19/18 at 20:30 Acetaminophen (Tylenol Tab) 650 mg Q6H PRN GTB MILD PAIN LEVEL 1-3 Last administered on 11/22/18 03:04; Admin Dose 650 MG; Start 11/20/18 at 06:00 Albuterol (Proventil 0.083% (Neb)) 2.5 mg Q6H RESP THERAPY PRN NEB WHEEZING AND SOB Last administered on 11/21/18 19:40; Admin Dose 2.5 MG; Start 11/20/18 at 06:00 Folic Acid (Folic Acid) 1 mg DAILY GTB Last administered on 11/26/18 09:20; Admin Dose 1 MG; Start 11/20/18 at 09:00 Lorazepam (Ativan) 1 mg Q10MIN PRN IV agitation Last administered on 11/22/18 20:15; Admin Dose 1 MG; Start 11/20/18 at 14:30 Norepinephrine 250 ml @ 1.875 mls/ hr TITRATE IV Last administered on 11/22/18 14:35; Admin Dose 18.75 MLS/HR; Start 11/20/18 at 15:00 Fentanyl 100 ml @ 2.5 mls/hr TITRATE IV Last administered on 11/20/18 15:48; Admin Dose 2.5 MLS/HR; Start 11/20/18 at 16:30 Amiodarone HCl 900 mg/Dextrose 500 ml @ 0 mls/hr Q0M IV Last administered on 11/22/18 15:29; Admin Dose 16.7 MLS/HR; Start 11/21/18 at 16:30 Vasopressin 60 unit/Dextrose 60 ml @ 0 mls/hr Q12H IV Last administered on 11/22/18 00:55; Admin Dose 1.2 MLS/HR; Start 11/22/18 at 00:00 Phenobarbital (Luminal) 65 mg BID IV Last administered on 11/26/18 10:15; Admin Dose 65 MG; Start 11/22/18 at 21:00 Levetiracetam 100 ml @ 400 mls/hr Q12 IVPB Last administered on 11/26/18 09:20; Admin Dose 400 MLS/HR; Start 11/22/18 at 21:00 Amiodarone HCl (Cordarone) 400 mg BID PO Last administered on 11/26/18 09:20; Admin Dose 400 MG; Start 11/23/18 at 09:00 Potassium Chloride/Dextrose/ Sod Cl 1,000 ml @ 80 mls/hr [id number] IV Last administered on 11/26/18 02:45; Admin Dose 80 MLS/HR; Start 11/23/18 at 09:00 Linezolid 300 ml @ 300 mls/hr Q12 IVPB Last administered on 11/26/18 09:36; Admin Dose 300 MLS/HR; Start 11/23/18 at 21:00 Meropenem/Sodium Chloride 50 ml @ 100 mls/hr Q12 IVPB Last administered on 11/26/18 09:20; Admin Dose 100 MLS/HR; Start 11/23/18 at 15:00 Ferric Sodium Gluconate Complex 125 mg/Sodium Chloride 110 ml @ 110 mls/hr DAILY@1300 IVPB Last administered on 11/25/18 13:58; Admin Dose 110 MLS/HR; Start 11/25/18 at 13:00; Stop 11/29/18 at 13:59 Epoetin Theodore (Epogen (Non Esrd/Non Oncology)) 8,000 units MoWeFr@17 SC Last administered on 2/27/19at 20:51; Admin Dose 8,000 UNITS; Start 11/24/18 at 17:30 Citric Acid/ Sodium Citrate (Bicitra) 30 ml TID PO Last administered on 11/26/18at 09:17; Admin Dose 30 ML; Start 11/25/18 at 13:00 Furosemide (Lasix) 20 mg DAILY IV Last administered on 11/26/18at 09:17; Admin Dose 20 MG; Start 11/26/18 at 09:00 Assessment/Plan Hospital Course (Demo Recall) IMPRESSION: 1. Status post septic shock secondary to acute cholecystitis, now off vasopressors 2. Chronic respiratory failure. Placed back on mechanical ventilation for hypercapnia. 3. GI bleed status post ERCP and stent placement 4. Dysphagia with G-tube. 5. Renal insufficiency with metabolic acidosis possible ATN injury. Persistent metabolic acidosis. PLAN: 1. Broad-spectrum antibiotics. Consider de-escalation 2. Gastrointestinal evaluation. Procedures as above. 3. Continue IV start tube feeding? 4. Deep venous thrombosis and GI prophylaxis. 5. Continue AC mechanical ventilation 6. Renal recommendations and evaluation for renal insufficiency and persistent metabolic acidosis. Critical care time 40 minutes. MONO HOYOS MD, [facility] Nov 26, 2018 11:16
--- NOTE | 2018-11-26 11:24 | PN ---
Date/Time of Note Date/Time of Note DATE: 11/26/18 TIME: 11:22 Objective Vitals Vital Signs Date Temp Pulse Resp B/P (MAP) Pulse Ox O2 O2 Flow FiO2 Time Delivery Rate 11/26/18 77 18 128/59 96 Mechanical 10:00 (82) Ventilator 11/26/18 30 09:10 11/26/18 97.9 08:00 Intake and Output 11/25/18 11/25/18 11/26/18 1515:00 23:00 07:00 IntakeIntake Total 1210 ml 930 ml 670 ml OutputOutput Total 675 ml 500 ml 535 ml BalanceBalance 535 ml 430 ml 135 ml Results Result Diagram: 11/26/1842911/26/18 043 Medications Medications Current Medications Ondansetron HCl (Zofran Inj) 4 mg Q6H PRN IV NAUSEA AND/OR VOMITING; Start 11/19/18 at 20:30 Pantoprazole (Protonix Iv) 40 mg DAILY@06 IV Last administered on 11/26/18 05:21; Admin Dose 40 MG; Start 11/20/18 at 06:00 Phenylephrine HCl 40 mg/Dextrose 250 ml @ 37.5 mls/hr TITRATE IV Last administered on 11/24/18 05:43; Admin Dose 15 MLS/HR; Start 11/19/18 at 20:30 Acetaminophen (Tylenol Tab) 650 mg Q6H PRN GTB MILD PAIN LEVEL 1-3 Last administered on 11/22/18 03:04; Admin Dose 650 MG; Start 11/20/18 at 06:00 Albuterol (Proventil 0.083% (Neb)) 2.5 mg Q6H RESP THERAPY PRN NEB WHEEZING AND SOB Last administered on 11/21/18 19:40; Admin Dose 2.5 MG; Start 11/20/18 at 06:00 Folic Acid (Folic Acid) 1 mg DAILY GTB Last administered on 11/26/18 09:20; Admin Dose 1 MG; Start 11/20/18 at 09:00 Lorazepam (Ativan) 1 mg Q10MIN PRN IV agitation Last administered on 11/22/18 20:15; Admin Dose 1 MG; Start 11/20/18 at 14:30 Norepinephrine 250 ml @ 1.875 mls/ hr TITRATE IV Last administered on 11/22/18 14:35; Admin Dose 18.75 MLS/HR; Start 11/20/18 at 15:00 Fentanyl 100 ml @ 2.5 mls/hr TITRATE IV Last administered on 11/20/18 15:48; Admin Dose 2.5 MLS/HR; Start 11/20/18 at 16:30 Amiodarone HCl 900 mg/Dextrose 500 ml @ 0 mls/hr Q0M IV Last administered on 11/22/18 15:29; Admin Dose 16.7 MLS/HR; Start 11/21/18 at 16:30 Vasopressin 60 unit/Dextrose 60 ml @ 0 mls/hr Q12H IV Last administered on 11/22/18 00:55; Admin Dose 1.2 MLS/HR; Start 11/22/18 at 00:00 Phenobarbital (Luminal) 65 mg BID IV Last administered on 11/26/18 10:15; Admin Dose 65 MG; Start 11/22/18 at 21:00 Levetiracetam 100 ml @ 400 mls/hr Q12 IVPB Last administered on 11/26/18 09:20; Admin Dose 400 MLS/HR; Start 11/22/18 at 21:00 Amiodarone HCl (Cordarone) 400 mg BID PO Last administered on 11/26/18 09:20; Admin Dose 400 MG; Start 11/23/18 at 09:00 Potassium Chloride/Dextrose/ Sod Cl 1,000 ml @ 80 mls/hr [id number] IV Last administered on 11/26/18 02:45; Admin Dose 80 MLS/HR; Start 11/23/18 at 09:00 Linezolid 300 ml @ 300 mls/hr Q12 IVPB Last administered on 11/26/18 09:36; Admin Dose 300 MLS/HR; Start 11/23/18 at 21:00 Meropenem/Sodium Chloride 50 ml @ 100 mls/hr Q12 IVPB Last administered on 11/26/18 09:20; Admin Dose 100 MLS/HR; Start 11/23/18 at 15:00 Ferric Sodium Gluconate Complex 125 mg/Sodium Chloride 110 ml @ 110 mls/hr DAILY@1300 IVPB Last administered on 11/25/18 13:58; Admin Dose 110 MLS/HR; Start 11/25/18 at 13:00; Stop 11/29/18 at 13:59 Epoetin Theodore (Epogen (Non Esrd/Non Oncology)) 8,000 units MoWeFr@17 SC Last administered on 11/24/18at 20:51; Admin Dose 8,000 UNITS; Start 11/24/18 at 17:30 Citric Acid/ Sodium Citrate (Bicitra) 30 ml TID PO Last administered on 11/26/18at 09:17; Admin Dose 30 ML; Start 11/25/18 at 13:00 Furosemide (Lasix) 20 mg DAILY IV Last administered on 11/26/18at 09:17; Admin Dose 20 MG; Start 11/26/18 at 09:00 VTE Prophylaxis Risk score (from [facility] [place])>0 risk: 5 SCD applied (from [facility]): Yes Lines/Catheters IV Catheter Type: Zabala in Place: Yes Cont'd zabala catheter reason: terminal illness/intractable pain Assessment/Plan Hospital Course Subjective Patient opens her eyes and tracks somewhat, however no other purposeful movement, apparently patient's baseline Objective Physical exam General: Patient is laying in bed, Mentation: Patient is alert but not oriented Head: Normocephalic atraumatic Eyes: EOMI, pupils reactive to light sluggish Neck: Supple, nontender, midline Respiratory: Coarse to auscultation bilaterally Cardiovascular: regular rate, no obvious murmurs Gastrointestinal: Mildly tender in the right upper quadrant, bowel sounds heard. Neurological: Unable to fully assess due to neurological status Skin: No new skin lesions Assessment/Plan Septic shock secondary to acute cholecystitis/choledocholithiasis, resolving - off pressors - Continue antibiotics - Lactic acid normal at presentation Elevated LFT-resolving - CT abd shows choledocholithiasis and acute cholecystitis - GI on board and appreciate recommendations. - MRCP noted - continue monitoring -bilirubin resolving, stone may have passed? -ERCP done, stent placed, sludge found, no stone, but dilated duct. Acute cholecystitis -s/p ERCP, pending recs from general surgery whether or not surgery is an option Hypernatremia - management per nephro JUSTO - Nephrology consultation appreciated and will avoid nephrotoxic agents - IVF per renal - most likely prerenal vs ATN h/o Malignant neoplasm of brain - Patient is chronically bedridden and debilitated. Tracking present this am which is her baseline Seizure disorder - Continue Keppra and phenobarbital - neurology consulted HTN - hold home BP medications in setting of hypotension Iron deficiency anemia - no need for transfusion at this time Chronic respiratory failure - trach dependent - continue trach care - Pulmonology on board and appreciate recommendations Disposition - Continue monitoring in ICU -found the person who makes medical decisions for patient, able to consent as needed >30 minutes of critical care time spent with patient KAYLA CELESTIN Nov 26, 2018 11:24
--- NOTE | 2018-11-26 11:40 | CONS ---
Assessment/Plan Assessment/Plan Assessment/Plan (Daily) 1) Chronic resp failure S/p Trach 2) Sepsis 2nd PNA 3) Hypernatremia- Resolved 4) oliguria improved, Cr stable 5) Rapid Afib, currently on treatment 6) Hypotension Septic Shock, requiring IV pressors 7) AG acidosis in the setting of JUSTO- Compensated Plan: BUN/Cr slighlty better 29/2.02,, Na 137, HCo3 16- continue Bicitral 30ml PO BID, pt remaiend on ventilator IVF D51/2 NS with KCl 20meQ at 50 cc/hr -on IV keppra NO acute indication for HD at this time time IV zyvox stopped today, conitnued on IV abx meropenem Renally dose all abx and monitor electorlytes Ferrlecit 125mg IV daily x 5 doses for severe iron deficiency Epogen 8000 units SQ MWFfor anemia, Hb 8.3 today will follow up Consultation Date/Type/Reason Admit Date/Time Nov 19, 2018 at 19:01 Initial Consult Date 11/22/18 Type of Consult NEPHROLOGY Requesting Provider: KAYLA CELESTIN Date/Time of Note DATE: 11/26/18 TIME: 11:40 Exam/Review of Systems Exam Vitals Vital Signs Date Temp Pulse Resp B/P (MAP) Pulse Ox O2 O2 Flow FiO2 Time Delivery Rate 11/26/18 77 18 128/59 96 Mechanical 10:00 (82) Ventilator 11/26/18 30 09:10 11/26/18 97.9 08:00 Intake and Output 11/25/18 11/25/18 11/26/18 1515:00 23:00 07:00 IntakeIntake Total 1210 ml 930 ml 670 ml OutputOutput Total 675 ml 500 ml 535 ml BalanceBalance 535 ml 430 ml 135 ml Exam Eyes: EOMI ENMT: mucosa pink and moist, other (Trach) Respiratory: crackles/rales, other (Vent); No diminished breath sounds Cardiovascular: edema, irregular rhythm Gastrointestinal: soft, other (PEG); No non-tender, No rebound or guarding Extremities: edema Neurological: unresponsive Results Result Diagram: 11/26/18 0430 11/26/18 0430 Results 24hrs Laboratory Tests Test 11/25/18 16:13 11/26/18 04:30 Phenobarbital Level 26.8 White Blood Count 8.9 Red Blood Count 2.54 L Hemoglobin 8.3 L Hematocrit 26.1 L Mean Corpuscular Volume 102.8 H Mean Corpuscular Hemoglobin 32.7 Mean Corpuscular Hemoglobin Concent 31.8 L Red Cell Distribution Width 16.8 H Platelet Count 351 # Mean Platelet Volume 10.9 H Immature Granulocytes % 0.800 H Neutrophils % 74.5 Lymphocytes % 12.5 L Monocytes % 7.6 Eosinophils % 4.3 Basophils % 0.3 Nucleated Red Blood Cells % 0.0 Immature Granulocytes # 0.070 H Neutrophils # 6.6 Lymphocytes # 1.1 Monocytes # 0.7 Eosinophils # 0.4 Basophils # 0.0 Nucleated Red Blood Cells # 0.0 Sodium Level 137 Potassium Level 4.0 Chloride Level 112 H Carbon Dioxide Level 16 L Anion Gap 9 Blood Urea Nitrogen 29 H Creatinine 2.02 H Est Glomerular Filtrat Rate mL/min 24 L Glucose Level 120 Calcium Level 8.1 L Magnesium Level 1.7 Total Bilirubin 0.1 L Direct Bilirubin 0.00 Indirect Bilirubin 0.1 Aspartate Amino Transf (AST/SGOT) 31 Alanine Aminotransferase (ALT/SGPT) 61 Alkaline Phosphatase 169 H Total Protein 5.6 L Albumin 2.5 L Globulin 3.10 Albumin/Globulin Ratio 0.80 Medications Medication Current Medications Ondansetron HCl (Zofran Inj) 4 mg Q6H PRN IV NAUSEA AND/OR VOMITING; Start 11/19/18 at 20:30 Pantoprazole (Protonix Iv) 40 mg DAILY@06 IV Last administered on 11/26/18 05:21; Admin Dose 40 MG; Start 11/20/18 at 06:00 Phenylephrine HCl 40 mg/Dextrose 250 ml @ 37.5 mls/hr TITRATE IV Last administered on 11/24/18at 05:43; Admin Dose 15 MLS/HR; Start 11/19/18 at 20:30 Acetaminophen (Tylenol Tab) 650 mg Q6H PRN GTB MILD PAIN LEVEL 1-3 Last administered on 11/22/18at 03:04; Admin Dose 650 MG; Start 11/20/18 at 06:00 Albuterol (Proventil 0.083% (Neb)) 2.5 mg Q6H RESP THERAPY PRN NEB WHEEZING AND SOB Last administered on 11/21/18at 19:40; Admin Dose 2.5 MG; Start 11/20/18 at 06:00 Folic Acid (Folic Acid) 1 mg DAILY GTB Last administered on 11/26/18 09:20; Admin Dose 1 MG; Start 11/20/18 at 09:00 Norepinephrine 250 ml @ 1.875 mls/ hr TITRATE IV Last administered on 11/22/18 14:35; Admin Dose 18.75 MLS/HR; Start 11/20/18 at 15:00 Fentanyl 100 ml @ 2.5 mls/hr TITRATE IV Last administered on 11/20/18 15:48; Admin Dose 2.5 MLS/HR; Start 11/20/18 at 16:30 Amiodarone HCl 900 mg/Dextrose 500 ml @ 0 mls/hr Q0M IV Last administered on 11/22/18 15:29; Admin Dose 16.7 MLS/HR; Start 11/21/18 at 16:30 Vasopressin 60 unit/Dextrose 60 ml @ 0 mls/hr Q12H IV Last administered on 11/22/18 00:55; Admin Dose 1.2 MLS/HR; Start 11/22/18 at 00:00 Phenobarbital (Luminal) 65 mg BID IV Last administered on 11/26/18 10:15; Admin Dose 65 MG; Start 11/22/18 at 21:00 Levetiracetam 100 ml @ 400 mls/hr Q12 IVPB Last administered on 11/26/18 09:20; Admin Dose 400 MLS/HR; Start 11/22/18 at 21:00 Amiodarone HCl (Cordarone) 400 mg BID PO Last administered on 11/26/18 09:20; Admin Dose 400 MG; Start 11/23/18 at 09:00 Potassium Chloride/Dextrose/ Sod Cl 1,000 ml @ 80 mls/hr [id number] IV Last administered on 11/26/18 02:45; Admin Dose 80 MLS/HR; Start 11/23/18 at 09:00 Linezolid 300 ml @ 300 mls/hr Q12 IVPB Last administered on 11/26/18 09:36; Admin Dose 300 MLS/HR; Start 11/23/18 at 21:00 Meropenem/Sodium Chloride 50 ml @ 100 mls/hr Q12 IVPB Last administered on 3/1/19at 09:20; Admin Dose 100 MLS/HR; Start 11/23/18 at 15:00 Ferric Sodium Gluconate Complex 125 mg/Sodium Chloride 110 ml @ 110 mls/hr DAILY@1300 IVPB Last administered on 11/25/18at 13:58; Admin Dose 110 MLS/HR; Start 11/25/18 at 13:00; Stop 11/29/18 at 13:59 Epoetin Theodore (Epogen (Non Esrd/Non Oncology)) 8,000 units MoWeFr@17 SC Last administered on 11/24/18at 20:51; Admin Dose 8,000 UNITS; Start 11/24/18 at 17:30 Citric Acid/ Sodium Citrate (Bicitra) 30 ml TID PO Last administered on 11/26/18at 09:17; Admin Dose 30 ML; Start 11/25/18 at 13:00 Furosemide (Lasix) 20 mg DAILY IV Last administered on 11/26/18at 09:17; Admin Dose 20 MG; Start 11/26/18 at 09:00 Lorazepam (Ativan) 1 mg Q10MIN PRN GTB agitation; Start 11/26/18 at 12:00 DEANNA CARRERA MD Nov 26, 2018 11:40
[2018-11-26] MEDS: VASOPRESSIN 60 UNIT in DEXTROSE 5% 57 ML IV SCH ×3 (11:44)
[2018-11-26] MEDS ORDERED: LORAZEPAM 1 MG TAB GTB PRN (12:00)
--- NOTE | 2018-11-26 12:56 | CONS ---
Assessment/Plan Assessment/Plan Hospital Course (Demo Recall) No acute changes overnight patient looks comfortable no fever she is off pressors with WBC today 8.9 no shift no bands BUN 29 creatinine 2.02 Indwelling: Trach PEG right femoral triple-lumen catheter, Jaime Antimicrobials: Zyvox, meropenem Physical examination: Morbidly obese well-developed chronically ill-appearing elderly woman who is in no distress. Head atraumatic normocephalic neck is obese tracheostomy present chest rise symmetrical breath sounds diminished bases. Heart: S1-S2. Abdomen soft bowel sounds hypoactive. Extremities with bilateral edema Assessment: 1. S/p sepsis with shock 2. Acute cholecystitis with suspected choledocholithiasis==>Status post ERCP, sphincterotomy, bile duct stent placement 11/25/18 3. Acute renal failure 4. Chronic respiratory failure and dysphagia 5. Acute on chronic anemia 6. Paroxysmal atrial fibrillation Plan: Stable, dc Zyvox, continue present care, GI/pulmonary rec-s Consultation Date/Type/Reason Admit Date/Time Nov 19, 2018 at 19:01 Initial Consult Date 11/22/18 Type of Consult id Requesting Provider: KAYLA CELESTIN Date/Time of Note DATE: 11/26/18 TIME: 12:53 Exam/Review of Systems Exam Vitals Vital Signs Date Temp Pulse Resp B/P (MAP) Pulse Ox O2 O2 Flow FiO2 Time Delivery Rate 11/26/18 75 21 96 30 11:10 11/26/18 128/59 Mechanical 10:00 (82) Ventilator 11/26/18 97.9 08:00 Intake and Output 11/25/18 11/25/18 11/26/18 1515:00 23:00 07:00 IntakeIntake Total 1210 ml 930 ml 750 ml OutputOutput Total 675 ml 500 ml 535 ml BalanceBalance 535 ml 430 ml 215 ml Results Result Diagram: 11/26/18 0430 11/26/18 0430 Results 24hrs Laboratory Tests Test 11/25/18 16:13 11/26/18 04:30 Phenobarbital Level 26.8 White Blood Count 8.9 Red Blood Count 2.54 L Hemoglobin 8.3 L Hematocrit 26.1 L Mean Corpuscular Volume 102.8 H Mean Corpuscular Hemoglobin 32.7 Mean Corpuscular Hemoglobin Concent 31.8 L Red Cell Distribution Width 16.8 H Platelet Count 351 # Mean Platelet Volume 10.9 H Immature Granulocytes % 0.800 H Neutrophils % 74.5 Lymphocytes % 12.5 L Monocytes % 7.6 Eosinophils % 4.3 Basophils % 0.3 Nucleated Red Blood Cells % 0.0 Immature Granulocytes # 0.070 H Neutrophils # 6.6 Lymphocytes # 1.1 Monocytes # 0.7 Eosinophils # 0.4 Basophils # 0.0 Nucleated Red Blood Cells # 0.0 Sodium Level 137 Potassium Level 4.0 Chloride Level 112 H Carbon Dioxide Level 16 L Anion Gap 9 Blood Urea Nitrogen 29 H Creatinine 2.02 H Est Glomerular Filtrat Rate mL/min 24 L Glucose Level 120 Calcium Level 8.1 L Magnesium Level 1.7 Total Bilirubin 0.1 L Direct Bilirubin 0.00 Indirect Bilirubin 0.1 Aspartate Amino Transf (AST/SGOT) 31 Alanine Aminotransferase (ALT/SGPT) 61 Alkaline Phosphatase 169 H Total Protein 5.6 L Albumin 2.5 L Globulin 3.10 Albumin/Globulin Ratio 0.80 Medications Medication Current Medications Ondansetron HCl (Zofran Inj) 4 mg Q6H PRN IV NAUSEA AND/OR VOMITING; Start 11/19/18 at 20:30 Pantoprazole (Protonix Iv) 40 mg DAILY@06 IV Last administered on 11/26/18at 05:21; Admin Dose 40 MG; Start 11/20/18 at 06:00 Phenylephrine HCl 40 mg/Dextrose 250 ml @ 37.5 mls/hr TITRATE IV Last administered on 11/24/18at 05:43; Admin Dose 15 MLS/HR; Start 11/19/18 at 20:30 Acetaminophen (Tylenol Tab) 650 mg Q6H PRN GTB MILD PAIN LEVEL 1-3 Last administered on 11/22/18at 03:04; Admin Dose 650 MG; Start 11/20/18 at 06:00 Albuterol (Proventil 0.083% (Neb)) 2.5 mg Q6H RESP THERAPY PRN NEB WHEEZING AND SOB Last administered on 11/21/18at 19:40; Admin Dose 2.5 MG; Start 11/20/18 at 06:00 Folic Acid (Folic Acid) 1 mg DAILY GTB Last administered on 11/26/18at 09:20; Admin Dose 1 MG; Start 11/20/18 at 09:00 Norepinephrine 250 ml @ 1.875 mls/ hr TITRATE IV Last administered on 11/22/18 14:35; Admin Dose 18.75 MLS/HR; Start 11/20/18 at 15:00 Fentanyl 100 ml @ 2.5 mls/hr TITRATE IV Last administered on 11/20/18 15:48; Admin Dose 2.5 MLS/HR; Start 11/20/18 at 16:30 Amiodarone HCl 900 mg/Dextrose 500 ml @ 0 mls/hr Q0M IV Last administered on 11/22/18 15:29; Admin Dose 16.7 MLS/HR; Start 11/21/18 at 16:30 Vasopressin 60 unit/Dextrose 60 ml @ 0 mls/hr Q12H IV Last administered on 11/22/18 00:55; Admin Dose 1.2 MLS/HR; Start 11/22/18 at 00:00 Phenobarbital (Luminal) 65 mg BID IV Last administered on 11/26/18 10:15; Admin Dose 65 MG; Start 11/22/18 at 21:00 Levetiracetam 100 ml @ 400 mls/hr Q12 IVPB Last administered on 11/26/18 09:20; Admin Dose 400 MLS/HR; Start 11/22/18 at 21:00 Amiodarone HCl (Cordarone) 400 mg BID PO Last administered on 11/26/18 09:20; Admin Dose 400 MG; Start 11/23/18 at 09:00 Potassium Chloride/Dextrose/ Sod Cl 1,000 ml @ 80 mls/hr [id number] IV Last administered on 11/26/18 02:45; Admin Dose 80 MLS/HR; Start 11/23/18 at 09:00 Linezolid 300 ml @ 300 mls/hr Q12 IVPB Last administered on 11/26/18 09:36; Admin Dose 300 MLS/HR; Start 11/23/18 at 21:00 Meropenem/Sodium Chloride 50 ml @ 100 mls/hr Q12 IVPB Last administered on 11/26/18 09:20; Admin Dose 100 MLS/HR; Start 11/23/18 at 15:00 Ferric Sodium Gluconate Complex 125 mg/Sodium Chloride 110 ml @ 110 mls/hr DAILY@1300 IVPB Last administered on 11/25/18 13:58; Admin Dose 110 MLS/HR; Start 11/25/18 at 13:00; Stop 11/29/18 at 13:59 Epoetin Theodore (Epogen (Non Esrd/Non Oncology)) 8,000 units MoWeFr@17 SC Last administered on 11/24/18at 20:51; Admin Dose 8,000 UNITS; Start 11/24/18 at 17:30 Citric Acid/ Sodium Citrate (Bicitra) 30 ml TID PO Last administered on 11/26/18at 09:17; Admin Dose 30 ML; Start 11/25/18 at 13:00 Furosemide (Lasix) 20 mg DAILY IV Last administered on 11/26/18at 09:17; Admin Dose 20 MG; Start 11/26/18 at 09:00 Lorazepam (Ativan) 1 mg Q10MIN PRN GTB agitation; Start 11/26/18 at 12:00 KAREN LOMAS NP Nov 26, 2018 12:56
[2018-11-26] MEDS: SOD FERRIC GLUC COMPLX 125 MG in SOD CHLORIDE 0.9% 100 ML IVPB SCH (13:10)
--- NOTE | 2018-11-26 13:35 | RADRPT ---
Vent Rate: 159 bpm RR Interval: 0 msec MA Interval: 0 msec QRS Duration: 76 msec QT Interval: 232 msec QTC Interval: 377 msec P-R-T [place]: 0 - 33 - 0 degrees Atrial fibrillation with rapid ventricular response with premature ventricular or aberrantly conducted complexes Low voltage QRS Marked ST abnormality, possible lateral subendocardial injury Abnormal ECG Electronically Signed By: Rick Perez
--- NOTE | 2018-11-26 13:35 | RADRPT ---
Vent Rate: 118 bpm RR Interval: 0 msec NC Interval: 0 msec QRS Duration: 88 msec QT Interval: 334 msec QTC Interval: 468 msec P-R-T [place]: 0 - 13 - 27 degrees Atrial fibrillation with rapid ventricular response Low voltage QRS Nonspecific ST and T wave abnormality , probably digitalis effect Abnormal ECG Electronically Signed By: Rick Perez
--- NOTE | 2018-11-26 14:05 | CONS ---
Assessment/Plan Assessment/Plan Hospital Course 68 F c/ reported Hx of malignant brain neoplasm NOS c/b epilepsy..and other comorbidities, who presents for management of hypotension and GI abnl. Neurology is consulted for epilepsy medication management. P: Continue Phb 65mg iv bid for now (Goal 20-30) Continue Keppra 500mg iv q12hr while GFR is severely compromised.. Ativan iv prn prolonged seizure of cluster Other management per primary Will follow Consultation Date/Type/Reason Admit Date/Time Nov 19, 2018 at 19:01 Type of Consult Neurology Requesting Provider: KAYLA CELESTIN Date/Time of Note DATE: 11/26/18 TIME: 14:05 24 HR Interval Summary Free Text/Dictation Continues critical care. Off pressors. No changes in mental status reported. Subjective hx not possible: pt non-verbal Exam Vital Signs Vitals Vital Signs Date Temp Pulse Resp B/P (MAP) Pulse Ox O2 O2 Flow FiO2 Time Delivery Rate 11/26/18 75 21 96 30 11:10 11/26/18 128/59 Mechanical 10:00 (82) Ventilator 11/26/18 97.9 08:00 Intake and Output 11/25/18 11/25/18 11/26/18 1515:00 23:00 07:00 IntakeIntake Total 1210 ml 930 ml 750 ml OutputOutput Total 675 ml 500 ml 535 ml BalanceBalance 535 ml 430 ml 215 ml Exam PE: Gen Appearance: No Apparent Distress HEENT: trached Cardiovascular: Regular rate Abdomen: Soft; with PEG Extremities: Dry; edematous NE: The patient was awake, opening eyes spontaneously. Able to track with prompting. Unable to follow commands. Cranial nerve examination was limited by mental status. Pupils were equal and reactive to light. There was no afferent pupillary defect. Funduscopic examination was limited. Face was grossly symmetric, w/ present corneal and cough reflexes. Tone was spastic in the UE. Muscle bulk was normal. I did not see fasciculations. The patient minimally withdrew to noxious stimulation x 4. Coordination and gait testing was limited by mental status. Arm and leg reflexes were within normal limits and symmetric. Whitman's sign was absent. Plantar responses were flexor. HIPOLITO GLOVER NP Nov 26, 2018 14:05
--- NOTE | 2018-11-26 15:58 | CONS ---
DATE OF ADMISSION: 11/19/2018 DATE OF CONSULTATION: 11/26/2018 The patient in the intensive care unit. She is alert but noncommunicative. PHYSICAL EXAMINATION: VITAL SIGNS: Blood pressure is 128/59, she is not on pressors, pulse is 75. CARDIOVASCULAR: Normal heart sounds. RESPIRATORY: Normal breath sounds. ABDOMEN: Showed obese abdomen. LABORATORY WORKUP: WBC is 8900, hemoglobin 8.3. The chemistry, alkaline phosphatase is 169, AST 31, ALT 61. CLINICAL IMPRESSION: The patient presenting with evidence of obstructive jaundice which is relieved. ERCP was done and dilated common bile duct was noted. dilated bile duct was noted and a sphi ncterotomy was performed. Balloon sweeping was performed, which resulted in removal of significant a mount of sludge. Patient has a distal common bile duct stricture which was treated with placement o f a CBD stent and balloon sweeping removal of the sludge. She has got a large cholelithiasis. PLAN: Surgical approach as per the surgeon. Dictated By: FRANKLIN JAMESON MD NC/NTS Conf#: [id number] DID#: [id number] CC: KENNETH SANTILLAN MD;*EndCC*
[2018-11-26] MEDS: EPOETIN 4000 UNITS/ML (NON ESRD/NON ONCOLOGY) SC SCH (17:20)
[2018-11-27] VITALS (36 sets, daily range): BP systolic 98–190; BP diastolic 41–81; PULSE 70–88; RESP 16–25
[2018-11-27] MEDS: PANTOPRAZOLE 40 MG INJ IV SCH (05:50)
[2018-11-27] MEDS ORDERED: MAGNESIUM SULFATE 2 GM/50 ML 50 ML IVPB ONE (06:00)
--- NOTE | 2018-11-27 07:12 | CONS ---
Assessment/Plan Assessment/Plan Assessment/Plan (Daily) Assessment/Plan (Daily) Acute respiratory distress Sepsis syndrome aggressive treatment has been done with IV antibiotics and pressers as needed, patient is trachd Acute cholecystitis workup in progress depending upon goals of care, this is the address patients conservative Suggest bioethics consultation to establish patient's CODE STATUS only Consultation Date/Type/Reason Admit Date/Time Nov 19, 2018 at 19:01 Date/Time of Note DATE: 11/27/18 TIME: 07:11 Past Medical History Home Meds Reported Medications Ranitidine Hcl* (Ranitidine Hcl*) 150 Mg Tablet, 150 MG GTB Q12, #60 TAB 11/19/18 Cholecalciferol* (Vitamin D*) 400 Unit Tablet, 400 UNIT GTB DAILY, TAB 11/19/18 Amino Acids/Protein Hydrolys (Pro-Stat 64 Liquid) 887 Ml Liquid, 30 ML GTB BID 11/19/18 Albuterol Sulfate* (Albuterol Sulfate* Neb) 0.083%-3 Ml Neb, 2.5 MG NEB Q6 PRN for WHEEZING AND SOB, #30 VIAL 11/19/18 Levetiracetam* (Keppra* (Ped)) 100 Mg/Ml Liq, 1500 MG GTB BID for 30 Days, BOTTLE 11/19/18 Sennosides* (Senna Lax*) 8.6 Mg Tablet, 1 TAB GTB DAILY, TAB 11/19/18 Labetalol Hcl* (Labetalol Hcl*) 200 Mg Tablet, 200 MG GTB BID PRN for ELEVATED BLOOD PRESSURE, TAB 11/19/18 Folic Acid* (Folic Acid*) 1 Mg Tablet, 1 MG GTB DAILY, TAB 11/19/18 Phenobarbital* (Phenobarbital* Liq) 20 Mg/5 Ml Elix, 5 MG GTB BID for 30 Days, BOTTLE 11/19/18 Lisinopril* (Lisinopril*) 10 Mg Tablet, 10 MG GTB DAILY, #30 TAB 11/19/18 Ferrous Sulfate (Ferrous Sulfate) 300 Mg/5 Ml Liquid, 300 MG GTB BID 11/19/18 Clonidine Hcl* (Clonidine Hcl*) 0.1 Mg Tab, 0.1 MG GTB Q6 PRN for ELEVATED BLOOD PRESSURE, TAB 11/19/18 Calcium Carbonate* (Calcium Carbonate*) 600 MG Ca Tab, 1200 MG GTB DAILY, TAB 11/19/18 Aspirin* (Aspirin* Chew) 81 Mg Tab.chew, 81 MG GTB DAILY, TAB.CHEW 11/19/18 Acetaminophen* (Acetaminophen*) 650 Mg Tablet, 650 MG GTB Q6H PRN for MILD PAIN LEVEL 1-3, #30 TAB 11/19/18 Ascorbic Acid* (Vitamin C*) 500 Mg Capsule.sa, 500 MG GTB DAILY, CAP 11/19/18 Medications Current Medications Ondansetron HCl (Zofran Inj) 4 mg Q6H PRN IV NAUSEA AND/OR VOMITING; Start 11/19/18 at 20:30 Pantoprazole (Protonix Iv) 40 mg DAILY@06 IV Last administered on 11/27/18 05:50; Admin Dose 40 MG; Start 11/20/18 at 06:00 Phenylephrine HCl 40 mg/Dextrose 250 ml @ 37.5 mls/hr TITRATE IV Last administered on 11/24/18 05:43; Admin Dose 15 MLS/HR; Start 11/19/18 at 20:30 Acetaminophen (Tylenol Tab) 650 mg Q6H PRN GTB MILD PAIN LEVEL 1-3 Last administered on 11/22/18 03:04; Admin Dose 650 MG; Start 11/20/18 at 06:00 Albuterol (Proventil 0.083% (Neb)) 2.5 mg Q6H RESP THERAPY PRN NEB WHEEZING AND SOB Last administered on 11/21/18 19:40; Admin Dose 2.5 MG; Start 11/20/18 at 06:00 Folic Acid (Folic Acid) 1 mg DAILY GTB Last administered on 11/26/18 09:20; Admin Dose 1 MG; Start 11/20/18 at 09:00 Norepinephrine 250 ml @ 1.875 mls/ hr TITRATE IV Last administered on 11/22/18 14:35; Admin Dose 18.75 MLS/HR; Start 11/20/18 at 15:00 Fentanyl 100 ml @ 2.5 mls/hr TITRATE IV Last administered on 11/20/18 15:48; Admin Dose 2.5 MLS/HR; Start 11/20/18 at 16:30 Amiodarone HCl 900 mg/Dextrose 500 ml @ 0 mls/hr Q0M IV Last administered on 11/22/18 15:29; Admin Dose 16.7 MLS/HR; Start 11/21/18 at 16:30 Vasopressin 60 unit/Dextrose 60 ml @ 0 mls/hr Q12H IV Last administered on 11/22/18 00:55; Admin Dose 1.2 MLS/HR; Start 11/22/18 at 00:00 Phenobarbital (Luminal) 65 mg BID IV Last administered on 11/26/18 20:13; Admin Dose 65 MG; Start 11/22/18 at 21:00 Levetiracetam 100 ml @ 400 mls/hr Q12 IVPB Last administered on 11/26/18 20:35; Admin Dose 400 MLS/HR; Start 11/22/18 at 21:00 Amiodarone HCl (Cordarone) 400 mg BID PO Last administered on 11/26/18 20:14; Admin Dose 400 MG; Start 11/23/18 at 09:00 Potassium Chloride/Dextrose/ Sod Cl 1,000 ml @ 50 mls/hr Q20H IV Last administered on 11/26/18 17:16; Admin Dose 50 MLS/HR; Start 11/23/18 at 09:00 Meropenem/Sodium Chloride 50 ml @ 100 mls/hr Q12 IVPB Last administered on 11/26/18 20:35; Admin Dose 100 MLS/HR; Start 11/23/18 at 15:00 Ferric Sodium Gluconate Complex 125 mg/Sodium Chloride 110 ml @ 110 mls/hr DAILY@1300 IVPB Last administered on 11/26/18 13:10; Admin Dose 110 MLS/HR; Start 11/25/18 at 13:00; Stop 11/29/18 at 13:59 Epoetin Theodore (Epogen (Non Esrd/Non Oncology)) 8,000 units MoWeFr@17 SC Last administered on 11/26/18 17:20; Admin Dose 8,000 UNITS; Start 11/24/18 at 17:30 Citric Acid/ Sodium Citrate (Bicitra) 30 ml TID PO Last administered on 11/26/18 20:14; Admin Dose 30 ML; Start 11/25/18 at 13:00 Furosemide (Lasix) 20 mg DAILY IV Last administered on 11/26/18 09:17; Admin Dose 20 MG; Start 11/26/18 at 09:00 Lorazepam (Ativan) 1 mg Q10MIN PRN GTB agitation; Start 11/26/18 at 12:00 Magnesium Sulfate 50 ml @ 25 mls/hr ONCE ONCE IVPB Last administered on 11/27/18at 06:06; Admin Dose 25 MLS/HR; Start 11/27/18 at 06:00; Stop 11/27/18 at 07:59 Allergies: Coded Allergies: No Known Allergy (Unverified , 11/19/18) Social History Smoking Status: Unknown if ever smoked Exam/Review of Systems Exam Vitals Vital Signs Date Temp Pulse Resp B/P (MAP) Pulse Ox O2 O2 Flow FiO2 Time Delivery Rate 11/27/18 77 18 110/51 98 Mechanical 06:00 (70) Ventilator 11/27/18 30 05:41 11/27/18 97.5 04:00 Intake and Output 11/26/18 11/26/18 11/27/18 1515:00 23:00 07:00 IntakeIntake Total 690 ml 1090 ml 560 ml OutputOutput Total 925 ml 575 ml 385 ml BalanceBalance -235 ml 515 ml 175 ml Results Result Diagram: 11/27/18 0400 11/27/18 0400 Results 24hrs Laboratory Tests Test 11/27/18 04:00 White Blood Count 7.9 Red Blood Count 2.55 L Hemoglobin 8.2 L Hematocrit 25.9 L Mean Corpuscular Volume 101.6 H Mean Corpuscular Hemoglobin 32.2 Mean Corpuscular Hemoglobin Concent 31.7 L Red Cell Distribution Width 16.8 H Platelet Count 440 #H Mean Platelet Volume 10.8 H Immature Granulocytes % 0.800 H Neutrophils % 65.5 Lymphocytes % 15.8 Monocytes % 9.2 Eosinophils % 8.3 H Basophils % 0.4 Nucleated Red Blood Cells % 0.0 Immature Granulocytes # 0.060 H Neutrophils # 5.2 Lymphocytes # 1.3 Monocytes # 0.7 Eosinophils # 0.7 H Basophils # 0.0 Nucleated Red Blood Cells # 0.0 Sodium Level 140 Potassium Level 4.0 Chloride Level 111 H Carbon Dioxide Level 19 L Anion Gap 10 Blood Urea Nitrogen 27 H Creatinine 2.08 H Est Glomerular Filtrat Rate mL/min 24 L Glucose Level 92 Calcium Level 8.2 L Phosphorus Level 4.2 Magnesium Level 1.6 L Medications Medication Current Medications Ondansetron HCl (Zofran Inj) 4 mg Q6H PRN IV NAUSEA AND/OR VOMITING; Start 11/19/18 at 20:30 Pantoprazole (Protonix Iv) 40 mg DAILY@06 IV Last administered on 11/27/18 05:50; Admin Dose 40 MG; Start 11/20/18 at 06:00 Phenylephrine HCl 40 mg/Dextrose 250 ml @ 37.5 mls/hr TITRATE IV Last administered on 11/24/18 05:43; Admin Dose 15 MLS/HR; Start 11/19/18 at 20:30 Acetaminophen (Tylenol Tab) 650 mg Q6H PRN GTB MILD PAIN LEVEL 1-3 Last administered on 11/22/18 03:04; Admin Dose 650 MG; Start 11/20/18 at 06:00 Albuterol (Proventil 0.083% (Neb)) 2.5 mg Q6H RESP THERAPY PRN NEB WHEEZING AND SOB Last administered on 11/21/18 19:40; Admin Dose 2.5 MG; Start 11/20/18 at 06:00 Folic Acid (Folic Acid) 1 mg DAILY GTB Last administered on 11/26/18 09:20; Admin Dose 1 MG; Start 11/20/18 at 09:00 Norepinephrine 250 ml @ 1.875 mls/ hr TITRATE IV Last administered on 11/22/18 14:35; Admin Dose 18.75 MLS/HR; Start 11/20/18 at 15:00 Fentanyl 100 ml @ 2.5 mls/hr TITRATE IV Last administered on 11/20/18 15:48; Admin Dose 2.5 MLS/HR; Start 11/20/18 at 16:30 Amiodarone HCl 900 mg/Dextrose 500 ml @ 0 mls/hr Q0M IV Last administered on 11/22/18 15:29; Admin Dose 16.7 MLS/HR; Start 11/21/18 at 16:30 Vasopressin 60 unit/Dextrose 60 ml @ 0 mls/hr Q12H IV Last administered on 11/22/18 00:55; Admin Dose 1.2 MLS/HR; Start 11/22/18 at 00:00 Phenobarbital (Luminal) 65 mg BID IV Last administered on 11/26/18 20:13; Admin Dose 65 MG; Start 11/22/18 at 21:00 Levetiracetam 100 ml @ 400 mls/hr Q12 IVPB Last administered on 11/26/18 20:35; Admin Dose 400 MLS/HR; Start 11/22/18 at 21:00 Amiodarone HCl (Cordarone) 400 mg BID PO Last administered on 11/26/18 20:14; Admin Dose 400 MG; Start 11/23/18 at 09:00 Potassium Chloride/Dextrose/ Sod Cl 1,000 ml @ 50 mls/hr Q20H IV Last administered on 11/26/18 17:16; Admin Dose 50 MLS/HR; Start 11/23/18 at 09:00 Meropenem/Sodium Chloride 50 ml @ 100 mls/hr Q12 IVPB Last administered on 11/26/18 20:35; Admin Dose 100 MLS/HR; Start 11/23/18 at 15:00 Ferric Sodium Gluconate Complex 125 mg/Sodium Chloride 110 ml @ 110 mls/hr DAILY@1300 IVPB Last administered on 11/26/18 13:10; Admin Dose 110 MLS/HR; Start 11/25/18 at 13:00; Stop 11/29/18 at 13:59 Epoetin Theodore (Epogen (Non Esrd/Non Oncology)) 8,000 units MoWeFr@17 SC Last administered on 11/26/18 17:20; Admin Dose 8,000 UNITS; Start 11/24/18 at 17:30 Citric Acid/ Sodium Citrate (Bicitra) 30 ml TID PO Last administered on 11/26 20:14; Admin Dose 30 ML; Start 11/25/18 at 13:00 Furosemide (Lasix) 20 mg DAILY IV Last administered on 11/26/18 09:17; Admin Dose 20 MG; Start 11/26/18 at 09:00 Lorazepam (Ativan) 1 mg Q10MIN PRN GTB agitation; Start 11/26/18 at 12:00 Magnesium Sulfate 50 ml @ 25 mls/hr ONCE ONCE IVPB Last administered on 11/27/18 06:06; Admin Dose 25 MLS/HR; Start 11/27/18 at 06:00; Stop 11/27/18 at 07:59 HERBERT ANN Nov 27, 2018 07:12
[2018-11-27] MEDS ORDERED: FAMOTIDINE 20 MG TAB GTB SCH (09:00)
--- NOTE | 2018-11-27 09:21 | PN ---
Date/Time of Note Date/Time of Note DATE: 11/27/18 TIME: 09:20 Objective Vitals Vital Signs Date Temp Pulse Resp B/P (MAP) Pulse Ox O2 O2 Flow FiO2 Time Delivery Rate 11/27/18 30 08:00 11/27/18 98.7 77 19 112/47 99 Mechanical 08:00 (68) Ventilator Intake and Output 11/26/18 11/26/18 11/27/18 1515:00 23:00 07:00 IntakeIntake Total 690 ml 1090 ml 590 ml OutputOutput Total 925 ml 575 ml 450 ml BalanceBalance -235 ml 515 ml 140 ml Results Result Diagram: 11/27/18 0400 11/27/18 0400 Medications Medications Current Medications Ondansetron HCl (Zofran Inj) 4 mg Q6H PRN IV NAUSEA AND/OR VOMITING; Start 11/19/18 at 20:30 Pantoprazole (Protonix Iv) 40 mg DAILY@06 IV Last administered on 11/27/18at 05:50; Admin Dose 40 MG; Start 11/20/18 at 06:00 Phenylephrine HCl 40 mg/Dextrose 250 ml @ 37.5 mls/hr TITRATE IV Last administered on 11/24/18at 05:43; Admin Dose 15 MLS/HR; Start 11/19/18 at 20:30 Acetaminophen (Tylenol Tab) 650 mg Q6H PRN GTB MILD PAIN LEVEL 1-3 Last administered on 11/22/18at 03:04; Admin Dose 650 MG; Start 11/20/18 at 06:00 Albuterol (Proventil 0.083% (Neb)) 2.5 mg Q6H RESP THERAPY PRN NEB WHEEZING AND SOB Last administered on 11/21/18at 19:40; Admin Dose 2.5 MG; Start 11/20/18 at 06:00 Folic Acid (Folic Acid) 1 mg DAILY GTB Last administered on 11/26/18at 09:20; Admin Dose 1 MG; Start 11/20/18 at 09:00 Norepinephrine 250 ml @ 1.875 mls/ hr TITRATE IV Last administered on 11/22/18 at 14:35; Admin Dose 18.75 MLS/HR; Start 11/20/18 at 15:00 Fentanyl 100 ml @ 2.5 mls/hr TITRATE IV Last administered on 11/20/18 15:48; Admin Dose 2.5 MLS/HR; Start 11/20/18 at 16:30 Amiodarone HCl 900 mg/Dextrose 500 ml @ 0 mls/hr Q0M IV Last administered on 11/22/18 15:29; Admin Dose 16.7 MLS/HR; Start 11/21/18 at 16:30 Vasopressin 60 unit/Dextrose 60 ml @ 0 mls/hr Q12H IV Last administered on 11/22/18 00:55; Admin Dose 1.2 MLS/HR; Start 11/22/18 at 00:00 Phenobarbital (Luminal) 65 mg BID IV Last administered on 11/26/18 20:13; Admin Dose 65 MG; Start 11/22/18 at 21:00 Levetiracetam 100 ml @ 400 mls/hr Q12 IVPB Last administered on 11/26/18 20:35; Admin Dose 400 MLS/HR; Start 11/22/18 at 21:00 Amiodarone HCl (Cordarone) 400 mg BID PO Last administered on 11/26/18 20:14; Admin Dose 400 MG; Start 11/23/18 at 09:00 Potassium Chloride/Dextrose/ Sod Cl 1,000 ml @ 50 mls/hr Q20H IV Last administered on 11/26/18 17:16; Admin Dose 50 MLS/HR; Start 11/23/18 at 09:00 Meropenem/Sodium Chloride 50 ml @ 100 mls/hr Q12 IVPB Last administered on 11/26/18 20:35; Admin Dose 100 MLS/HR; Start 11/23/18 at 15:00 Ferric Sodium Gluconate Complex 125 mg/Sodium Chloride 110 ml @ 110 mls/hr DAILY@1300 IVPB Last administered on 11/26/18 13:10; Admin Dose 110 MLS/HR; Start 11/25/18 at 13:00; Stop 11/29/18 at 13:59 Epoetin Theodore (Epogen (Non Esrd/Non Oncology)) 8,000 units MoWeFr@17 SC Last administered on 11/26/18 17:20; Admin Dose 8,000 UNITS; Start 11/24/18 at 17:30 Citric Acid/ Sodium Citrate (Bicitra) 30 ml TID PO Last administered on 3/1/19at 20:14; Admin Dose 30 ML; Start 11/25/18 at 13:00 Furosemide (Lasix) 20 mg DAILY IV Last administered on 11/26/18at 09:17; Admin Dose 20 MG; Start 11/26/18 at 09:00 Lorazepam (Ativan) 1 mg Q10MIN PRN GTB agitation; Start 11/26/18 at 12:00 VTE Prophylaxis Risk score (from Ns)>0 risk: 8 SCD applied (from [facility] [place] No SCD contraindication: other Lines/Catheters IV Catheter Type: Zabala in Place: Yes Cont'd zabala catheter reason: terminal illness/intractable pain Assessment/Plan Hospital Course Subjective Patient opens her eyes and tracks somewhat, however no other purposeful movement, apparently patient's baseline Objective Physical exam General: Patient is laying in bed, Mentation: Patient is alert but not oriented Head: Normocephalic atraumatic Eyes: EOMI, pupils reactive to light sluggish Neck: Supple, nontender, midline Respiratory: Coarse to auscultation bilaterally Cardiovascular: regular rate, no obvious murmurs Gastrointestinal: Mildly tender in the right upper quadrant, bowel sounds heard. Neurological: Unable to fully assess due to neurological status Skin: No new skin lesions Assessment/Plan Septic shock secondary to acute cholecystitis/choledocholithiasis, resolving - off pressors - Continue antibiotics - Lactic acid normal at presentation Elevated LFT-resolving - CT abd shows choledocholithiasis and acute cholecystitis - GI on board and appreciate recommendations. - MRCP noted - continue monitoring -bilirubin resolving, stone may have passed? -ERCP done, stent placed, sludge found, no stone, but dilated duct. Acute cholecystitis -s/p ERCP, general surgery wants HIDA to re-eval Hypernatremia - management per nephro JUSTO - Nephrology consultation appreciated and will avoid nephrotoxic agents - IVF per renal - most likely prerenal vs ATN h/o Malignant neoplasm of brain - Patient is chronically bedridden and debilitated. Tracking present this am which is her baseline Seizure disorder - Continue Keppra and phenobarbital - neurology consulted HTN - hold home BP medications in setting of hypotension Iron deficiency anemia - no need for transfusion at this time Chronic respiratory failure - trach dependent - continue trach care - Pulmonology on board and appreciate recommendations Disposition - Continue monitoring in ICU -HIDA pending -found the person who makes medical decisions for patient, able to consent as needed >30 minutes of critical care time spent with patient KAYLA CELESTIN Nov 27, 2018 09:21
[2018-11-27] MEDS: CITRIC ACID/NA CITRATE 30 ML CUP PO SCH ×3 (09:23→20:20)
[2018-11-27] MEDS: FOLIC ACID 1 MG TAB GTB SCH (09:23)
[2018-11-27] MEDS: FUROSEMIDE 20 MG INJ IV SCH (09:24)
[2018-11-27] MEDS: AMIODARONE 200 MG TAB PO SCH ×2 (09:24→20:20)
[2018-11-27] MEDS: LEVETIRACETAM 500 MG (PMX) 100 ML IVPB SCH ×2 (09:24→20:21)
[2018-11-27] MEDS: MEROPENEM 500MG/50 ML (PMX) 50 ML IVPB SCH ×2 (09:24→20:21)
[2018-11-27] MEDS: PHENOBARBITAL 65 MG INJ IV SCH ×2 (09:26→20:20)
--- NOTE | 2018-11-27 09:44 | CONS ---
Assessment/Plan Assessment/Plan Hospital Course (Demo Recall) ID PROGRESS NOTE CURRENT ABX: DAY # => Merrem s/p Zyvox 11/27/18 0400 11/27/18 0400 24H INTERVAL SUMMARY * Morbid obese 68 yo F w/Trach, encephalopathy, opens eyes, does not follow commands, chart reviewed * No fevers, VSS * Indwelling: Trach PEG right femoral triple-lumen catheter, [facility] * 11/27/18 : Worsening mild pulmonary vascular congestion.Worsening bibasilar infiltrates and atelectatic changes.Small left pleural effusion.No other significant change. MICRO/OTHER * 11/23/18 BCx (-) * 11/19/18 (-)MRSA nares PHYSICAL EXAMINATION: GENERAL: VSS HEENT: AT, NC, anicteric NECK: Supple, CHEST: Equal chest rise bilaterally, without dyspnea on observation HEART: Pulse RRR ABDOMEN: Soft / NT EXTREMITIES: Warm, dry, BLEXT edema SKIN: No rash, no diaphoresis ID ASSESSMENT 68 yo Morbid Obese F admit with: Assessment: 1. S/p sepsis with shock 2. Acute cholecystitis with suspected choledocholithiasis==>Status post ERCP, sphincterotomy, bile duct stent placement 11/25/18 3. Acute renal failure 4. Chronic respiratory failure and dysphagia 5. Acute on chronic anemia 6. Paroxysmal atrial fibrillation (-)MRSA Nares ABX ALLERGIES: KNDA INVASIVES: PIV, Trach, Peg, R-FEM TLC, FC CURRENT ABX: DAY #Merrem s/p Zyvox ID RECOMMENDATIONS/PLAN: 1. Continue current ABX 2. Avoid renal toxic ABX 3. Per notes HIDA scan pending -s/p ERCP, general surgery wants HIDA to re- evaluate . Consultation Date/Type/Reason Admit Date/Time Nov 19, 2018 at 19:01 Initial Consult Date 11/23/18 Requesting Provider: KAYLA CELESTIN Date/Time of Note DATE: 11/27/18 TIME: 09:40 Exam/Review of Systems Exam Vitals Vital Signs Date Temp Pulse Resp B/P (MAP) Pulse Ox O2 O2 Flow FiO2 Time Delivery Rate 11/27/18 30 08:00 11/27/18 98.7 77 19 112/47 99 Mechanical 08:00 (68) Ventilator Intake and Output 11/26/18 11/26/18 11/27/18 1515:00 23:00 07:00 IntakeIntake Total 690 ml 1090 ml 590 ml OutputOutput Total 925 ml 575 ml 450 ml BalanceBalance -235 ml 515 ml 140 ml Results Result Diagram: 11/27/18 0400 11/27/18 0400 Results 24hrs Laboratory Tests Test 11/27/18 04:00 White Blood Count 7.9 Red Blood Count 2.55 L Hemoglobin 8.2 L Hematocrit 25.9 L Mean Corpuscular Volume 101.6 H Mean Corpuscular Hemoglobin 32.2 Mean Corpuscular Hemoglobin Concent 31.7 L Red Cell Distribution Width 16.8 H Platelet Count 440 #H Mean Platelet Volume 10.8 H Immature Granulocytes % 0.800 H Neutrophils % 65.5 Lymphocytes % 15.8 Monocytes % 9.2 Eosinophils % 8.3 H Basophils % 0.4 Nucleated Red Blood Cells % 0.0 Immature Granulocytes # 0.060 H Neutrophils # 5.2 Lymphocytes # 1.3 Monocytes # 0.7 Eosinophils # 0.7 H Basophils # 0.0 Nucleated Red Blood Cells # 0.0 Sodium Level 140 Potassium Level 4.0 Chloride Level 111 H Carbon Dioxide Level 19 L Anion Gap 10 Blood Urea Nitrogen 27 H Creatinine 2.08 H Est Glomerular Filtrat Rate mL/min 24 L Glucose Level 92 Calcium Level 8.2 L Phosphorus Level 4.2 Magnesium Level 1.6 L Medications Medication Current Medications Ondansetron HCl (Zofran Inj) 4 mg Q6H PRN IV NAUSEA AND/OR VOMITING; Start 11/19/18 at 20:30 Pantoprazole (Protonix Iv) 40 mg DAILY@06 IV Last administered on 11/27/18at 05:50; Admin Dose 40 MG; Start 11/20/18 at 06:00 Phenylephrine HCl 40 mg/Dextrose 250 ml @ 37.5 mls/hr TITRATE IV Last administered on 11/24/18at 05:43; Admin Dose 15 MLS/HR; Start 11/19/18 at 20:30 Acetaminophen (Tylenol Tab) 650 mg Q6H PRN GTB MILD PAIN LEVEL 1-3 Last administered on 11/22/18at 03:04; Admin Dose 650 MG; Start 11/20/18 at 06:00 Albuterol (Proventil 0.083% (Neb)) 2.5 mg Q6H RESP THERAPY PRN NEB WHEEZING AND SOB Last administered on 11/21/18 19:40; Admin Dose 2.5 MG; Start 11/20/18 at 06:00 Folic Acid (Folic Acid) 1 mg DAILY GTB Last administered on 11/27/18 09:23; Admin Dose 1 MG; Start 11/20/18 at 09:00 Norepinephrine 250 ml @ 1.875 mls/ hr TITRATE IV Last administered on 11/22/18 14:35; Admin Dose 18.75 MLS/HR; Start 11/20/18 at 15:00 Fentanyl 100 ml @ 2.5 mls/hr TITRATE IV Last administered on 11/20/18 15:48; Admin Dose 2.5 MLS/HR; Start 11/20/18 at 16:30 Amiodarone HCl 900 mg/Dextrose 500 ml @ 0 mls/hr Q0M IV Last administered on 11/22/18 15:29; Admin Dose 16.7 MLS/HR; Start 11/21/18 at 16:30 Vasopressin 60 unit/Dextrose 60 ml @ 0 mls/hr Q12H IV Last administered on 11/22/18 00:55; Admin Dose 1.2 MLS/HR; Start 11/22/18 at 00:00 Phenobarbital (Luminal) 65 mg BID IV Last administered on 11/27/18 09:26; Admin Dose 65 MG; Start 11/22/18 at 21:00 Levetiracetam 100 ml @ 400 mls/hr Q12 IVPB Last administered on 11/27/18 09:24; Admin Dose 400 MLS/HR; Start 11/22/18 at 21:00 Amiodarone HCl (Cordarone) 400 mg BID PO Last administered on 11/27/18 09:24; Admin Dose 400 MG; Start 11/23/18 at 09:00 Potassium Chloride/Dextrose/ Sod Cl 1,000 ml @ 50 mls/hr Q20H IV Last administered on 11/26/18 17:16; Admin Dose 50 MLS/HR; Start 11/23/18 at 09:00 Meropenem/Sodium Chloride 50 ml @ 100 mls/hr Q12 IVPB Last administered on 11/27/18 09:24; Admin Dose 100 MLS/HR; Start 11/23/18 at 15:00 Ferric Sodium Gluconate Complex 125 mg/Sodium Chloride 110 ml @ 110 mls/hr DAILY@1300 IVPB Last administered on 11/26/18 13:10; Admin Dose 110 MLS/HR; Start 11/25/18 at 13:00; Stop 11/29/18 at 13:59 Epoetin Theodore (Epogen (Non Esrd/Non Oncology)) 8,000 units MoWeFr@17 SC Last administered on 11/26/18 17:20; Admin Dose 8,000 UNITS; Start 11/24/18 at 17:30 Citric Acid/ Sodium Citrate (Bicitra) 30 ml TID PO Last administered on 09:23; Admin Dose 30 ML; Start 11/25/18 at 13:00 Furosemide (Lasix) 20 mg DAILY IV Last administered on 11/27/18 09:24; Admin Dose 20 MG; Start 11/26/18 at 09:00 Lorazepam (Ativan) 1 mg Q10MIN PRN GTB agitation; Start 11/26/18 at 12:00 LISA YOUSIF NP Nov 27, 2018 09:44
--- NOTE | 2018-11-27 10:17 | CONS ---
Assessment/Plan Assessment/Plan Hospital Course 68 F c/ reported Hx of malignant brain neoplasm NOS c/b epilepsy..and other comorbidities, who presents for management of hypotension and GI abnl. Neurology is consulted for epilepsy medication management. P: Continue Phb 65mg iv bid for now; await phb level (Goal 20-30) Continue Keppra 500mg iv q12hr while GFR is severely compromised.. Ativan iv prn prolonged seizure of cluster Other management per primary Will follow Consultation Date/Type/Reason Admit Date/Time Nov 19, 2018 at 19:01 Type of Consult Neurology Requesting Provider: KAYLA CELESTIN Date/Time of Note DATE: 11/27/18 TIME: 10:17 24 HR Interval Summary Free Text/Dictation Continues critical care. Exam Vital Signs Vitals Vital Signs Date Temp Pulse Resp B/P (MAP) Pulse Ox O2 O2 Flow FiO2 Time Delivery Rate 11/27/18 81 18 117/47 98 Mechanical 09:00 (70) Ventilator 11/27/18 30 08:00 11/27/18 98.7 08:00 Intake and Output 11/26/18 11/26/18 11/27/18 1515:00 23:00 07:00 IntakeIntake Total 690 ml 1090 ml 640 ml OutputOutput Total 925 ml 575 ml 450 ml BalanceBalance -235 ml 515 ml 190 ml Exam PE: Gen Appearance: No Apparent Distress HEENT: trached Cardiovascular: Regular rate Abdomen: Soft; with PEG Extremities: Dry; edematous NE: The patient was asleep, though arousable to voice. Unable to track or follow commands. Cranial nerve examination was limited by mental status. Pupils were equal and reactive to light. There was no afferent pupillary defect. Funduscopic examination was limited. Face was grossly symmetric, w/ present corneal and cough reflexes. Tone was spastic in the UE. Muscle bulk was normal. I did not see fasciculations. The patient minimally withdrew to noxious stimulation x 4. Coordination and gait testing was limited by mental status. Arm and leg reflexes were within normal limits and symmetric. Whitman's sign was absent. Plantar responses were flexor. HIPOLITO GLOVER NP Nov 27, 2018 10:17 RACHEL ESTEBAN Nov 27, 2018 11:46
--- NOTE | 2018-11-27 11:02 | CONS ---
Consult Date/Type/Reason Admit Date/Time Nov 19, 2018 at 19:01 Initial Consult Date 11/23/18 Type of Consultation: Pulm/CC Requesting Provider: KAYLA CELESTIN Date/Time of Note DATE: 11/27/18 TIME: 11:01 Subjective Minimally responsive on the vent. No events. Awaiting HIDA. Objective Vitals Vital Signs Date Temp Pulse Resp B/P (MAP) Pulse Ox O2 O2 Flow FiO2 Time Delivery Rate 11/27/18 81 18 117/47 98 Mechanical 09:00 (70) Ventilator 11/27/18 30 08:00 11/27/18 98.7 08:00 Intake and Output 11/26/18 11/26/18 11/27/18 1414:59 22:59 06:59 IntakeIntake Total 700 ml 1090 ml 640 ml OutputOutput Total 875 ml 640 ml 445 ml BalanceBalance -175 ml 450 ml 195 ml Exam HEENT: Neck supple; no JVD; no LAD; + trach CVS: RRR, S1 and S2 CHEST: Clear ABD: Obese, distended, NT, + BS EXT: No c/c; + edema Results/Medications Result Diagram: 11/27/18 0400 11/27/18 0400 Results 24 hrs Laboratory Tests Test 11/27/18 04:00 White Blood Count 7.9 Red Blood Count 2.55 L Hemoglobin 8.2 L Hematocrit 25.9 L Mean Corpuscular Volume 101.6 H Mean Corpuscular Hemoglobin 32.2 Mean Corpuscular Hemoglobin Concent 31.7 L Red Cell Distribution Width 16.8 H Platelet Count 440 #H Mean Platelet Volume 10.8 H Immature Granulocytes % 0.800 H Neutrophils % 65.5 Lymphocytes % 15.8 Monocytes % 9.2 Eosinophils % 8.3 H Basophils % 0.4 Nucleated Red Blood Cells % 0.0 Immature Granulocytes # 0.060 H Neutrophils # 5.2 Lymphocytes # 1.3 Monocytes # 0.7 Eosinophils # 0.7 H Basophils # 0.0 Nucleated Red Blood Cells # 0.0 Sodium Level 140 Potassium Level 4.0 Chloride Level 111 H Carbon Dioxide Level 19 L Anion Gap 10 Blood Urea Nitrogen 27 H Creatinine 2.08 H Est Glomerular Filtrat Rate mL/min 24 L Glucose Level 92 Calcium Level 8.2 L Phosphorus Level 4.2 Magnesium Level 1.6 L Home Meds Reported Medications Ranitidine Hcl* (Ranitidine Hcl*) 150 Mg Tablet, 150 MG GTB Q12, #60 TAB 11/19/18 Cholecalciferol* (Vitamin D*) 400 Unit Tablet, 400 UNIT GTB DAILY, TAB 11/19/18 Amino Acids/Protein Hydrolys (Pro-Stat 64 Liquid) 887 Ml Liquid, 30 ML GTB BID 11/19/18 Albuterol Sulfate* (Albuterol Sulfate* Neb) 0.083%-3 Ml Neb, 2.5 MG NEB Q6 PRN for WHEEZING AND SOB, #30 VIAL 11/19/18 Levetiracetam* (Keppra* (Ped)) 100 Mg/Ml Liq, 1500 MG GTB BID for 30 Days, BOTTLE 11/19/18 Sennosides* (Senna Lax*) 8.6 Mg Tablet, 1 TAB GTB DAILY, TAB 11/19/18 Labetalol Hcl* (Labetalol Hcl*) 200 Mg Tablet, 200 MG GTB BID PRN for ELEVATED BLOOD PRESSURE, TAB 11/19/18 Folic Acid* (Folic Acid*) 1 Mg Tablet, 1 MG GTB DAILY, TAB 11/19/18 Phenobarbital* (Phenobarbital* Liq) 20 Mg/5 Ml Elix, 5 MG GTB BID for 30 Days, BOTTLE 11/19/18 Lisinopril* (Lisinopril*) 10 Mg Tablet, 10 MG GTB DAILY, #30 TAB 11/19/18 Ferrous Sulfate (Ferrous Sulfate) 300 Mg/5 Ml Liquid, 300 MG GTB BID 11/19/18 Clonidine Hcl* (Clonidine Hcl*) 0.1 Mg Tab, 0.1 MG GTB Q6 PRN for ELEVATED BLOOD PRESSURE, TAB 11/19/18 Calcium Carbonate* (Calcium Carbonate*) 600 MG Ca Tab, 1200 MG GTB DAILY, TAB 11/19/18 Aspirin* (Aspirin* Chew) 81 Mg Tab.chew, 81 MG GTB DAILY, TAB.CHEW 11/19/18 Acetaminophen* (Acetaminophen*) 650 Mg Tablet, 650 MG GTB Q6H PRN for MILD PAIN LEVEL 1-3, #30 TAB 11/19/18 Ascorbic Acid* (Vitamin C*) 500 Mg Capsule.sa, 500 MG GTB DAILY, CAP 11/19/18 Medications Current Medications Ondansetron HCl (Zofran Inj) 4 mg Q6H PRN IV NAUSEA AND/OR VOMITING; Start 11/19/18 at 20:30 Pantoprazole (Protonix Iv) 40 mg DAILY@06 IV Last administered on 11/27/18 05:50; Admin Dose 40 MG; Start 11/20/18 at 06:00 Phenylephrine HCl 40 mg/Dextrose 250 ml @ 37.5 mls/hr TITRATE IV Last administered on 11/24/18 05:43; Admin Dose 15 MLS/HR; Start 11/19/18 at 20:30 Acetaminophen (Tylenol Tab) 650 mg Q6H PRN GTB MILD PAIN LEVEL 1-3 Last administered on 11/22/18 03:04; Admin Dose 650 MG; Start 11/20/18 at 06:00 Albuterol (Proventil 0.083% (Neb)) 2.5 mg Q6H RESP THERAPY PRN NEB WHEEZING AND SOB Last administered on 11/21/18 19:40; Admin Dose 2.5 MG; Start 11/20/18 at 06:00 Folic Acid (Folic Acid) 1 mg DAILY GTB Last administered on 11/27/18 09:23; Admin Dose 1 MG; Start 11/20/18 at 09:00 Norepinephrine 250 ml @ 1.875 mls/ hr TITRATE IV Last administered on 11/22/18 14:35; Admin Dose 18.75 MLS/HR; Start 11/20/18 at 15:00 Fentanyl 100 ml @ 2.5 mls/hr TITRATE IV Last administered on 11/20/18 15:48; Admin Dose 2.5 MLS/HR; Start 11/20/18 at 16:30 Amiodarone HCl 900 mg/Dextrose 500 ml @ 0 mls/hr Q0M IV Last administered on 11/22/18 15:29; Admin Dose 16.7 MLS/HR; Start 11/21/18 at 16:30 Vasopressin 60 unit/Dextrose 60 ml @ 0 mls/hr Q12H IV Last administered on 11/22/18 00:55; Admin Dose 1.2 MLS/HR; Start 11/22/18 at 00:00 Phenobarbital (Luminal) 65 mg BID IV Last administered on 11/27/18 09:26; Admin Dose 65 MG; Start 11/22/18 at 21:00 Levetiracetam 100 ml @ 400 mls/hr Q12 IVPB Last administered on 11/27/18 09:24; Admin Dose 400 MLS/HR; Start 11/22/18 at 21:00 Amiodarone HCl (Cordarone) 400 mg BID PO Last administered on 11/27/18 09:24; Admin Dose 400 MG; Start 11/23/18 at 09:00 Potassium Chloride/Dextrose/ Sod Cl 1,000 ml @ 50 mls/hr Q20H IV Last administered on 11/26/18 17:16; Admin Dose 50 MLS/HR; Start 11/23/18 at 09:00 Meropenem/Sodium Chloride 50 ml @ 100 mls/hr Q12 IVPB Last administered on 11/27/18 09:24; Admin Dose 100 MLS/HR; Start 11/23/18 at 15:00 Ferric Sodium Gluconate Complex 125 mg/Sodium Chloride 110 ml @ 110 mls/hr DAILY@1300 IVPB Last administered on 11/26/18 13:10; Admin Dose 110 MLS/HR; Start 11/25/18 at 13:00; Stop 11/29/18 at 13:59 Epoetin Theodore (Epogen (Non Esrd/Non Oncology)) 8,000 units MoWeFr@17 SC Last administered on 11/26/18 17:20; Admin Dose 8,000 UNITS; Start 11/24/18 at 17:30 Citric Acid/ Sodium Citrate (Bicitra) 30 ml TID PO Last administered on 11/27/18 09:23; Admin Dose 30 ML; Start 11/25/18 at 13:00 Furosemide (Lasix) 20 mg DAILY IV Last administered on 11/27/18 09:24; Admin Dose 20 MG; Start 11/26/18 at 09:00 Lorazepam (Ativan) 1 mg Q10MIN PRN GTB agitation; Start 11/26/18 at 12:00 Assessment/Plan Assessment/Plan (Daily) IMP: 1. Status post septic shock secondary to acute cholecystitis, now off vasopressors 2. Chronic respiratory failure. Placed back on mechanical ventilation for hypercapnia. 3. GI bleed status post ERCP and stent placement 4. Dysphagia with G-tube. 5. Renal insufficiency with metabolic acidosis possible ATN injury. Persistent metabolic acidosis. RECS: 1. Broad-spectrum antibiotics. Consider de-escalation 2. HIDA 3. Follow H/H 4. Deep venous thrombosis and GI prophylaxis. 5. Continue AC mechanical ventilation 6. Renal recommendations and evaluation for renal insufficiency and persistent metabolic acidosis. Critical care time 40 minutes. CHARITY PANTOJA MD Nov 27, 2018 11:02
[2018-11-27] MEDS: D5W-0.45 NACL + KCL 20 MEQ 1,000 ML IV SCH (11:03)
[2018-11-27] MEDS: VASOPRESSIN 60 UNIT in DEXTROSE 5% 57 ML IV SCH ×3 (12:00)
[2018-11-27] MEDS: SOD FERRIC GLUC COMPLX 125 MG in SOD CHLORIDE 0.9% 100 ML IVPB SCH (12:26)
--- NOTE | 2018-11-27 12:52 | CONS ---
Assessment/Plan Assessment/Plan Assessment/Plan (Daily) 1) Chronic resp failure S/p Trach 2) Sepsis 2nd PNA 3) Hypernatremia- Resolved 4) oliguria improved, Cr stable 5) Rapid Afib, currently on treatment 6) Hypotension Septic Shock, requiring IV pressors 7) AG acidosis in the setting of JUSTO- Compensated Plan: BUN/Cr 24/1.78, K 5.4 IVF D51/2 NS with KCl 20meQ at 50 cc/hr -on IV keppra NO acute indication for HD at this time time IV Zyvox stopped today, continued on IV abx meropenem Renally dose all abx and monitor electrolytes Ferrlecit 125mg IV daily x 5 doses for severe iron deficiency Epogen 8000 units SQ MWFfor anemia, Hb 8.2 today will follow up Consultation Date/Type/Reason Admit Date/Time Nov 19, 2018 at 19:01 Initial Consult Date 11/22/18 Type of Consult NEPHROLOGY Requesting Provider: KAYLA CELESTIN Date/Time of Note DATE: 11/27/18 TIME: 12:52 24 HR Interval Summary Free Text/Dictation BUN/Cr 24/1.78, K 5.4, Bp stable pt is on IVF D51/2NS with KCL Exam/Review of Systems Exam Vitals Vital Signs Date Temp Pulse Resp B/P (MAP) Pulse Ox O2 O2 Flow FiO2 Time Delivery Rate 11/27/18 99.0 84 20 125/54 99 Mechanical 12:00 (77) Ventilator 11/27/18 30 08:00 Intake and Output 11/26/18 11/26/18 11/27/18 1515:00 23:00 07:00 IntakeIntake Total 690 ml 1090 ml 640 ml OutputOutput Total 925 ml 575 ml 450 ml BalanceBalance -235 ml 515 ml 190 ml Exam Eyes: EOMI ENMT: mucosa pink and moist, other (Trach) Respiratory: crackles/rales, other (Vent); No diminished breath sounds Cardiovascular: edema, irregular rhythm Gastrointestinal: soft, other (PEG); No non-tender, No rebound or guarding Extremities: edema Neurological: unresponsive Results Result Diagram: 11/27/18 0400 11/27/18 0400 Results 24hrs Laboratory Tests Test 11/27/18 04:00 White Blood Count 7.9 Red Blood Count 2.55 L Hemoglobin 8.2 L Hematocrit 25.9 L Mean Corpuscular Volume 101.6 H Mean Corpuscular Hemoglobin 32.2 Mean Corpuscular Hemoglobin Concent 31.7 L Red Cell Distribution Width 16.8 H Platelet Count 440 #H Mean Platelet Volume 10.8 H Immature Granulocytes % 0.800 H Neutrophils % 65.5 Lymphocytes % 15.8 Monocytes % 9.2 Eosinophils % 8.3 H Basophils % 0.4 Nucleated Red Blood Cells % 0.0 Immature Granulocytes # 0.060 H Neutrophils # 5.2 Lymphocytes # 1.3 Monocytes # 0.7 Eosinophils # 0.7 H Basophils # 0.0 Nucleated Red Blood Cells # 0.0 Sodium Level 140 Potassium Level 4.0 Chloride Level 111 H Carbon Dioxide Level 19 L Anion Gap 10 Blood Urea Nitrogen 27 H Creatinine 2.08 H Est Glomerular Filtrat Rate mL/min 24 L Glucose Level 92 Calcium Level 8.2 L Phosphorus Level 4.2 Magnesium Level 1.6 L Medications Medication Current Medications Ondansetron HCl (Zofran Inj) 4 mg Q6H PRN IV NAUSEA AND/OR VOMITING; Start 11/19/18 at 20:30 Pantoprazole (Protonix Iv) 40 mg DAILY@06 IV Last administered on 11/27/18 05:50; Admin Dose 40 MG; Start 11/20/18 at 06:00 Phenylephrine HCl 40 mg/Dextrose 250 ml @ 37.5 mls/hr TITRATE IV Last administered on 11/24/18 05:43; Admin Dose 15 MLS/HR; Start 11/19/18 at 20:30 Acetaminophen (Tylenol Tab) 650 mg Q6H PRN GTB MILD PAIN LEVEL 1-3 Last administered on 11/22/18 03:04; Admin Dose 650 MG; Start 11/20/18 at 06:00 Albuterol (Proventil 0.083% (Neb)) 2.5 mg Q6H RESP THERAPY PRN NEB WHEEZING AND SOB Last administered on 11/21/18 19:40; Admin Dose 2.5 MG; Start 11/20/18 at 06:00 Folic Acid (Folic Acid) 1 mg DAILY GTB Last administered on 11/27/18 09:23; Admin Dose 1 MG; Start 11/20/18 at 09:00 Norepinephrine 250 ml @ 1.875 mls/ hr TITRATE IV Last administered on 11/22/18 14:35; Admin Dose 18.75 MLS/HR; Start 11/20/18 at 15:00 Fentanyl 100 ml @ 2.5 mls/hr TITRATE IV Last administered on 11/20/18 15:48; Admin Dose 2.5 MLS/HR; Start 11/20/18 at 16:30 Amiodarone HCl 900 mg/Dextrose 500 ml @ 0 mls/hr Q0M IV Last administered on 11/22/18 15:29; Admin Dose 16.7 MLS/HR; Start 11/21/18 at 16:30 Vasopressin 60 unit/Dextrose 60 ml @ 0 mls/hr Q12H IV Last administered on 11/22/18 00:55; Admin Dose 1.2 MLS/HR; Start 11/22/18 at 00:00 Phenobarbital (Luminal) 65 mg BID IV Last administered on 11/27/18 09:26; Admin Dose 65 MG; Start 11/22/18 at 21:00 Levetiracetam 100 ml @ 400 mls/hr Q12 IVPB Last administered on 11/27/18 09:24; Admin Dose 400 MLS/HR; Start 11/22/18 at 21:00 Amiodarone HCl (Cordarone) 400 mg BID PO Last administered on 11/27/18 09:24; Admin Dose 400 MG; Start 11/23/18 at 09:00 Potassium Chloride/Dextrose/ Sod Cl 1,000 ml @ 50 mls/hr Q20H IV Last administered on 11/27/18 11:03; Admin Dose 50 MLS/HR; Start 11/23/18 at 09:00 Meropenem/Sodium Chloride 50 ml @ 100 mls/hr Q12 IVPB Last administered on 11/27/18 09:24; Admin Dose 100 MLS/HR; Start 11/23/18 at 15:00 Ferric Sodium Gluconate Complex 125 mg/Sodium Chloride 110 ml @ 110 mls/hr DAILY@1300 IVPB Last administered on 11/27/18 12:26; Admin Dose 110 MLS/HR; Start 11/25/18 at 13:00; Stop 11/29/18 at 13:59 Epoetin Theodore (Epogen (Non Esrd/Non Oncology)) 8,000 units MoWeFr@17 SC Last administered on 3/1/19at 17:20; Admin Dose 8,000 UNITS; Start 11/24/18 at 17:30 Citric Acid/ Sodium Citrate (Bicitra) 30 ml TID PO Last administered on at 12:26; Admin Dose 30 ML; Start 11/25/18 at 13:00 Furosemide (Lasix) 20 mg DAILY IV Last administered on 11/27/18 09:24; Admin Dose 20 MG; Start 11/26/18 at 09:00 Lorazepam (Ativan) 1 mg Q10MIN PRN GTB agitation; Start 11/26/18 at 12:00 DEANNA CARRERA MD Nov 27, 2018 12:52
--- NOTE | 2018-11-27 17:56 | CONS ---
Assessment/Plan Assessment/Plan Hospital Course (Demo Recall) Paroxysmal atrial fibrillation: No known prior diagnosis. Will consider chronic anticoagulation pending clinic course and need for procedures but also has anemia. Now back in sinus after amiodarone. Septic shock: now off pressors Anemia: no active bleeding. Hgb >8 after 1 unit Acute on chronic diastolic CHF: due to third spacing from low albumin/IVF Choledocholithiasis with acute cholecystitis: status post ERCP and CBD stent Acute renal failure VDRF/tracheostomy h/o brain tumor Seizure disorder Bedridden -continue lasix 20mg IV dialy -continue amiodarone 400mg BID -GI follow up Consultation Date/Type/Reason Admit Date/Time Nov 19, 2018 at 19:01 Initial Consult Date 11/23/18 Type of Consult Cardiology Date/Time of Note DATE: 11/27/18 TIME: 17:54 24 HR Interval Summary Free Text/Dictation No acute events. No atrial fibrillation Getting HIDA scan. Detailed Summary Additional Comments Unable to obtain review of systems, patient on ventilator. Exam/Review of Systems Vital Signs Vitals Vital Signs Date Temp Pulse Resp B/P (MAP) Pulse Ox O2 O2 Flow FiO2 Time Delivery Rate 11/27/18 83 16:00 11/27/18 98.5 16 144/67 97 Mechanical 16:00 (92) Ventilator 11/27/18 30 13:10 Intake and Output 11/26/18 11/26/18 11/27/18 1515:00 23:00 07:00 IntakeIntake Total 690 ml 1090 ml 640 ml OutputOutput Total 925 ml 575 ml 450 ml BalanceBalance -235 ml 515 ml 190 ml Exam Constitutional: No alert, No oriented Psych: confusion; No nl mood/affect Head: normocephalic, atraumatic Eyes: nl conjunctiva, nl lids ENMT: nl external ears & nose, nl nasal mucosa & septum Neck: supple, non-tender Respiratory: diminished breath sounds Cardiovascular: regular rate and rhythm Gastrointestinal: soft, non-tender Musculoskeletal: nl extremities to inspection Extremities: No cyanosis, No clubbing, No edema Neurological: No nl mental status, No nl speech Labs Result Diagram: 11/27/18 0400 11/27/18 0400 Results 24hrs Laboratory Tests Test 11/27/18 04:00 White Blood Count 7.9 Red Blood Count 2.55 L Hemoglobin 8.2 L Hematocrit 25.9 L Mean Corpuscular Volume 101.6 H Mean Corpuscular Hemoglobin 32.2 Mean Corpuscular Hemoglobin Concent 31.7 L Red Cell Distribution Width 16.8 H Platelet Count 440 #H Mean Platelet Volume 10.8 H Immature Granulocytes % 0.800 H Neutrophils % 65.5 Lymphocytes % 15.8 Monocytes % 9.2 Eosinophils % 8.3 H Basophils % 0.4 Nucleated Red Blood Cells % 0.0 Immature Granulocytes # 0.060 H Neutrophils # 5.2 Lymphocytes # 1.3 Monocytes # 0.7 Eosinophils # 0.7 H Basophils # 0.0 Nucleated Red Blood Cells # 0.0 Sodium Level 140 Potassium Level 4.0 Chloride Level 111 H Carbon Dioxide Level 19 L Anion Gap 10 Blood Urea Nitrogen 27 H Creatinine 2.08 H Est Glomerular Filtrat Rate mL/min 24 L Glucose Level 92 Calcium Level 8.2 L Phosphorus Level 4.2 Magnesium Level 1.6 L Medications Medications Current Medications Ondansetron HCl (Zofran Inj) 4 mg Q6H PRN IV NAUSEA AND/OR VOMITING; Start 11/19/18 at 20:30 Pantoprazole (Protonix Iv) 40 mg DAILY@06 IV Last administered on 11/27/18at 0 5:50; Admin Dose 40 MG; Start 11/20/18 at 06:00 Phenylephrine HCl 40 mg/Dextrose 250 ml @ 37.5 mls/hr TITRATE IV Last administered on 11/24/18 05:43; Admin Dose 15 MLS/HR; Start 11/19/18 at 20:30 Acetaminophen (Tylenol Tab) 650 mg Q6H PRN GTB MILD PAIN LEVEL 1-3 Last administered on 11/22/18at 03:04; Admin Dose 650 MG; Start 11/20/18 at 06:00 Albuterol (Proventil 0.083% (Neb)) 2.5 mg Q6H RESP THERAPY PRN NEB WHEEZING AND SOB Last administered on 11/21/18at 19:40; Admin Dose 2.5 MG; Start 11/20/18 at 06:00 Folic Acid (Folic Acid) 1 mg DAILY GTB Last administered on 11/27/18 09:23; Admin Dose 1 MG; Start 11/20/18 at 09:00 Norepinephrine 250 ml @ 1.875 mls/ hr TITRATE IV Last administered on 11/22/18 14:35; Admin Dose 18.75 MLS/HR; Start 11/20/18 at 15:00 Fentanyl 100 ml @ 2.5 mls/hr TITRATE IV Last administered on 11/20/18 15:48; Admin Dose 2.5 MLS/HR; Start 11/20/18 at 16:30 Amiodarone HCl 900 mg/Dextrose 500 ml @ 0 mls/hr Q0M IV Last administered on 11/22/18 15:29; Admin Dose 16.7 MLS/HR; Start 11/21/18 at 16:30 Vasopressin 60 unit/Dextrose 60 ml @ 0 mls/hr Q12H IV Last administered on 11/22/18 00:55; Admin Dose 1.2 MLS/HR; Start 11/22/18 at 00:00 Phenobarbital (Luminal) 65 mg BID IV Last administered on 11/27/18 09:26; Admin Dose 65 MG; Start 11/22/18 at 21:00 Levetiracetam 100 ml @ 400 mls/hr Q12 IVPB Last administered on 11/27/18 09:24; Admin Dose 400 MLS/HR; Start 11/22/18 at 21:00 Amiodarone HCl (Cordarone) 400 mg BID PO Last administered on 11/27/18 09:24; Admin Dose 400 MG; Start 11/23/18 at 09:00 Potassium Chloride/Dextrose/ Sod Cl 1,000 ml @ 50 mls/hr Q20H IV Last administered on 11/27/18 11:03; Admin Dose 50 MLS/HR; Start 11/23/18 at 09:00 Meropenem/Sodium Chloride 50 ml @ 100 mls/hr Q12 IVPB Last administered on 11/27/18 09:24; Admin Dose 100 MLS/HR; Start 11/23/18 at 15:00 Ferric Sodium Gluconate Complex 125 mg/Sodium Chloride 110 ml @ 110 mls/hr DAILY@1300 IVPB Last administered on 11/27/18 12:26; Admin Dose 110 MLS/HR; Start 11/25/18 at 13:00; Stop 11/29/18 at 13:59 Epoetin Theodore (Epogen (Non Esrd/Non Oncology)) 8,000 units MoWeFr@17 SC Last administered on 11/26/18at 17:20; Admin Dose 8,000 UNITS; Start 11/24/18 at 17:30 Citric Acid/ Sodium Citrate (Bicitra) 30 ml TID PO Last administered on 11/27/18at 12:26; Admin Dose 30 ML; Start 11/25/18 at 13:00 Furosemide (Lasix) 20 mg DAILY IV Last administered on 11/27/18at 09:24; Admin Dose 20 MG; Start 11/26/18 at 09:00 Lorazepam (Ativan) 1 mg Q10MIN PRN GTB agitation; Start 11/26/18 at 12:00 KEYON BEJARANO MD Nov 27, 2018 17:56
[2018-11-28] VITALS (34 sets, daily range): BP systolic 116–164; BP diastolic 34–90; PULSE 78–87; RESP 6–22
[2018-11-28] MEDS: PANTOPRAZOLE 40 MG INJ IV SCH (05:47)
[2018-11-28] MEDS: FOLIC ACID 1 MG TAB GTB SCH (08:34)
[2018-11-28] MEDS: CITRIC ACID/NA CITRATE 30 ML CUP PO SCH ×3 (08:34→21:06)
[2018-11-28] MEDS: AMIODARONE 200 MG TAB PO SCH ×2 (08:34→21:06)
[2018-11-28] MEDS: LEVETIRACETAM 500 MG (PMX) 100 ML IVPB SCH ×2 (08:35→21:05)
[2018-11-28] MEDS: MEROPENEM 500MG/50 ML (PMX) 50 ML IVPB SCH ×2 (08:35→21:06)
[2018-11-28] MEDS: FUROSEMIDE 20 MG INJ IV SCH ×2 (08:35→18:33)
[2018-11-28] MEDS: PHENOBARBITAL 65 MG INJ IV SCH ×2 (08:36→21:05)
[2018-11-28] MEDS: DEXTROSE 5% 1,000 ML IV SCH ×2 (09:59→23:03)
[2018-11-28] MEDS ORDERED: NA POLYST SULFON 15 GM/60 ML BTL PO ONE (10:00)
--- NOTE | 2018-11-28 10:02 | CONS ---
Assessment/Plan Assessment/Plan Assessment/Plan (Daily) 1) Chronic resp failure S/p Trach 2) Sepsis 2nd PNA 3) Hypernatremia- Resolved 4) oliguria improved, Cr stable 5) Rapid Afib, currently on treatment 6) Hypotension Septic Shock, requiring IV pressors 7) AG acidosis in the setting of JUSTO- Compensated 8) Hyperkalemia Plan: BUN/Cr 24/1.78, K 5.4- will give kayexalate 15 gram PO x1 dose today d/c current IVF D51/2NS with KCL, change IVF to D5W at 75 cc/hr NO acute indication for HD at this time time IV Zyvox stopped today, continued on IV abx meropenem Renally dose all abx and monitor electrolytes Ferrlecit 125mg IV daily x 5 doses for severe iron deficiency Epogen 8000 units SQ MWFfor anemia, Hb 7.5 today will follow up Consultation Date/Type/Reason Admit Date/Time Nov 19, 2018 at 19:01 Initial Consult Date 11/22/18 Type of Consult NEPHROLOGY Date/Time of Note DATE: 11/28/18 TIME: 10:02 24 HR Interval Summary Free Text/Dictation pt had a high K, Still edematous, making good urine, BP stable Exam/Review of Systems Exam Vitals Vital Signs Date Temp Pulse Resp B/P (MAP) Pulse Ox O2 O2 Flow FiO2 Time Delivery Rate 11/28/18 81 21 164/90 98 Mechanical 09:00 (114) Ventilator 11/28/18 98.9 08:00 11/28/18 30 08:00 Intake and Output 11/27/18 11/27/18 11/28/18 1515:00 23:00 07:00 IntakeIntake Total 800 ml 700 ml 540 ml OutputOutput Total 825 ml 465 ml 470 ml BalanceBalance -25 ml 235 ml 70 ml Exam Exam GEN: Non verbal, on ventilator ENMT: mucosa pink and moist, other (Trach) Respiratory: crackles/rales, other (Vent); No diminished breath sounds Cardiovascular: edema, irregular rhythm Gastrointestinal: soft, other (PEG); No non-tender, No rebound or guarding Extremities: edema Neurological: unresponsive Results Result Diagram: 11/28/18 0400 11/28/18 0628 Results 24hrs Laboratory Tests Test 11/28/18 04:00 11/28/18 05:00 11/28/18 06:28 White Blood Count 6.6 Red Blood Count 2.29 L Hemoglobin 7.5 L Hematocrit 23.6 L Mean Corpuscular Volume 103.1 H Mean Corpuscular Hemoglobin 32.8 Mean Corpuscular 31.8 L Hemoglobin Concent Red Cell Distribution Width 16.8 H Platelet Count 447 H Mean Platelet Volume 10.6 H Immature Granulocytes % 1.100 H Neutrophils % 62.5 Lymphocytes % 17.5 Monocytes % 9.9 Eosinophils % 8.5 H Basophils % 0.5 Nucleated Red Blood Cells % 0.0 Immature Granulocytes # 0.070 H Neutrophils # 4.1 Lymphocytes # 1.2 Monocytes # 0.7 Eosinophils # 0.6 H Basophils # 0.0 Nucleated Red Blood Cells # 0.0 Lactic Acid Level 1.0 Magnesium Level 1.8 Blood Gas Specimen Source Blood arterial Arterial Blood Date Drawn 11/28/2018 4:40:24 AM Arterial Blood pH 7.399 (Temp corrected) Arterial Blood pCO2 31.1 L (Temp correct) Arterial Blood pO2 107.9 H (Temp corrected) Arterial Blood HCO3 18.8 L Arterial Blood Base Excess -5.2 L Arterial Blood 97.9 Oxygen Saturation Moshe Test ACCEPTAB Arterial Blood Gas Right Radial Puncture Site Arterial 0.3 Blood Carboxyhemoglobin Arterial Blood Methemoglobin 0.3 Blood Gas A-a O2 Differential 69.5 H Oxyhemoglobin Percent 97.3 Blood Gas Temperature 37.0 Blood Gas Respiration Rate 18.0 Blood Gas Actual 18 Respiration Rate Blood Gas Modality VENT - AC FiO2 30.0 Blood Gas Tidal Volume 500.0 Blood Gas Low PEEP Setting 5.0 Blood Gas Notified Vincenzo DORMAN [employer] Blood Gas Notified Time 11/28/2018 4:58:39 AM Sodium Level 137 Potassium Level 5.4 H Chloride Level 113 H Carbon Dioxide Level 17 L Anion Gap 7 Blood Urea Nitrogen 24 H Creatinine 1.78 H Est Glomerular Filtrat 28 L Rate mL/min Glucose Level 383 #H Calcium Level 7.6 L Total Bilirubin 0.0 L Direct Bilirubin 0.00 Indirect Bilirubin 0.0 Aspartate Amino 22 Transf (AST/SGOT) Alanine 36 Aminotransferase (ALT/SGPT) Alkaline Phosphatase 155 H Total Protein 4.9 L Albumin 2.2 L Globulin 2.70 Albumin/Globulin Ratio 0.81 Medications Medication Current Medications Ondansetron HCl (Zofran Inj) 4 mg Q6H PRN IV NAUSEA AND/OR VOMITING; Start 11/19/18 at 20:30 Pantoprazole (Protonix Iv) 40 mg DAILY@06 IV Last administered on 11/28/18 05:47; Admin Dose 40 MG; Start 11/20/18 at 06:00 Phenylephrine HCl 40 mg/Dextrose 250 ml @ 37.5 mls/hr TITRATE IV Last administered on 11/24/18 05:43; Admin Dose 15 MLS/HR; Start 11/19/18 at 20:30 Acetaminophen (Tylenol Tab) 650 mg Q6H PRN GTB MILD PAIN LEVEL 1-3 Last administered on 11/22/18 03:04; Admin Dose 650 MG; Start 11/20/18 at 06:00 Albuterol (Proventil 0.083% (Neb)) 2.5 mg Q6H RESP THERAPY PRN NEB WHEEZING AND SOB Last administered on 11/21/18 19:40; Admin Dose 2.5 MG; Start 11/20/18 at 06:00 Folic Acid (Folic Acid) 1 mg DAILY GTB Last administered on 11/28/18 08:34; Admin Dose 1 MG; Start 11/20/18 at 09:00 Norepinephrine 250 ml @ 1.875 mls/ hr TITRATE IV Last administered on 11/22/18 14:35; Admin Dose 18.75 MLS/HR; Start 11/20/18 at 15:00 Fentanyl 100 ml @ 2.5 mls/hr TITRATE IV Last administered on 11/20/18 15:48; Admin Dose 2.5 MLS/HR; Start 11/20/18 at 16:30 Amiodarone HCl 900 mg/Dextrose 500 ml @ 0 mls/hr Q0M IV Last administered on 11/22/18 15:29; Admin Dose 16.7 MLS/HR; Start 11/21/18 at 16:30 Vasopressin 60 unit/Dextrose 60 ml @ 0 mls/hr Q12H IV Last administered on 11/22/18 00:55; Admin Dose 1.2 MLS/HR; Start 11/22/18 at 00:00 Phenobarbital (Luminal) 65 mg BID IV Last administered on 11/28/18 08:36; Admin Dose 65 MG; Start 11/22/18 at 21:00 Levetiracetam 100 ml @ 400 mls/hr Q12 IVPB Last administered on 11/28/18 08:35; Admin Dose 400 MLS/HR; Start 11/22/18 at 21:00 Amiodarone HCl (Cordarone) 400 mg BID PO Last administered on 11/28/18 08:34; Admin Dose 400 MG; Start 11/23/18 at 09:00 Meropenem/Sodium Chloride 50 ml @ 100 mls/hr Q12 IVPB Last administered on 11/28/18 08:35; Admin Dose 100 MLS/HR; Start 11/23/18 at 15:00 Ferric Sodium Gluconate Complex 125 mg/Sodium Chloride 110 ml @ 110 mls/hr DAILY@1300 IVPB Last administered on 11/27/18 12:26; Admin Dose 110 MLS/HR; Start 11/25/18 at 13:00; Stop 11/29/18 at 13:59 Epoetin Theodore (Epogen (Non Esrd/Non Oncology)) 8,000 units MoWeFr@17 SC Last administered on 11/26/18 17:20; Admin Dose 8,000 UNITS; Start 11/24/18 at 17:30 Citric Acid/ Sodium Citrate (Bicitra) 30 ml TID PO Last administered on 11/28/18 08:34; Admin Dose 30 ML; Start 11/25/18 at 13:00 Furosemide (Lasix) 20 mg DAILY IV Last administered on 11/28/18 08:35; Admin Dose 20 MG; Start 11/26/18 at 09:00 Lorazepam (Ativan) 1 mg Q10MIN PRN GTB agitation; Start 11/26/18 at 12:00 Dextrose 1,000 ml @ 75 mls/hr [id number] IV Last administered on 11/28/18 09:59; Admin Dose 75 MLS/HR; Start 11/28/18 at 09:30 DEANNA CARRERA MD Nov 28, 2018 10:02
--- NOTE | 2018-11-28 10:53 | CONS ---
Consult Date/Type/Reason Admit Date/Time Nov 19, 2018 at 19:01 Initial Consult Date 11/23/18 Type of Consultation: Pulm/CC Date/Time of Note DATE: 11/28/18 TIME: 10:51 Subjective HIDA scan shows obstructed cystic duct. Objective Vitals Vital Signs Date Temp Pulse Resp B/P (MAP) Pulse Ox O2 O2 Flow FiO2 Time Delivery Rate 11/28/18 80 18 121/34 94 Mechanical 10:00 (63) Ventilator 11/28/18 98.9 08:00 11/28/18 30 08:00 Intake and Output 11/27/18 11/27/18 11/28/18 1515:00 23:00 07:00 IntakeIntake Total 800 ml 700 ml 590 ml OutputOutput Total 825 ml 465 ml 470 ml BalanceBalance -25 ml 235 ml 120 ml Exam HEENT: Neck supple; no JVD; no LAD; + trach CVS: RRR, S1 and S2 CHEST: Clear ABD: Obese, distended, NT, + BS EXT: No c/c; + edema Results/Medications Result Diagram: 11/28/18 0400 11/28/18 0628 Results 24 hrs Laboratory Tests Test 11/28/18 04:00 11/28/18 05:00 11/28/18 06:28 White Blood Count 6.6 Red Blood Count 2.29 L Hemoglobin 7.5 L Hematocrit 23.6 L Mean Corpuscular Volume 103.1 H Mean Corpuscular Hemoglobin 32.8 Mean Corpuscular 31.8 L Hemoglobin Concent Red Cell Distribution Width 16.8 H Platelet Count 447 H Mean Platelet Volume 10.6 H Immature Granulocytes % 1.100 H Neutrophils % 62.5 Lymphocytes % 17.5 Monocytes % 9.9 Eosinophils % 8.5 H Basophils % 0.5 Nucleated Red Blood Cells % 0.0 Immature Granulocytes # 0.070 H Neutrophils # 4.1 Lymphocytes # 1.2 Monocytes # 0.7 Eosinophils # 0.6 H Basophils # 0.0 Nucleated Red Blood Cells # 0.0 Lactic Acid Level 1.0 Magnesium Level 1.8 Blood Gas Specimen Source Blood arterial Arterial Blood Date Drawn 11/28/2018 4:40:24 AM Arterial Blood pH 7.399 (Temp corrected) Arterial Blood pCO2 31.1 L (Temp correct) Arterial Blood pO2 107.9 H (Temp corrected) Arterial Blood HCO3 18.8 L Arterial Blood Base Excess -5.2 L Arterial Blood 97.9 Oxygen Saturation Moshe Test ACCEPTAB Arterial Blood Gas Right Radial Puncture Site Arterial 0.3 Blood Carboxyhemoglobin Arterial Blood Methemoglobin 0.3 Blood Gas A-a O2 Differential 69.5 H Oxyhemoglobin Percent 97.3 Blood Gas Temperature 37.0 Blood Gas Respiration Rate 18.0 Blood Gas Actual 18 Respiration Rate Blood Gas Modality VENT - AC FiO2 30.0 Blood Gas Tidal Volume 500.0 Blood Gas Low PEEP Setting 5.0 Blood Gas Notified Vincenzo DORMAN UNDERWRITING MANAGER Blood Gas Notified Time 11/28/2018 4:58:39 AM Sodium Level 137 Potassium Level 5.4 H Chloride Level 113 H Carbon Dioxide Level 17 L Anion Gap 7 Blood Urea Nitrogen 24 H Creatinine 1.78 H Est Glomerular Filtrat 28 L Rate mL/min Glucose Level 383 #H Calcium Level 7.6 L Total Bilirubin 0.0 L Direct Bilirubin 0.00 Indirect Bilirubin 0.0 Aspartate Amino 22 Transf (AST/SGOT) Alanine 36 Aminotransferase (ALT/SGPT) Alkaline Phosphatase 155 H Total Protein 4.9 L Albumin 2.2 L Globulin 2.70 Albumin/Globulin Ratio 0.81 Home Meds Reported Medications Ranitidine Hcl* (Ranitidine Hcl*) 150 Mg Tablet, 150 MG GTB Q12, #60 TAB 11/19/18 Cholecalciferol* (Vitamin D*) 400 Unit Tablet, 400 UNIT GTB DAILY, TAB 11/19/18 Amino Acids/Protein Hydrolys (Pro-Stat 64 Liquid) 887 Ml Liquid, 30 ML GTB BID 11/19/18 Albuterol Sulfate* (Albuterol Sulfate* Neb) 0.083%-3 Ml Neb, 2.5 MG NEB Q6 PRN for WHEEZING AND SOB, #30 VIAL 11/19/18 Levetiracetam* (Keppra* (Ped)) 100 Mg/Ml Liq, 1500 MG GTB BID for 30 Days, BOTTLE 11/19/18 Sennosides* (Senna Lax*) 8.6 Mg Tablet, 1 TAB GTB DAILY, TAB 11/19/18 Labetalol Hcl* (Labetalol Hcl*) 200 Mg Tablet, 200 MG GTB BID PRN for ELEVATED BLOOD PRESSURE, TAB 11/19/18 Folic Acid* (Folic Acid*) 1 Mg Tablet, 1 MG GTB DAILY, TAB 11/19/18 Phenobarbital* (Phenobarbital* Liq) 20 Mg/5 Ml Elix, 5 MG GTB BID for 30 Days, BOTTLE 11/19/18 Lisinopril* (Lisinopril*) 10 Mg Tablet, 10 MG GTB DAILY, #30 TAB 11/19/18 Ferrous Sulfate (Ferrous Sulfate) 300 Mg/5 Ml Liquid, 300 MG GTB BID 11/19/18 Clonidine Hcl* (Clonidine Hcl*) 0.1 Mg Tab, 0.1 MG GTB Q6 PRN for ELEVATED BLOOD PRESSURE, TAB 11/19/18 Calcium Carbonate* (Calcium Carbonate*) 600 MG Ca Tab, 1200 MG GTB DAILY, TAB 11/19/18 Aspirin* (Aspirin* Chew) 81 Mg Tab.chew, 81 MG GTB DAILY, TAB.CHEW 11/19/18 Acetaminophen* (Acetaminophen*) 650 Mg Tablet, 650 MG GTB Q6H PRN for MILD PAIN LEVEL 1-3, #30 TAB 11/19/18 Ascorbic Acid* (Vitamin C*) 500 Mg Capsule.sa, 500 MG GTB DAILY, CAP 11/19/18 Medications Current Medications Ondansetron HCl (Zofran Inj) 4 mg Q6H PRN IV NAUSEA AND/OR VOMITING; Start 11/19/18 at 20:30 Pantoprazole (Protonix Iv) 40 mg DAILY@06 IV Last administered on 11/28/18at 05:47; Admin Dose 40 MG; Start 11/20/18 at 06:00 Phenylephrine HCl 40 mg/Dextrose 250 ml @ 37.5 mls/hr TITRATE IV Last administered on 11/24/18at 05:43; Admin Dose 15 MLS/HR; Start 11/19/18 at 20:30 Acetaminophen (Tylenol Tab) 650 mg Q6H PRN GTB MILD PAIN LEVEL 1-3 Last administered on 11/22/18at 03:04; Admin Dose 650 MG; Start 11/20/18 at 06:00 Albuterol (Proventil 0.083% (Neb)) 2.5 mg Q6H RESP THERAPY PRN NEB WHEEZING AND SOB Last administered on 11/21/18at 19:40; Admin Dose 2.5 MG; Start 11/20/18 at 06:00 Folic Acid (Folic Acid) 1 mg DAILY GTB Last administered on 11/28/18 08:34; Admin Dose 1 MG; Start 11/20/18 at 09:00 Norepinephrine 250 ml @ 1.875 mls/ hr TITRATE IV Last administered on 9at 14:35; Admin Dose 18.75 MLS/HR; Start 11/20/18 at 15:00 Fentanyl 100 ml @ 2.5 mls/hr TITRATE IV Last administered on 11/20/18 15:48; Admin Dose 2.5 MLS/HR; Start 11/20/18 at 16:30 Amiodarone HCl 900 mg/Dextrose 500 ml @ 0 mls/hr Q0M IV Last administered on 11/22/18 15:29; Admin Dose 16.7 MLS/HR; Start 11/21/18 at 16:30 Vasopressin 60 unit/Dextrose 60 ml @ 0 mls/hr Q12H IV Last administered on 11/22/18 00:55; Admin Dose 1.2 MLS/HR; Start 11/22/18 at 00:00 Phenobarbital (Luminal) 65 mg BID IV Last administered on 11/28/18 08:36; Admin Dose 65 MG; Start 11/22/18 at 21:00 Levetiracetam 100 ml @ 400 mls/hr Q12 IVPB Last administered on 11/28/18 08:35; Admin Dose 400 MLS/HR; Start 11/22/18 at 21:00 Amiodarone HCl (Cordarone) 400 mg BID PO Last administered on 11/28/18 08:34; Admin Dose 400 MG; Start 11/23/18 at 09:00 Meropenem/Sodium Chloride 50 ml @ 100 mls/hr Q12 IVPB Last administered on 11/28/18 08:35; Admin Dose 100 MLS/HR; Start 11/23/18 at 15:00 Ferric Sodium Gluconate Complex 125 mg/Sodium Chloride 110 ml @ 110 mls/hr DAILY@1300 IVPB Last administered on 11/27/18 12:26; Admin Dose 110 MLS/HR; Start 11/25/18 at 13:00; Stop 11/29/18 at 13:59 Epoetin Theodore (Epogen (Non Esrd/Non Oncology)) 8,000 units MoWeFr@17 SC Last administered on 11/26/18 17:20; Admin Dose 8,000 UNITS; Start 11/24/18 at 17:30 Citric Acid/ Sodium Citrate (Bicitra) 30 ml TID PO Last administered on 11/28/18 08:34; Admin Dose 30 ML; Start 11/25/18 at 13:00 Furosemide (Lasix) 20 mg DAILY IV Last administered on 11/28/18 08:35; Admin Dose 20 MG; Start 11/26/18 at 09:00 Lorazepam (Ativan) 1 mg Q10MIN PRN GTB agitation; Start 11/26/18 at 12:00 Dextrose 1,000 ml @ 75 mls/hr [id number] IV Last administered on 11/28/18 09:59; Admin Dose 75 MLS/HR; Start 11/28/18 at 09:30 Assessment/Plan Assessment/Plan (Daily) IMP: 1. Status post septic shock secondary to acute cholecystitis, now off vasopressors 2. Chronic respiratory failure. Placed back on mechanical ventilation for hypercapnia. 3. GI bleed status post ERCP and stent placement 4. Dysphagia with G-tube. 5. Renal insufficiency with metabolic acidosis possible ATN injury. Persistent metabolic acidosis. RECS: 1. Broad-spectrum antibiotics. Consider de-escalation 2. Will discuss need for possible percutaneous cholecystostomy placement with GI 3. Follow H/H; transfuse as needed. 4. Deep venous thrombosis and GI prophylaxis. 5. Continue AC mechanical ventilation Critical care time 40 minutes. CHARITY PANTOJA MD Nov 28, 2018 10:53
[2018-11-28] MEDS: VASOPRESSIN 60 UNIT in DEXTROSE 5% 57 ML IV SCH ×3 (12:00)
[2018-11-28] MEDS: SOD FERRIC GLUC COMPLX 125 MG in SOD CHLORIDE 0.9% 100 ML IVPB SCH (12:35)
--- NOTE | 2018-11-28 12:43 | PN ---
Date/Time of Note Date/Time of Note DATE: 11/28/18 TIME: 12:42 Objective Vitals Vital Signs Date Temp Pulse Resp B/P (MAP) Pulse Ox O2 O2 Flow FiO2 Time Delivery Rate 11/28/18 81 12:00 11/28/18 18 123/79 98 Mechanical 11:00 (94) Ventilator 11/28/18 98.9 08:00 11/28/18 30 08:00 Intake and Output 11/27/18 11/27/18 11/28/18 1515:00 23:00 07:00 IntakeIntake Total 800 ml 700 ml 590 ml OutputOutput Total 825 ml 465 ml 470 ml BalanceBalance -25 ml 235 ml 120 ml Results Result Diagram: 11/28/18 0400 11/28/18 0628 Medications Medications Current Medications Ondansetron HCl (Zofran Inj) 4 mg Q6H PRN IV NAUSEA AND/OR VOMITING; Start 11/19/18 at 20:30 Pantoprazole (Protonix Iv) 40 mg DAILY@06 IV Last administered on 11/28/18at 05:47; Admin Dose 40 MG; Start 11/20/18 at 06:00 Phenylephrine HCl 40 mg/Dextrose 250 ml @ 37.5 mls/hr TITRATE IV Last administered on 11/24/18at 05:43; Admin Dose 15 MLS/HR; Start 11/19/18 at 20:30 Acetaminophen (Tylenol Tab) 650 mg Q6H PRN GTB MILD PAIN LEVEL 1-3 Last administered on 11/22/18at 03:04; Admin Dose 650 MG; Start 11/20/18 at 06:00 Albuterol (Proventil 0.083% (Neb)) 2.5 mg Q6H RESP THERAPY PRN NEB WHEEZING AND SOB Last administered on 11/21/18at 19:40; Admin Dose 2.5 MG; Start 11/20/18 at 06:00 Folic Acid (Folic Acid) 1 mg DAILY GTB Last administered on 11/28/18at 08:34; Admin Dose 1 MG; Start 11/20/18 at 09:00 Norepinephrine 250 ml @ 1.875 mls/ hr TITRATE IV Last administered on 11/22/18at 14:35; Admin Dose 18.75 MLS/HR; Start 11/20/18 at 15:00 Fentanyl 100 ml @ 2.5 mls/hr TITRATE IV Last administered on 11/20/18 15:48; Admin Dose 2.5 MLS/HR; Start 11/20/18 at 16:30 Amiodarone HCl 900 mg/Dextrose 500 ml @ 0 mls/hr Q0M IV Last administered on 11/22/18 15:29; Admin Dose 16.7 MLS/HR; Start 11/21/18 at 16:30 Vasopressin 60 unit/Dextrose 60 ml @ 0 mls/hr Q12H IV Last administered on 11/22/18 00:55; Admin Dose 1.2 MLS/HR; Start 11/22/18 at 00:00 Phenobarbital (Luminal) 65 mg BID IV Last administered on 11/28/18 08:36; Admin Dose 65 MG; Start 11/22/18 at 21:00 Levetiracetam 100 ml @ 400 mls/hr Q12 IVPB Last administered on 11/28/18 08:35; Admin Dose 400 MLS/HR; Start 11/22/18 at 21:00 Amiodarone HCl (Cordarone) 400 mg BID PO Last administered on 11/28/18 08:34; Admin Dose 400 MG; Start 11/23/18 at 09:00 Meropenem/Sodium Chloride 50 ml @ 100 mls/hr Q12 IVPB Last administered on 11/28/18 08:35; Admin Dose 100 MLS/HR; Start 11/23/18 at 15:00 Ferric Sodium Gluconate Complex 125 mg/Sodium Chloride 110 ml @ 110 mls/hr GENEVIEVE LY@1300 IVPB Last administered on 11/28/18 12:35; Admin Dose 110 MLS/HR; Start 11/25/18 at 13:00; Stop 11/29/18 at 13:59 Epoetin Theodore (Epogen (Non Esrd/Non Oncology)) 8,000 units MoWeFr@17 SC Last ad ministered on 11/26/18 17:20; Admin Dose 8,000 UNITS; Start 11/24/18 at 17:30 Citric Acid/ Sodium Citrate (Bicitra) 30 ml TID PO Last administered on 11/28/18 12:34; Admin Dose 30 ML; Start 11/25/18 at 13:00 Furosemide (Lasix) 20 mg DAILY IV Last administered on 3/3/19at 08:35; Admin Dose 20 MG; Start 11/26/18 at 09:00 Lorazepam (Ativan) 1 mg Q10MIN PRN GTB agitation; Start 11/26/18 at 12:00 Dextrose 1,000 ml @ 75 mls/hr [id number] IV Last administered on 11/28/18at 09:59; Admin Dose 75 MLS/HR; Start 11/28/18 at 09:30 VTE Prophylaxis Risk score (from Ns)>0 risk: 9 SCD applied (from [facility] [place]): No SCD contraindication: other Lines/Catheters IV Catheter Type: Zabala in Place: Yes Cont'd zabala catheter reason: terminal illness/intractable pain Assessment/Plan Hospital Course Subjective Patient opens her eyes and tracks somewhat, however no other purposeful movement, apparently patient's baseline Objective Physical exam General: Patient is laying in bed, Mentation: Patient is alert but not oriented Head: Normocephalic atraumatic Eyes: EOMI, pupils reactive to light sluggish Neck: Supple, nontender, midline Respiratory: Coarse to auscultation bilaterally Cardiovascular: regular rate, no obvious murmurs Gastrointestinal: Mildly tender in the right upper quadrant, bowel sounds heard. Neurological: Unable to fully assess due to neurological status Skin: No new skin lesions Assessment/Plan Septic shock secondary to acute cholecystitis/choledocholithiasis, resolving - off pressors - Continue antibiotics - Lactic acid normal at presentation Elevated LFT-resolving - CT abd shows choledocholithiasis and acute cholecystitis - GI on board and appreciate recommendations. - MRCP noted - continue monitoring -bilirubin resolving, stone may have passed? -ERCP done, stent placed, sludge found, no stone, but dilated duct. Acute cholecystitis -s/p ERCP, HIDA consistent with cholecystitis -General surgery recommendations appreciated, questionable cholecystostomy drain versus surgery Hypernatremia - management per nephro JUSTO - Nephrology consultation appreciated and will avoid nephrotoxic agents - IVF per renal - most likely prerenal vs ATN h/o Malignant neoplasm of brain - Patient is chronically bedridden and debilitated. Tracking present this am which is her baseline Seizure disorder - Continue Keppra and phenobarbital - neurology consulted HTN - hold home BP medications in setting of hypotension Iron deficiency anemia - no need for transfusion at this time Chronic respiratory failure - trach dependent - continue trach care - Pulmonology on board and appreciate recommendations Disposition - Continue monitoring in ICU -General surgery recommendations appreciated, questionable cholecystostomy drain -found the person who makes medical decisions for patient, able to consent as needed >30 minutes of critical care time spent with patient KAYLA CELESTIN Nov 28, 2018 12:43
--- NOTE | 2018-11-28 15:14 | CONS ---
Assessment/Plan Assessment/Plan Hospital Course (Demo Recall) No acute events overnight patient is in no distress afebrile with white blood cell count of 6.6 no shift no bands BUN 24 creatinine 1.78 HIDA scan was positive Chest x-ray this morning revealed no significant change Antimicrobials: Meropenem Indwelling: Trach PEG right femoral triple-lumen catheter, Jaime Physical examination: Morbidly obese well-developed chronically ill-appearing elderly woman who is in no distress. Head atraumatic normocephalic neck is obese tracheostomy present chest rise symmetrical breath sounds diminished bases. Heart: S1-S2. Abdomen soft bowel sounds hypoactive. Extremities with bilateral edema Assessment: 1. S/p sepsis with shock 2. Acute cholecystitis with choledocholithiasis==>Status post ERCP, sphincterotomy, bile duct stent placement 11/25/18 3. Acute renal failure 4. Chronic respiratory failure and dysphagia 5. Acute on chronic anemia 6. Paroxysmal atrial fibrillation Plan: Stable, continue present care, abx, GI/pulmonary/surgical rec-s Consultation Date/Type/Reason Admit Date/Time Nov 19, 2018 at 19:01 Initial Consult Date 11/22/18 Type of Consult id Date/Time of Note DATE: 11/28/18 TIME: 15:13 Exam/Review of Systems Exam Vitals Vital Signs Date Temp Pulse Resp B/P (MAP) Pulse Ox O2 O2 Flow FiO2 Time Delivery Rate 11/28/18 84 17 131/56 97 Mechanical 13:00 (81) Ventilator 11/28/18 99.0 12:00 11/28/18 30 08:00 Intake and Output 11/27/18 11/27/18 11/28/18 1515:00 23:00 07:00 IntakeIntake Total 800 ml 700 ml 590 ml OutputOutput Total 825 ml 465 ml 470 ml BalanceBalance -25 ml 235 ml 120 ml Results Result Diagram: 11/28/18 0400 11/28/18 0628 Results 24hrs Laboratory Tests Test 11/28/18 04:00 11/28/18 05:00 11/28/18 06:28 White Blood Count 6.6 Red Blood Count 2.29 L Hemoglobin 7.5 L Hematocrit 23.6 L Mean Corpuscular Volume 103.1 H Mean Corpuscular Hemoglobin 32.8 Mean Corpuscular 31.8 L Hemoglobin Concent Red Cell Distribution Width 16.8 H Platelet Count 447 H Mean Platelet Volume 10.6 H Immature Granulocytes % 1.100 H Neutrophils % 62.5 Lymphocytes % 17.5 Monocytes % 9.9 Eosinophils % 8.5 H Basophils % 0.5 Nucleated Red Blood Cells % 0.0 Immature Granulocytes # 0.070 H Neutrophils # 4.1 Lymphocytes # 1.2 Monocytes # 0.7 Eosinophils # 0.6 H Basophils # 0.0 Nucleated Red Blood Cells # 0.0 Lactic Acid Level 1.0 Magnesium Level 1.8 Blood Gas Specimen Source Blood arterial Arterial Blood Date Drawn 11/28/2018 4:40:24 AM Arterial Blood pH 7.399 (Temp corrected) Arterial Blood pCO2 31.1 L (Temp correct) Arterial Blood pO2 107.9 H (Temp corrected) Arterial Blood HCO3 18.8 L Arterial Blood Base Excess -5.2 L Arterial Blood 97.9 Oxygen Saturation Moshe Test ACCEPTAB Arterial Blood Gas Right Radial Puncture Site Arterial 0.3 Blood Carboxyhemoglobin Arterial Blood Methemoglobin 0.3 Blood Gas A-a O2 Differential 69.5 H Oxyhemoglobin Percent 97.3 Blood Gas Temperature 37.0 Blood Gas Respiration Rate 18.0 Blood Gas Actual 18 Respiration Rate Blood Gas Modality VENT - AC FiO2 30.0 Blood Gas Tidal Volume 500.0 Blood Gas Low PEEP Setting 5.0 Blood Gas Notified Vincenzo DORMAN RCP Blood Gas Notified Time 11/28/2018 4:58:39 AM Sodium Level 137 Potassium Level 5.4 H Chloride Level 113 H Carbon Dioxide Level 17 L Anion Gap 7 Blood Urea Nitrogen 24 H Creatinine 1.78 H Est Glomerular Filtrat 28 L Rate mL/min Glucose Level 383 #H Calcium Level 7.6 L Total Bilirubin 0.0 L Direct Bilirubin 0.00 Indirect Bilirubin 0.0 Aspartate Amino 22 Transf (AST/SGOT) Alanine 36 Aminotransferase (ALT/SGPT) Alkaline Phosphatase 155 H Total Protein 4.9 L Albumin 2.2 L Globulin 2.70 Albumin/Globulin Ratio 0.81 Medications Medication Current Medications Ondansetron HCl (Zofran Inj) 4 mg Q6H PRN IV NAUSEA AND/OR VOMITING; Start 11/19/18 at 20:30 Pantoprazole (Protonix Iv) 40 mg DAILY@06 IV Last administered on 11/28/18at 05:47; Admin Dose 40 MG; Start 11/20/18 at 06:00 Phenylephrine HCl 40 mg/Dextrose 250 ml @ 37.5 mls/hr TITRATE IV Last administered on 11/24/18 05:43; Admin Dose 15 MLS/HR; Start 11/19/18 at 20:30 Acetaminophen (Tylenol Tab) 650 mg Q6H PRN GTB MILD PAIN LEVEL 1-3 Last ad ministered on 11/22/18 03:04; Admin Dose 650 MG; Start 11/20/18 at 06:00 Albuterol (Proventil 0.083% (Neb)) 2.5 mg Q6H RESP THERAPY PRN NEB WHEEZING AND SOB Last administered on 11/21/18 19:40; Admin Dose 2.5 MG; Start 11/20/18 at 06:00 Folic Acid (Folic Acid) 1 mg DAILY GTB Last administered on 11/28/18 08:34; Admin Dose 1 MG; Start 11/20/18 at 09:00 Norepinephrine 250 ml @ 1.875 mls/ hr TITRATE IV Last administered on 11/22/18 14:35; Admin Dose 18.75 MLS/HR; Start 11/20/18 at 15:00 Fentanyl 100 ml @ 2.5 mls/hr TITRATE IV Last administered on 11/20/18 15:48; Admin Dose 2.5 MLS/HR; Start 11/20/18 at 16:30 Amiodarone HCl 900 mg/Dextrose 500 ml @ 0 mls/hr Q0M IV Last administered on 11/22/18 15:29; Admin Dose 16.7 MLS/HR; Start 11/21/18 at 16:30 Vasopressin 60 unit/Dextrose 60 ml @ 0 mls/hr Q12H IV Last administered on 11/22/18 00:55; Admin Dose 1.2 MLS/HR; Start 11/22/18 at 00:00 Phenobarbital (Luminal) 65 mg BID IV Last administered on 11/28/18 08:36; Admin Dose 65 MG; Start 11/22/18 at 21:00 Levetiracetam 100 ml @ 400 mls/hr Q12 IVPB Last administered on 11/28/18 08 :35; Admin Dose 400 MLS/HR; Start 11/22/18 at 21:00 Amiodarone HCl (Cordarone) 400 mg BID PO Last administered on 11/28/18 08:34; Admin Dose 400 MG; Start 11/23/18 at 09:00 Meropenem/Sodium Chloride 50 ml @ 100 mls/hr Q12 IVPB Last administered on 11/28/18 08:35; Admin Dose 100 MLS/HR; Start 11/23/18 at 15:00 Ferric Sodium Gluconate Complex 125 mg/Sodium Chloride 110 ml @ 110 mls/hr DAILY@1300 IVPB Last administered on 11/28/18 12:35; Admin Dose 110 MLS/HR; Start 11/25/18 at 13:00; Stop 11/29/18 at 13:59 Epoetin Theodore (Epogen (Non Esrd/Non Oncology)) 8,000 units MoWeFr@17 SC Last administered on 11/26/18 17:20; Admin Dose 8,000 UNITS; Start 11/24/18 at 17:30 Citric Acid/ Sodium Citrate (Bicitra) 30 ml TID PO Last administered on 11/28/18 12:34; Admin Dose 30 ML; Start 11/25/18 at 13:00 Lorazepam (Ativan) 1 mg Q10MIN PRN GTB agitation; Start 11/26/18 at 12:00 Dextrose 1,000 ml @ 75 mls/hr [id number] IV Last administered on 11/28/18 09:59; Admin Dose 75 MLS/HR; Start 11/28/18 at 09:30 Furosemide (Lasix) 20 mg BID DIURETICS IV ; Start 11/28/18 at 18:00 KAREN LOMAS NP Nov 28, 2018 15:14
--- NOTE | 2018-11-28 15:25 | CONS ---
Assessment/Plan Assessment/Plan Hospital Course 68 F c/ reported Hx of malignant brain neoplasm NOS c/b epilepsy..and other comorbidities, who presents for management of hypotension and GI abnl. Neurology is consulted for epilepsy medication management. P: Continue Phb 65mg iv bid for now Continue Keppra 500mg iv q12hr while GFR is severely compromised.. Ativan iv prn prolonged seizure of cluster Other management per primary Will follow Consultation Date/Type/Reason Admit Date/Time Nov 19, 2018 at 19:01 Type of Consult Neurology Reason for Consultation epilepsy Date/Time of Note DATE: 11/28/18 TIME: 15:24 24 HR Interval Summary Free Text/Dictation Continues icu care Subjective hx not possible: pt non-verbal, pt critical Exam Vital Signs Vitals Vital Signs Date Temp Pulse Resp B/P (MAP) Pulse Ox O2 O2 Flow FiO2 Time Delivery Rate 11/28/18 84 17 131/56 97 Mechanical 13:00 (81) Ventilator 11/28/18 99.0 12:00 11/28/18 30 08:00 Intake and Output 11/27/18 11/27/18 11/28/18 1515:00 23:00 07:00 IntakeIntake Total 800 ml 700 ml 590 ml OutputOutput Total 825 ml 465 ml 470 ml BalanceBalance -25 ml 235 ml 120 ml Exam PE: Gen Appearance: No Apparent Distress HEENT: trached Cardiovascular: Regular rate Abdomen: Soft; with PEG Extremities: Dry; edematous NE: The patient was asleep, though arousable to voice. Unable to track or follow commands. Cranial nerve examination was limited by mental status. Pupils were equal and reactive to light. There was no afferent pupillary defect. Funduscopic examination was limited. Face was grossly symmetric, w/ present corneal and cough reflexes. Tone was spastic in the UE. Muscle bulk was normal. I did not see fasciculations. The patient minimally withdrew to noxious stimulation x 4. Coordination and gait testing was limited by mental status. Arm and leg reflexes were within normal limits and symmetric. Whitman's sign was absent. Plantar responses were flexor. RACHEL ESTEBAN Nov 28, 2018 15:25
--- NOTE | 2018-11-28 17:57 | CONS ---
Assessment/Plan Assessment/Plan Hospital Course (Demo Recall) Paroxysmal atrial fibrillation: No known prior diagnosis. Will consider chronic anticoagulation pending clinic course and need for procedures but also has anemia. Now back in sinus after amiodarone. Septic shock: now off pressors Anemia: no active bleeding. Hgb >8 after 1 unit Acute on chronic diastolic CHF: due to third spacing from low albumin/IVF Choledocholithiasis with acute cholecystitis: status post ERCP and CBD stent 11/25/2018. Subsequent HIDA scan 11/27/2018 abnormal. Acute renal failure VDRF/tracheostomy h/o brain tumor Seizure disorder Bedridden -continue IV Lasix -continue amiodarone 400mg BID -GI and surgery follow up Consultation Date/Type/Reason Admit Date/Time Nov 19, 2018 at 19:01 Initial Consult Date 11/23/18 Type of Consult Cardiology Date/Time of Note DATE: 11/28/18 TIME: 17:55 24 HR Interval Summary Free Text/Dictation Sinus rhythm, no atrial fibrillation. HIDA scan yesterday abnormal. Detailed Summary Additional Comments Unable to obtain review of systems, patient on ventilator. Exam/Review of Systems Vital Signs Vitals Vital Signs Date Temp Pulse Resp B/P (MAP) Pulse Ox O2 O2 Flow FiO2 Time Delivery Rate 11/28/18 86 16:00 11/28/18 99.3 20 155/66 96 Mechanical 16:00 (95) Ventilator 11/28/18 30 08:00 Intake and Output 11/27/18 11/27/18 11/28/18 1515:00 23:00 07:00 IntakeIntake Total 800 ml 700 ml 590 ml OutputOutput Total 825 ml 465 ml 470 ml BalanceBalance -25 ml 235 ml 120 ml Exam Exam Constitutional: No alert, No oriented Psych: confusion; No nl mood/affect Head: normocephalic, atraumatic Eyes: nl conjunctiva, nl lids ENMT: nl external ears & nose, nl nasal mucosa & septum Neck: supple, non-tender Respiratory: diminished breath sounds Cardiovascular: regular rate and rhythm Gastrointestinal: soft, non-tender Musculoskeletal: nl extremities to inspection Extremities: No cyanosis, No clubbing, No edema Neurological: No nl mental status, No nl speech Labs Result Diagram: 11/28/18 0400 11/28/18 0628 Results 24hrs Laboratory Tests Test 11/28/18 04:00 11/28/18 05:00 11/28/18 06:28 White Blood Count 6.6 Red Blood Count 2.29 L Hemoglobin 7.5 L Hematocrit 23.6 L Mean Corpuscular Volume 103.1 H Mean Corpuscular Hemoglobin 32.8 Mean Corpuscular 31.8 L Hemoglobin Concent Red Cell Distribution Width 16.8 H Platelet Count 447 H Mean Platelet Volume 10.6 H Immature Granulocytes % 1.100 H Neutrophils % 62.5 Lymphocytes % 17.5 Monocytes % 9.9 Eosinophils % 8.5 H Basophils % 0.5 Nucleated Red Blood Cells % 0.0 Immature Granulocytes # 0.070 H Neutrophils # 4.1 Lymphocytes # 1.2 Monocytes # 0.7 Eosinophils # 0.6 H Basophils # 0.0 Nucleated Red Blood Cells # 0.0 Lactic Acid Level 1.0 Magnesium Level 1.8 Blood Gas Specimen Source Blood arterial Arterial Blood Date Drawn 11/28/2018 4:40:24 AM Arterial Blood pH 7.399 (Temp corrected) Arterial Blood pCO2 31.1 L (Temp correct) Arterial Blood pO2 107.9 H (Temp corrected) Arterial Blood HCO3 18.8 L Arterial Blood Base Excess -5.2 L Arterial Blood 97.9 Oxygen Saturation Moshe Test ACCEPTAB Arterial Blood Gas Right Radial Puncture Site Arterial 0.3 Blood Carboxyhemoglobin Arterial Blood Methemoglobin 0.3 Blood Gas A-a O2 Differential 69.5 H Oxyhemoglobin Percent 97.3 Blood Gas Temperature 37.0 Blood Gas Respiration Rate 18.0 Blood Gas Actual 18 Respiration Rate Blood Gas Modality VENT - AC FiO2 30.0 Blood Gas Tidal Volume 500.0 Blood Gas Low PEEP Setting 5.0 Blood Gas Notified Vincenzo DORMAN RCP Blood Gas Notified Time 11/28/2018 4:58:39 AM Sodium Level 137 Potassium Level 5.4 H Chloride Level 113 H Carbon Dioxide Level 17 L Anion Gap 7 Blood Urea Nitrogen 24 H Creatinine 1.78 H Est Glomerular Filtrat 28 L Rate mL/min Glucose Level 383 #H Calcium Level 7.6 L Total Bilirubin 0.0 L Direct Bilirubin 0.00 Indirect Bilirubin 0.0 Aspartate Amino 22 Transf (AST/SGOT) Alanine 36 Aminotransferase (ALT/SGPT) Alkaline Phosphatase 155 H Total Protein 4.9 L Albumin 2.2 L Globulin 2.70 Albumin/Globulin Ratio 0.81 Medications Medications Current Medications Ondansetron HCl (Zofran Inj) 4 mg Q6H PRN IV NAUSEA AND/OR VOMITING; Start 11/19/18 at 20:30 Pantoprazole (Protonix Iv) 40 mg DAILY@06 IV Last administered on 11/28/18 05:47; Admin Dose 40 MG; Start 11/20/18 at 06:00 Phenylephrine HCl 40 mg/Dextrose 250 ml @ 37.5 mls/hr TITRATE IV Last administered on 11/24/18 05:43; Admin Dose 15 MLS/HR; Start 11/19/18 at 20:30 Acetaminophen (Tylenol Tab) 650 mg Q6H PRN GTB MILD PAIN LEVEL 1-3 Last adminis tered on 11/22/18 03:04; Admin Dose 650 MG; Start 11/20/18 at 06:00 Albuterol (Proventil 0.083% (Neb)) 2.5 mg Q6H RESP THERAPY PRN NEB WHEEZING AND SOB Last administered on 11/21/18 19:40; Admin Dose 2.5 MG; Start 11/20/18 at 06:00 Folic Acid (Folic Acid) 1 mg DAILY GTB Last administered on 11/28/18 08:34; Admin Dose 1 MG; Start 11/20/18 at 09:00 Norepinephrine 250 ml @ 1.875 mls/ hr TITRATE IV Last administered on 11/22/18 14:35; Admin Dose 18.75 MLS/HR; Start 11/20/18 at 15:00 Fentanyl 100 ml @ 2.5 mls/hr TITRATE IV Last administered on 11/20/18 15:48; Admin Dose 2.5 MLS/HR; Start 11/20/18 at 16:30 Amiodarone HCl 900 mg/Dextrose 500 ml @ 0 mls/hr Q0M IV Last administered on 11/22/18 15:29; Admin Dose 16.7 MLS/HR; Start 11/21/18 at 16:30 Vasopressin 60 unit/Dextrose 60 ml @ 0 mls/hr Q12H IV Last administered on 11/22/18 00:55; Admin Dose 1.2 MLS/HR; Start 11/22/18 at 00:00 Phenobarbital (Luminal) 65 mg BID IV Last administered on 11/28/18 08:36; Admin Dose 65 MG; Start 11/22/18 at 21:00 Levetiracetam 100 ml @ 400 mls/hr Q12 IVPB Last administered on 11/28/18 08:35; Admin Dose 400 MLS/HR; Start 11/22/18 at 21:00 Amiodarone HCl (Cordarone) 400 mg BID PO Last administered on 11/28/18 08:34; Admin Dose 400 MG; Start 11/23/18 at 09:00 Meropenem/Sodium Chloride 50 ml @ 100 mls/hr Q12 IVPB Last administered on 11/28/18 08:35; Admin Dose 100 MLS/HR; Start 11/23/18 at 15:00 Ferric Sodium Gluconate Complex 125 mg/Sodium Chloride 110 ml @ 110 mls/hr DAILY@1300 IVPB Last administered on 11/28/18 12:35; Admin Dose 110 MLS/HR; Start 11/25/18 at 13:00; Stop 11/29/18 at 13:59 Epoetin Theodore (Epogen (Non Esrd/Non Oncology)) 8,000 units MoWeFr@17 SC Last administered on 11/26/18 17:20; Admin Dose 8,000 UNITS; Start 11/24/18 at 17:30 Citric Acid/ Sodium Citrate (Bicitra) 30 ml TID PO Last administered on 11/28/18 12:34; Admin Dose 30 ML; Start 11/25/18 at 13:00 Lorazepam (Ativan) 1 mg Q10MIN PRN GTB agitation; Start 11/26/18 at 12:00 Dextrose 1,000 ml @ 75 mls/hr [id number] IV Last administered on 11/28/18 09:59; Admin Dose 75 MLS/HR; Start 11/28/18 at 09:30 Furosemide (Lasix) 20 mg BID DIURETICS IV ; Start 11/28/18 at 18:00 KEYON BEJARANO MD Nov 28, 2018 17:57
[2018-11-29] VITALS (61 sets, daily range): BP systolic 106–167; BP diastolic 54–104; PULSE 80–97; RESP 12–19
[2018-11-29] MEDS: FUROSEMIDE 20 MG INJ IV SCH ×2 (05:38→17:18)
[2018-11-29] MEDS: PANTOPRAZOLE 40 MG INJ IV SCH (05:39)
--- NOTE | 2018-11-29 07:34 | PN ---
DATE: 11/27/2018 SUBJECTIVE: The patient is nonverbal. She cannot complains. She is still intubated. She is status post tracheostomy and she appears to be stable. OBJECTIVE: VITAL SIGNS: Pulse is 81, blood pressure 123/46, temperature 98.7. CARDIOVASCULAR: Normal heart sounds. RESPIRATORY: Normal breath sounds. ABDOMEN: Showed obese and soft abdomen. LABORATORY WORKUP: WBC count is 10.9, hemoglobin 8.2, potassium 4.0, bilirubin 0.1, AST 31, ALT 61, alkaline phosphatase 169. ASSESSMENT AND PLAN: Status post endoscopic retrograde cholangiopancreatography and sphincterotomy, sludge removal from the common bile duct, and common bile duct stent was placed. Now, patient has n o signs of cholangitis and patient is being evaluated by the surgeon for possible cholecystectomy. Mignon otero present management. Dictated By: FRANKLIN JAMESON MD NC/NTS Conf#: [id number] DID#: [id number] CC: KENNETH SANTILLAN MD;*EndCC*
[2018-11-29] MEDS: AMIODARONE 200 MG TAB PO SCH ×2 (08:23→20:46)
[2018-11-29] MEDS: CITRIC ACID/NA CITRATE 30 ML CUP PO SCH ×3 (08:23→20:46)
[2018-11-29] MEDS: MEROPENEM 500MG/50 ML (PMX) 50 ML IVPB SCH ×2 (08:23→22:24)
[2018-11-29] MEDS: FOLIC ACID 1 MG TAB GTB SCH (08:23)
[2018-11-29] MEDS: LEVETIRACETAM 500 MG (PMX) 100 ML IVPB SCH ×2 (08:23→22:24)
[2018-11-29] MEDS: PHENOBARBITAL 65 MG INJ IV SCH ×2 (08:26→22:19)
--- NOTE | 2018-11-29 08:56 | CONS ---
Assessment/Plan Assessment/Plan Assessment/Plan (Daily) Ventilator setting; AC of 18, tidal volume 500, PEEP of 5, 30% FiO2. Assessment recommendations; 1. Patient admitted with biliary sepsis status post biliary stenting. 2. VDR F with history of tracheostomy and G-tube placement. 3. Chronic encephalopathy. 4. Morbid obesity. 5. Chronic renal insufficiency. 6. CHF. 7. History of cardiac arrhythmia, status post pacemaker placement in the past. 8. History of seizure disorder. Continue current supportive care. Consider transfer to telemetry unit. Further recommendations per gastroenterology's. Consultation Date/Type/Reason Admit Date/Time Nov 19, 2018 at 19:01 Initial Consult Date 11/23/18 Type of Consult Pulmonary/critical care Patient's condition is stable. Remains encephalopathy. Patient however has remained hemodynamically stable. General exam; elderly woman, on ventilator via tracheostomy, unresponsive, currently in no distress. Reason for Consultation HEENT exam; supple neck, no JVD. No lymphadenopathy. Midline trachea. No thyromegaly. Tracheostomy in place. Insertion site is clean. Patient has fair dentition. Chest exam; diminished but clear breath sounds. S1-S2 audible, no murmurs. Regular rhythm. Abdomen exam; soft, nondistended. Mildly protuberant. Bowel sounds audible. No organomegaly. Extremity exam; 3+ generalized anasarca. POSTPARTUM NURSE exam; patient remains noncommunicative. Date/Time of Note DATE: 11/29/18 TIME: 08:47 Exam/Review of Systems Exam Vitals Vital Signs Date Temp Pulse Resp B/P (MAP) Pulse Ox O2 O2 Flow FiO2 Time Delivery Rate 11/29/18 84 18 98 30 08:34 11/29/18 98.8 106/54 Mechanical 08:00 (71) Ventilator Intake and Output 11/28/18 11/28/18 11/29/18 1414:59 22:59 06:59 IntakeIntake Total 1000 ml 575 ml 210 ml OutputOutput Total 1340 ml 525 ml 750 ml BalanceBalance -340 ml 50 ml -540 ml Results Result Diagram: 11/29/18 0337 11/29/18 0337 Results 24hrs Laboratory Tests Test 11/28/18 10:00 11/29/18 03:37 11/29/18 03:45 11/29/18 05:00 Stool Occult Blood NEGATIVE White Blood Count 7.7 Red Blood Count 2.26 L Hemoglobin 7.3 L Hematocrit 23.4 L Mean Corpuscular 103.5 H Volume Mean Corpuscular 32.3 Hemoglobin Mean Corpuscular 31.2 L Hemoglobin Concent Red Cell 16.7 H Distribution Width Platelet Count 519 H Mean Platelet 10.5 H Volume Immature 0.700 H Granulocytes % Neutrophils % 60.2 Lymphocytes % 20.6 Monocytes % 9.5 Eosinophils % 8.6 H Basophils % 0.4 Nucleated Red 0.0 Blood Cells % Immature 0.050 H Granulocytes # Neutrophils # 4.6 Lymphocytes # 1.6 Monocytes # 0.7 Eosinophils # 0.7 H Basophils # 0.0 Nucleated Red 0.0 Blood Cells # Sodium Level 141 Potassium Level 3.8 Chloride Level 112 H Carbon Dioxide 22 Level Anion Gap 7 Blood Urea 25 H Nitrogen Creatinine 1.85 H Est Glomerular 27 L Filtrat Rate mL/min Glucose Level 94 # Calcium Level 8.3 L Lactic Acid Level 1.6 Blood Gas Specimen Blood arterial Source Arterial Blood 11/29/2018 4:50:00 Date Drawn AM Arterial Blood pH 7.349 L (Temp corrected) Arterial Blood 46.3 H pCO2 (Temp correct) Arterial Blood pO2 87.6 (Temp corrected) Arterial Blood 24.9 HCO3 Arterial Blood -1.0 Base Excess Arterial Blood 96.4 Oxygen Saturation Moshe Test ACCEPTAB Arterial Blood Gas Right Radial Puncture Site Arterial 0.4 Blood Carboxyhemog lobin Arterial Blood 0.3 Methemoglobin Blood Gas A-a O2 71.9 H Differential Oxyhemoglobin 95.7 Percent Blood Gas 37.0 Temperature Blood Gas 18.0 Respiration Rate Blood Gas Actual 27 Respiration Rate Blood Gas Modality VENT - AC FiO2 30.0 Blood Gas Tidal 500.0 Volume Blood Gas Low PEEP 5.0 Setting Blood Gas Notified UP Whom Blood Gas Notified 11/29/2018 5:26:00 Time AM Medications Medication Current Medications Ondansetron HCl (Zofran Inj) 4 mg Q6H PRN IV NAUSEA AND/OR VOMITING; Start 11/19/18 at 20:30 Pantoprazole (Protonix Iv) 40 mg DAILY@06 IV Last administered on 11/29/18at 05:39; Admin Dose 40 MG; Start 11/20/18 at 06:00 Phenylephrine HCl 40 mg/Dextrose 250 ml @ 37.5 mls/hr TITRATE IV Last administered on 11/24/18 05:43; Admin Dose 15 MLS/HR; Start 11/19/18 at 20:30 Acetaminophen (Tylenol Tab) 650 mg Q6H PRN GTB MILD PAIN LEVEL 1-3 Last administered on 11/22/18 03:04; Admin Dose 650 MG; Start 11/20/18 at 06:00 Albuterol (Proventil 0.083% (Neb)) 2.5 mg Q6H RESP THERAPY PRN NEB WHEEZING AND SOB Last administered on 11/21/18 19:40; Admin Dose 2.5 MG; Start 11/20/18 at 06:00 Folic Acid (Folic Acid) 1 mg DAILY GTB Last administered on 11/29/18 08:23; Admin Dose 1 MG; Start 11/20/18 at 09:00 Norepinephrine 250 ml @ 1.875 mls/ hr TITRATE IV Last administered on 11/22/18 14:35; Admin Dose 18.75 MLS/HR; Start 11/20/18 at 15:00 Fentanyl 100 ml @ 2.5 mls/hr TITRATE IV Last administered on 11/20/18 15:48; Admin Dose 2.5 MLS/HR; Start 11/20/18 at 16:30 Amiodarone HCl 900 mg/Dextrose 500 ml @ 0 mls/hr Q0M IV Last administered on 11/22/18 15:29; Admin Dose 16.7 MLS/HR; Start 11/21/18 at 16:30 Phenobarbital (Luminal) 65 mg BID IV Last administered on 11/29/18 08:26; Admin Dose 65 MG; Start 11/22/18 at 21:00 Levetiracetam 100 ml @ 400 mls/hr Q12 IVPB Last administered on 11/29/18 08:23; Admin Dose 400 MLS/HR; Start 11/22/18 at 21:00 Amiodarone HCl (Cordarone) 400 mg BID PO Last administered on 11/29/18 08:23; Admin Dose 400 MG; Start 11/23/18 at 09:00 Meropenem/Sodium Chloride 50 ml @ 100 mls/hr Q12 IVPB Last administered on 11/29/18 08:23; Admin Dose 100 MLS/HR; Start 11/23/18 at 15:00 Ferric Sodium Gluconate Complex 125 mg/Sodium Chloride 110 ml @ 110 mls/hr DAILY@1300 IVPB Last administered on 11/28/18at 12:35; Admin Dose 110 MLS/HR; Start 11/25/18 at 13:00; Stop 11/29/18 at 13:59 Epoetin Theodore (Epogen (Non Esrd/Non Oncology)) 8,000 units MoWeFr@17 SC Last administered on 11/26/18at 17:20; Admin Dose 8,000 UNITS; Start 11/24/18 at 17:30 Citric Acid/ Sodium Citrate (Bicitra) 30 ml TID PO Last administered on 11/29/18 08:23; Admin Dose 30 ML; Start 11/25/18 at 13:00 Lorazepam (Ativan) 1 mg Q10MIN PRN GTB agitation; Start 11/26/18 at 12:00 Dextrose 1,000 ml @ 75 mls/hr [id number] IV Last administered on 11/28/18at 23:03; Admin Dose 75 MLS/HR; Start 11/28/18 at 09:30 Furosemide (Lasix) 20 mg BID DIURETICS IV Last administered on 11/29/18at 05:38; Admin Dose 20 MG; Start 11/28/18 at 18:00 SORAYA HARP Nov 29, 2018 08:56
--- NOTE | 2018-11-29 09:17 | PN ---
Date/Time of Note Date/Time of Note DATE: 11/29/18 TIME: 09:17 Assessment/Plan VTE Prophylaxis Risk score (from Ns)>0 risk: 10 SCD applied (from Ns): No SCD contraindicated: other Pharmacological prophylaxis: NA/contraindicated Pharm contraindication: surgical contra Lines/Catheters [facility] PICC Line Central line still needed: Yes Urinary Cath still in place: Yes Reason Cath still needed: terminal illness/intractable pain Assessment/Plan Assessment/Plan 1. Septic shock secondary to acute cholecystitis/choledocholithiasis- resolving - Off pressor support and BP remains stable - Continue on IV antibiotics - Lactic acid normal at presentation 2. Elevated LFTs - resolving - CT abd results noted with choledocholithiasis s/p ERCP 3. Acute choledocholithiasis - s/p ERCP with improvement in LFTs 4. Acute cholecystitis - HIDA consistent with cholecystitis - Discussion held with General surgery who does not recommend cholecystectomy given high risk. Given patients poor quality of life due to underlying chronic medical problems, patient should not be receiving aggressive care and considers all treatment futile care. Requesting bioethics consult for change in code status given patient remains Full Code 5. Hypernatremia- resolved - management per nephro 6. JUSTO - Nephrology consultation appreciated and will avoid nephrotoxic agents - most likely prerenal vs ATN 7. h/o Malignant neoplasm of brain - Patient is chronically bedridden and debilitated. Tracking present this am which is her baseline 8. Seizure disorder - Continue Keppra and phenobarbital - neurology consulted and appreciate recommendations 9. HTN - hold home meds 10. Iron deficiency anemia - no need for transfusion at this time - on EPO given JUSTO 11. Chronic respiratory failure - trach dependent - continue trach care - Pulmonology on board and appreciate recommendations 12. Disposition - Stable for transfer to Telemetry - Given patient has poor quality of life at baseline, aggressive care is futile and request for bioethics for change in Code status >35 minutes of critical care time spent with patient Result Diagram: 11/29/18 0337 11/29/18 0337 Results 24hrs Laboratory Tests Test 11/28/18 10:00 11/29/18 03:37 11/29/18 03:45 11/29/18 05:00 Stool Occult Blood NEGATIVE White Blood Count 7.7 Red Blood Count 2.26 L Hemoglobin 7.3 L Hematocrit 23.4 L Mean Corpuscular 103.5 H Volume Mean Corpuscular 32.3 Hemoglobin Mean Corpuscular 31.2 L Hemoglobin Concent Red Cell 16.7 H Distribution Width Platelet Count 519 H Mean Platelet 10.5 H Volume Immature 0.700 H Granulocytes % Neutrophils % 60.2 Lymphocytes % 20.6 Monocytes % 9.5 Eosinophils % 8.6 H Basophils % 0.4 Nucleated Red 0.0 Blood Cells % Immature 0.050 H Granulocytes # Neutrophils # 4.6 Lymphocytes # 1.6 Monocytes # 0.7 Eosinophils # 0.7 H Basophils # 0.0 Nucleated Red 0.0 Blood Cells # Sodium Level 141 Potassium Level 3.8 Chloride Level 112 H Carbon Dioxide 22 Level Anion Gap 7 Blood Urea 25 H Nitrogen Creatinine 1.85 H Est Glomerular 27 L Filtrat Rate mL/min Glucose Level 94 # Calcium Level 8.3 L Lactic Acid Level 1.6 Blood Gas Specimen Blood arterial Source Arterial Blood 11/29/2018 4:50:00 Date Drawn AM Arterial Blood pH 7.349 L (Temp corrected) Arterial Blood 46.3 H pCO2 (Temp correct) Arterial Blood pO2 87.6 (Temp corrected) Arterial Blood 24.9 HCO3 Arterial Blood -1.0 Base Excess Arterial Blood 96.4 Oxygen Saturation Moshe Test ACCEPTAB Arterial Blood Gas Right Radial Puncture Site Arterial 0.4 Blood Carboxyhemog lobin Arterial Blood 0.3 Methemoglobin Blood Gas A-a O2 71.9 H Differential Oxyhemoglobin 95.7 Percent Blood Gas 37.0 Temperature Blood Gas 18.0 Respiration Rate Blood Gas Actual 27 Respiration Rate Blood Gas Modality VENT - AC FiO2 30.0 Blood Gas Tidal 500.0 Volume Blood Gas Low PEEP 5.0 Setting Blood Gas Notified UP Whom Blood Gas Notified 11/29/2018 5:26:00 Time AM Subjective 24 Hr Interval Summary Free Text/Dictation Patients condition remains unchanged. Still requiring vent support. Discussed plan of care with Dr. Andrews who does not recommend cholecystomy given high risk. Given patients baseline, believes care is futile and recommending code status be changed to DNR/DNI . Exam/Review of Systems Exam Vitals Vital Signs Date Temp Pulse Resp B/P (MAP) Pulse Ox O2 O2 Flow FiO2 Time Delivery Rate 11/29/18 84 18 98 30 08:34 11/29/18 98.8 106/54 Mechanical 08:00 (71) Ventilator Intake and Output 11/28/18 11/28/18 11/29/18 1515:00 23:00 07:00 IntakeIntake Total 1135 ml 360 ml 315 ml OutputOutput Total 1390 ml 425 ml 950 ml BalanceBalance -255 ml -65 ml -635 ml Exam General: Patient is laying in bed, opens eyes to touch. not following commands Neck: Supple Respiratory: Coarse to auscultation bilaterally. no wheezing Cardiovascular: regular rate and rhythm, no obvious murmurs Gastrointestinal: soft, nondistended, no rebound or guarding, bowel sounds heard. Neurological: Unable to fully assess due to neurological status Skin: No new skin lesions Results Results 24hrs Laboratory Tests Test 11/28/18 10:00 11/29/18 03:37 11/29/18 03:45 11/29/18 05:00 Stool Occult Blood NEGATIVE White Blood Count 7.7 Red Blood Count 2.26 L Hemoglobin 7.3 L Hematocrit 23.4 L Mean Corpuscular 103.5 H Volume Mean Corpuscular 32.3 Hemoglobin Mean Corpuscular 31.2 L Hemoglobin Concent Red Cell 16.7 H Distribution Width Platelet Count 519 H Mean Platelet 10.5 H Volume Immature 0.700 H Granulocytes % Neutrophils % 60.2 Lymphocytes % 20.6 Monocytes % 9.5 Eosinophils % 8.6 H Basophils % 0.4 Nucleated Red 0.0 Blood Cells % Immature 0.050 H Granulocytes # Neutrophils # 4.6 Lymphocytes # 1.6 Monocytes # 0.7 Eosinophils # 0.7 H Basophils # 0.0 Nucleated Red 0.0 Blood Cells # Sodium Level 141 Potassium Level 3.8 Chloride Level 112 H Carbon Dioxide 22 Level Anion Gap 7 Blood Urea 25 H Nitrogen Creatinine 1.85 H Est Glomerular 27 L Filtrat Rate mL/min Glucose Level 94 # Calcium Level 8.3 L Lactic Acid Level 1.6 Blood Gas Specimen Blood arterial Source Arterial Blood 11/29/2018 4:50:00 Date Drawn AM Arterial Blood pH 7.349 L (Temp corrected) Arterial Blood 46.3 H pCO2 (Temp correct) Arterial Blood pO2 87.6 (Temp corrected) Arterial Blood 24.9 HCO3 Arterial Blood -1.0 Base Excess Arterial Blood 96.4 Oxygen Saturation Moshe Test ACCEPTAB Arterial Blood Gas Right Radial Puncture Site Arterial 0.4 Blood Carboxyhemog lobin Arterial Blood 0.3 Methemoglobin Blood Gas A-a O2 71.9 H Differential Oxyhemoglobin 95.7 Percent Blood Gas 37.0 Temperature Blood Gas 18.0 Respiration Rate Blood Gas Actual 27 Respiration Rate Blood Gas Modality VENT - AC FiO2 30.0 Blood Gas Tidal 500.0 Volume Blood Gas Low PEEP 5.0 Setting Blood Gas Notified UP Whom Blood Gas Notified 11/29/2018 5:26:00 Time AM Medications Medication Current Medications Ondansetron HCl (Zofran Inj) 4 mg Q6H PRN IV NAUSEA AND/OR VOMITING; Start 11/19/18 at 20:30 Pantoprazole (Protonix Iv) 40 mg DAILY@06 IV Last administered on 11/29/18 05:39; Admin Dose 40 MG; Start 11/20/18 at 06:00 Phenylephrine HCl 40 mg/Dextrose 250 ml @ 37.5 mls/hr TITRATE IV Last administered on 11/24/18 05:43; Admin Dose 15 MLS/HR; Start 11/19/18 at 20:30 Acetaminophen (Tylenol Tab) 650 mg Q6H PRN GTB MILD PAIN LEVEL 1-3 Last administered on 11/22/18 03:04; Admin Dose 650 MG; Start 11/20/18 at 06:00 Albuterol (Proventil 0.083% (Neb)) 2.5 mg Q6H RESP THERAPY PRN NEB WHEEZING AND SOB Last administered on 11/21/18 19:40; Admin Dose 2.5 MG; Start 11/20/18 at 06:00 Folic Acid (Folic Acid) 1 mg DAILY GTB Last administered on 11/29/18 08:23; Admin Dose 1 MG; Start 11/20/18 at 09:00 Norepinephrine 250 ml @ 1.875 mls/ hr TITRATE IV Last administered on 11/22/18 14:35; Admin Dose 18.75 MLS/HR; Start 11/20/18 at 15:00 Fentanyl 100 ml @ 2.5 mls/hr TITRATE IV Last administered on 11/20/18 15:48; Admin Dose 2.5 MLS/HR; Start 11/20/18 at 16:30 Amiodarone HCl 900 mg/Dextrose 500 ml @ 0 mls/hr Q0M IV Last administered on 11/22/18 15:29; Admin Dose 16.7 MLS/HR; Start 11/21/18 at 16:30 Phenobarbital (Luminal) 65 mg BID IV Last administered on 11/29/18 08:26; Admin Dose 65 MG; Start 11/22/18 at 21:00 Levetiracetam 100 ml @ 400 mls/hr Q12 IVPB Last administered on 11/29/18 08:23; Admin Dose 400 MLS/HR; Start 11/22/18 at 21:00 Amiodarone HCl (Cordarone) 400 mg BID PO Last administered on 11/29/18 08:23; Admin Dose 400 MG; Start 11/23/18 at 09:00 Meropenem/Sodium Chloride 50 ml @ 100 mls/hr Q12 IVPB Last administered on 11/29/18 08:23; Admin Dose 100 MLS/HR; Start 11/23/18 at 15:00 Ferric Sodium Gluconate Complex 125 mg/Sodium Chloride 110 ml @ 110 mls/hr DAILY@1300 IVPB Last administered on 11/28/18 12:35; Admin Dose 110 MLS/HR; Start 11/25/18 at 13:00; Stop 11/29/18 at 13:59 Epoetin Theodore (Epogen (Non Esrd/Non Oncology)) 8,000 units MoWeFr@17 SC Last administered on 11/26/18 17:20; Admin Dose 8,000 UNITS; Start 11/24/18 at 17:30 Citric Acid/ Sodium Citrate (Bicitra) 30 ml TID PO Last administered on 11/29/18 08:23; Admin Dose 30 ML; Start 11/25/18 at 13:00 Lorazepam (Ativan) 1 mg Q10MIN PRN GTB agitation; Start 11/26/18 at 12:00 Dextrose 1,000 ml @ 75 mls/hr [id number] IV Last administered on 11/28/18 23:03; Admin Dose 75 MLS/HR; Start 11/28/18 at 09:30 Furosemide (Lasix) 20 mg BID DIURETICS IV Last administered on 11/29/18 05:38; Admin Dose 20 MG; Start 11/28/18 at 18:00 KENNETH SANTILLAN MD Nov 29, 2018 09:17
--- NOTE | 2018-11-29 11:15 | CONS ---
Assessment/Plan Assessment/Plan Assessment/Plan (Daily) 1) Chronic resp failure S/p Trach 2) Sepsis 2nd PNA 3) Hypernatremia- Resolved 4) oliguria improved, Cr stable 5) Rapid Afib, currently on treatment 6) Hypotension Septic Shock, requiring IV pressors 7) AG acidosis in the setting of JUSTO- Compensated 8) Hyperkalemia Plan: BUN/Cr 25/1.85 K 3.8- IVF to D5W at 75 cc/hr - NO acute indication for HD at this time time IV Zyvox stopped today, continued on IV abx meropenem Renally dose all abx and monitor electrolytes Ferrlecit 125mg IV daily x 5 doses for severe iron deficiency Epogen 8000 units SQ MWFfor anemia, Hb 7.3 today, will transfuse 2 units PRBC today Albumin 25% 100ml IV BID x 3 days - time it with lasix 20mg iV BID will follow up Consultation Date/Type/Reason Admit Date/Time Nov 19, 2018 at 19:01 Initial Consult Date 11/22/18 Type of Consult NEPHROLOGY Date/Time of Note DATE: 11/29/18 TIME: 11:15 24 HR Interval Summary Free Text/Dictation Hb dropped to 7.3, making good urine output, BP stable Exam/Review of Systems Exam Vitals Vital Signs Date Temp Pulse Resp B/P (MAP) Pulse Ox O2 O2 Flow FiO2 Time Delivery Rate 11/29/18 86 15 141/76 96 Mechanical 10:00 (97) Ventilator Trach Collar 11/29/18 30 09:20 11/29/18 98.8 08:00 Intake and Output 11/28/18 11/28/18 11/29/18 1515:00 23:00 07:00 IntakeIntake Total 1135 ml 360 ml 315 ml OutputOutput Total 1390 ml 425 ml 950 ml BalanceBalance -255 ml -65 ml -635 ml Results Result Diagram: 11/29/18 0337 11/29/18 0337 Results 24hrs Laboratory Tests Test 11/29/18 03:37 11/29/18 03:45 11/29/18 05:00 White Blood Count 7.7 Red Blood Count 2.26 L Hemoglobin 7.3 L Hematocrit 23.4 L Mean Corpuscular Volume 103.5 H Mean Corpuscular Hemoglobin 32.3 Mean Corpuscular 31.2 L Hemoglobin Concent Red Cell Distribution Width 16.7 H Platelet Count 519 H Mean Platelet Volume 10.5 H Immature Granulocytes % 0.700 H Neutrophils % 60.2 Lymphocytes % 20.6 Monocytes % 9.5 Eosinophils % 8.6 H Basophils % 0.4 Nucleated Red Blood Cells % 0.0 Immature Granulocytes # 0.050 H Neutrophils # 4.6 Lymphocytes # 1.6 Monocytes # 0.7 Eosinophils # 0.7 H Basophils # 0.0 Nucleated Red Blood Cells # 0.0 Sodium Level 141 Potassium Level 3.8 Chloride Level 112 H Carbon Dioxide Level 22 Anion Gap 7 Blood Urea Nitrogen 25 H Creatinine 1.85 H Est Glomerular Filtrat 27 L Rate mL/min Glucose Level 94 # Calcium Level 8.3 L Lactic Acid Level 1.6 Blood Gas Specimen Source Blood arterial Arterial Blood Date Drawn 11/29/2018 4:50:00 AM Arterial Blood pH 7.349 L (Temp corrected) Arterial Blood pCO2 46.3 H (Temp correct) Arterial Blood pO2 87.6 (Temp corrected) Arterial Blood HCO3 24.9 Arterial Blood Base Excess -1.0 Arterial Blood 96.4 Oxygen Saturation Moshe Test ACCEPTAB Arterial Blood Gas Right Radial Puncture Site Arterial 0.4 Blood Carboxyhemoglobin Arterial Blood Methemoglobin 0.3 Blood Gas A-a O2 Differential 71.9 H Oxyhemoglobin Percent 95.7 Blood Gas Temperature 37.0 Blood Gas Respiration Rate 18.0 Blood Gas Actual 27 Respiration Rate Blood Gas Modality VENT - AC FiO2 30.0 Blood Gas Tidal Volume 500.0 Blood Gas Low PEEP Setting 5.0 Blood Gas Notified Whom UP Blood Gas Notified Time 11/29/2018 5:26:00 AM Medications Medication Current Medications Ondansetron HCl (Zofran Inj) 4 mg Q6H PRN IV NAUSEA AND/OR VOMITING; Start 11/19/18 at 20:30 Pantoprazole (Protonix Iv) 40 mg DAILY@06 IV Last administered on 11/29/18at 05:39; Admin Dose 40 MG; Start 11/20/18 at 06:00 Acetaminophen (Tylenol Tab) 650 mg Q6H PRN GTB MILD PAIN LEVEL 1-3 Last administered on 11/22/18at 03:04; Admin Dose 650 MG; Start 11/20/18 at 06:00 Albuterol (Proventil 0.083% (Neb)) 2.5 mg Q6H RESP THERAPY PRN NEB WHEEZING AND SOB Last administered on 11/21/18 19:40; Admin Dose 2.5 MG; Start 11/20/18 at 06:00 Folic Acid (Folic Acid) 1 mg DAILY GTB Last administered on 11/29/18 08:23; A dmin Dose 1 MG; Start 11/20/18 at 09:00 Amiodarone HCl 900 mg/Dextrose 500 ml @ 0 mls/hr Q0M IV Last administered on 11/22/18 15:29; Admin Dose 16.7 MLS/HR; Start 11/21/18 at 16:30 Phenobarbital (Luminal) 65 mg BID IV Last administered on 11/29/18 08:26; Admin Dose 65 MG; Start 11/22/18 at 21:00 Levetiracetam 100 ml @ 400 mls/hr Q12 IVPB Last administered on 11/29/18 08:23; Admin Dose 400 MLS/HR; Start 11/22/18 at 21:00 Amiodarone HCl (Cordarone) 400 mg BID PO Last administered on 11/29/18 08:23; Admin Dose 400 MG; Start 11/23/18 at 09:00 Meropenem/Sodium Chloride 50 ml @ 100 mls/hr Q12 IVPB Last administered on 11/29/18 08:23; Admin Dose 100 MLS/HR; Start 11/23/18 at 15:00 Ferric Sodium Gluconate Complex 125 mg/Sodium Chloride 110 ml @ 110 mls/hr DAILY@1300 IVPB Last administered on 11/28/18 12:35; Admin Dose 110 MLS/HR; Start 11/25/18 at 13:00; Stop 11/29/18 at 13:59 Epoetin Theodore (Epogen (Non Esrd/Non Oncology)) 8,000 units MoWeFr@17 SC Last administered on 11/26/18 17:20; Admin Dose 8,000 UNITS; Start 11/24/18 at 17:30 Citric Acid/ Sodium Citrate (Bicitra) 30 ml TID PO Last administered on 11/29/18 08:23; Admin Dose 30 ML; Start 11/25/18 at 13:00 Lorazepam (Ativan) 1 mg Q10MIN PRN GTB agitation; Start 11/26/18 at 12:00 Dextrose 1,000 ml @ 75 mls/hr [id number] IV Last administered on 11/28/18at 23:03; Admin Dose 75 MLS/HR; Start 11/28/18 at 09:30 Furosemide (Lasix) 20 mg BID DIURETICS IV Last administered on 11/29/18at 05:38; Admin Dose 20 MG; Start 11/28/18 at 18:00 DEANNA CARRERA MD Nov 29, 2018 11:15
[2018-11-29] MEDS ORDERED: SOD CHLORIDE 0.9% 250 ML IV* ONE (11:23)
[2018-11-29] MEDS ORDERED: DIPHENHYDRAMINE 50 MG INJ IV SCH (11:30)
[2018-11-29] MEDS ORDERED: ACETAMINOPHEN 325 MG TAB PO SCH (11:30)
--- NOTE | 2018-11-29 11:39 | CONS ---
Assessment/Plan Assessment/Plan Hospital Course (Demo Recall) No acute events overnight patient remains afebrile, tolerates tube feeding WBC today 7.7, no shift no bands BUN 25 creatinine 1.85 Antimicrobials: Meropenem Indwelling: Trach PEG right femoral triple-lumen catheter, Jaime Physical examination: Morbidly obese well-developed chronically ill-appearing elderly woman who is in no distress. Head atraumatic normocephalic neck is obese tracheostomy present chest rise symmetrical breath sounds diminished bases. Heart: S1-S2. Abdomen soft bowel sounds hypoactive. Extremities with bilateral edema Assessment: 1. S/p sepsis with shock secondary to acute cholangitis 2. Acute cholecystitis with choledocholithiasis==>Status post ERCP, sphinc terotomy, bile duct stent placement 11/25/18 3. Acute renal failure 4. Chronic respiratory failure and dysphagia 5. Acute on chronic anemia 6. Paroxysmal atrial fibrillation Plan: Remains stable, continue present care, abx, follow surgical rec-s Consultation Date/Type/Reason Admit Date/Time Nov 19, 2018 at 19:01 Initial Consult Date 11/22/18 Type of Consult id Date/Time of Note DATE: 11/29/18 TIME: 11:38 Exam/Review of Systems Exam Vitals Vital Signs Date Temp Pulse Resp B/P (MAP) Pulse Ox O2 O2 Flow FiO2 Time Delivery Rate 11/29/18 86 15 141/76 96 Mechanical 10:00 (97) Ventilator Trach Collar 11/29/18 30 09:20 11/29/18 98.8 08:00 Intake and Output 11/28/18 11/28/18 11/29/18 1515:00 23:00 07:00 IntakeIntake Total 1135 ml 360 ml 315 ml OutputOutput Total 1390 ml 425 ml 950 ml BalanceBalance -255 ml -65 ml -635 ml Results Result Diagram: 11/29/18 0337 11/29/18 0337 Results 24hrs Laboratory Tests Test 11/29/18 03:37 11/29/18 03:45 11/29/18 05:00 White Blood Count 7.7 Red Blood Count 2.26 L Hemoglobin 7.3 L Hematocrit 23.4 L Mean Corpuscular Volume 103.5 H Mean Corpuscular Hemoglobin 32.3 Mean Corpuscular 31.2 L Hemoglobin Concent Red Cell Distribution Width 16.7 H Platelet Count 519 H Mean Platelet Volume 10.5 H Immature Granulocytes % 0.700 H Neutrophils % 60.2 Lymphocytes % 20.6 Monocytes % 9.5 Eosinophils % 8.6 H Basophils % 0.4 Nucleated Red Blood Cells % 0.0 Immature Granulocytes # 0.050 H Neutrophils # 4.6 Lymphocytes # 1.6 Monocytes # 0.7 Eosinophils # 0.7 H Basophils # 0.0 Nucleated Red Blood Cells # 0.0 Sodium Level 141 Potassium Level 3.8 Chloride Level 112 H Carbon Dioxide Level 22 Anion Gap 7 Blood Urea Nitrogen 25 H Creatinine 1.85 H Est Glomerular Filtrat 27 L Rate mL/min Glucose Level 94 # Calcium Level 8.3 L Lactic Acid Level 1.6 Blood Gas Specimen Source Blood arterial Arterial Blood Date Drawn 11/29/2018 4:50:00 AM Arterial Blood pH 7.349 L (Temp corrected) Arterial Blood pCO2 46.3 H (Temp correct) Arterial Blood pO2 87.6 (Temp corrected) Arterial Blood HCO3 24.9 Arterial Blood Base Excess -1.0 Arterial Blood 96.4 Oxygen Saturation Moshe Test ACCEPTAB Arterial Blood Gas Right Radial Puncture Site Arterial 0.4 Blood Carboxyhemoglobin Arterial Blood Methemoglobin 0.3 Blood Gas A-a O2 Differential 71.9 H Oxyhemoglobin Percent 95.7 Blood Gas Temperature 37.0 Blood Gas Respiration Rate 18.0 Blood Gas Actual 27 Respiration Rate Blood Gas Modality VENT - AC FiO2 30.0 Blood Gas Tidal Volume 500.0 Blood Gas Low PEEP Setting 5.0 Blood Gas Notified Whom UP Blood Gas Notified Time 11/29/2018 5:26:00 AM Medications Medication Current Medications Ondansetron HCl (Zofran Inj) 4 mg Q6H PRN IV NAUSEA AND/OR VOMITING; Start 11/19/18 at 20:30 Pantoprazole (Protonix Iv) 40 mg DAILY@06 IV Last administered on 11/29/18at 05:39; Admin Dose 40 MG; Start 11/20/18 at 06:00 Acetaminophen (Tylenol Tab) 650 mg Q6H PRN GTB MILD PAIN LEVEL 1-3 Last administered on 11/22/18 03:04; Admin Dose 650 MG; Start 11/20/18 at 06:00 Albuterol (Proventil 0.083% (Neb)) 2.5 mg Q6H RESP THERAPY PRN NEB WHEEZING AND SOB Last administered on 11/21/18 19:40; Admin Dose 2.5 MG; Start 11/20/18 at 06:00 Folic Acid (Folic Acid) 1 mg DAILY GTB Last administered on 11/29/18 08:23; Admin Dose 1 MG; Start 11/20/18 at 09:00 Amiodarone HCl 900 mg/Dextrose 500 ml @ 0 mls/hr Q0M IV Last administered on 11/22/18 15:29; Admin Dose 16.7 MLS/HR; Start 11/21/18 at 16:30 Phenobarbital (Luminal) 65 mg BID IV Last administered on 11/29/18 08:26; Admin Dose 65 MG; Start 11/22/18 at 21:00 Levetiracetam 100 ml @ 400 mls/hr Q12 IVPB Last administered on 11/29/18 08:23; Admin Dose 400 MLS/HR; Start 11/22/18 at 21:00 Amiodarone HCl (Cordarone) 400 mg BID PO Last administered on 11/29/18 08:23; Admin Dose 400 MG; Start 11/23/18 at 09:00 Meropenem/Sodium Chloride 50 ml @ 100 mls/hr Q12 IVPB Last administered on 11/29/18 08:23; Admin Dose 100 MLS/HR; Start 11/23/18 at 15:00 Ferric Sodium Gluconate Complex 125 mg/Sodium Chloride 110 ml @ 110 mls/hr DAILY@1300 IVPB Last administered on 11/28/18 12:35; Admin Dose 110 MLS/HR; Start 11/25/18 at 13:00; Stop 11/29/18 at 13:59 Epoetin Theodore (Epogen (Non Esrd/Non Oncology)) 8,000 units MoWeFr@17 SC Last administered on 11/26/18 17:20; Admin Dose 8,000 UNITS; Start 11/24/18 at 17:30 Citric Acid/ Sodium Citrate (Bicitra) 30 ml TID PO Last administered on 11/29/18 08:23; Admin Dose 30 ML; Start 11/25/18 at 13:00 Lorazepam (Ativan) 1 mg Q10MIN PRN GTB agitation; Start 11/26/18 at 12:00 Dextrose 1,000 ml @ 75 mls/hr [id number] IV Last administered on 11/28/18at 23:03; Admin Dose 75 MLS/HR; Start 11/28/18 at 09:30 Furosemide (Lasix) 20 mg BID DIURETICS IV Last administered on 11/29/18at 05:38; Admin Dose 20 MG; Start 11/28/18 at 18:00 Albumin Human 100 ml @ 100 mls/hr BID IV ; Start 11/29/18 at 17:30; Stop 12/02/18 at 15:00 Acetaminophen (Tylenol Tab) 650 mg ONCE PO ; Start 11/29/18 at 11:30; Stop 11/30/18 at 11:29 Diphenhydramine HCl (Benadryl) 25 mg ONCE IV ; Start 11/29/18 at 11:30; Stop 11/30/18 at 11:29 KAREN LOMAS NP Nov 29, 2018 11:39
[2018-11-29] MEDS: DEXTROSE 5% 1,000 ML IV SCH (12:56)
--- NOTE | 2018-11-29 14:17 | CONS ---
Assessment/Plan Assessment/Plan Hospital Course 68 F c/ reported Hx of malignant brain neoplasm NOS c/b epilepsy..and other comorbidities, who presents for management of hypotension and GI abnl. Neurology is consulted for epilepsy medication management. P: Continue Phb 65mg iv bid for now; await phb level (Goal 20-30) Continue Keppra 500mg iv q12hr while GFR is severely compromised.. Ativan iv prn prolonged seizure of cluster Other management per primary Will follow Consultation Date/Type/Reason Admit Date/Time Nov 19, 2018 at 19:01 Type of Consult Neurology Date/Time of Note DATE: 11/29/18 TIME: 14:17 Exam Vital Signs Vitals Vital Signs Date Temp Pulse Resp B/P (MAP) Pulse Ox O2 O2 Flow FiO2 Time Delivery Rate 11/29/18 85 18 96 30 13:30 11/29/18 133/68 Mechanical 13:30 (89) Ventilator 11/29/18 99.4 13:17 Intake and Output 11/28/18 11/28/18 11/29/18 1515:00 23:00 07:00 IntakeIntake Total 1135 ml 360 ml 315 ml OutputOutput Total 1390 ml 425 ml 950 ml BalanceBalance -255 ml -65 ml -635 ml HIPOLITO GLOVER NP Nov 29, 2018 14:17 RACHEL ESTEBAN Nov 29, 2018 16:05
--- NOTE | 2018-11-29 14:26 | CONS ---
Assessment/Plan Assessment/Plan Hospital Course (Demo Recall) Paroxysmal atrial fibrillation: No known prior diagnosis. Not a good candidate for chronic anticoagulation with recurrent anemia.Now back in sinus after amiodarone. Septic shock: now off pressors Anemia: no active bleeding. Hgb >8 after 1 unit Acute on chronic diastolic CHF: due to third spacing from low albumin/IVF. Slowly improving Choledocholithiasis with acute cholecystitis: s/p ERCP and biliary stenting. Acute renal failure VDRF/tracheostomy h/o brain tumor Seizure disorder Bedridden -Remains high risk for cholecystectomy but optimized from cardiac standpoint -continue lasix 20mg IV BID for gentle diuresis -decrease to amiodarone 200mg BID -antibiotics Consultation Date/Type/Reason Admit Date/Time Nov 19, 2018 at 19:01 Initial Consult Date 11/22/18 Type of Consult Cardiology Date/Time of Note DATE: 11/29/18 TIME: 14:22 24 HR Interval Summary Free Text/Dictation Had ERCP over weekend with biliary stenting. Possible cholecystectomy soon. Exam/Review of Systems Exam Vitals Vital Signs Date Temp Pulse Resp B/P (MAP) Pulse Ox O2 O2 Flow FiO2 Time Delivery Rate 11/29/18 85 18 96 30 13:30 11/29/18 133/68 Mechanical 13:30 (89) Ventilator 11/29/18 99.4 13:17 Intake and Output 11/28/18 11/28/18 11/29/18 1515:00 23:00 07:00 IntakeIntake Total 1135 ml 360 ml 315 ml OutputOutput Total 1390 ml 425 ml 950 ml BalanceBalance -255 ml -65 ml -635 ml Constitutional: No alert, No oriented ENMT: other (s/p trach) Neck: supple; No jvd (unable to examine ) Respiratory: diminished breath sounds; No clear to auscultation Cardiovascular: regular rate and rhythm, edema (2+ anasarca ) Gastrointestinal: soft; No non-tender Neurological: No nl mental status, No nl speech Results Result Diagram: 11/29/18 0337 11/29/18 0337 Results 24hrs Laboratory Tests Test 11/29/18 03:37 11/29/18 03:45 11/29/18 05:00 White Blood Count 7.7 Red Blood Count 2.26 L Hemoglobin 7.3 L Hematocrit 23.4 L Mean Corpuscular Volume 103.5 H Mean Corpuscular Hemoglobin 32.3 Mean Corpuscular 31.2 L Hemoglobin Concent Red Cell Distribution Width 16.7 H Platelet Count 519 H Mean Platelet Volume 10.5 H Immature Granulocytes % 0.700 H Neutrophils % 60.2 Lymphocytes % 20.6 Monocytes % 9.5 Eosinophils % 8.6 H Basophils % 0.4 Nucleated Red Blood Cells % 0.0 Immature Granulocytes # 0.050 H Neutrophils # 4.6 Lymphocytes # 1.6 Monocytes # 0.7 Eosinophils # 0.7 H Basophils # 0.0 Nucleated Red Blood Cells # 0.0 Sodium Level 141 Potassium Level 3.8 Chloride Level 112 H Carbon Dioxide Level 22 Anion Gap 7 Blood Urea Nitrogen 25 H Creatinine 1.85 H Est Glomerular Filtrat 27 L Rate mL/min Glucose Level 94 # Calcium Level 8.3 L Lactic Acid Level 1.6 Blood Gas Specimen Source Blood arterial Arterial Blood Date Drawn 11/29/2018 4:50:00 AM Arterial Blood pH 7.349 L (Temp corrected) Arterial Blood pCO2 46.3 H (Temp correct) Arterial Blood pO2 87.6 (Temp corrected) Arterial Blood HCO3 24.9 Arterial Blood Base Excess -1.0 Arterial Blood 96.4 Oxygen Saturation Moshe Test ACCEPTAB Arterial Blood Gas Right Radial Puncture Site Arterial 0.4 Blood Carboxyhemoglobin Arterial Blood Methemoglobin 0.3 Blood Gas A-a O2 Differential 71.9 H Oxyhemoglobin Percent 95.7 Blood Gas Temperature 37.0 Blood Gas Respiration Rate 18.0 Blood Gas Actual 27 Respiration Rate Blood Gas Modality VENT - AC FiO2 30.0 Blood Gas Tidal Volume 500.0 Blood Gas Low PEEP Setting 5.0 Blood Gas Notified Whom UP Blood Gas Notified Time 11/29/2018 5:26:00 AM Medications Medication Current Medications Ondansetron HCl (Zofran Inj) 4 mg Q6H PRN IV NAUSEA AND/OR VOMITING; Start at 20:30 Pantoprazole (Protonix Iv) 40 mg DAILY@06 IV Last administered on 11/29/18at 05:39; Admin Dose 40 MG; Start 11/20/18 at 06:00 Acetaminophen (Tylenol Tab) 650 mg Q6H PRN GTB MILD PAIN LEVEL 1-3 Last administered on 11/22/18at 03:04; Admin Dose 650 MG; Start 11/20/18 at 06:00 Albuterol (Proventil 0.083% (Neb)) 2.5 mg Q6H RESP THERAPY PRN NEB WHEEZING AND SOB Last administered on 11/21/18 19:40; Admin Dose 2.5 MG; Start 11/20/18 at 06:00 Folic Acid (Folic Acid) 1 mg DAILY GTB Last administered on 11/29/18 08:23; Admin Dose 1 MG; Start 11/20/18 at 09:00 Amiodarone HCl 900 mg/Dextrose 500 ml @ 0 mls/hr Q0M IV Last administered on 11/22/18 15:29; Admin Dose 16.7 MLS/HR; Start 11/21/18 at 16:30 Phenobarbital (Luminal) 65 mg BID IV Last administered on 11/29/18 08:26; Admin Dose 65 MG; Start 11/22/18 at 21:00 Levetiracetam 100 ml @ 400 mls/hr Q12 IVPB Last administered on 11/29/18 08:23; Admin Dose 400 MLS/HR; Start 11/22/18 at 21:00 Amiodarone HCl (Cordarone) 400 mg BID PO Last administered on 11/29/18 08:23; Admin Dose 400 MG; Start 11/23/18 at 09:00 Meropenem/Sodium Chloride 50 ml @ 100 mls/hr Q12 IVPB Last administered on 11/29/18 08:23; Admin Dose 100 MLS/HR; Start 11/23/18 at 15:00 Epoetin Theodore (Epogen (Non Esrd/Non Oncology)) 8,000 units MoWeFr@17 SC Last administered on 11/26/18 17:20; Admin Dose 8,000 UNITS; Start 11/24/18 at 17:30 Citric Acid/ Sodium Citrate (Bicitra) 30 ml TID PO Last administered on 11/29/18 12:52; Admin Dose 30 ML; Start 11/25/18 at 13:00 Lorazepam (Ativan) 1 mg Q10MIN PRN GTB agitation; Start 11/26/18 at 12:00 Dextrose 1,000 ml @ 75 mls/hr [id number] IV Last administered on 11/29/18 12:56; Admin Dose 75 MLS/HR; Start 11/28/18 at 09:30 Furosemide (Lasix) 20 mg BID DIURETICS IV Last administered on 11/29/18at 05:38; Admin Dose 20 MG; Start 11/28/18 at 18:00 Albumin Human 100 ml @ 100 mls/hr BID IV ; Start 11/29/18 at 17:30; Stop 12/02/18 at 15:00 Acetaminophen (Tylenol Tab) 650 mg ONCE PO Last administered on 11/29/18at 13:17; Admin Dose 650 MG; Start 11/29/18 at 11:30; Stop 11/30/18 at 11:29 Diphenhydramine HCl (Benadryl) 25 mg ONCE IV Last administered on 11/29/18at 13:17; Admin Dose 25 MG; Start 11/29/18 at 11:30; Stop 11/30/18 at 11:29 FRANSISCO SALCIDO Nov 29, 2018 14:26
--- NOTE | 2018-11-29 14:35 | CONS ---
Assessment/Plan Assessment/Plan Hospital Course (Demo Recall) 5-year-old female with sepsis and hypotension secondary to possible cholecystitis choledocholithiasis respiratory failure on ventilator none interactive lethargic. CAT scan suspicious for possible common duct obstruction though no definitive stone noted however with elevated LFTs strongly suspicious. Possibility of cholecystitis as well. Patient is on pressors will need to be weaned off pressors so that she can undergo probable ERCP to assess and possibly treat common duct. After that time we will discuss whether cholecystostomy or cholecystectomy are warranted. Assessment/Plan (Daily) Patient admitted to ICU for sepsis was on pressors continues to improve and is now off pressors. Marked third space edema Normal white blood cell count. Status post ERCP with stent placement. HIDA scan positive question cholecystitis. Impression my feeling is the patient does not meet criteria for cholecystectomy as she is a high risk for perioperative morbidity and complications. I think that a cholecystostomy is possible if the feeling is that her source is gallbladder which at this time I am not sure. It is possible the patient did have cholangitis which is now treated with antibiotics and CBD clearance. I do think that a bioethics consult should be obtained as my feeling is the patient at this point is futile as far as return to baseline. I did speak with Dr Mark Reyes who is the director of [facility] and as long as well with Dr. Nishi Blue hospitalist. I would recommend initiation of bioethics consultation to consider alteration of her CODE STATUS below a full code. Consultation Date/Type/Reason Admit Date/Time Nov 19, 2018 at 19:01 Initial Consult Date 11/23/18 Type of Consult General surgery consult Reason for Consultation sepsis , abdominal source ? Possible cholecystitis Date/Time of Note DATE: 11/29/18 TIME: 14:25 24 HR Interval Summary Free Text/Dictation Patient continues to be in ICU though she is off pressors currently. She is markedly edematous and mental status domínguez continues to only track without any purposeful movements. White blood cell count has normalized. Patient underwent ERCP last week by Dr. Campa and had stent placed and common duct cleared of sludge. Yesterday patient had a HIDA scan which showed nonvisualization of the gallbladder possible cholecystitis. Subjective hx not possible: pt non-verbal Exam/Review of Systems Exam Vitals Vital Signs Date Temp Pulse Resp B/P (MAP) Pulse Ox O2 O2 Flow FiO2 Time Delivery Rate 3/4/19 85 18 96 30 13:30 11/29/18 133/68 Mechanical 13:30 (89) Ventilator 11/29/18 99.4 13:17 Intake and Output 11/28/18 11/28/18 11/29/18 1414:59 22:59 06:59 IntakeIntake Total 1000 ml 575 ml 210 ml OutputOutput Total 1340 ml 525 ml 750 ml BalanceBalance -340 ml 50 ml -540 ml Exam Patient on ventilator does not tracks only no purposeful movements no response to examination Results Result Diagram: 11/29/18 0337 11/29/18 0337 Results 24hrs Laboratory Tests Test 11/29/18 03:37 11/29/18 03:45 11/29/18 05:00 White Blood Count 7.7 Red Blood Count 2.26 L Hemoglobin 7.3 L Hematocrit 23.4 L Mean Corpuscular Volume 103.5 H Mean Corpuscular Hemoglobin 32.3 Mean Corpuscular 31.2 L Hemoglobin Concent Red Cell Distribution Width 16.7 H Platelet Count 519 H Mean Platelet Volume 10.5 H Immature Granulocytes % 0.700 H Neutrophils % 60.2 Lymphocytes % 20.6 Monocytes % 9.5 Eosinophils % 8.6 H Basophils % 0.4 Nucleated Red Blood Cells % 0.0 Immature Granulocytes # 0.050 H Neutrophils # 4.6 Lymphocytes # 1.6 Monocytes # 0.7 Eosinophils # 0.7 H Basophils # 0.0 Nucleated Red Blood Cells # 0.0 Sodium Level 141 Potassium Level 3.8 Chloride Level 112 H Carbon Dioxide Level 22 Anion Gap 7 Blood Urea Nitrogen 25 H Creatinine 1.85 H Est Glomerular Filtrat 27 L Rate mL/min Glucose Level 94 # Calcium Level 8.3 L Lactic Acid Level 1.6 Blood Gas Specimen Source Blood arterial Arterial Blood Date Drawn 11/29/2018 4:50:00 AM Arterial Blood pH 7.349 L (Temp corrected) Arterial Blood pCO2 46.3 H (Temp correct) Arterial Blood pO2 87.6 (Temp corrected) Arterial Blood HCO3 24.9 Arterial Blood Base Excess -1.0 Arterial Blood 96.4 Oxygen Saturation Moshe Test ACCEPTAB Arterial Blood Gas Right Radial Puncture Site Arterial 0.4 Blood Carboxyhemoglobin Arterial Blood Methemoglobin 0.3 Blood Gas A-a O2 Differential 71.9 H Oxyhemoglobin Percent 95.7 Blood Gas Temperature 37.0 Blood Gas Respiration Rate 18.0 Blood Gas Actual 27 Respiration Rate Blood Gas Modality VENT - AC FiO2 30.0 Blood Gas Tidal Volume 500.0 Blood Gas Low PEEP Setting 5.0 Blood Gas Notified Whom UP Blood Gas Notified Time 11/29/2018 5:26:00 AM Medications Medication Current Medications Ondansetron HCl (Zofran Inj) 4 mg Q6H PRN IV NAUSEA AND/OR VOMITING; Start 11/19/18 at 20:30 Pantoprazole (Protonix Iv) 40 mg DAILY@06 IV Last administered on 11/29/18 05:39; Admin Dose 40 MG; Start 11/20/18 at 06:00 Acetaminophen (Tylenol Tab) 650 mg Q6H PRN GTB MILD PAIN LEVEL 1-3 Last administered on 11/22/18 03:04; Admin Dose 650 MG; Start 11/20/18 at 06:00 Albuterol (Proventil 0.083% (Neb)) 2.5 mg Q6H RESP THERAPY PRN NEB WHEEZING AND SOB Last administered on 11/21/18 19:40; Admin Dose 2.5 MG; Start 11/20/18 at 06:00 Folic Acid (Folic Acid) 1 mg DAILY GTB Last administered on 11/29/18 08:23; Admin Dose 1 MG; Start 11/20/18 at 09:00 Phenobarbital (Luminal) 65 mg BID IV Last administered on 11/29/18 08:26; Admin Dose 65 MG; Start 11/22/18 at 21:00 Levetiracetam 100 ml @ 400 mls/hr Q12 IVPB Last administered on 11/29/18 08:23; Admin Dose 400 MLS/HR; Start 11/22/18 at 21:00 Meropenem/Sodium Chloride 50 ml @ 100 mls/hr Q12 IVPB Last administered on 11/29/18 08:23; Admin Dose 100 MLS/HR; Start 11/23/18 at 15:00 Epoetin Theodore (Epogen (Non Esrd/Non Oncology)) 8,000 units MoWeFr@17 SC Last administered on 11/26/18 17:20; Admin Dose 8,000 UNITS; Start 11/24/18 at 17:30 Citric Acid/ Sodium Citrate (Bicitra) 30 ml TID PO Last administered on 11/29/18at 12:52; Admin Dose 30 ML; Start 11/25/18 at 13:00 Lorazepam (Ativan) 1 mg Q10MIN PRN GTB agitation; Start 11/26/18 at 12:00 Furosemide (Lasix) 20 mg BID DIURETICS IV Last administered on 11/29/18at 05:38; Admin Dose 20 MG; Start 11/28/18 at 18:00 Albumin Human 100 ml @ 100 mls/hr BID IV ; Start 11/29/18 at 17:30; Stop 12/02/18 at 15:00 Acetaminophen (Tylenol Tab) 650 mg ONCE PO Last administered on 11/29/18at 13:17; Admin Dose 650 MG; Start 11/29/18 at 11:30; Stop 11/30/18 at 11:29 Diphenhydramine HCl (Benadryl) 25 mg ONCE IV Last administered on 11/29/18at 13:17; Admin Dose 25 MG; Start 11/29/18 at 11:30; Stop 11/30/18 at 11:29 Amiodarone HCl (Cordarone) 200 mg BID PO ; Start 11/29/18 at 21:00; Status UNFATOU VALENTIN MD Nov 29, 2018 14:34
[2018-11-29] MEDS: SOD FERRIC GLUC COMPLX 125 MG in SOD CHLORIDE 0.9% 100 ML IVPB SCH (15:13)
[2018-11-29] MEDS: ALBUMIN HUMAN 25% 100 ML IV SCH ×2 (16:53→20:47)
[2018-11-29] MEDS: EPOETIN 4000 UNITS/ML (NON ESRD/NON ONCOLOGY) SC SCH (16:56)
[2018-11-30] VITALS (25 sets, daily range): BP systolic 120–158; BP diastolic 54–76; PULSE 73–106; RESP 16–21
[2018-11-30] MEDS ORDERED: PENDING SANTYL ORDER FOR WOUND CARE XX PRN (01:30)
[2018-11-30] MEDS: PANTOPRAZOLE 40 MG INJ IV SCH (05:19)
[2018-11-30] MEDS: FUROSEMIDE 20 MG INJ IV SCH ×2 (05:19→17:24)
--- NOTE | 2018-11-30 06:23 | CONS ---
Assessment/Plan Assessment/Plan Assessment/Plan (Daily) Acute respiratory failure Morbid obesity Sepsis syndrome Profound fluid and electrolyte abnormalities Hypoxemia respiratory failure The initial recommendation was stabilized patient to be transferred back to a chcf unit. Patient is conserved by the regional center, some of patient's primary care physicians have made a recommendation for bioethics consultation to establish ongoing goals of care. This will be addressed by patient's hospitalist [employer] rep and if necessary treatment of the bioethics committee. In the interim this level of care will be continued patient is to be transferred out of the intensive care unit. Consultation Date/Type/Reason Admit Date/Time Nov 19, 2018 at 19:01 Date/Time of Note DATE: 11/30/18 TIME: 06:19 Past Medical History Home Meds Reported Medications Ranitidine Hcl* (Ranitidine Hcl*) 150 Mg Tablet, 150 MG GTB Q12, #60 TAB 11/19/18 Cholecalciferol* (Vitamin D*) 400 Unit Tablet, 400 UNIT GTB DAILY, TAB 11/19/18 Amino Acids/Protein Hydrolys (Pro-Stat 64 Liquid) 887 Ml Liquid, 30 ML GTB BID 11/19/18 Albuterol Sulfate* (Albuterol Sulfate* Neb) 0.083%-3 Ml Neb, 2.5 MG NEB Q6 PRN for WHEEZING AND SOB, #30 VIAL 11/19/18 Levetiracetam* (Keppra* (Ped)) 100 Mg/Ml Liq, 1500 MG GTB BID for 30 Days, BOTTLE 11/19/18 Sennosides* (Senna Lax*) 8.6 Mg Tablet, 1 TAB GTB DAILY, TAB 11/19/18 Labetalol Hcl* (Labetalol Hcl*) 200 Mg Tablet, 200 MG GTB BID PRN for ELEVATED BLOOD PRESSURE, TAB 11/19/18 Folic Acid* (Folic Acid*) 1 Mg Tablet, 1 MG GTB DAILY, TAB 11/19/18 Phenobarbital* (Phenobarbital* Liq) 20 Mg/5 Ml Elix, 5 MG GTB BID for 30 Days, BOTTLE 11/19/18 Lisinopril* (Lisinopril*) 10 Mg Tablet, 10 MG GTB DAILY, #30 TAB 11/19/18 Ferrous Sulfate (Ferrous Sulfate) 300 Mg/5 Ml Liquid, 300 MG GTB BID 11/19/18 Clonidine Hcl* (Clonidine Hcl*) 0.1 Mg Tab, 0.1 MG GTB Q6 PRN for ELEVATED BLOOD PRESSURE, TAB 11/19/18 Calcium Carbonate* (Calcium Carbonate*) 600 MG Ca Tab, 1200 MG GTB DAILY, TAB 11/19/18 Aspirin* (Aspirin* Chew) 81 Mg Tab.chew, 81 MG GTB DAILY, TAB.CHEW 11/19/18 Acetaminophen* (Acetaminophen*) 650 Mg Tablet, 650 MG GTB Q6H PRN for MILD PAIN LEVEL 1-3, #30 TAB 11/19/18 Ascorbic Acid* (Vitamin C*) 500 Mg Capsule.sa, 500 MG GTB DAILY, CAP 11/19/18 Medications Current Medications Ondansetron HCl (Zofran Inj) 4 mg Q6H PRN IV NAUSEA AND/OR VOMITING; Start 11/19/18 at 20:30 Pantoprazole (Protonix Iv) 40 mg DAILY@06 IV Last administered on 11/30/18at 05:19; Admin Dose 40 MG; Start 11/20/18 at 06:00 Acetaminophen (Tylenol Tab) 650 mg Q6H PRN GTB MILD PAIN LEVEL 1-3 Last administered on 11/22/18at 03:04; Admin Dose 650 MG; Start 11/20/18 at 06:00 Albuterol (Proventil 0.083% (Neb)) 2.5 mg Q6H RESP THERAPY PRN NEB WHEEZING AND SOB Last administered on 11/21/18at 19:40; Admin Dose 2.5 MG; Start 11/20/18 at 06:00 Folic Acid (Folic Acid) 1 mg DAILY GTB Last administered on 11/29/18at 08:23; Admin Dose 1 MG; Start 11/20/18 at 09:00 Phenobarbital (Luminal) 65 mg BID IV Last administered on 11/29/18 22:19; Admin Dose 65 MG; Start 11/22/18 at 21:00 Levetiracetam 100 ml @ 400 mls/hr Q12 IVPB Last administered on 11/29/18 22:24; Admin Dose 400 MLS/HR; Start 11/22/18 at 21:00 Meropenem/Sodium Chloride 50 ml @ 100 mls/hr Q12 IVPB Last administered on 11/29/18 22:24; Admin Dose 100 MLS/HR; Start 11/23/18 at 15:00 Epoetin Theodore (Epogen (Non Esrd/Non Oncology)) 8,000 units MoWeFr@17 SC Last administered on 11/29/18 16:56; Admin Dose 8,000 UNITS; Start 11/24/18 at 17:30 Citric Acid/ Sodium Citrate (Bicitra) 30 ml TID PO Last administered on 11/29/18 20:46; Admin Dose 30 ML; Start 11/25/18 at 13:00 Lorazepam (Ativan) 1 mg Q10MIN PRN GTB agitation; Start 11/26/18 at 12:00 Furosemide (Lasix) 20 mg BID DIURETICS IV Last administered on 11/30/18 05:19; Admin Dose 20 MG; Start 11/28/18 at 18:00 Albumin Human 100 ml @ 100 mls/hr BID IV Last administered on 11/29/18 20:47; Admin Dose 100 MLS/HR; Start 11/29/18 at 17:30; Stop 12/02/18 at 15:00 Acetaminophen (Tylenol Tab) 650 mg ONCE PO Last administered on 11/29/18 13:17; Admin Dose 650 MG; Start 11/29/18 at 11:30; Stop 11/30/18 at 11:29 Diphenhydramine HCl (Benadryl) 25 mg ONCE IV Last administered on 11/29/18 13:17; Admin Dose 25 MG; Start 11/29/18 at 11:30; Stop 11/30/18 at 11:29 Amiodarone HCl (Cordarone) 200 mg BID PO Last administered on 11/29/18 20:46; Admin Dose 200 MG; Start 11/29/18 at 21:00 Miscellaneous Information (Pending Santyl Order For Wound Care) This patient fermin... PRN PRN XX WOUND CARE; Start 11/30/18 at 01:30 Allergies: Coded Allergies: No Known Allergy (Unverified , 11/19/18) Social History Smoking Status: Unknown if ever smoked Exam/Review of Systems Exam Vitals Vital Signs Date Temp Pulse Resp B/P (MAP) Pulse Ox O2 O2 Flow FiO2 Time Delivery Rate 11/30/18 85 19 98 30 05:37 11/30/18 98.2 156/75 04:00 (102) 11/29/18 Mechanical 18:46 Ventilator Intake and Output 11/29/18 11/29/18 11/30/18 1515:00 23:00 07:00 IntakeIntake Total 1090 ml 900 ml 460 ml OutputOutput Total 900 ml 250 ml 2000 ml BalanceBalance 190 ml 650 ml -1540 ml Constitutional: distress Respiratory: congested cough, crackles/rales Cardiovascular: regular rate and rhythm, nl pulses; No bruits, No diastolic murmur, No edema, No gallop, No irregular rhythm, No jugular venous distention (JVD), No murmurs/extra sounds, No rub, No systolic murmur, No S3, No S4, No other Neurological: confused, lethargic Results Result Diagram: 11/29/1833611/29/18336 Medications Medication Current Medications Ondansetron HCl (Zofran Inj) 4 mg Q6H PRN IV NAUSEA AND/OR VOMITING; Start 11/19/18 at 20:30 Pantoprazole (Protonix Iv) 40 mg DAILY@06 IV Last administered on 11/30/18at 05:19; Admin Dose 40 MG; Start 11/20/18 at 06:00 Acetaminophen (Tylenol Tab) 650 mg Q6H PRN GTB MILD PAIN LEVEL 1-3 Last adminis tered on 11/22/18at 03:04; Admin Dose 650 MG; Start 11/20/18 at 06:00 Albuterol (Proventil 0.083% (Neb)) 2.5 mg Q6H RESP THERAPY PRN NEB WHEEZING AND SOB Last administered on 11/21/18at 19:40; Admin Dose 2.5 MG; Start 11/20/18 at 06:00 Folic Acid (Folic Acid) 1 mg DAILY GTB Last administered on 11/29/18 08:23; Admin Dose 1 MG; Start 11/20/18 at 09:00 Phenobarbital (Luminal) 65 mg BID IV Last administered on 11/29/18 22:19; Admin Dose 65 MG; Start 11/22/18 at 21:00 Levetiracetam 100 ml @ 400 mls/hr Q12 IVPB Last administered on 11/29/18 22:24; Admin Dose 400 MLS/HR; Start 11/22/18 at 21:00 Meropenem/Sodium Chloride 50 ml @ 100 mls/hr Q12 IVPB Last administered on 11/29/18 22:24; Admin Dose 100 MLS/HR; Start 11/23/18 at 15:00 Epoetin Theodore (Epogen (Non Esrd/Non Oncology)) 8,000 units MoWeFr@17 SC Last administered on 11/29/18 16:56; Admin Dose 8,000 UNITS; Start 11/24/18 at 17:30 Citric Acid/ Sodium Citrate (Bicitra) 30 ml TID PO Last administered on 11/29/18 20:46; Admin Dose 30 ML; Start 11/25/18 at 13:00 Lorazepam (Ativan) 1 mg Q10MIN PRN GTB agitation; Start 11/26/18 at 12:00 Furosemide (Lasix) 20 mg BID DIURETICS IV Last administered on 11/30/18 05:19; Admin Dose 20 MG; Start 11/28/18 at 18:00 Albumin Human 100 ml @ 100 mls/hr BID IV Last administered on 11/29/18 20:47; Admin Dose 100 MLS/HR; Start 11/29/18 at 17:30; Stop 12/02/18 at 15:00 Acetaminophen (Tylenol Tab) 650 mg ONCE PO Last administered on 11/29/18 13:17; Admin Dose 650 MG; Start 11/29/18 at 11:30; Stop 11/30/18 at 11:29 Diphenhydramine HCl (Benadryl) 25 mg ONCE IV Last administered on 11/29/18 13:17; Admin Dose 25 MG; Start 11/29/18 at 11:30; Stop 11/30/18 at 11:29 Amiodarone HCl (Cordarone) 200 mg BID PO Last administered on 11/29/18 20:46; Admin Dose 200 MG; Start 11/29/18 at 21:00 Miscellaneous Information (Pending Santyl Order For Wound Care) This patient fermin... PRN PRN XX WOUND CARE; Start 11/30/18 at 01:30 HERBERT ANN Nov 30, 2018 06:23
[2018-11-30] MEDS: FOLIC ACID 1 MG TAB GTB SCH (09:23)
[2018-11-30] MEDS: CITRIC ACID/NA CITRATE 30 ML CUP PO SCH ×3 (09:23→22:27)
[2018-11-30] MEDS: PHENOBARBITAL 65 MG INJ IV SCH (09:24)
[2018-11-30] MEDS: AMIODARONE 200 MG TAB PO SCH ×2 (09:24→22:27)
[2018-11-30] MEDS: MEROPENEM 500MG/50 ML (PMX) 50 ML IVPB SCH ×2 (09:41→22:26)
[2018-11-30] MEDS: ALBUMIN HUMAN 25% 100 ML IV SCH ×2 (09:42→22:29)
[2018-11-30] MEDS: LEVETIRACETAM 500 MG (PMX) 100 ML IVPB SCH (11:43)
--- NOTE | 2018-11-30 12:56 | CONS ---
Assessment/Plan Assessment/Plan Hospital Course (Demo Recall) No acute events overnight patient remains noncommunicative, no fevers overnight Antimicrobials: Meropenem Indwelling: Trach PEG right femoral triple-lumen catheter, Jaime Physical examination: Morbidly obese well-developed chronically ill-appearing elderly woman who is in no distress. Head atraumatic normocephalic neck is obese tracheostomy present chest rise symmetrical breath sounds diminished bases. Heart: S1-S2. Abdomen soft bowel sounds hypoactive. Extremities with bilateral edema Assessment: 1. S/p sepsis with shock secondary to acute cholangitis 2. Acute cholecystitis with choledocholithiasis==>Status post ERCP, sphincterotomy, bile duct stent placement 11/25/18 3. Acute renal failure 4. Chronic respiratory failure and dysphagia 5. Acute on chronic anemia 6. Paroxysmal atrial fibrillation Plan: Remains stable, continue abx for couple more days, surgical rec-s noted, patient is not a surgical candidate Consultation Date/Type/Reason Admit Date/Time Nov 19, 2018 at 19:01 Initial Consult Date 11/22/18 Type of Consult id Date/Time of Note DATE: 11/30/18 TIME: 12:54 Exam/Review of Systems Exam Vitals Vital Signs Date Temp Pulse Resp B/P (MAP) Pulse Ox O2 O2 Flow FiO2 Time Delivery Rate 11/30/18 83 12:28 11/30/18 98.1 18 139/68 97 11:50 (91) 11/30/18 30 08:32 11/29/18 Mechanical 18:46 Ventilator Intake and Output 11/29/18 11/29/18 11/30/18 1515:00 23:00 07:00 IntakeIntake Total 1090 ml 900 ml 460 ml OutputOutput Total 900 ml 250 ml 2000 ml BalanceBalance 190 ml 650 ml -1540 ml Results Result Diagram: 11/29/18 0337 11/29/18 0337 Medications Medication Current Medications Ondansetron HCl (Zofran Inj) 4 mg Q6H PRN IV NAUSEA AND/OR VOMITING; Start 11/19/18 at 20:30 Pantoprazole (Protonix Iv) 40 mg DAILY@06 IV Last administered on 11/30/18at 05:19; Admin Dose 40 MG; Start 11/20/18 at 06:00 Acetaminophen (Tylenol Tab) 650 mg Q6H PRN GTB MILD PAIN LEVEL 1-3 Last administered on 11/22/18 03:04; Admin Dose 650 MG; Start 11/20/18 at 06:00 Albuterol (Proventil 0.083% (Neb)) 2.5 mg Q6H RESP THERAPY PRN NEB WHEEZING AND SOB Last administered on 11/21/18 19:40; Admin Dose 2.5 MG; Start 11/20/18 at 06:00 Folic Acid (Folic Acid) 1 mg DAILY GTB Last administered on 11/30/18 09:23; Admin Dose 1 MG; Start 11/20/18 at 09:00 Phenobarbital (Luminal) 65 mg BID IV Last administered on 11/30/18 09:24; Admin Dose 65 MG; Start 11/22/18 at 21:00 Levetiracetam 100 ml @ 400 mls/hr Q12 IVPB Last administered on 11/30/18 11:43; Admin Dose 400 MLS/HR; Start 11/22/18 at 21:00 Meropenem/Sodium Chloride 50 ml @ 100 mls/hr Q12 IVPB Last administered on 11/30/18 09:41; Admin Dose 100 MLS/HR; Start 11/23/18 at 15:00 Epoetin Theodore (Epogen (Non Esrd/Non Oncology)) 8,000 units MoWeFr@17 SC Last administered on 11/29/18 16:56; Admin Dose 8,000 UNITS; Start 11/24/18 at 17:30 Citric Acid/ Sodium Citrate (Bicitra) 30 ml TID PO Last administered on 11/30/18 09:23; Admin Dose 30 ML; Start 11/25/18 at 13:00 Lorazepam (Ativan) 1 mg Q10MIN PRN GTB agitation; Start 11/26/18 at 12:00 Furosemide (Lasix) 20 mg BID DIURETICS IV Last administered on 11/30/18 05:19; Admin Dose 20 MG; Start 11/28/18 at 18:00 Albumin Human 100 ml @ 100 mls/hr BID IV Last administered on 11/30/18 09:42; Admin Dose 100 MLS/HR; Start 11/29/18 at 17:30; Stop 12/02/18 at 15:00 Amiodarone HCl (Cordarone) 200 mg BID PO Last administered on 3/5/19at 09:24; Admin Dose 200 MG; Start 11/29/18 at 21:00 Miscellaneous Information (Pending Santyl Order For Wound Care) This patient fermin... PRN PRN XX WOUND CARE; Start 11/30/18 at 01:30 KAREN LOMAS NP Nov 30, 2018 12:56
--- NOTE | 2018-11-30 14:59 | CONS ---
Assessment/Plan Assessment/Plan Hospital Course 68 F c/ reported Hx of malignant brain neoplasm NOS c/b epilepsy..and other comorbidities, who presents for management of hypotension and GI abnl. Neurology is consulted for epilepsy medication management. P: Transition AEDs back to via tube.. Continue Phb 65mg bid Continue Keppra 500mg bid for now, with plan to increase gradually as GFR improves.. Ativan iv prn prolonged seizure of cluster Other management per primary Will follow Consultation Date/Type/Reason Admit Date/Time Nov 19, 2018 at 19:01 Type of Consult Neurology Reason for Consultation epilepsy Requesting Provider: GUIDO SANTIAGO MD Date/Time of Note DATE: 11/30/18 TIME: 14:59 24 HR Interval Summary Free Text/Dictation Continue acute care Exam Vital Signs Vitals Vital Signs Date Temp Pulse Resp B/P (MAP) Pulse Ox O2 O2 Flow FiO2 Time Delivery Rate 11/30/18 30 12:30 11/30/18 83 12:28 11/30/18 98.1 18 139/68 97 11:50 (91) 11/29/18 Mechanical 18:46 Ventilator Intake and Output 11/29/18 11/29/18 11/30/18 1414:59 22:59 06:59 IntakeIntake Total 1065 ml 1030 ml 460 ml OutputOutput Total 1050 ml 300 ml 2000 ml BalanceBalance 15 ml 730 ml -1540 ml Exam PE: Gen Appearance: No Apparent Distress HEENT: trached Cardiovascular: Regular rate Abdomen: Soft; with PEG Extremities: Dry; edematous NE: The patient was awake, though she did not fix or follow.. Unable to follow commands. Cranial nerve examination was limited by mental status. Pupils were equal and reactive to light. There was no afferent pupillary defect. Funduscopic examination was limited. Face was grossly symmetric, w/ present corneal and cough reflexes. Tone was spastic in the UE. Muscle bulk was normal. I did not see fasciculations. The patient withdrew to noxious stimulation x 4. Coordination and gait testing was limited by mental status. Arm and leg reflexes were within normal limits and symmetric. Whitman's sign was absent. Plantar responses were flexor. HIPOLITO GLOVER NP Nov 30, 2018 14:59 RACHEL ESTEBAN Nov 30, 2018 16:10
--- NOTE | 2018-11-30 17:03 | CONS ---
Assessment/Plan Assessment/Plan Hospital Course (Demo Recall) Paroxysmal atrial fibrillation: No known prior diagnosis. Not a good candidate for chronic anticoagulation with recurrent anemia.Now back in sinus after amiodarone. Septic shock: now off pressors Anemia: no active bleeding. Hgb >8 after transfusion Acute on chronic diastolic CHF: due to third spacing from low albumin/IVF. Slowl y improving Choledocholithiasis with acute cholecystitis: s/p ERCP and biliary stenting. Acute renal failure VDRF/tracheostomy h/o brain tumor Seizure disorder Bedridden -Remains high risk for cholecystectomy but optimized from cardiac standpoint -continue lasix 20mg IV BID for gentle diuresis -amiodarone 200mg BID -antibiotics Consultation Date/Type/Reason Admit Date/Time Nov 19, 2018 at 19:01 Initial Consult Date 11/22/18 Type of Consult Cardiology Requesting Provider: GUIDO SANTIAGO MD Date/Time of Note DATE: 11/30/18 TIME: 17:01 24 HR Interval Summary Free Text/Dictation Seen by palliative for parts counterman goals/bioethics. Exam/Review of Systems Exam Vitals Vital Signs Date Temp Pulse Resp B/P (MAP) Pulse Ox O2 O2 Flow FiO2 Time Delivery Rate 11/30/18 73 16:28 11/30/18 30 16:19 11/30/18 98.9 19 120/54 97 15:55 (76) 11/29/18 Mechanical 18:46 Ventilator Intake and Output 11/29/18 11/29/18 11/30/18 1515:00 23:00 07:00 IntakeIntake Total 1090 ml 900 ml 460 ml OutputOutput Total 900 ml 250 ml 2000 ml BalanceBalance 190 ml 650 ml -1540 ml Constitutional: No alert, No oriented ENMT: other (s/p trach) Neck: No jvd (unable to assess) Respiratory: diminished breath sounds; No clear to auscultation Cardiovascular: regular rate and rhythm, edema (2+) Gastrointestinal: soft, non-tender; No distended Neurological: No nl mental status, No nl speech Results Result Diagram: 11/29/18 0337 11/29/18336 Medications Medication Current Medications Ondansetron HCl (Zofran Inj) 4 mg Q6H PRN IV NAUSEA AND/OR VOMITING; Start 11/19/18 at 20:30 Pantoprazole (Protonix Iv) 40 mg DAILY@06 IV Last administered on 11/30/18 05:19; Admin Dose 40 MG; Start 11/20/18 at 06:00 Acetaminophen (Tylenol Tab) 650 mg Q6H PRN GTB MILD PAIN LEVEL 1-3 Last administered on 11/22/18 03:04; Admin Dose 650 MG; Start 11/20/18 at 06:00 Albuterol (Proventil 0.083% (Neb)) 2.5 mg Q6H RESP THERAPY PRN NEB WHEEZING AND SOB Last administered on 11/21/18 19:40; Admin Dose 2.5 MG; Start 11/20/18 at 06:00 Folic Acid (Folic Acid) 1 mg DAILY GTB Last administered on 11/30/18 09:23; Admin Dose 1 MG; Start 11/20/18 at 09:00 Meropenem/Sodium Chloride 50 ml @ 100 mls/hr Q12 IVPB Last administered on 11/30/18 09:41; Admin Dose 100 MLS/HR; Start 11/23/18 at 15:00 Epoetin Theodore (Epogen (Non Esrd/Non Oncology)) 8,000 units MoWeFr@17 SC Last administered on 11/29/18 16:56; Admin Dose 8,000 UNITS; Start 11/24/18 at 17:30 Citric Acid/ Sodium Citrate (Bicitra) 30 ml TID PO Last administered on 11/30/18 13:10; Admin Dose 30 ML; Start 11/25/18 at 13:00 Lorazepam (Ativan) 1 mg Q10MIN PRN GTB agitation; Start 11/26/18 at 12:00 Furosemide (Lasix) 20 mg BID DIURETICS IV Last administered on 11/30/18 05:19; Admin Dose 20 MG; Start 11/28/18 at 18:00 Albumin Human 100 ml @ 100 mls/hr BID IV Last administered on 11/30/18 09:42; Admin Dose 100 MLS/HR; Start 11/29/18 at 17:30; Stop 12/02/18 at 15:00 Amiodarone HCl (Cordarone) 200 mg BID PO Last administered on 11/30/18 09:24; Admin Dose 200 MG; Start 11/29/18 at 21:00 Miscellaneous Information (Pending Santyl Order For Wound Care) This patient fermin... PRN PRN XX WOUND CARE; Start 11/30/18 at 01:30 Levetiracetam (Keppra Liquid) 500 mg BID GTB ; Start 11/30/18 at 21:00 Phenobarbital (Luminal) 65 mg Q12 PO ; Start 11/30/18 at 21:00 FRANSISCO SALCIDO Nov 30, 2018 17:02
--- NOTE | 2018-11-30 17:20 | PN ---
Date/Time of Note Date/Time of Note DATE: 11/30/18 TIME: 17:14 Assessment/Plan VTE Prophylaxis Risk score (from Ns)>0 risk: 5 SCD applied (from Ns): Yes Pharmacological prophylaxis: LMWH Lines/Catheters IV Catheter Type (from Nrs): PICC Line Central line still needed: Yes Urinary Cath still in place: Yes Reason Cath still needed: pres ulcer contaminated by urine Assessment/Plan Assessment/Plan 1. Septic shock secondary to acute cholecystitis/choledocholithiasis- resolving - BP remains stable - remains afebrile and with nl WBC 2. Elevated LFTs - resolving - CT abd results noted with choledocholithiasis s/p ERCP 3. Acute choledocholithiasis - s/p ERCP with improvement in LFTs 4. Acute cholecystitis - HIDA consistent with cholecystitis - Discussion held with General surgery who does not recommend cholecystectomy given high risk. Given patients poor quality of life due to underlying chronic medical problems, patient should not be receiving aggressive care and considers all treatment futile care. 5. Hypernatremia- resolved - management per nephro 6. JUSTO - Nephrology consultation appreciated and will avoid nephrotoxic agents - most likely prerenal vs ATN 7. h/o Malignant neoplasm of brain - Patient is chronically bedridden and debilitated. 8. Seizure disorder - Continue Keppra and phenobarbital - neurology consulted and appreciate recommendations 9. HTN - hold home meds 10. Iron deficiency anemia - no need for transfusion at this time - on EPO given JUSTO 11. Chronic respiratory failure - trach dependent - continue trach care - Pulmonology on board and appreciate recommendations 12. Disposition - bioethic consultation tomorrow for goals of care and change in code status Result Diagram: 11/29/18 0337 11/29/18 0337 Subjective 24 Hr Interval Summary Free Text/Dictation Patient remains stable and opens eyes to voice and touch. Plans for bioethic consult. Exam/Review of Systems Exam Vitals Vital Signs Date Temp Pulse Resp B/P (MAP) Pulse Ox O2 O2 Flow FiO2 Time Delivery Rate 11/30/18 73 16:28 11/30/18 30 16:19 11/30/18 98.9 19 120/54 97 15:55 (76) 11/29/18 Mechanical 18:46 Ventilator Intake and Output 11/29/18 11/29/18 11/30/18 1414:59 22:59 06:59 IntakeIntake Total 1065 ml 1030 ml 460 ml OutputOutput Total 1050 ml 300 ml 2000 ml BalanceBalance 15 ml 730 ml -1540 ml Exam General: Patient is laying in bed, opens eyes to touch. not following commands Neck: Supple Respiratory: Coarse to auscultation bilaterally. no wheezing Cardiovascular: regular rate and rhythm, no obvious murmurs Gastrointestinal: soft, nondistended, no rebound or guarding, bowel sounds heard. Neurological: Unable to fully assess due to neurological status Skin: No new skin lesions Medications Medication Current Medications Ondansetron HCl (Zofran Inj) 4 mg Q6H PRN IV NAUSEA AND/OR VOMITING; Start 11/19/18 at 20:30 Pantoprazole (Protonix Iv) 40 mg DAILY@06 IV Last administered on 11/30/18 05:19; Admin Dose 40 MG; Start 11/20/18 at 06:00 Acetaminophen (Tylenol Tab) 650 mg Q6H PRN GTB MILD PAIN LEVEL 1-3 Last administered on 11/22/18 03:04; Admin Dose 650 MG; Start 11/20/18 at 06:00 Albuterol (Proventil 0.083% (Neb)) 2.5 mg Q6H RESP THERAPY PRN NEB WHEEZING AND SOB Last administered on 11/21/18 19:40; Admin Dose 2.5 MG; Start 11/20/18 at 06:00 Folic Acid (Folic Acid) 1 mg DAILY GTB Last administered on 11/30/18 09:23; Admin Dose 1 MG; Start 11/20/18 at 09:00 Meropenem/Sodium Chloride 50 ml @ 100 mls/hr Q12 IVPB Last administered on 11/30/18 09:41; Admin Dose 100 MLS/HR; Start 11/23/18 at 15:00 Epoetin Theodore (Epogen (Non Esrd/Non Oncology)) 8,000 units MoWeFr@17 SC Last administered on 11/29/18 16:56; Admin Dose 8,000 UNITS; Start 11/24/18 at 17:30 Citric Acid/ Sodium Citrate (Bicitra) 30 ml TID PO Last administered on 9at 13:10; Admin Dose 30 ML; Start 11/25/18 at 13:00 Lorazepam (Ativan) 1 mg Q10MIN PRN GTB agitation; Start 11/26/18 at 12:00 Furosemide (Lasix) 20 mg BID DIURETICS IV Last administered on 11/30/18at 05:19; Admin Dose 20 MG; Start 11/28/18 at 18:00 Albumin Human 100 ml @ 100 mls/hr BID IV Last administered on 11/30/18at 09:42; Admin Dose 100 MLS/HR; Start 11/29/18 at 17:30; Stop 12/02/18 at 15:00 Amiodarone HCl (Cordarone) 200 mg BID PO Last administered on 11/30/18at 09:24; Admin Dose 200 MG; Start 11/29/18 at 21:00 Miscellaneous Information (Pending [facility] Order For Wound Care) This patient fermin... PRN PRN XX WOUND CARE; Start 11/30/18 at 01:30 Levetiracetam (Keppra Liquid) 500 mg BID GTB ; Start 11/30/18 at 21:00 Phenobarbital (Luminal) 65 mg Q12 PO ; Start 11/30/18 at 21:00 KENNETH SANTILLAN MD Nov 30, 2018 17:20
--- NOTE | 2018-11-30 18:32 | CONS ---
Assessment/Plan Assessment/Plan Assessment/Plan (Daily) 1) Chronic resp failure S/p Trach 2) Sepsis 2nd PNA 3) Hypernatremia- Resolved 4) oliguria improved, Cr stable 5) Rapid Afib, currently on treatment 6) Hypotension Septic Shock, requiring IV pressors 7) AG acidosis in the setting of JUSTO- Compensated 8) Hyperkalemia Plan: BUN/Cr 25/1.85 K 3.8 yesterday - IVF to D5W at 75 cc/hr - NO acute indication for HD at this time time- no labs today to review yet s/p IV zyvox, now on IV abx meropenem Renally dose all abx and monitor electrolytes Epogen 8000 units SQ MWFfor anemia, s/p 2 units PRBC given on 11/29/18-no Hb today Albumin 25% 100ml IV BID x 3 days - time it with lasix 20mg iV BID will follow up Consultation Date/Type/Reason Admit Date/Time Nov 19, 2018 at 19:01 Initial Consult Date 11/22/18 Type of Consult NEPHROLOGY Requesting Provider: GUIDO SANTIAGO MD Date/Time of Note DATE: 11/30/18 TIME: 18:32 Exam/Review of Systems Exam Vitals Vital Signs Date Temp Pulse Resp B/P (MAP) Pulse Ox O2 O2 Flow FiO2 Time Delivery Rate 11/30/18 78 18 96 30 17:02 11/30/18 98.9 120/54 15:55 (76) 11/29/18 Mechanical 18:46 Ventilator Intake and Output 11/29/18 11/29/18 11/30/18 1515:00 23:00 07:00 IntakeIntake Total 1090 ml 900 ml 460 ml OutputOutput Total 900 ml 250 ml 2000 ml BalanceBalance 190 ml 650 ml -1540 ml Results Result Diagram: 11/29/18 0337 11/29/18 0337 Medications Medication Current Medications Ondansetron HCl (Zofran Inj) 4 mg Q6H PRN IV NAUSEA AND/OR VOMITING; Start 11/19/18 at 20:30 Acetaminophen (Tylenol Tab) 650 mg Q6H PRN GTB MILD PAIN LEVEL 1-3 Last administered on 11/22/18at 03:04; Admin Dose 650 MG; Start 11/20/18 at 06:00 Albuterol (Proventil 0.083% (Neb)) 2.5 mg Q6H RESP THERAPY PRN NEB WHEEZING AND SOB Last administered on 11/21/18 19:40; Admin Dose 2.5 MG; Start 11/20/18 at 06:00 Folic Acid (Folic Acid) 1 mg DAILY GTB Last administered on 11/30/18 09:23; Admin Dose 1 MG; Start 11/20/18 at 09:00 Meropenem/Sodium Chloride 50 ml @ 100 mls/hr Q12 IVPB Last administered on 11/30/18 09:41; Admin Dose 100 MLS/HR; Start 11/23/18 at 15:00 Epoetin Theodore (Epogen (Non Esrd/Non Oncology)) 8,000 units MoWeFr@17 SC Last administered on 11/29/18 16:56; Admin Dose 8,000 UNITS; Start 11/24/18 at 17:30 Citric Acid/ Sodium Citrate (Bicitra) 30 ml TID PO Last administered on 11/30/18 13:10; Admin Dose 30 ML; Start 11/25/18 at 13:00 Lorazepam (Ativan) 1 mg Q10MIN PRN GTB agitation; Start 11/26/18 at 12:00 Furosemide (Lasix) 20 mg BID DIURETICS IV Last administered on 11/30/18 17:24; Admin Dose 20 MG; Start 11/28/18 at 18:00 Albumin Human 100 ml @ 100 mls/hr BID IV Last administered on 11/30/18 09:42; Admin Dose 100 MLS/HR; Start 11/29/18 at 17:30; Stop 12/02/18 at 15:00 Amiodarone HCl (Cordarone) 200 mg BID PO Last administered on 11/30/18 09:24; Admin Dose 200 MG; Start 11/29/18 at 21:00 [facility]isc[facility] This patient fermin... PRN PRN XX WOUND CARE; Start 11/30/18 at 01:30 Levetiracetam (Keppra Liquid) 500 mg BID GTB ; Start 11/30/18 at 21:00 Phenobarbital (Luminal) 65 mg Q12 PO ; Start 11/30/18 at 21:00 Pantoprazole (Protonix Tab) 40 mg DAILY@06 PO ; Start 12/01/18 at 06:00 DEANNA CARRERA MD Nov 30, 2018 18:32
[2018-11-30] MEDS: LEVETIRACETAM (100 MG/ML) 5ML CUP GTB SCH (22:27)
[2018-11-30] MEDS: PHENOBARBITAL (4 MG/ML) 5ML CUP PO SCH (22:30)
[2018-12-01] VITALS (23 sets, daily range): BP systolic 122–155; BP diastolic 56–77; PULSE 63–86; RESP 16–22
[2018-12-01] MEDS: FUROSEMIDE 20 MG INJ IV SCH ×2 (05:39→17:29)
[2018-12-01] MEDS: PANTOPRAZOLE (EC) 40 MG TAB PO SCH (05:39)
--- NOTE | 2018-12-01 08:42 | CONS ---
Assessment/Plan Assessment/Plan Assessment/Plan (Daily) 1) Chronic resp failure S/p Trach 2) Sepsis 2nd PNA 3) Hypernatremia- Resolved 4) oliguria improved, Cr stable 5) Rapid Afib, currently on treatment 6) Hypotension Septic Shock, requiring IV pressors 7) AG acidosis in the setting of JUSTO- Compensated 8) Hyperkalemia Plan: BUN/Cr 28/1.6 K 3.3, Na 145 continue IVF to D5W at 75 cc/hr - NO acute indication for HD at this time time s/p IV zyvox, now on IV abx meropenem Renally dose all abx and monitor electrolytes Epogen 8000 units SQ MWFfor anemia, s/p 2 units PRBC given on 11/29/18- Hb 9.7 today Albumin 25% 100ml IV BID x 3 days(Finishing tomorrow) - time it with lasix 20mg iV BID will follow up Consultation Date/Type/Reason Admit Date/Time Nov 19, 2018 at 19:01 Initial Consult Date 11/22/18 Type of Consult NEPHROLOGY Requesting Provider: GUIDO SANTIAGO MD Date/Time of Note DATE: 12/01/18 TIME: 08:42 Exam/Review of Systems Exam Vitals Vital Signs Date Temp Pulse Resp B/P (MAP) Pulse Ox O2 O2 Flow FiO2 Time Delivery Rate 12/01/18 64 08:39 12/01/18 98.9 18 137/72 100 Mechanical 08:17 (93) Ventilator 12/01/18 30 07:29 Intake and Output 11/30/18 11/30/18 12/01/18 1515:00 23:00 07:00 IntakeIntake Total 150 ml 410 ml 560 ml OutputOutput Total 1200 ml 1000 ml BalanceBalance 150 ml -790 ml -440 ml Exam Exam Eyes: EOMI ENMT: mucosa pink and moist, other (Trach) Respiratory: crackles/rales, other (Vent); No diminished breath sounds Cardiovascular: edema, irregular rhythm Gastrointestinal: soft, other (PEG);No non-tender, No rebound or guarding Extremities: 2-3+ edema Neurological: unresponsive Results Result Diagram: 12/01/18 0808 11/29/18 0337 Results 24hrs Laboratory Tests Test 12/01/18 07:26 12/01/18 08:08 Lab Scanned Report BLOOD TRANSFUSION White Blood Count 7.0 Red Blood Count 3.02 #L Hemoglobin 9.7 #L Hematocrit 30.2 #L Mean Corpuscular Volume 100.0 Mean Corpuscular Hemoglobin 32.1 Mean Corpuscular Hemoglobin Concent 32.1 Red Cell Distribution Width 18.1 H Platelet Count 427 H Mean Platelet Volume 9.6 Immature Granulocytes % 0.400 Neutrophils % 65.4 Lymphocytes % 18.9 Monocytes % 8.2 Eosinophils % 6.7 Basophils % 0.4 Nucleated Red Blood Cells % 0.0 Immature Granulocytes # 0.030 Neutrophils # 4.6 Lymphocytes # 1.3 Monocytes # 0.6 Eosinophils # 0.5 Basophils # 0.0 Nucleated Red Blood Cells # 0.0 Medications Medication Current Medications Ondansetron HCl (Zofran Inj) 4 mg Q6H PRN IV NAUSEA AND/OR VOMITING; Start 11/19/18 at 20:30 Acetaminophen (Tylenol Tab) 650 mg Q6H PRN GTB MILD PAIN LEVEL 1-3 Last administered on 11/22/18 03:04; Admin Dose 650 MG; Start 11/20/18 at 06:00 Albuterol (Proventil 0.083% (Neb)) 2.5 mg Q6H RESP THERAPY PRN NEB WHEEZING AND SOB Last administered on 11/21/18 19:40; Admin Dose 2.5 MG; Start 11/20/18 at 06:00 Folic Acid (Folic Acid) 1 mg DAILY GTB Last administered on 11/30/18 09:23; Admin Dose 1 MG; Start 11/20/18 at 09:00 Meropenem/Sodium Chloride 50 ml @ 100 mls/hr Q12 IVPB Last administered on 11/30/18 22:26; Admin Dose 100 MLS/HR; Start 11/23/18 at 15:00 Epoetin Theodore (Epogen (Non Esrd/Non Oncology)) 8,000 units MoWeFr@17 SC Last administered on 11/29/18 16:56; Admin Dose 8,000 UNITS; Start 11/24/18 at 17:30 Citric Acid/ Sodium Citrate (Bicitra) 30 ml TID PO Last administered on 11/30/18 22:27; Admin Dose 30 ML; Start 11/25/18 at 13:00 Lorazepam (Ativan) 1 mg Q10MIN PRN GTB agitation; Start 11/26/18 at 12:00 Furosemide (Lasix) 20 mg BID DIURETICS IV Last administered on 12/01/18 05:39; Admin Dose 20 MG; Start 11/28/18 at 18:00 Albumin Human 100 ml @ 100 mls/hr BID IV Last administered on 11/30/18 22:29; Admin Dose 100 MLS/HR; Start 11/29/18 at 17:30; Stop 12/02/18 at 15:00 Amiodarone HCl (Cordarone) 200 mg BID PO Last administered on 11/30/18 22:27; Admin Dose 200 MG; Start 11/29/18 at 21:00 Miscellaneous Information (Pending [facility] Order For Wound Care) This patient fermin... PRN PRN XX WOUND CARE; Start 11/30/18 at 01:30 Levetiracetam (Keppra Liquid) 500 mg BID GTB Last administered on 11/30/18 22:27; Admin Dose 500 MG; Start 11/30/18 at 21:00 Phenobarbital (Luminal) 65 mg Q12 PO Last administered on 11/30/18 22:30; Admin Dose 65 MG; Start 11/30/18 at 21:00 Pantoprazole (Protonix Tab) 40 mg DAILY@06 PO Last administered on 12/01/18 05:39; Admin Dose 40 MG; Start 12/01/18 at 06:00 DEANNA CARRERA MD Dec 01, 2018 08:42
[2018-12-01] MEDS: FOLIC ACID 1 MG TAB GTB SCH (09:30)
[2018-12-01] MEDS: CITRIC ACID/NA CITRATE 30 ML CUP PO SCH ×3 (09:30→22:58)
[2018-12-01] MEDS: LEVETIRACETAM (100 MG/ML) 5ML CUP GTB SCH ×2 (09:30→22:58)
[2018-12-01] MEDS: AMIODARONE 200 MG TAB PO SCH ×2 (09:31→22:59)
[2018-12-01] MEDS: PHENOBARBITAL (4 MG/ML) 5ML CUP PO SCH ×2 (09:31→22:59)
[2018-12-01] MEDS: MEROPENEM 500MG/50 ML (PMX) 50 ML IVPB SCH ×2 (09:31→22:57)
[2018-12-01] MEDS: ALBUMIN HUMAN 25% 100 ML IV SCH ×2 (11:07→23:00)
--- NOTE | 2018-12-01 11:50 | CONS ---
Consult Date/Type/Reason Admit Date/Time Nov 19, 2018 at 19:01 Initial Consult Date Type of Consult Pulmonary Requesting Provider: GUIDO SANTIAGO MD Date/Time of Note DATE: 12/01/18 TIME: 11:49 Subjective Remained stable this morning no respiratory distress Objective Vital Signs Date Temp Pulse Resp B/P (MAP) Pulse Ox O2 O2 Flow FiO2 Time Delivery Rate 12/01/18 77 18 96 30 09:17 12/01/18 98.9 137/72 Mechanical 08:17 (93) Ventilator Intake and Output 11/30/18 11/30/18 12/01/18 1515:00 23:00 07:00 IntakeIntake Total 150 ml 410 ml 560 ml OutputOutput Total 1200 ml 1000 ml BalanceBalance 150 ml -790 ml -440 ml Exam PHYSICAL EXAMINATION: GENERAL: Elderly-appearing lady, appears on mechanical ventilation. VITAL SIGNS: HEENT: Extraocular movements intact. CARDIAC: S1, S2, no added sounds or murmurs. CHEST: Diminished air entry bilaterally. ABDOMEN: Soft, nontender. No guarding or rebound. EXTREMITIES: No cyanosis, clubbing. NEUROLOGIC: Unable to assess. Vent Setting Ventilator Support Mode: AC Fraction of Inspired Oxygen pe: 30 Positive End Expiratory Pressu: 5.0 Results/Medications Result Diagram: 12/01/18 0808 12/01/18 0808 Results 24 hrs Laboratory Tests Test 12/01/18 07:26 12/01/18 08:08 Lab Scanned Report BLOOD TRANSFUSION White Blood Count 7.0 Red Blood Count 3.02 #L Hemoglobin 9.7 #L Hematocrit 30.2 #L Mean Corpuscular Volume 100.0 Mean Corpuscular Hemoglobin 32.1 Mean Corpuscular Hemoglobin Concent 32.1 Red Cell Distribution Width 18.1 H Platelet Count 427 H Mean Platelet Volume 9.6 Immature Granulocytes % 0.400 Neutrophils % 65.4 Lymphocytes % 18.9 Monocytes % 8.2 Eosinophils % 6.7 Basophils % 0.4 Nucleated Red Blood Cells % 0.0 Immature Granulocytes # 0.030 Neutrophils # 4.6 Lymphocytes # 1.3 Monocytes # 0.6 Eosinophils # 0.5 Basophils # 0.0 Nucleated Red Blood Cells # 0.0 Sodium Level 145 H Potassium Level 3.3 L Chloride Level 108 Carbon Dioxide Level 27 Anion Gap 10 Blood Urea Nitrogen 28 H Creatinine 1.60 H Est Glomerular Filtrat Rate mL/min 32 L Glucose Level 99 Calcium Level 8.5 Magnesium Level 1.6 L Total Bilirubin 0.2 Direct Bilirubin 0.00 Indirect Bilirubin 0.2 Aspartate Amino Transf (AST/SGOT) 20 Alanine Aminotransferase (ALT/SGPT) 21 Alkaline Phosphatase 121 Total Protein 6.0 L Albumin 3.2 L Globulin 2.80 Albumin/Globulin Ratio 1.14 Medications Current Medications Ondansetron HCl (Zofran Inj) 4 mg Q6H PRN IV NAUSEA AND/OR VOMITING; Start 11/19/18 at 20:30 Acetaminophen (Tylenol Tab) 650 mg Q6H PRN GTB MILD PAIN LEVEL 1-3 Last administered on 11/22/18 03:04; Admin Dose 650 MG; Start 11/20/18 at 06:00 Albuterol (Proventil 0.083% (Neb)) 2.5 mg Q6H RESP THERAPY PRN NEB WHEEZING AND SOB Last administered on 11/21/18 19:40; Admin Dose 2.5 MG; Start 11/20/18 at 06:00 Folic Acid (Folic Acid) 1 mg DAILY GTB Last administered on 12/01/18 09:30; Admin Dose 1 MG; Start 11/20/18 at 09:00 Meropenem/Sodium Chloride 50 ml @ 100 mls/hr Q12 IVPB Last administered on 12/01/18 09:31; Admin Dose 100 MLS/HR; Start 11/23/18 at 15:00 Epoetin Theodore (Epogen (Non Esrd/Non Oncology)) 8,000 units MoWeFr@17 SC Last administered on 11/29/18 16:56; Admin Dose 8,000 UNITS; Start 11/24/18 at 17:30 Citric Acid/ Sodium Citrate (Bicitra) 30 ml TID PO Last administered on 12/01/18 09:30; Admin Dose 30 ML; Start 11/25/18 at 13:00 Lorazepam (Ativan) 1 mg Q10MIN PRN GTB agitation; Start 11/26/18 at 12:00 Furosemide (Lasix) 20 mg BID DIURETICS IV Last administered on 12/01/18 05:39; Admin Dose 20 MG; Start 11/28/18 at 18:00 Albumin Human 100 ml @ 100 mls/hr BID IV Last administered on 3/6/19at 11:07; Admin Dose 100 MLS/HR; Start 11/29/18 at 17:30; Stop 12/02/18 at 15:00 Amiodarone HCl (Cordarone) 200 mg BID PO Last administered on 12/01/18 09:31; Admin Dose 200 MG; Start 11/29/18 at 21:00 Miscellaneous Information (Pending [facility] Order For Wound Care) This patient fermin... PRN PRN XX WOUND CARE; Start 11/30/18 at 01:30 Levetiracetam (Keppra Liquid) 500 mg BID GTB Last administered on 12/01/18 09:30; Admin Dose 500 MG; Start 11/30/18 at 21:00 Phenobarbital (Luminal) 65 mg Q12 PO Last administered on 12/01/18 09:31; Admin Dose 65 MG; Start 11/30/18 at 21:00 Pantoprazole (Protonix Tab) 40 mg DAILY@06 PO Last administered on 12/01/18at 05:39; Admin Dose 40 MG; Start 12/01/18 at 06:00 Assessment/Plan Hospital Course (Demo Recall) IMPRESSION: 1. Status post septic shock secondary to acute cholecystitis, now off vasopressors 2. Chronic respiratory failure. Placed back on mechanical ventilation for hypercapnia. 3. GI bleed status post ERCP and stent placement 4. Dysphagia with G-tube. 5. Renal insufficiency with metabolic acidosis possible ATN injury. Persistent metabolic acidosis. PLAN: 1. Broad-spectrum antibiotics. ID recommendations 2. Gastrointestinal evaluation. Procedures as above. 3. Feeding per GI 4. Deep venous thrombosis and GI prophylaxis. 5. Continue AC mechanical ventilation Bioethics meeting today to discuss CODE STATUS Stable for transfer to [facility] Head[facility] Dec 01, 2018 11:50
[2018-12-01] MEDS ORDERED: POTASSIUM CHLORIDE 20 MEQ POWDER FOR ORAL SOLN JT ONE (12:30)
--- NOTE | 2018-12-01 13:22 | CONS ---
Assessment/Plan Assessment/Plan Hospital Course (Demo Recall) No acute events overnight patient remains noncommunicative, no fevers overnight Antimicrobials: Meropenem Indwelling: Trach PEG right femoral triple-lumen catheter, Jaime Physical examination: Morbidly obese well-developed chronically ill-appearing elderly woman who is in no distress. Head atraumatic normocephalic neck is obese tracheostomy present chest rise symmetrical breath sounds diminished bases. Heart: S1-S2. Abdomen soft bowel sounds hypoactive. Extremities with bilateral edema Assessment: 1. S/p sepsis with shock secondary to acute cholangitis 2. Acute cholecystitis with choledocholithiasis==>Status post ERCP, sphincterotomy, bile duct stent placement 11/25/18 3. Acute renal failure 4. Chronic respiratory failure and dysphagia 5. Acute on chronic anemia 6. Paroxysmal atrial fibrillation Plan: Remains stable, completing antibiotics Consultation Date/Type/Reason Admit Date/Time Nov 19, 2018 at 19:01 Initial Consult Date 11/22/18 Type of Consult id Requesting Provider: GUIDO SANTIAGO MD Date/Time of Note DATE: 12/01/18 TIME: 13:22 Exam/Review of Systems Exam Vitals Vital Signs Date Temp Pulse Resp B/P (MAP) Pulse Ox O2 O2 Flow FiO2 Time Delivery Rate 12/01/18 76 18 97 30 13:04 12/01/18 98.8 147/77 Mechanical 12:04 (100) Ventilator Intake and Output 11/30/18 11/30/18 12/01/18 1414:59 22:59 06:59 IntakeIntake Total 150 ml 410 ml 560 ml OutputOutput Total 1200 ml 1000 ml BalanceBalance 150 ml -790 ml -440 ml Results Result Diagram: 12/01/18 0808 12/01/18 0808 Results 24hrs Laboratory Tests Test 12/01/18 07:26 12/01/18 08:08 Lab Scanned Report BLOOD TRANSFUSION White Blood Count 7.0 Red Blood Count 3.02 #L Hemoglobin 9.7 #L Hematocrit 30.2 #L Mean Corpuscular Volume 100.0 Mean Corpuscular Hemoglobin 32.1 Mean Corpuscular Hemoglobin Concent 32.1 Red Cell Distribution Width 18.1 H Platelet Count 427 H Mean Platelet Volume 9.6 Immature Granulocytes % 0.400 Neutrophils % 65.4 Lymphocytes % 18.9 Monocytes % 8.2 Eosinophils % 6.7 Basophils % 0.4 Nucleated Red Blood Cells % 0.0 Immature Granulocytes # 0.030 Neutrophils # 4.6 Lymphocytes # 1.3 Monocytes # 0.6 Eosinophils # 0.5 Basophils # 0.0 Nucleated Red Blood Cells # 0.0 Sodium Level 145 H Potassium Level 3.3 L Chloride Level 108 Carbon Dioxide Level 27 Anion Gap 10 Blood Urea Nitrogen 28 H Creatinine 1.60 H Est Glomerular Filtrat Rate mL/min 32 L Glucose Level 99 Calcium Level 8.5 Magnesium Level 1.6 L Total Bilirubin 0.2 Direct Bilirubin 0.00 Indirect Bilirubin 0.2 Aspartate Amino Transf (AST/SGOT) 20 Alanine Aminotransferase (ALT/SGPT) 21 Alkaline Phosphatase 121 Total Protein 6.0 L Albumin 3.2 L Globulin 2.80 Albumin/Globulin Ratio 1.14 Medications Medication Current Medications Ondansetron HCl (Zofran Inj) 4 mg Q6H PRN IV NAUSEA AND/OR VOMITING; Start 11/19/18 at 20:30 Acetaminophen (Tylenol Tab) 650 mg Q6H PRN GTB MILD PAIN LEVEL 1-3 Last administered on 11/22/18 03:04; Admin Dose 650 MG; Start 11/20/18 at 06:00 Albuterol (Proventil 0.083% (Neb)) 2.5 mg Q6H RESP THERAPY PRN NEB WHEEZING AND SOB Last administered on 11/21/18 19:40; Admin Dose 2.5 MG; Start 11/20/18 at 06:00 Folic Acid (Folic Acid) 1 mg DAILY GTB Last administered on 12/01/18 09:30; Admin Dose 1 MG; Start 11/20/18 at 09:00 Meropenem/Sodium Chloride 50 ml @ 100 mls/hr Q12 IVPB Last administered on 12/01/18 09:31; Admin Dose 100 MLS/HR; Start 11/23/18 at 15:00 Epoetin Theodore (Epogen (Non Esrd/Non Oncology)) 8,000 units MoWeFr@17 SC Last a dministered on 11/29/18 16:56; Admin Dose 8,000 UNITS; Start 11/24/18 at 17:30 Citric Acid/ Sodium Citrate (Bicitra) 30 ml TID PO Last administered on 12/01/18 09:30; Admin Dose 30 ML; Start 11/25/18 at 13:00 Lorazepam (Ativan) 1 mg Q10MIN PRN GTB agitation; Start 11/26/18 at 12:00 Furosemide (Lasix) 20 mg BID DIURETICS IV Last administered on 12/01/18 05:39; Admin Dose 20 MG; Start 11/28/18 at 18:00 Albumin Human 100 ml @ 100 mls/hr BID IV Last administered on 12/01/18 11:07; Admin Dose 100 MLS/HR; Start 11/29/18 at 17:30; Stop 12/02/18 at 15:00 Amiodarone HCl (Cordarone) 200 mg BID PO Last administered on 12/01/18 09:31; Admin Dose 200 MG; Start 11/29/18 at 21:00 Miscellaneous Information (Pending [facility] Order For Wound Care) This patient fermin... PRN PRN XX WOUND CARE; Start 11/30/18 at 01:30 Levetiracetam (Keppra Liquid) 500 mg BID GTB Last administered on 12/01/18 09:30; Admin Dose 500 MG; Start 11/30/18 at 21:00 Phenobarbital (Luminal) 65 mg Q12 PO Last administered on 12/01/18 09:31; Admin Dose 65 MG; Start 11/30/18 at 21:00 Pantoprazole (Protonix Tab) 40 mg DAILY@06 PO Last administered on 12/01/18 05:39; Admin Dose 40 MG; Start 12/01/18 at 06:00 KAREN LMOAS NP Dec 01, 2018 13:22
--- NOTE | 2018-12-01 13:56 | QN ---
Documentation Comment Biomedical ethics committee The biomedical ethics committee met to discuss the case of Ms. Jonas. Information was presented by older adult social work specialist, the hospitalist team specifically Dr. Nishi Blue, and there was input from our colleagues at the [facility]. Ms. Jonas has a history of a chronic seizure disorder which had made her [facility] client. 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 She was admitted to our facility with gallstone pancreatitis, pre-existing chronic resp iratory failure with a tracheostomy, feeding tube, and acute sepsis. Fortunately she was able to be treated successfully medically and has improved nicely although she is still on a ventilator at this time. It is the consensus of the treating physician/team that are working with her that taking her to surgery for cholecystectomy at this time would not be in her benefit as the lobito efits are far below with the risks of the procedure. In addition given the totality of the situation if she were to recur we can try and treat her medically but she will not be in a better surgical candidate position. As such as recommendation of the medical team which the biomedical ethics committee agrees with to transition the patient over to a formal DNR DO NOT INTUBATE statu s. Does not me we would not try and treat her with medications would this does not mean we would stop tube feedings were moved toward comfort or hospice care at this time. It does however alter the aggressiveness of how it approach her in the event of an arrest. We have been told that the colleagues at the [facility] agree,. Therefore we will transition her status to DNR DN I, and also initiate a POLST form for the patient that will then transition with her back to her living situation. Respectfully Tracy DIMAS,TRACY Loja MD Dec 01, 2018 13:56
--- NOTE | 2018-12-01 14:50 | CONS ---
Assessment/Plan Assessment/Plan Hospital Course (Demo Recall) Paroxysmal atrial fibrillation: No known prior diagnosis. Not a good candidate for chronic anticoagulation with recurrent anemia.Now back in sinus after amiodarone. Septic shock: now off pressors Anemia: no active bleeding. Hgb >8 after transfusion Acute on chronic diastolic CHF: due to third spacing from low albumin/IVF. Slowl y improving Choledocholithiasis with acute cholecystitis: s/p ERCP and biliary stenting. Acute renal failure VDRF/tracheostomy h/o brain tumor Seizure disorder Bedridden -continue lasix 20mg IV BID for gentle diuresis -amiodarone 200mg BID -antibiotics -ok for dispo Consultation Date/Type/Reason Admit Date/Time Nov 19, 2018 at 19:01 Initial Consult Date 11/22/18 Type of Consult Cardiology Requesting Provider: GUIDO SANTIAGO MD Date/Time of Note DATE: 12/01/18 TIME: 14:49 24 HR Interval Summary Free Text/Dictation no events Exam/Review of Systems Exam Vitals Vital Signs Date Temp Pulse Resp B/P (MAP) Pulse Ox O2 O2 Flow FiO2 Time Delivery Rate 12/01/18 76 18 97 30 13:04 12/01/18 98.8 147/77 Mechanical 12:04 (100) Ventilator Intake and Output 11/30/18 11/30/18 12/01/18 1515:00 23:00 07:00 IntakeIntake Total 150 ml 410 ml 560 ml OutputOutput Total 1200 ml 1000 ml BalanceBalance 150 ml -790 ml -440 ml Constitutional: No alert ENMT: other (trached) Neck: No jvd (unable to assess) Respiratory: diminished breath sounds; No clear to auscultation Cardiovascular: regular rate and rhythm, edema (2+) Gastrointestinal: soft; No distended Neurological: No nl mental status, No nl speech Results Result Diagram: 12/01/18 0808 12/01/18 0808 Results 24hrs Laboratory Tests Test 12/01/18 07:26 12/01/18 08:08 Lab Scanned Report BLOOD TRANSFUSION White Blood Count 7.0 Red Blood Count 3.02 #L Hemoglobin 9.7 #L Hematocrit 30.2 #L Mean Corpuscular Volume 100.0 Mean Corpuscular Hemoglobin 32.1 Mean Corpuscular Hemoglobin Concent 32.1 Red Cell Distribution Width 18.1 H Platelet Count 427 H Mean Platelet Volume 9.6 Immature Granulocytes % 0.400 Neutrophils % 65.4 Lymphocytes % 18.9 Monocytes % 8.2 Eosinophils % 6.7 Basophils % 0.4 Nucleated Red Blood Cells % 0.0 Immature Granulocytes # 0.030 Neutrophils # 4.6 Lymphocytes # 1.3 Monocytes # 0.6 Eosinophils # 0.5 Basophils # 0.0 Nucleated Red Blood Cells # 0.0 Sodium Level 145 H Potassium Level 3.3 L Chloride Level 108 Carbon Dioxide Level 27 Anion Gap 10 Blood Urea Nitrogen 28 H Creatinine 1.60 H Est Glomerular Filtrat Rate mL/min 32 L Glucose Level 99 Calcium Level 8.5 Magnesium Level 1.6 L Total Bilirubin 0.2 Direct Bilirubin 0.00 Indirect Bilirubin 0.2 Aspartate Amino Transf (AST/SGOT) 20 Alanine Aminotransferase (ALT/SGPT) 21 Alkaline Phosphatase 121 Total Protein 6.0 L Albumin 3.2 L Globulin 2.80 Albumin/Globulin Ratio 1.14 Medications Medication Current Medications Ondansetron HCl (Zofran Inj) 4 mg Q6H PRN IV NAUSEA AND/OR VOMITING; Start 11/19/18 at 20:30 Acetaminophen (Tylenol Tab) 650 mg Q6H PRN GTB MILD PAIN LEVEL 1-3 Last adminis tered on 11/22/18at 03:04; Admin Dose 650 MG; Start 11/20/18 at 06:00 Albuterol (Proventil 0.083% (Neb)) 2.5 mg Q6H RESP THERAPY PRN NEB WHEEZING AND SOB Last administered on 11/21/18at 19:40; Admin Dose 2.5 MG; Start 11/20/18 at 06:00 Folic Acid (Folic Acid) 1 mg DAILY GTB Last administered on 12/01/18at 09:30; Admin Dose 1 MG; Start 11/20/18 at 09:00 Meropenem/Sodium Chloride 50 ml @ 100 mls/hr Q12 IVPB Last administered on 12/01/18 09:31; Admin Dose 100 MLS/HR; Start 11/23/18 at 15:00 Epoetin Theoodre (Epogen (Non Esrd/Non Oncology)) 8,000 units MoWeFr@17 SC Last administered on 11/29/18at 16:56; Admin Dose 8,000 UNITS; Start 11/24/18 at 17:30 Citric Acid/ Sodium Citrate (Bicitra) 30 ml TID PO Last administered on 12/01/18 13:50; Admin Dose 30 ML; Start 11/25/18 at 13:00 Lorazepam (Ativan) 1 mg Q10MIN PRN GTB agitation; Start 11/26/18 at 12:00 Furosemide (Lasix) 20 mg BID DIURETICS IV Last administered on 12/01/18 05:39; Admin Dose 20 MG; Start 11/28/18 at 18:00 Albumin Human 100 ml @ 100 mls/hr BID IV Last administered on 12/01/18 11:07; Admin Dose 100 MLS/HR; Start 11/29/18 at 17:30; Stop 12/02/18 at 15:00 Amiodarone HCl (Cordarone) 200 mg BID PO Last administered on 12/01/18 09:31; Admin Dose 200 MG; Start 11/29/18 at 21:00 Miscellaneous Information (Pending [facility] Order For Wound Care) This patient fermin... PRN PRN XX WOUND CARE; Start 11/30/18 at 01:30 Levetiracetam (Keppra Liquid) 500 mg BID GTB Last administered on 12/01/18 09:30; Admin Dose 500 MG; Start 11/30/18 at 21:00 Phenobarbital (Luminal) 65 mg Q12 PO Last administered on 12/01/18 09:31; Admin Dose 65 MG; Start 11/30/18 at 21:00 Pantoprazole (Protonix Tab) 40 mg DAILY@06 PO Last administered on 12/01/18 05:39; Admin Dose 40 MG; Start 12/01/18 at 06:00 FRANSISCO SALCIDO Dec 01, 2018 14:50
--- NOTE | 2018-12-01 17:04 | PN ---
Date/Time of Note Date/Time of Note DATE: 12/01/18 TIME: 17:00 Assessment/Plan VTE [place]axis [place] [facility] [place]: 3 [place] [facility] [place] SCD contraindicated: other Pharmacological prophylaxis: heparin Lines/Catheters IV Catheter Type (from [facility]): PICC Line Central line still needed: Yes Urinary Cath still in place: Yes Reason Cath still needed: pres ulcer contaminated by urine Assessment/Plan Assessment/Plan 1. Septic shock secondary to acute cholecystitis/choledocholithiasis- resolved - Will continue antibiotics to complete 14 day course. Last dose 12/06/18 2. Elevated LFTs - resolved - CT abd results noted with choledocholithiasis s/p ERCP 3. Acute choledocholithiasis - s/p ERCP with normalization of LFT 4. Acute cholecystitis - HIDA consistent with cholecystitis - Discussion held with General surgery who does not recommend cholecystectomy given high risk. 5. Hypernatremia- resolved - management per nephro 6. JUSTO - Nephrology consultation appreciated and will avoid nephrotoxic agents - most likely prerenal vs ATN 7. h/o Malignant neoplasm of brain - Patient is chronically bedridden and debilitated. 8. Seizure disorder - Continue Keppra and phenobarbital - neurology consulted and appreciate recommendations 9. HTN - hold home meds 10. Iron deficiency anemia - no need for transfusion at this time - on EPO given JUSTO 11. Chronic respiratory failure - trach dependent - continue trach care - Pulmonology on board and appreciate recommendations 12. Disposition - patient DNR/DNI following bioethics meeting - Will continue monitoring for improvement in renal function prior to discharge back to [facility] Result Diagram: 12/01/18 0808 12/01/18 0808 Results 24hrs Laboratory Tests Test 12/01/18 07:26 12/01/18 08:08 Lab Scanned Report BLOOD TRANSFUSION White Blood Count 7.0 Red Blood Count 3.02 #L Hemoglobin 9.7 #L Hematocrit 30.2 #L Mean Corpuscular Volume 100.0 Mean Corpuscular Hemoglobin 32.1 Mean Corpuscular Hemoglobin Concent 32.1 Red Cell Distribution Width 18.1 H Platelet Count 427 H Mean Platelet Volume 9.6 Immature Granulocytes % 0.400 Neutrophils % 65.4 Lymphocytes % 18.9 Monocytes % 8.2 Eosinophils % 6.7 Basophils % 0.4 Nucleated Red Blood Cells % 0.0 Immature Granulocytes # 0.030 Neutrophils # 4.6 Lymphocytes # 1.3 Monocytes # 0.6 Eosinophils # 0.5 Basophils # 0.0 Nucleated Red Blood Cells # 0.0 Sodium Level 145 H Potassium Level 3.3 L Chloride Level 108 Carbon Dioxide Level 27 Anion Gap 10 Blood Urea Nitrogen 28 H Creatinine 1.60 H Est Glomerular Filtrat Rate mL/min 32 L Glucose Level 99 Calcium Level 8.5 Magnesium Level 1.6 L Total Bilirubin 0.2 Direct Bilirubin 0.00 Indirect Bilirubin 0.2 Aspartate Amino Transf (AST/SGOT) 20 Alanine Aminotransferase (ALT/SGPT) 21 Alkaline Phosphatase 121 Total Protein 6.0 L Albumin 3.2 L Globulin 2.80 Albumin/Globulin Ratio 1.14 Subjective 24 Hr Interval Summary Free Text/Dictation Patient remains stable and opens eyes to touch and voice. Not following commands. Exam/Review of Systems Exam Vitals Vital Signs Date Temp Pulse Resp B/P (MAP) Pulse Ox O2 O2 Flow FiO2 Time Delivery Rate 12/01/18 73 16:45 12/01/18 99.0 16 155/77 97 Mechanical 16:00 (103) Ventilator 12/01/18 30 16:00 Intake and Output 11/30/18 11/30/18 12/01/18 1515:00 23:00 07:00 IntakeIntake Total 150 ml 410 ml 560 ml OutputOutput Total 1200 ml 1000 ml BalanceBalance 150 ml -790 ml -440 ml Exam General: no acute distress. opens eyes but not following commands Neck: Supple Respiratory: Coarse to auscultation bilaterally. no wheezing Cardiovascular: regular rate and rhythm, no obvious murmurs Gastrointestinal: soft, nondistended, no rebound or guarding, bowel sounds heard. Skin: No new skin lesions Results Results 24hrs Laboratory Tests Test 12/01/18 07:26 12/01/18 08:08 Lab Scanned Report BLOOD TRANSFUSION White Blood Count 7.0 Red Blood Count 3.02 #L Hemoglobin 9.7 #L Hematocrit 30.2 #L Mean Corpuscular Volume 100.0 Mean Corpuscular Hemoglobin 32.1 Mean Corpuscular Hemoglobin Concent 32.1 Red Cell Distribution Width 18.1 H Platelet Count 427 H Mean Platelet Volume 9.6 Immature Granulocytes % 0.400 Neutrophils % 65.4 Lymphocytes % 18.9 Monocytes % 8.2 Eosinophils % 6.7 Basophils % 0.4 Nucleated Red Blood Cells % 0.0 Immature Granulocytes # 0.030 Neutrophils # 4.6 Lymphocytes # 1.3 Monocytes # 0.6 Eosinophils # 0.5 Basophils # 0.0 Nucleated Red Blood Cells # 0.0 Sodium Level 145 H Potassium Level 3.3 L Chloride Level 108 Carbon Dioxide Level 27 Anion Gap 10 Blood Urea Nitrogen 28 H Creatinine 1.60 H Est Glomerular Filtrat Rate mL/min 32 L Glucose Level 99 Calcium Level 8.5 Magnesium Level 1.6 L Total Bilirubin 0.2 Direct Bilirubin 0.00 Indirect Bilirubin 0.2 Aspartate Amino Transf (AST/SGOT) 20 Alanine Aminotransferase (ALT/SGPT) 21 Alkaline Phosphatase 121 Total Protein 6.0 L Albumin 3.2 L Globulin 2.80 Albumin/Globulin Ratio 1.14 Medications Medication Current Medications Ondansetron HCl (Zofran Inj) 4 mg Q6H PRN IV NAUSEA AND/OR VOMITING; Start 11/19/18 at 20:30 Acetaminophen (Tylenol Tab) 650 mg Q6H PRN GTB MILD PAIN LEVEL 1-3 Last administered on 11/22/18 03:04; Admin Dose 650 MG; Start 11/20/18 at 06:00 Albuterol (Proventil 0.083% (Neb)) 2.5 mg Q6H RESP THERAPY PRN NEB WHEEZING AND SOB Last administered on 11/21/18 19:40; Admin Dose 2.5 MG; Start 11/20/18 at 06:00 Folic Acid (Folic Acid) 1 mg DAILY GTB Last administered on 12/01/18 09:30; Admin Dose 1 MG; Start 11/20/18 at 09:00 Meropenem/Sodium Chloride 50 ml @ 100 mls/hr Q12 IVPB Last administered on 12/01/18 09:31; Admin Dose 100 MLS/HR; Start 11/23/18 at 15:00 Epoetin Theodore (Epogen (Non Esrd/Non Oncology)) 8,000 units MoWeFr@17 SC Last administered on 11/29/18 16:56; Admin Dose 8,000 UNITS; Start 11/24/18 at 17:30 Citric Acid/ Sodium Citrate (Bicitra) 30 ml TID PO Last administered on 12/01/18 13:50; Admin Dose 30 ML; Start 11/25/18 at 13:00 Lorazepam (Ativan) 1 mg Q10MIN PRN GTB agitation; Start 11/26/18 at 12:00 Furosemide (Lasix) 20 mg BID DIURETICS IV Last administered on 12/01/18 05:39; Admin Dose 20 MG; Start 11/28/18 at 18:00 Albumin Human 100 ml @ 100 mls/hr BID IV Last administered on 12/01/18 11:07; Admin Dose 100 MLS/HR; Start 11/29/18 at 17:30; Stop 12/02/18 at 15:00 Amiodarone HCl (Cordarone) 200 mg BID PO Last administered on 12/01/18 09:31; Admin Dose 200 MG; Start 11/29/18 at 21:00 [facility]isc[facility] This patient fermin... PRN PRN XX WOUND CARE; Start 11/30/18 at 01:30 Levetiracetam (Keppra Liquid) 500 mg BID GTB Last administered on 12/01/18 09:30; Admin Dose 500 MG; Start 11/30/18 at 21:00 Phenobarbital (Luminal) 65 mg Q12 PO Last administered on 12/01/18 09:31; Admin Dose 65 MG; Start 11/30/18 at 21:00 Pantoprazole (Protonix Tab) 40 mg DAILY@06 PO Last administered on 12/01/18 05:39; Admin Dose 40 MG; Start 12/01/18 at 06:00 KENNETH SANTILLAN MD Dec 01, 2018 17:04
[2018-12-01] MEDS: EPOETIN 4000 UNITS/ML (NON ESRD/NON ONCOLOGY) SC SCH (17:31)
[2018-12-02] VITALS (24 sets, daily range): BP systolic 132–164; BP diastolic 47–106; PULSE 70–83; RESP 18–20
[2018-12-02] MEDS: PANTOPRAZOLE (EC) 40 MG TAB PO SCH (05:40)
[2018-12-02] MEDS: CITRIC ACID/NA CITRATE 30 ML CUP PO SCH ×4 (08:44→20:55)
[2018-12-02] MEDS: LEVETIRACETAM (100 MG/ML) 5ML CUP GTB SCH ×2 (08:44→20:55)
[2018-12-02] MEDS: AMIODARONE 200 MG TAB PO SCH ×2 (08:45→20:55)
[2018-12-02] MEDS: PHENOBARBITAL (4 MG/ML) 5ML CUP PO SCH ×3 (08:45→20:56)
[2018-12-02] MEDS: FOLIC ACID 1 MG TAB GTB SCH (08:45)
[2018-12-02] MEDS: MEROPENEM 500MG/50 ML (PMX) 50 ML IVPB SCH (08:47)
[2018-12-02] MEDS: FUROSEMIDE 20 MG INJ IV SCH (08:48)
[2018-12-02] MEDS: ALBUMIN HUMAN 25% 100 ML IV SCH (08:48)
[2018-12-02] MEDS: DEXTROSE 5% 1,000 ML IV SCH ×2 (10:40→22:50)
--- NOTE | 2018-12-02 11:17 | PN ---
Date/Time of Note Date/Time of Note DATE: 12/02/18 TIME: 11:14 Assessment/Plan VTE Prophylaxis Risk score (from [facility] [place]0 risk: 10 SCD applied (from [facility] [place] No SCD contraindicated: other Pharmacological prophylaxis: LMWH Lines/Catheters IV Catheter Type (from [facility]): PICC Line Central line still needed: Yes Urinary Cath still in place: Yes Reason Cath still needed: pres ulcer contaminated by urine Assessment/Plan Assessment/Plan 1. Septic shock secondary to acute cholecystitis/choledocholithiasis- resolved - Will continue antibiotics to complete 14 day course. Last dose 12/06/18 2. Elevated LFTs - resolved - secondary to #3 3. Acute choledocholithiasis - s/p ERCP 4. Acute cholecystitis - HIDA consistent with cholecystitis - Discussion held with General surgery who does not recommend cholecystectomy given high risk. 5. Hypernatremia - management per nephro 6. JUSTO - Nephrology consultation appreciated and will avoid nephrotoxic agents - appears as if Cr leveling off 7. h/o Malignant neoplasm of brain - Patient is chronically bedridden and debilitated. 8. Seizure disorder - Continue Keppra and phenobarbital - neurology consulted and appreciate recommendations - no seizure activity appreciated 9. HTN - stable 10. Iron deficiency anemia - no need for transfusion at this time - on EPO given JUSTO 11. Chronic respiratory failure - trach dependent - continue trach care - Pulmonology on board and appreciate recommendations. Still remains on vent support 12. Disposition - Accepted to [place] for continued weaning from vent, pending open bed Result Diagram: 12/01/18 0808 12/02/18 0610 Results 24hrs Laboratory Tests Test 12/02/18 06:10 Sodium Level 147 H Potassium Level 3.7 Chloride Level 108 Carbon Dioxide Level 30 Anion Gap 9 Blood Urea Nitrogen 26 H Creatinine 1.55 H Est Glomerular Filtrat Rate mL/min 33 L Glucose Level 104 Calcium Level 8.9 Total Bilirubin 0.3 Direct Bilirubin 0.00 Indirect Bilirubin 0.3 Aspartate Amino Transf (AST/SGOT) 23 Alanine Aminotransferase (ALT/SGPT) 21 Alkaline Phosphatase 115 Total Protein 6.5 Albumin 3.7 Globulin 2.80 Albumin/Globulin Ratio 1.32 Subjective 24 Hr Interval Summary Free Text/Dictation Patient remains stable and opens eyes to voice and touch. Moving LUE this am. No acute distress. Exam/Review of Systems Exam Vitals Vital Signs Date Temp Pulse Resp B/P (MAP) Pulse Ox O2 O2 Flow FiO2 Time Delivery Rate 12/02/18 81 09:48 12/02/18 30 08:15 12/02/18 99.0 18 132/47 96 Mechanical 07:44 (75) Ventilator Intake and Output 12/01/18 12/01/18 12/02/18 1515:00 23:00 07:00 IntakeIntake Total 150 ml 360 ml 610 ml OutputOutput Total 1200 ml 1300 ml BalanceBalance 150 ml -840 ml -690 ml Exam General: no acute distress. opens eyes but not following commands Neck: Supple Respiratory: Diminished. no wheezing Cardiovascular: regular rate and rhythm, no obvious murmurs Gastrointestinal: soft, nondistended, no rebound or guarding, bowel sounds heard. Skin: No new skin lesions Results Results 24hrs Laboratory Tests Test 12/02/18 06:10 Sodium Level 147 H Potassium Level 3.7 Chloride Level 108 Carbon Dioxide Level 30 Anion Gap 9 Blood Urea Nitrogen 26 H Creatinine 1.55 H Est Glomerular Filtrat Rate mL/min 33 L Glucose Level 104 Calcium Level 8.9 Total Bilirubin 0.3 Direct Bilirubin 0.00 Indirect Bilirubin 0.3 Aspartate Amino Transf (AST/SGOT) 23 Alanine Aminotransferase (ALT/SGPT) 21 Alkaline Phosphatase 115 Total Protein 6.5 Albumin 3.7 Globulin 2.80 Albumin/Globulin Ratio 1.32 Medications Medication Current Medications Ondansetron HCl (Zofran Inj) 4 mg Q6H PRN IV NAUSEA AND/OR VOMITING; Start 11/19/18 at 20:30 Acetaminophen (Tylenol Tab) 650 mg Q6H PRN GTB MILD PAIN LEVEL 1-3 Last administered on 11/22/18at 03:04; Admin Dose 650 MG; Start 11/20/18 at 06:00 Albuterol (Proventil 0.083% (Neb)) 2.5 mg Q6H RESP THERAPY PRN NEB WHEEZING AND SOB Last administered on 11/21/18at 19:40; Admin Dose 2.5 MG; Start 11/20/18 at 06:00 Folic Acid (Folic Acid) 1 mg DAILY GTB Last administered on 12/02/18at 08:45; Admin Dose 1 MG; Start 11/20/18 at 09:00 Epoetin Theodore (Epogen (Non Esrd/Non Oncology)) 8,000 units MoWeFr@17 SC Last administered on 12/01/18 17:31; Admin Dose 8,000 UNITS; Start 11/24/18 at 17:30 Citric Acid/ Sodium Citrate (Bicitra) 30 ml TID PO Last administered on 12/02/18 08:44; Admin Dose 30 ML; Start 11/25/18 at 13:00 Lorazepam (Ativan) 1 mg Q10MIN PRN GTB agitation; Start 11/26/18 at 12:00 Albumin Human 100 ml @ 100 mls/hr BID IV Last administered on 12/02/18 08:48; Admin Dose 100 MLS/HR; Start 11/29/18 at 17:30; Stop 12/02/18 at 15:00 Amiodarone HCl (Cordarone) 200 mg BID PO Last administered on 12/02/18 08:45; Admin Dose 200 MG; Start 11/29/18 at 21:00 Miscellaneous Information (Pending [facility] Order For Wound Care) This patient fermin... PRN PRN XX WOUND CARE; Start 11/30/18 at 01:30 Levetiracetam (Keppra Liquid) 500 mg BID GTB Last administered on 12/02/18 08:44; Admin Dose 500 MG; Start 11/30/18 at 21:00 Phenobarbital (Luminal) 65 mg Q12 PO Last administered on 12/02/18 10:39; Admin Dose 65 MG; Start 11/30/18 at 21:00 Pantoprazole (Protonix Tab) 40 mg DAILY@06 PO Last administered on 12/02/18 05:40; Admin Dose 40 MG; Start 12/01/18 at 06:00 Furosemide (Lasix) 20 mg DAILY IV Last administered on 12/02/18 08:48; Admin Dose 20 MG; Start 12/02/18 at 09:00 Dextrose 1,000 ml @ 75 mls/hr [id number] IV Last administered on 12/02/18 10:40; Admin Dose 75 MLS/HR; Start 12/02/18 at 09:30 KENNETH SANTILLAN MD Dec 02, 2018 11:17
[2018-12-02] MEDS ORDERED: Furosemide IV (11:19)
--- NOTE | 2018-12-02 11:19 | CONS ---
Consult Date/Type/Reason Admit Date/Time Nov 19, 2018 at 19:01 Initial Consult Date Type of Consult Pulmonary Requesting Provider: GUIDO SANTIAGO MD Date/Time of Note DATE: 12/02/18 TIME: 11:18 Subjective Appears comfortable, bioethics meeting noted. CODE STATUS changed to DNR. Objective Vital Signs Date Temp Pulse Resp B/P (MAP) Pulse Ox O2 O2 Flow FiO2 Time Delivery Rate 12/02/18 81 09:48 12/02/18 30 08:15 12/02/18 99.0 18 132/47 96 Mechanical 07:44 (75) Ventilator Intake and Output 12/01/18 12/01/18 12/02/18 1515:00 23:00 07:00 IntakeIntake Total 150 ml 360 ml 610 ml OutputOutput Total 1200 ml 1300 ml BalanceBalance 150 ml -840 ml -690 ml Exam PHYSICAL EXAMINATION: GENERAL: Elderly-appearing lady, appears on mechanical ventilation. VITAL SIGNS: HEENT: Extraocular movements intact. CARDIAC: S1, S2, no added sounds or murmurs. CHEST: Diminished air entry bilaterally. ABDOMEN: Soft, nontender. No guarding or rebound. EXTREMITIES: No cyanosis, clubbing. NEUROLOGIC: Unable to assess. Vent Setting Ventilator Support Mode: AC Fraction of Inspired Oxygen pe: 30 Positive End Expiratory Pressu: 5.0 Results/Medications Result Diagram: 12/01/18 0808 12/02/18 0610 Results 24 hrs Laboratory Tests Test 12/02/18 06:10 Sodium Level 147 H Potassium Level 3.7 Chloride Level 108 Carbon Dioxide Level 30 Anion Gap 9 Blood Urea Nitrogen 26 H Creatinine 1.55 H Est Glomerular Filtrat Rate mL/min 33 L Glucose Level 104 Calcium Level 8.9 Total Bilirubin 0.3 Direct Bilirubin 0.00 Indirect Bilirubin 0.3 Aspartate Amino Transf (AST/SGOT) 23 Alanine Aminotransferase (ALT/SGPT) 21 Alkaline Phosphatase 115 Total Protein 6.5 Albumin 3.7 Globulin 2.80 Albumin/Globulin Ratio 1.32 Medications Current Medications Ondansetron HCl (Zofran Inj) 4 mg Q6H PRN IV NAUSEA AND/OR VOMITING; Start 11/19/18 at 20:30 Acetaminophen (Tylenol Tab) 650 mg Q6H PRN GTB MILD PAIN LEVEL 1-3 Last admin istered on 11/22/18at 03:04; Admin Dose 650 MG; Start 11/20/18 at 06:00 Albuterol (Proventil 0.083% (Neb)) 2.5 mg Q6H RESP THERAPY PRN NEB WHEEZING AND SOB Last administered on 11/21/18 19:40; Admin Dose 2.5 MG; Start 11/20/18 at 06:00 Folic Acid (Folic Acid) 1 mg DAILY GTB Last administered on 12/02/18 08:45; Admin Dose 1 MG; Start 11/20/18 at 09:00 Epoetin Theodore (Epogen (Non Esrd/Non Oncology)) 8,000 units MoWeFr@17 SC Last administered on 12/01/18 17:31; Admin Dose 8,000 UNITS; Start 11/24/18 at 17:30 Citric Acid/ Sodium Citrate (Bicitra) 30 ml TID PO Last administered on 12/02/18 08:44; Admin Dose 30 ML; Start 11/25/18 at 13:00 Lorazepam (Ativan) 1 mg Q10MIN PRN GTB agitation; Start 11/26/18 at 12:00 Albumin Human 100 ml @ 100 mls/hr BID IV Last administered on 12/02/18 08:48; Admin Dose 100 MLS/HR; Start 11/29/18 at 17:30; Stop 12/02/18 at 15:00 Amiodarone HCl (Cordarone) 200 mg BID PO Last administered on 12/02/18 08:45; Admin Dose 200 MG; Start 11/29/18 at 21:00 Miscellaneous Information (Pending [facility] Order For Wound Care) This patient fermin... PRN PRN XX WOUND CARE; Start 11/30/18 at 01:30 Levetiracetam (Keppra Liquid) 500 mg BID GTB Last administered on 12/02/18 08:44; Admin Dose 500 MG; Start 11/30/18 at 21:00 Phenobarbital (Luminal) 65 mg Q12 PO Last administered on 12/02/18 10:39; Admin Dose 65 MG; Start 11/30/18 at 21:00 Pantoprazole (Protonix Tab) 40 mg DAILY@06 PO Last administered on 12/02/18 05:40; Admin Dose 40 MG; Start 12/01/18 at 06:00 Furosemide (Lasix) 20 mg DAILY IV Last administered on 12/02/18at 08:48; Admin Dose 20 MG; Start 12/02/18 at 09:00 Dextrose 1,000 ml @ 75 mls/hr [id number] IV Last administered on 12/02/18at 10:40; Admin Dose 75 MLS/HR; Start 12/02/18 at 09:30 Assessment/Plan Hospital Course (Demo Recall) IMPRESSION: 1. Status post septic shock secondary to acute cholecystitis, now off vasopressors 2. Chronic respiratory failure. Placed back on mechanical ventilation for hypercapnia. 3. GI bleed status post ERCP and stent placement 4. Dysphagia with G-tube. 5. Renal insufficiency with metabolic acidosis possible ATN injury. Persistent metabolic acidosis. PLAN: 1. Broad-spectrum antibiotics. ID recommendations 2. Gastrointestinal evaluation. Procedures as above. 3. Feeding per GI 4. Deep venous thrombosis and GI prophylaxis. 5. Continue AC mechanical ventilation Transfer to [place] today. MONO HOYOS MD, [facility] Dec 02, 2018 11:19
--- NOTE | 2018-12-02 11:22 | PDOCDIS ---
Discharge Instructions DIAGNOSIS Discharge Diagnosis 1. Septic shock secondary to acute cholecystitis/choledocholithiasis- resolved 2. Acute choledocholithiasis 3. Acute cholecystitis 4. Hypernatremia 5. JUSTO 6. h/o Malignant neoplasm of brain 7. Seizure disorder 8. HTN 9. Iron deficiency anemia 10. Chronic respiratory failure CONDITION [id number] Patient Condition: [id number] Stable HOME CARE INSTRUCTIONS: [id number] Special Diet: [id number] TF FOLLOW UP/APPOINTMENTS Follow-up Plan 1. Follow up with your primary care physician in 1 week 2. Continue all medications as prescribed 3. If experiencing any concerning symptoms, please go to your nearest emergency department KENNETH SANTILLAN MD Dec 02, 2018 11:22
--- NOTE | 2018-12-02 13:01 | CONS ---
Assessment/Plan Assessment/Plan Hospital Course (Demo Recall) No acute events overnight patient remains noncommunicative, no fevers overnight Antimicrobials: Meropenem Indwelling: Trach PEG right femoral triple-lumen catheter, Jaime Physical examination: Morbidly obese well-developed chronically ill-appearing elderly woman who is in no distress. Head atraumatic normocephalic neck is obese tracheostomy present chest rise symmetrical breath sounds diminished bases. Heart: S1-S2. Abdomen soft bowel sounds hypoactive. Extremities with bilateral edema Assessment: 1. S/p sepsis with shock secondary to acute cholangitis 2. Acute cholecystitis with choledocholithiasis==>Status post ERCP, sphincterotomy, bile duct stent placement 11/25/18 3. Acute renal failure 4. Chronic respiratory failure and dysphagia 5. Acute on chronic anemia 6. Paroxysmal atrial fibrillation Plan: Remains stable, dc abx and observe Consultation Date/Type/Reason Admit Date/Time Nov 19, 2018 at 19:01 Initial Consult Date 11/22/18 Type of Consult id Requesting Provider: GUIDO SANTIAGO MD Date/Time of Note DATE: 12/02/18 TIME: 13:01 Exam/Review of Systems Exam Vitals Vital Signs Date Temp Pulse Resp B/P (MAP) Pulse Ox O2 O2 Flow FiO2 Time Delivery Rate 12/02/18 73 12:48 12/02/18 99.2 18 159/85 98 Mechanical 11:55 (109) Ventilator 12/02/18 30 11:29 Intake and Output 12/01/18 12/01/18 12/02/18 1515:00 23:00 07:00 IntakeIntake Total 150 ml 360 ml 610 ml OutputOutput Total 1200 ml 1300 ml BalanceBalance 150 ml -840 ml -690 ml Results Result Diagram: 12/01/18 0808 12/02/18 0610 Results 24hrs Laboratory Tests Test 12/02/18 06:10 Sodium Level 147 H Potassium Level 3.7 Chloride Level 108 Carbon Dioxide Level 30 Anion Gap 9 Blood Urea Nitrogen 26 H Creatinine 1.55 H Est Glomerular Filtrat Rate mL/min 33 L Glucose Level 104 Calcium Level 8.9 Total Bilirubin 0.3 Direct Bilirubin 0.00 Indirect Bilirubin 0.3 Aspartate Amino Transf (AST/SGOT) 23 Alanine Aminotransferase (ALT/SGPT) 21 Alkaline Phosphatase 115 Total Protein 6.5 Albumin 3.7 Globulin 2.80 Albumin/Globulin Ratio 1.32 Medications Medication Current Medications Ondansetron HCl (Zofran Inj) 4 mg Q6H PRN IV NAUSEA AND/OR VOMITING; Start 11/19/18 at 20:30 Acetaminophen (Tylenol Tab) 650 mg Q6H PRN GTB MILD PAIN LEVEL 1-3 Last administered on 11/22/18 03:04; Admin Dose 650 MG; Start 11/20/18 at 06:00 Albuterol (Proventil 0.083% (Neb)) 2.5 mg Q6H RESP THERAPY PRN NEB WHEEZING AND SOB Last administered on 11/21/18 19:40; Admin Dose 2.5 MG; Start 11/20/18 at 06:00 Folic Acid (Folic Acid) 1 mg DAILY GTB Last administered on 12/02/18 08:45; Admin Dose 1 MG; Start 11/20/18 at 09:00 Epoetin Theodore (Epogen (Non Esrd/Non Oncology)) 8,000 units MoWeFr@17 SC Last administered on 12/01/18 17:31; Admin Dose 8,000 UNITS; Start 11/24/18 at 17:30 Citric Acid/ Sodium Citrate (Bicitra) 30 ml TID PO Last administered on 12/02/18 08:44; Admin Dose 30 ML; Start 11/25/18 at 13:00 Lorazepam (Ativan) 1 mg Q10MIN PRN GTB agitation; Start 11/26/18 at 12:00 Albumin Human 100 ml @ 100 mls/hr BID IV Last administered on 12/02/18 08:48; Admin Dose 100 MLS/HR; Start 11/29/18 at 17:30; Stop 12/02/18 at 15:00 Amiodarone HCl (Cordarone) 200 mg BID PO Last administered on 12/02/18 08:45; Admin Dose 200 MG; Start 11/29/18 at 21:00 Miscellaneous Information (Pending [facility] Order For Wound Care) This patient fermin... PRN PRN XX WOUND CARE; Start 11/30/18 at 01:30 Levetiracetam (Keppra Liquid) 500 mg BID GTB Last administered on 12/02/18 08:44; Admin Dose 500 MG; Start 11/30/18 at 21:00 Phenobarbital (Luminal) 65 mg Q12 PO Last administered on 12/02/18 10:39; Admin Dose 65 MG; Start 11/30/18 at 21:00 Pantoprazole (Protonix Tab) 40 mg DAILY@06 PO Last administered on 12/02/18at 05:40; Admin Dose 40 MG; Start 12/01/18 at 06:00 Furosemide (Lasix) 20 mg DAILY IV Last administered on 12/02/18 08:48; Admin Dose 20 MG; Start 12/02/18 at 09:00 Dextrose 1,000 ml @ 75 mls/hr [id number] IV Last administered on 12/02/18at 10:40; Admin Dose 75 MLS/HR; Start 12/02/18 at 09:30 KAREN LOMAS NP Dec 02, 2018 13:01
--- NOTE | 2018-12-02 13:35 | CONS ---
Assessment/Plan Assessment/Plan Hospital Course 68 F c/ reported Hx of malignant brain neoplasm NOS c/b epilepsy..and other comorbidities, who presents for management of hypotension and GI abnl. Neurology is consulted for epilepsy medication management. P: Continue Phb 65mg bid, via tube Continue Keppra 500mg bid for now, via tube, with plan to increase gradually as GFR improves.. Ativan iv prn prolonged seizure of cluster Other management per primary Will follow clinically Consultation Date/Type/Reason Admit Date/Time Nov 19, 2018 at 19:01 Type of Consult Neurology Reason for Consultation epilepsy Requesting Provider: GUIDO SANTIAGO MD Date/Time of Note DATE: 12/02/18 TIME: 13:35 24 HR Interval Summary Free Text/Dictation Continues acute care. Subjective hx not possible: pt non-verbal Exam Vital Signs Vitals Vital Signs Date Temp Pulse Resp B/P (MAP) Pulse Ox O2 O2 Flow FiO2 Time Delivery Rate 12/02/18 73 12:48 12/02/18 99.2 18 159/85 98 Mechanical 11:55 (109) Ventilator 12/02/18 30 11:29 Intake and Output 12/01/18 12/01/18 12/02/18 1515:00 23:00 07:00 IntakeIntake Total 150 ml 360 ml 610 ml OutputOutput Total 1200 ml 1300 ml BalanceBalance 150 ml -840 ml -690 ml Exam PE: Gen Appearance: No Apparent Distress HEENT: trached Cardiovascular: Regular rate Abdomen: Soft; with PEG Extremities: Dry; edematous NE: The patient was awake, though she did not fix or follow.. Unable to follow commands. Cranial nerve examination was limited by mental status. Pupils were equal and reactive to light. There was no afferent pupillary defect. Funduscopic examination was limited. Face was grossly symmetric, w/ present corneal and cough reflexes. Tone was spastic in the UE. Muscle bulk was normal. I did not see fasciculations. The patient had spontaneous movement of her R hand; withdrew extremities to noxious stimulation x 4. Coordination and gait testing was limited by mental status. Arm and leg reflexes were within normal limits and symmetric. Whitman's sign was absent. Plantar responses were flexor. HIPOLITO GLOVER NP Dec 02, 2018 13:35 RACHEL ESTEBAN Dec 02, 2018 15:23
--- NOTE | 2018-12-02 14:50 | CONS ---
Assessment/Plan Assessment/Plan Hospital Course (Demo Recall) Paroxysmal atrial fibrillation: No known prior diagnosis. Not a good candidate for chronic anticoagulation with recurrent anemia.Now back in sinus after amiodarone. Septic shock: now off pressors Anemia: no active bleeding. Hgb >8 after transfusion Acute on chronic diastolic CHF: due to third spacing from low albumin/IVF. Slowl y improving Choledocholithiasis with acute cholecystitis: s/p ERCP and biliary stenting. Acute renal failure VDRF/tracheostomy h/o brain tumor Seizure disorder Bedridden -continue lasix 20mg IV BID for gentle diuresis -amiodarone 200mg BID -antibiotics -ok for dispo Consultation Date/Type/Reason Admit Date/Time Nov 19, 2018 at 19:01 Initial Consult Date 11/22/18 Type of Consult Cardiology Requesting Provider: GUIDO SANTIAGO MD Date/Time of Note DATE: 12/02/18 TIME: 14:48 24 HR Interval Summary Free Text/Dictation No events. Exam/Review of Systems Exam Vitals Vital Signs Date Temp Pulse Resp B/P (MAP) Pulse Ox O2 O2 Flow FiO2 Time Delivery Rate 12/02/18 72 18 99 30 13:49 12/02/18 99.2 159/85 Mechanical 11:55 (109) Ventilator Intake and Output 12/01/18 12/01/18 12/02/18 1515:00 23:00 07:00 IntakeIntake Total 150 ml 360 ml 610 ml OutputOutput Total 1200 ml 1300 ml BalanceBalance 150 ml -840 ml -690 ml Constitutional: No alert, No oriented ENMT: other (s/p tracvh) Neck: No jvd (unable to examine) Respiratory: diminished breath sounds; No clear to auscultation Cardiovascular: regular rate and rhythm, edema (2+); No systolic murmur Gastrointestinal: soft, non-tender; No distended Neurological: No nl mental status, No nl speech Results Result Diagram: 12/01/18 0808 12/02/18 0610 Results 24hrs Laboratory Tests Test 12/02/18 06:10 Sodium Level 147 H Potassium Level 3.7 Chloride Level 108 Carbon Dioxide Level 30 Anion Gap 9 Blood Urea Nitrogen 26 H Creatinine 1.55 H Est Glomerular Filtrat Rate mL/min 33 L Glucose Level 104 Calcium Level 8.9 Total Bilirubin 0.3 Direct Bilirubin 0.00 Indirect Bilirubin 0.3 Aspartate Amino Transf (AST/SGOT) 23 Alanine Aminotransferase (ALT/SGPT) 21 Alkaline Phosphatase 115 Total Protein 6.5 Albumin 3.7 Globulin 2.80 Albumin/Globulin Ratio 1.32 Medications Medication Current Medications Ondansetron HCl (Zofran Inj) 4 mg Q6H PRN IV NAUSEA AND/OR VOMITING; Start 11/19/18 at 20:30 Acetaminophen (Tylenol Tab) 650 mg Q6H PRN GTB MILD PAIN LEVEL 1-3 Last administered on 11/22/18 03:04; Admin Dose 650 MG; Start 11/20/18 at 06:00 Albuterol (Proventil 0.083% (Neb)) 2.5 mg Q6H RESP THERAPY PRN NEB WHEEZING AND SOB Last administered on 11/21/18 19:40; Admin Dose 2.5 MG; Start 11/20/18 at 06:00 Folic Acid (Folic Acid) 1 mg DAILY GTB Last administered on 12/02/18 08:45; Admin Dose 1 MG; Start 11/20/18 at 09:00 Epoetin Theodore (Epogen (Non Esrd/Non Oncology)) 8,000 units MoWeFr@17 SC Last administered on 12/01/18 17:31; Admin Dose 8,000 UNITS; Start 11/24/18 at 17:30 Citric Acid/ Sodium Citrate (Bicitra) 30 ml TID PO Last administered on 12/02/18 08:44; Admin Dose 30 ML; Start 11/25/18 at 13:00 Lorazepam (Ativan) 1 mg Q10MIN PRN GTB agitation; Start 11/26/18 at 12:00 Albumin Human 100 ml @ 100 mls/hr BID IV Last administered on 12/02/18 08:48; Admin Dose 100 MLS/HR; Start 11/29/18 at 17:30; Stop 12/02/18 at 15:00 Amiodarone HCl (Cordarone) 200 mg BID PO Last administered on 12/02/18 08:45; Admin Dose 200 MG; Start 11/29/18 at 21:00 Miscellaneous Information (Pending [facility] Order For Wound Care) This patient fermin... PRN PRN XX WOUND CARE; Start 11/30/18 at 01:30 Levetiracetam (Keppra Liquid) 500 mg BID GTB Last administered on 12/02/18 08:44; Admin Dose 500 MG; Start 11/30/18 at 21:00 Phenobarbital (Luminal) 65 mg Q12 PO Last administered on 12/02/18 10:39; Admin Dose 65 MG; Start 11/30/18 at 21:00 Pantoprazole (Protonix Tab) 40 mg DAILY@06 PO Last administered on 12/02/18 05:40; Admin Dose 40 MG; Start 12/01/18 at 06:00 Furosemide (Lasix) 20 mg DAILY IV Last administered on 12/02/18 08:48; Admin Dose 20 MG; Start 12/02/18 at 09:00 Dextrose 1,000 ml @ 75 mls/hr [id number] IV Last administered on 12/02/18 10:40; Admin Dose 75 MLS/HR; Start 12/02/18 at 09:30 FRANSISCO SALCIDO Dec 02, 2018 14:50
--- NOTE | 2018-12-02 16:12 | DS ---
Date/Time of Note Date/Time of Note DATE: 12/02/18 TIME: 16:06 Discharge Summary Admission/Discharge Info Admit Date/Time Nov 19, 2018 at 19:01 Discharge Date/Time 12/03/18 1800 Discharge Diagnosis 1. Septic shock secondary to acute cholecystitis/choledocholithiasis- resolved 2. Acute choledocholithiasis 3. Acute cholecystitis 4. Hypernatremia 5. JUSTO 6. h/o Malignant neoplasm of brain 7. Seizure disorder 8. HTN 9. Iron deficiency anemia 10. Chronic respiratory failure Patient Condition: Stable Consults Neurology- Dr. Smith Cardiology- Dr. Donato General Surgery- Dr. Andrews Nephrology- Dr. Montalvo Palliative- Dr. Rivera GI- Dr. Bartholomew Pulmonology- Dr. Landeros Infectious disease- Dr. Menendez Procedures PROCEDURE: Nuclear medicine HIDA scan CLINICAL INDICATION: Right upper quadrant pain. Clinical concern for cholecystitis. TECHNIQUE: Following the intravenous injection of 7.8 mCi technetium 99 m Mebrofenin, dynamic images over the biliary system are obtained at 5-minute intervals with delayed images also submitted. COMPARISON: CT abdomen and pelvis 11/19/2018. Abdominal ultrasound 11/20/2018 FINDINGS: There is homogeneous distribution of radiopharmaceutical throughout the hepatic parenchyma. Activity is seen within the common bile duct and small bowel 15 minutes following injection. The radiopharmaceutical activity increases in magnitude in the small bowel over time, however, no activity is visible within the gallbladder even on the delayed images obtained at 4 hours. RPTAT:HJJR IMPRESSION: Lack of normal gallbladder visualization consistent with cystic duct obstruction confirming the clinical concern for acute cholecystitis with patency of the common bile duct. Physician Juan Date Time Electronically viewed and signed by Physician Juan on 11/27/2018 18:15 PROCEDURE: Intraoperative imaging for ERCP with fluoroscopy. CLINICAL INDICATION: Right upper quadrant pain. Intraoperative. TECHNIQUE: 12 images of the right upper quadrant of the abdomen were obtained in the operating room with an image intensifier. No radiologist was in attendance. Fluoroscopy time is 1.6 minutes. COMPARISON: CT scan of the abdomen and pelvis dated 11/19/2018. FINDINGS: Images demonstrate the endoscope in position and contrast injected into the common bile duct. A balloon sweep was made. The final image demonstrates a stent in the common bile duct. IMPRESSION: 1. ERCP as described above. RPTAT: QQ .Korey Zelaya MD, Date Time Electronically viewed and signed by .Korey Zelaya MD, on 11/26/2018 07:57 PROCEDURE: XR Chest. CLINICAL INDICATION: PICC line placement TECHNIQUE: Single frontal view of the chest was obtained COMPARISON: Same day FINDINGS: There is a new right-sided PICC line in place with its tip overlying the mid to lower right atrium. Retraction of 3 cm is recommended.. The heart, mediastinum, and lungs are unchanged. There is a tracheostomy tube in place. There is mild cardiomegaly. There are bibasilar atelectatic changes. RPTAT: AA IMPRESSION: New PICC line with its tip overlying the mid to low right atrium. Retraction of 3 cm is recommended.. .Danny Dior MD, Date Time Electronically viewed and signed by .Danny Dior MD, on 11/24/2018 14:13 PROCEDURE: Renal US. CLINICAL INDICATION: Acute renal insufficiency TECHNIQUE: Multiple sonographic images of the kidneys and urinary bladder were obtained. COMPARISON: No prior studies are available for comparison. FINDINGS: The kidneys are normal in size the right measuring 11.3 cm and the left measuring 9.22 cm maximal sagittal dimension. Normal renal parenchymal echogenicity bilaterally without hydronephrosis intra renal masses or calculi bi laterally. Urinary bladder is contracted with a Jaime catheter in place. IMPRESSION: 1. Normal sized kidneys without hydronephrosis, intra renal masses, calculi or renal parenchymal disease. 2. Contracted urinary bladder containing a Jaime catheter. RPTAT:AAJJ Physician Candice Date Time Electronically viewed and signed by Physician Candice on 11/20/2018 09:23 PROCEDURE: CT abdomen and pelvis without contrast. CLINICAL INDICATION: Possible sepsis. TECHNIQUE: CT scan of the abdomen and pelvis without contrast was performed on a multi-slice CT scanner utilizing axial imaging from the lung bases through the pubis symphysis. One or more the following does reduction techniques were utilized: Automated exposure control, adjustment of the mA/ or kV according to patient's size, or use of iterative reconstruction technique. Sagittal and coronal reformatted images were made. DICOM images are available for review. The CTDIvol is 23.32 mGy and the DLP is 216 of 7.73 mGycm. COMPARISON: None. FINDINGS: CT abdomen Visualized lung bases: Atelectasis posterior inferior left right lower lobes. No significant pleural or pericardial effusion. Liver: Limited evaluation without IV contrast. No gross lesion. Gallbladder and bile ducts: Distended gallbladder with minimal pericholecystic fluid. 3 calcified gallstones are present in the gallbladder. Dilated common bile duct, measuring 14.5 mm. No distal ductal calcification. Spleen: Normal appearance. Pancreas: Normal appearance. No ductal dilatation. No mass. No peripancreatic stranding. Adrenal glands: Thickened left adrenal gland. Negative right adrenal gland. Kidneys: No hydronephrosis or renal stones. Vasculature: No abdominal aortic aneurysm. Calcified plaque present. Negative IVC. Lymph nodes: No adenopathy. GI: Small hiatal hernia. Percutaneous gastrostomy tube, tip and balloon in the gastric lumen. Mildly dilated air and fluid-filled small bowel loops left and right abdomen. Nondistended, stool containing colon. Gas distended sigmoid colon extends into the mid abdomen. Diverticulosis descending colon. Malrotated cecum. Peritoneal cavity: No free fluid or free air. CT pelvis GI: Negative terminal ileum. The appendix is not identified. Sigmoid diverticulosis. Sigmoid colon extends into the midabdomen. Negative rectum. : Jaime catheter decompresses the urinary bladder. Small uterus. 2.4 cm right ovarian cyst. Atrophic left ovary. Peritoneal cavity: No free fluid or loculated fluid collections. Lymph nodes: No adenopathy. Osseous structures: Bones are demineralized. No lytic or blastic lesions. No endplate fractures. IMPRESSION: 1. Cholelithiasis with distended gallbladder suspected acute cholecystitis. 2. Dilated common bile duct to the level of the ampulla. Differential diagnosis includes choledocholithiasis, distal duct sludge and distal duct stricture. 3. Atelectasis posterior inferior lower lobes. For percutaneous gastrostomy tube, tip and balloon in the gastric lumen. 5. Gas distended sigmoid colon extending to the mid abdomen. No evidence of obstruction. 6. Mildly dilated air and fluid-filled small bowel loops, probable ileus. 7. 2.4 cm right ovarian cyst.. RPTAT: HLRS Physician Silvestre Date Time Electronically viewed and signed by Physician Silvestre on 11/19/2018 23:22 PROCEDURE: CT Brain without contrast. CLINICAL INDICATION: Infectious process. Right craniotomy. TECHNIQUE: A CT of the brain was performed utilizing axial imaging from the skull base through the vertex without IV contrast. Multiplanar reformatted images were made. Images were reviewed on a PACS workstation. The CTDIvol is 38.79 mGy and the DLP is 778.03 mGycm. DICOM images are available. One or more of the following dose reduction techniques were utilized: 1.) Automated exposure control 2.) Adjustment of the mA +/- kV according to patient's size 3.) Use of iterative reconstruction technique. COMPARISON: None FINDINGS: Remote right frontal temporal parietal craniotomy. Chronic changes of atrophy and small vessel disease of white matter, greater in the posterior fossa. Dilation of the left lateral ventricle may be secondary to volume loss. The remaining ventricles are unremarkable. 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 There is no intracranial hemorrhage, mass effect, or midline shift. No extra- axial fluid collection is seen. The sulci are otherwise normal in size and configuration. The density of the remaining brain is otherwise normal, and the bautista white matter differentiation appears well-preserved. The visualized paranasal sinuses and osseous structures are grossly unremarkable. IMPRESSION: 1. Dilation left lateral ventricle may be secondary to volume loss. 2. Chronic changes of atrophy and small vessel disease white matter, greater in the posterior fossa. 3. Small remote infarct in the left todd radiata. 4. Otherwise, no evident acute process in the head. RPTAT: UU Physician Bridgette Date Time Electronically viewed and signed by Physician Bridgette on 11/19/2018 22:43 Hx of Present Illness Chief complaint: Sent for evaluation of low blood pressure The following history was obtained from the ED physician documentation as well as from the chart as patient is not able to provide history given her clinical condition. 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 Patient was noted to have low blood pressures and presented to the ER. Recent lab work that was performed as an outpatient was significant for a white blood cell count of 15.01 hemoglobin of 10.5 hematocrit of 34.3 a sodium of 149 and potassium of 5.1 creatinine 0.87 as well as AST of 273 ALT of 437 and an alk phos of 302 and a total bilirubin of 4.8. Patient was noted to be hypotensive in the ED and a central line was placed and vasopressors were started. CT scan of the abdomen pelvis was ordered which showed Dilated common bile duct to the level of the ampulla. Differential diagnosis includes choledocholithiasis, distal duct sludge and distal duct stricture. Dr. Bartholomew of GI was consulted. Patient was subsequently brought to the ICU secondary to hypotension requiring pressor support. Patient apparently at baseline does track with her eyes, which she was doing less of as well today. Allergies: NKDA Hospital Course Patient was admitted to ICU secondary to septic shock requiring pressor support. Patient was found with acute choledocholithiasis with possible cholangitis which was most likely the source of sepsis. Patient was evaluated by Nephrology given new onset JUSTO and fluids were continued. Patient was experiencing respiratory distress and placed on mechanical ventilation and Dynamometer Tuner was consulted for management. Patient was also having episodes of sinus tachycardia up to 200s and Cardiology was consulted for further recommendations. GI was consulted and ERCP was performed with improvement in patient overall status. She was continued on IV antibiotics per Infectious disease recommendations. Patient was evaluated by General Surgery given findings of acute cholecystitis and did not recommend any intervention given high risk candidate for surgical intervention. Patients overall clinical picture improved and LFTs normalized. Patients vitals remained stable and sepsis resolved. Patient still had mild JUSTO which was continued to be managed by Nephrology. There were concerns that given patients vegetative state with poor quality of life, patients code status should be addressed. Bioethic meeting was held and patients code status was changed to DNR/DNI. Patient completed antibiotics with no signs of further infections. Patient remained on ventilator support which was a change from her initial baseline prior to admission. Patient remained stable and was discharged to LTAC for continued treatment of pulmonary and renal issues. Home Meds Active Scripts [Furosemide] 10 MG/ML SOLN No Conflict Check, 20 MG IV DAILY for 30 Days, #1 VIAL Prov:KENNETH SANTILLAN MD 12/02/18 Reported Medications Ranitidine Hcl* (Ranitidine Hcl*) 150 Mg Tablet, 150 MG GTB Q12, #60 TAB 11/19/18 Cholecalciferol* (Vitamin D*) 400 Unit Tablet, 400 UNIT GTB DAILY, TAB 11/19/18 Amino Acids/Protein Hydrolys (Pro-Stat 64 Liquid) 887 Ml Liquid, 30 ML GTB BID 11/19/18 Albuterol Sulfate* (Albuterol Sulfate* Neb) 0.083%-3 Ml Neb, 2.5 MG NEB Q6 PRN for WHEEZING AND SOB, #30 VIAL 11/19/18 Levetiracetam* (Keppra* (Ped)) 100 Mg/Ml Liq, 1500 MG GTB BID for 30 Days, BOTTLE 11/19/18 Sennosides* (Senna Lax*) 8.6 Mg Tablet, 1 TAB GTB DAILY, TAB 11/19/18 Folic Acid* (Folic Acid*) 1 Mg Tablet, 1 MG GTB DAILY, TAB 11/19/18 Phenobarbital* (Phenobarbital* Liq) 20 Mg/5 Ml Elix, 5 MG GTB BID for 30 Days, BOTTLE 11/19/18 Ferrous Sulfate (Ferrous Sulfate) 300 Mg/5 Ml Liquid, 300 MG GTB BID 11/19/18 Clonidine Hcl* (Clonidine Hcl*) 0.1 Mg Tab, 0.1 MG GTB Q6 PRN for ELEVATED BLOOD PRESSURE, TAB 11/19/18 Calcium Carbonate* (Calcium Carbonate*) 600 MG Ca Tab, 1200 MG GTB DAILY, TAB 11/19/18 Aspirin* (Aspirin* Chew) 81 Mg Tab.chew, 81 MG GTB DAILY, TAB.CHEW 11/19/18 Acetaminophen* (Acetaminophen*) 650 Mg Tablet, 650 MG GTB Q6H PRN for MILD PAIN LEVEL 1-3, #30 TAB 11/19/18 Ascorbic Acid* (Vitamin C*) 500 Mg Capsule.sa, 500 MG GTB DAILY, CAP 11/19/18 Discontinued Reported Medications Labetalol Hcl* (Labetalol Hcl*) 200 Mg Tablet, 200 MG GTB BID PRN for ELEVATED BLOOD PRESSURE, TAB 11/19/18 Lisinopril* (Lisinopril*) 10 Mg Tablet, 10 MG GTB DAILY, #30 TAB 11/19/18 Follow-up Plan 1. Follow up with your primary care physician in 1 week 2. Continue all medications as prescribed 3. If experiencing any concerning symptoms, please go to your nearest emergency department Primary Care Provider Walker Montalvo MD Time spent on discharge: > 30 minutes Pending Labs Laboratory Tests Test 12/02/18 06:10 Sodium Level 147 mmol/L (135-144) Potassium Level 3.7 mmol/L (3.5-5.1) Chloride Level 108 mmol/L (97-110) Carbon Dioxide Level 30 mmol/L (21-31) Anion Gap 9 (5-13) Blood Urea Nitrogen 26 mg/dl (7-20) Creatinine 1.55 mg/dl (0.44-1.00) Est Glomerular Filtrat Rate mL/min 33 mL/min (>60) Glucose Level 104 mg/dl (70-220) Calcium Level 8.9 mg/dl (8.4-10.2) Total Bilirubin 0.3 mg/dl (0.2-1.3) Direct Bilirubin 0.00 mg/dl (0.00-0.20) Indirect Bilirubin 0.3 mg/dl (0-1.1) Aspartate Amino Transf (AST/SGOT) 23 IU/L (15-46) Alanine Aminotransferase (ALT/SGPT) 21 IU/L (13-69) Alkaline Phosphatase 115 IU/L (42-121) Total Protein 6.5 g/dl (6.1-8.1) Albumin 3.7 g/dl (3.3-4.9) Globulin 2.80 g/dl (1.3-3.2) Albumin/Globulin Ratio 1.32 KENNETH SANTILLAN MD Dec 02, 2018 16:12
[2018-12-03] VITALS (23 sets, daily range): BP systolic 149–179; BP diastolic 75–92; PULSE 71–86; RESP 18–22
[2018-12-03] MEDS: DEXTROSE 5% 1,000 ML IV SCH (02:47)
[2018-12-03] MEDS: PANTOPRAZOLE (EC) 40 MG TAB PO SCH (05:39)
[2018-12-03] MEDS: LEVETIRACETAM (100 MG/ML) 5ML CUP GTB SCH ×2 (09:06→20:29)
[2018-12-03] MEDS: FOLIC ACID 1 MG TAB GTB SCH (09:06)
[2018-12-03] MEDS: FUROSEMIDE 20 MG INJ IV SCH (09:06)
[2018-12-03] MEDS: AMIODARONE 200 MG TAB PO SCH (09:06)
[2018-12-03] MEDS: CITRIC ACID/NA CITRATE 30 ML CUP PO SCH ×3 (09:06→20:29)
--- NOTE | 2018-12-03 09:16 | PN ---
Date/Time of Note Date/Time of Note DATE: 12/03/18 TIME: 09:16 Assessment/Plan VTE Prophylaxis Risk score (from Ns)>0 risk: 5 SCD applied (from Ns): No SCD contraindicated: other Pharmacological prophylaxis: LMWH Lines/Catheters IV Catheter Type (from Nrs): PICC Line Central line still needed: Yes Urinary Cath still in place: No Assessment/Plan Hospital Course Patient was admitted to ICU secondary to septic shock requiring pressor support. Patient was found with acute choledocholithiasis with possible cholangitis which was most likely the source of sepsis. Patient was evaluated by Nephrology given new onset JUSTO and fluids were continued. Patient was experiencing respiratory distress and placed on mechanical ventilation and Air Brakes Inspector was consulted for management. Patient was also having episodes of sinus tachycardia up to 200s and Cardiology was consulted for further recommendations. GI was consulted and ERCP was performed with improvement in patient overall status. She was continued on IV antibiotics per Infectious disease recommendations. Patient was evaluated by General Surgery given findings of acute cholecystitis and did not recommend any intervention given high risk candidate for surgical i ntervention. Patients overall clinical picture improved and LFTs normalized. Patients vitals remained stable and sepsis resolved. Patient still had mild JUSTO which was continued to be managed by Nephrology. There were concerns that given patients vegetative state with poor quality of life, patients code status should be addressed. Bioethic meeting was held and patients code status was changed to DNR/DNI. Patient completed antibiotics with no signs of further infections. Patient remained on ventilator support which was a change from her initial baseline prior to admission. Patient remained stable and was discharged to LTAC for continued treatment of pulmonary and renal issues. Assessment/Plan 1. Septic shock secondary to acute cholecystitis/choledocholithiasis- resolved - Off antibiotics and doing well - ID consultation appreciated 2. Elevated LFTs - resolved - secondary to #3 3. Acute choledocholithiasis - s/p ERCP 4. Acute cholecystitis - HIDA consistent with cholecystitis - Discussion held with General surgery who does not recommend cholecystectomy given high risk. 5. Hypernatremia - management per nephro 6. JUSTO - Nephrology consultation appreciated and will avoid nephrotoxic agents - Cr continues to improve daily 7. h/o Malignant neoplasm of brain - Patient is chronically bedridden and debilitated. 8. Seizure disorder - Continue Keppra and phenobarbital - neurology consulted and appreciate recommendations - no seizure activity appreciated 9. HTN - stable 10. Iron deficiency anemia - no need for transfusion at this time - on EPO given JUTSO 11. Chronic respiratory failure - trach dependent - continue trach care - Pulmonology on board and appreciate recommendations. Still remains on vent support 12. Disposition - Stable for discharge to [facility] when bed available Result Diagram: 12/01/18 0808 12/03/18 0615 Results 24hrs Laboratory Tests Test 12/03/18 06:15 Sodium Level 146 H Potassium Level 3.5 Chloride Level 102 Carbon Dioxide Level 34 H Anion Gap 10 Blood Urea Nitrogen 23 H Creatinine 1.43 H Est Glomerular Filtrat Rate mL/min 36 L Glucose Level 112 Calcium Level 8.8 Total Bilirubin 0.3 Direct Bilirubin 0.00 Indirect Bilirubin 0.3 Aspartate Amino Transf (AST/SGOT) 23 Alanine Aminotransferase (ALT/SGPT) 23 Alkaline Phosphatase 127 H Total Protein 6.6 Albumin 3.6 Globulin 3.00 Albumin/Globulin Ratio 1.20 Subjective 24 Hr Interval Summary Free Text/Dictation Patient remains stable and in no acute distress. Opens eyes to touch but not following commands. Exam/Review of Systems Exam Vitals Vital Signs Date Temp Pulse Resp B/P (MAP) Pulse Ox O2 O2 Flow FiO2 Time Delivery Rate 12/03/18 73 08:26 12/03/18 97.8 22 151/83 98 Mechanical 07:49 (105) Ventilator Trach Collar 12/03/18 30 05:00 Intake and Output 12/02/18 12/02/18 12/03/18 1515:00 23:00 07:00 IntakeIntake Total 690 ml 660 ml OutputOutput Total 1200 ml 550 ml BalanceBalance -510 ml 110 ml Exam General: no acute distress. opens eyes but not following commands Neck: Supple Respiratory: Diminished. no wheezing Cardiovascular: regular rate and rhythm, no obvious murmurs Gastrointestinal: soft, nondistended, no rebound or guarding, bowel sounds heard. Skin: No new skin lesions Results Results 24hrs Laboratory Tests Test 12/03/18 06:15 Sodium Level 146 H Potassium Level 3.5 Chloride Level 102 Carbon Dioxide Level 34 H Anion Gap 10 Blood Urea Nitrogen 23 H Creatinine 1.43 H Est Glomerular Filtrat Rate mL/min 36 L Glucose Level 112 Calcium Level 8.8 Total Bilirubin 0.3 Direct Bilirubin 0.00 Indirect Bilirubin 0.3 Aspartate Amino Transf (AST/SGOT) 23 Alanine Aminotransferase (ALT/SGPT) 23 Alkaline Phosphatase 127 H Total Protein 6.6 Albumin 3.6 Globulin 3.00 Albumin/Globulin Ratio 1.20 Medications Medication Current Medications Ondansetron HCl (Zofran Inj) 4 mg Q6H PRN IV NAUSEA AND/OR VOMITING; Start 11/19/18 at 20:30 Acetaminophen (Tylenol Tab) 650 mg Q6H PRN GTB MILD PAIN LEVEL 1-3 Last administered on 11/22/18 03:04; Admin Dose 650 MG; Start 11/20/18 at 06:00 Albuterol (Proventil 0.083% (Neb)) 2.5 mg Q6H RESP THERAPY PRN NEB WHEEZING AND SOB Last administered on 11/21/18 19:40; Admin Dose 2.5 MG; Start 11/20/18 at 06:00 Folic Acid (Folic Acid) 1 mg DAILY GTB Last administered on 12/03/18 09:06; Ad min Dose 1 MG; Start 11/20/18 at 09:00 Epoetin Theodore (Epogen (Non Esrd/Non Oncology)) 8,000 units MoWeFr@17 SC Last administered on 12/01/18 17:31; Admin Dose 8,000 UNITS; Start 11/24/18 at 17:30 Citric Acid/ Sodium Citrate (Bicitra) 30 ml TID PO Last administered on 12/03/18 09:06; Admin Dose 30 ML; Start 11/25/18 at 13:00 Lorazepam (Ativan) 1 mg Q10MIN PRN GTB agitation; Start 11/26/18 at 12:00 Amiodarone HCl (Cordarone) 200 mg BID PO Last administered on 12/03/18 09:06; Admin Dose 200 MG; Start 11/29/18 at 21:00 Miscellaneous Information (Pending [facility] Order For Wound Care) This patient h a... PRN PRN XX WOUND CARE; Start 11/30/18 at 01:30 Levetiracetam (Keppra Liquid) 500 mg BID GTB Last administered on 12/03/18 09:06; Admin Dose 500 MG; Start 11/30/18 at 21:00 Phenobarbital (Luminal) 65 mg Q12 PO Last administered on 3/7/19at 20:56; Admin Dose 65 MG; Start 11/30/18 at 21:00 Pantoprazole (Protonix Tab) 40 mg DAILY@06 PO Last administered on 12/03/18at 05:39; Admin Dose 40 MG; Start 12/01/18 at 06:00 Furosemide (Lasix) 20 mg DAILY IV Last administered on 12/03/18at 09:06; Admin Dose 20 MG; Start 12/02/18 at 09:00 Dextrose 1,000 ml @ 75 mls/hr [id number] IV Last administered on 12/03/18at 02:47; Admin Dose 75 MLS/HR; Start 12/02/18 at 09:30 KENNETH SANTILLAN MD Dec 03, 2018 09:16
[2018-12-03] MEDS: PHENOBARBITAL (4 MG/ML) 5ML CUP PO SCH ×2 (10:16→20:29)
[2018-12-03] MEDS ORDERED: hydrALAzine 20 MG INJ IV PRN (11:30)
--- NOTE | 2018-12-03 11:48 | CONS ---
Assessment/Plan Assessment/Plan Hospital Course (Demo Recall) Paroxysmal atrial fibrillation: No known prior diagnosis. Not a good candidate for chronic anticoagulation with recurrent anemia.Now back in sinus after amiodarone. Septic shock: now off pressors Anemia: no active bleeding. Hgb >8 after transfusion Acute on chronic diastolic CHF: due to third spacing from low albumin/IVF. Slowl y improving Choledocholithiasis with acute cholecystitis: s/p ERCP and biliary stenting. Acute renal failure VDRF/tracheostomy h/o brain tumor Seizure disorder Bedridden -lasix 40mg PO daily -amiodarone 200mg daily -antibiotics -ok for dispo -will follow PRN Consultation Date/Type/Reason Admit Date/Time Nov 19, 2018 at 19:01 Initial Consult Date 11/22/18 Type of Consult Cardiology Requesting Provider: GUIDO SANTIAGO MD Date/Time of Note DATE: 12/03/18 TIME: 11:47 24 HR Interval Summary Free Text/Dictation No events. Exam/Review of Systems Exam Vitals Vital Signs Date Temp Pulse Resp B/P (MAP) Pulse Ox O2 O2 Flow FiO2 Time Delivery Rate 12/03/18 70 18 98 30 09:39 12/03/18 97.8 151/83 Mechanical 07:49 (105) Ventilator Trach Collar Intake and Output 12/02/18 12/02/18 12/03/18 1515:00 23:00 07:00 IntakeIntake Total 690 ml 660 ml OutputOutput Total 1200 ml 550 ml BalanceBalance -510 ml 110 ml Constitutional: No alert, No oriented ENMT: other (s/p trach) Respiratory: diminished breath sounds; No clear to auscultation Cardiovascular: regular rate and rhythm, edema (1-2+) Gastrointestinal: soft; No non-tender, No distended Results Result Diagram: 12/01/18 0808 12/03/18 0615 Results 24hrs Laboratory Tests Test 12/03/18 06:15 Sodium Level 146 H Potassium Level 3.5 Chloride Level 102 Carbon Dioxide Level 34 H Anion Gap 10 Blood Urea Nitrogen 23 H Creatinine 1.43 H Est Glomerular Filtrat Rate mL/min 36 L Glucose Level 112 Calcium Level 8.8 Total Bilirubin 0.3 Direct Bilirubin 0.00 Indirect Bilirubin 0.3 Aspartate Amino Transf (AST/SGOT) 23 Alanine Aminotransferase (ALT/SGPT) 23 Alkaline Phosphatase 127 H Total Protein 6.6 Albumin 3.6 Globulin 3.00 Albumin/Globulin Ratio 1.20 Medications Medication Current Medications Ondansetron HCl (Zofran Inj) 4 mg Q6H PRN IV NAUSEA AND/OR VOMITING; Start 11/19/18 at 20:30 Acetaminophen (Tylenol Tab) 650 mg Q6H PRN GTB MILD PAIN LEVEL 1-3 Last administered on 11/22/18 03:04; Admin Dose 650 MG; Start 11/20/18 at 06:00 Albuterol (Proventil 0.083% (Neb)) 2.5 mg Q6H RESP THERAPY PRN NEB WHEEZING AND SOB Last administered on 11/21/18 19:40; Admin Dose 2.5 MG; Start 11/20/18 at 06:00 Folic Acid (Folic Acid) 1 mg DAILY GTB Last administered on 12/03/18 09:06; Admin Dose 1 MG; Start 11/20/18 at 09:00 Epoetin Theodore (Epogen (Non Esrd/Non Oncology)) 8,000 units MoWeFr@17 SC Last administered on 12/01/18 17:31; Admin Dose 8,000 UNITS; Start 11/24/18 at 17:30 Citric Acid/ Sodium Citrate (Bicitra) 30 ml TID PO Last administered on 12/03/18 09:06; Admin Dose 30 ML; Start 11/25/18 at 13:00 Lorazepam (Ativan) 1 mg Q10MIN PRN GTB agitation; Start 11/26/18 at 12:00 Amiodarone HCl (Cordarone) 200 mg BID PO Last administered on 12/03/18 09:06; Admin Dose 200 MG; Start 11/29/18 at 21:00 Miscellaneous Information (Pending Santyl Order For Wound Care) This patient fermin... PRN PRN XX WOUND CARE; Start 11/30/18 at 01:30 Levetiracetam (Keppra Liquid) 500 mg BID GTB Last administered on 12/03/18 09:06; Admin Dose 500 MG; Start 11/30/18 at 21:00 Phenobarbital (Luminal) 65 mg Q12 PO Last administered on 12/03/18 10:16; Admin Dose 65 MG; Start 11/30/18 at 21:00 Pantoprazole (Protonix Tab) 40 mg DAILY@06 PO Last administered on 12/03/18at 05:39; Admin Dose 40 MG; Start 12/01/18 at 06:00 Furosemide (Lasix) 20 mg DAILY IV Last administered on 12/03/18at 09:06; Admin Dose 20 MG; Start 12/02/18 at 09:00 Dextrose 1,000 ml @ 75 mls/hr [id number] IV Last administered on 12/03/18at 02:47; Admin Dose 75 MLS/HR; Start 12/02/18 at 09:30 Hydralazine HCl (Apresoline) 10 mg Q6H PRN IV SBP >170; Start 12/03/18 at 11:30 FRANSISCO SALCIDO Dec 03, 2018 11:48
--- NOTE | 2018-12-03 12:29 | CONS ---
Consult Date/Type/Reason Admit Date/Time Nov 19, 2018 at 19:01 Initial Consult Date Type of Consult Pulmonary Requesting Provider: GUIDO SANTIAGO MD Date/Time of Note DATE: 12/03/18 TIME: 12:28 Subjective No significant changes. Remains stable this morning on mechanical ventilation Objective Vital Signs Date Temp Pulse Resp B/P (MAP) Pulse Ox O2 O2 Flow FiO2 Time Delivery Rate 12/03/18 73 12:24 12/03/18 166/83 12:06 (110) 12/03/18 97.8 21 98 Mechanical 11:52 Ventilator Trach Collar 12/03/18 30 11:50 Intake and Output 12/02/18 12/02/18 12/03/18 1515:00 23:00 07:00 IntakeIntake Total 690 ml 660 ml OutputOutput Total 1200 ml 550 ml BalanceBalance -510 ml 110 ml Exam PHYSICAL EXAMINATION: GENERAL: Elderly-appearing lady, appears on mechanical ventilation. VITAL SIGNS: HEENT: Extraocular movements intact. CARDIAC: S1, S2, no added sounds or murmurs. CHEST: Diminished air entry bilaterally. ABDOMEN: Soft, nontender. No guarding or rebound. EXTREMITIES: No cyanosis, clubbing. NEUROLOGIC: Unable to assess. Vent Setting Ventilator Support Mode: AC Fraction of Inspired Oxygen pe: 30 Positive End Expiratory Pressu: 5.0 Results/Medications Result Diagram: 12/01/18 0808 12/03/18 0615 Results 24 hrs Laboratory Tests Test 12/03/18 06:15 Sodium Level 146 H Potassium Level 3.5 Chloride Level 102 Carbon Dioxide Level 34 H Anion Gap 10 Blood Urea Nitrogen 23 H Creatinine 1.43 H Est Glomerular Filtrat Rate mL/min 36 L Glucose Level 112 Calcium Level 8.8 Total Bilirubin 0.3 Direct Bilirubin 0.00 Indirect Bilirubin 0.3 Aspartate Amino Transf (AST/SGOT) 23 Alanine Aminotransferase (ALT/SGPT) 23 Alkaline Phosphatase 127 H Total Protein 6.6 Albumin 3.6 Globulin 3.00 Albumin/Globulin Ratio 1.20 Medications Current Medications Ondansetron HCl (Zofran Inj) 4 mg Q6H PRN IV NAUSEA AND/OR VOMITING; Start 11/19/18 at 20:30 Acetaminophen (Tylenol Tab) 650 mg Q6H PRN GTB MILD PAIN LEVEL 1-3 Last administered on 11/22/18at 03:04; Admin Dose 650 MG; Start 11/20/18 at 06:00 Albuterol (Proventil 0.083% (Neb)) 2.5 mg Q6H RESP THERAPY PRN NEB WHEEZING AND SOB Last administered on 11/21/18 19:40; Admin Dose 2.5 MG; Start 11/20/18 at 06:00 Folic Acid (Folic Acid) 1 mg DAILY GTB Last administered on 12/03/18 09:06; Admin Dose 1 MG; Start 11/20/18 at 09:00 Epoetin Theodore (Epogen (Non Esrd/Non Oncology)) 8,000 units MoWeFr@17 SC Last administered on 12/01/18 17:31; Admin Dose 8,000 UNITS; Start 11/24/18 at 17:30 Citric Acid/ Sodium Citrate (Bicitra) 30 ml TID PO Last administered on 12/03/18 12:10; Admin Dose 30 ML; Start 11/25/18 at 13:00 Lorazepam (Ativan) 1 mg Q10MIN PRN GTB agitation; Start 11/26/18 at 12:00 Miscellaneous Information (Pending Santyl Order For Wound Care) This patient fermin... PRN PRN XX WOUND CARE; Start 11/30/18 at 01:30 Levetiracetam (Keppra Liquid) 500 mg BID GTB Last administered on 12/03/18 09:06; Admin Dose 500 MG; Start 11/30/18 at 21:00 Phenobarbital (Luminal) 65 mg Q12 PO Last administered on 12/03/18 10:16; Admin Dose 65 MG; Start 11/30/18 at 21:00 Pantoprazole (Protonix Tab) 40 mg DAILY@06 PO Last administered on 12/03/18 05:39; Admin Dose 40 MG; Start 12/01/18 at 06:00 Dextrose 1,000 ml @ 75 mls/hr [id number] IV Last administered on 12/03/18 02:47; Admin Dose 75 MLS/HR; Start 12/02/18 at 09:30 Hydralazine HCl (Apresoline) 10 mg Q6H PRN IV SBP >170; Start 12/03/18 at 11:30 Amiodarone HCl (Cordarone) 200 mg DAILY PO ; Start 12/04/18 at 09:00 Furosemide (Lasix) 40 mg DAILY@0600 PO ; Start 12/04/18 at 06:00 Assessment/Plan Hospital Course (Demo Recall) IMPRESSION: 1. Status post septic shock secondary to acute cholecystitis, now off vasopressors 2. Chronic respiratory failure. Continue AC mechanical ventilation 3. GI bleed status post ERCP and stent placement 4. Dysphagia with G-tube. 5. Renal insufficiency with metabolic acidosis possible ATN injury. Now improved. PLAN: 1. Broad-spectrum antibiotics. ID recommendations 2. Gastrointestinal evaluation. Procedures as above. 3. Feeding per GI 4. Deep venous thrombosis and GI prophylaxis. 5. Continue AC mechanical ventilation Transfer to [place] today. Discussed with primary team. MONO HOYOS MD, [facility] Dec 03, 2018 12:28
--- NOTE | 2018-12-03 13:47 | CONS ---
Assessment/Plan Assessment/Plan Hospital Course 68 F c/ reported Hx of malignant brain neoplasm NOS c/b epilepsy..and other comorbidities, who presents for management of hypotension and GI abnl. Neurology is consulted for epilepsy medication management. P: Continue Phb 65mg bid, via tube Continue Keppra 500mg bid for now, via tube, with plan to increase gradually as GFR improves.. Ativan iv prn prolonged seizure of cluster Other management per primary Will follow clinically Consultation Date/Type/Reason Admit Date/Time Nov 19, 2018 at 19:01 Type of Consult Neurology Requesting Provider: GUIDO SANTIAGO MD Date/Time of Note DATE: 12/03/18 TIME: 13:47 24 HR Interval Summary Free Text/Dictation Continues acute care. Awaiting transfer to [place] this evening. Subjective hx not possible: pt non-verbal Exam Vital Signs Vitals Vital Signs Date Temp Pulse Resp B/P (MAP) Pulse Ox O2 O2 Flow FiO2 Time Delivery Rate 12/03/18 73 12:24 12/03/18 166/83 12:06 (110) 12/03/18 97.8 21 98 Mechanical 11:52 Ventilator Trach Collar 12/03/18 30 11:50 Intake and Output 12/02/18 12/02/18 12/03/18 1414:59 22:59 06:59 IntakeIntake Total 690 ml 660 ml OutputOutput Total 1200 ml 550 ml BalanceBalance -510 ml 110 ml Exam PE: Gen Appearance: No Apparent Distress HEENT: trached Cardiovascular: Regular rate Abdomen: Soft; with PEG Extremities: Dry; edematous NE: The patient was awake, though she did not fix or follow.. Unable to follow commands. Cranial nerve examination was limited by mental status. Pupils were equal and reactive to light. There was no afferent pupillary defect. Funduscopic examination was limited. Face was grossly symmetric, w/ present corneal and cough reflexes. Tone was spastic in the UE. Muscle bulk was normal. I did not see fasciculations. The patient had spontaneous movement of her L forearm and R hand; withdrew extremities to noxious stimulation x 4. Coordination and gait testing was limited by mental status. Arm and leg reflexes were within normal limits and symmetric. Whitman's sign was absent. Plantar responses were flexor. HIPOLITO GLOVER NP Dec 03, 2018 13:47
--- NOTE | 2018-12-03 15:01 | CONS ---
Assessment/Plan Assessment/Plan Hospital Course (Demo Recall) No acute events overnight patient remains noncommunicative, no fevers overnight Indwelling: Trach PEG, Jaime PICC Physical examination: Morbidly obese well-developed chronically ill-appearing elderly woman who is in no distress. Head atraumatic normocephalic neck is obese tracheostomy present chest rise symmetrical breath sounds diminished bases. Heart: S1-S2. Abdomen soft bowel sounds hypoactive. Extremities with bilateral edema Assessment: 1. S/p sepsis with shock secondary to acute cholangitis 2. Acute cholecystitis with choledocholithiasis==>Status post ERCP, sphincterotomy, bile duct stent placement 11/25/18 3. Acute renal failure 4. Chronic respiratory failure and dysphagia 5. Acute on chronic anemia 6. Paroxysmal atrial fibrillation Plan: Remains stable, off antibiotics Consultation Date/Type/Reason Admit Date/Time Nov 19, 2018 at 19:01 Initial Consult Date 11/22/18 Type of Consult id Requesting Provider: GUIDO SANTIAGO MD Date/Time of Note DATE: 12/03/18 TIME: 15:00 Exam/Review of Systems Exam Vitals Vital Signs Date Temp Pulse Resp B/P (MAP) Pulse Ox O2 O2 Flow FiO2 Time Delivery Rate 12/03/18 79 18 100 30 13:58 12/03/18 166/83 12:06 (110) 12/03/18 97.8 Mechanical 11:52 Ventilator Trach Collar Intake and Output 12/02/18 12/02/18 12/03/18 1414:59 22:59 06:59 IntakeIntake Total 690 ml 660 ml OutputOutput Total 1200 ml 550 ml BalanceBalance -510 ml 110 ml Results Result Diagram: 12/01/18 0808 12/03/18 0615 Results 24hrs Laboratory Tests Test 12/03/18 06:15 Sodium Level 146 H Potassium Level 3.5 Chloride Level 102 Carbon Dioxide Level 34 H Anion Gap 10 Blood Urea Nitrogen 23 H Creatinine 1.43 H Est Glomerular Filtrat Rate mL/min 36 L Glucose Level 112 Calcium Level 8.8 Total Bilirubin 0.3 Direct Bilirubin 0.00 Indirect Bilirubin 0.3 Aspartate Amino Transf (AST/SGOT) 23 Alanine Aminotransferase (ALT/SGPT) 23 Alkaline Phosphatase 127 H Total Protein 6.6 Albumin 3.6 Globulin 3.00 Albumin/Globulin Ratio 1.20 Medications Medication Current Medications Ondansetron HCl (Zofran Inj) 4 mg Q6H PRN IV NAUSEA AND/OR VOMITING; Start 11/19/18 at 20:30 Acetaminophen (Tylenol Tab) 650 mg Q6H PRN GTB MILD PAIN LEVEL 1-3 Last administered on 11/22/18 03:04; Admin Dose 650 MG; Start 11/20/18 at 06:00 Albuterol (Proventil 0.083% (Neb)) 2.5 mg Q6H RESP THERAPY PRN NEB WHEEZING AND SOB Last administered on 11/21/18 19:40; Admin Dose 2.5 MG; Start 11/20/18 at 06:00 Folic Acid (Folic Acid) 1 mg DAILY GTB Last administered on 12/03/18 09:06; Admin Dose 1 MG; Start 11/20/18 at 09:00 Epoetin Theodore (Epogen (Non Esrd/Non Oncology)) 8,000 units MoWeFr@17 SC Last administered on 12/01/18 17:31; Admin Dose 8,000 UNITS; Start 11/24/18 at 17:30 Citric Acid/ Sodium Citrate (Bicitra) 30 ml TID PO Last administered on 12/03/18 12:10; Admin Dose 30 ML; Start 11/25/18 at 13:00 Lorazepam (Ativan) 1 mg Q10MIN PRN GTB agitation; Start 11/26/18 at 12:00 Miscellaneous Information ([facility]ending [facility] For [facility]ound Care) This patient fermin... PRN PRN XX WOUND CARE; Start 11/30/18 at 01:30 Levetiracetam (Keppra Liquid) 500 mg BID GTB Last administered on 12/03/18 09:06; Admin Dose 500 MG; Start 11/30/18 at 21:00 Phenobarbital (Luminal) 65 mg Q12 PO Last administered on 12/03/18 10:16; Admin Dose 65 MG; Start 11/30/18 at 21:00 Pantoprazole (Protonix Tab) 40 mg DAILY@06 PO Last administered on 12/03/18 05:39; Admin Dose 40 MG; Start 12/01/18 at 06:00 Dextrose 1,000 ml @ 75 mls/hr [id number] IV Last administered on 12/03/18 02:47; Admin Dose 75 MLS/HR; Start 12/02/18 at 09:30 Hydralazine HCl (Apresoline) 10 mg Q6H PRN IV SBP >170; Start 12/03/18 at 11:30 Amiodarone HCl (Cordarone) 200 mg DAILY PO ; Start 12/04/18 at 09:00 Furosemide (Lasix) 40 mg DAILY@0600 PO ; Start 12/04/18 at 06:00 KAREN LOMAS NP Dec 03, 2018 15:01
--- NOTE | 2018-12-03 15:54 | DS ---
Date/Time of Note Date/Time of Note DATE: 12/03/18 TIME: 15:53 Discharge Summary Admission/Discharge Info Admit Date/Time Nov 19, 2018 at 19:01 Discharge Date/Time 12/03/18 1800 Discharge Diagnosis 1. Septic shock secondary to acute cholecystitis/choledocholithiasis- resolved 2. Acute choledocholithiasis 3. Acute cholecystitis 4. Hypernatremia 5. JUSTO 6. h/o Malignant neoplasm of brain 7. Seizure disorder 8. HTN 9. Iron deficiency anemia 10. Chronic respiratory failure Patient Condition: Stable Consults Neurology- Dr. Smith Cardiology- Dr. Donato General Surgery- Dr. Andrews Nephrology- Dr. Montalvo Palliative- Dr. Rivera GI- Dr. Bartholomew Pulmonology- Dr. Landeros Infectious disease- Dr. Menendez Procedures PROCEDURE: Nuclear medicine HIDA scan CLINICAL INDICATION: Right upper quadrant pain. Clinical concern for cholecystitis. TECHNIQUE: Following the intravenous injection of 7.8 mCi technetium 99 m Mebrofenin, dynamic images over the biliary system are obtained at 5-minute intervals with delayed images also submitted. COMPARISON: CT abdomen and pelvis 11/19/2018. Abdominal ultrasound 11/20/2018 FINDINGS: There is homogeneous distribution of radiopharmaceutical throughout the hepatic parenchyma. Activity is seen within the common bile duct and small bowel 15 minutes following injection. The radiopharmaceutical activity increases in magnitude in the small bowel over time, however, no activity is visible within the gallbladder even on the delayed images obtained at 4 hours. RPTAT:HJJR IMPRESSION: Lack of normal gallbladder visualization consistent with cystic duct obstruction confirming the clinical concern for acute cholecystitis with patency of the common bile duct. Physician Juan Date Time Electronically viewed and signed by Physician Juan on 11/27/2018 18:15 PROCEDURE: Intraoperative imaging for ERCP with fluoroscopy. CLINICAL INDICATION: Right upper quadrant pain. Intraoperative. TECHNIQUE: 12 images of the right upper quadrant of the abdomen were obtained in the operating room with an image intensifier. No radiologist was in attendance. Fluoroscopy time is 1.6 minutes. COMPARISON: CT scan of the abdomen and pelvis dated 11/19/2018. FINDINGS: Images demonstrate the endoscope in position and contrast injected into the common bile duct. A balloon sweep was made. The final image demonstrates a stent in the common bile duct. IMPRESSION: 1. ERCP as described above. RPTAT: QQ .Korey Zelaya MD, Date Time Electronically viewed and signed by .Korey Zelaya MD, on 11/26/2018 07:57 PROCEDURE: XR Chest. CLINICAL INDICATION: PICC line placement TECHNIQUE: Single frontal view of the chest was obtained COMPARISON: Same day FINDINGS: There is a new right-sided PICC line in place with its tip overlying the mid to lower right atrium. Retraction of 3 cm is recommended.. The heart, mediastinum, and lungs are unchanged. There is a tracheostomy tube in place. There is mild cardiomegaly. There are bibasilar atelectatic changes. RPTAT: AA IMPRESSION: New PICC line with its tip overlying the mid to low right atrium. Retraction of 3 cm is recommended.. .Danny Dior MD, Date Time Electronically viewed and signed by .Danny Dior MD, on 11/24/2018 14:13 PROCEDURE: Renal US. CLINICAL INDICATION: Acute renal insufficiency TECHNIQUE: Multiple sonographic images of the kidneys and urinary bladder were obtained. COMPARISON: No prior studies are available for comparison. FINDINGS: The kidneys are normal in size the right measuring 11.3 cm and the left measuring 9.22 cm maximal sagittal dimension. Normal renal parenchymal echogenicity bilaterally without hydronephrosis intra renal masses or calculi bi laterally. Urinary bladder is contracted with a Jaime catheter in place. IMPRESSION: 1. Normal sized kidneys without hydronephrosis, intra renal masses, calculi or renal parenchymal disease. 2. Contracted urinary bladder containing a Jaime catheter. RPTAT:AAJJ Physician Candice Date Time Electronically viewed and signed by Physician Candice on 11/20/2018 09:23 PROCEDURE: CT abdomen and pelvis without contrast. CLINICAL INDICATION: Possible sepsis. TECHNIQUE: CT scan of the abdomen and pelvis without contrast was performed on a multi-slice CT scanner utilizing axial imaging from the lung bases through the pubis symphysis. One or more the following does reduction techniques were utilized: Automated exposure control, adjustment of the mA/ or kV according to patient's size, or use of iterative reconstruction technique. Sagittal and coronal reformatted images were made. DICOM images are available for review. The CTDIvol is 23.32 mGy and the DLP is 216 of 7.73 mGycm. COMPARISON: None. FINDINGS: CT abdomen Visualized lung bases: Atelectasis posterior inferior left right lower lobes. No significant pleural or pericardial effusion. Liver: Limited evaluation without IV contrast. No gross lesion. Gallbladder and bile ducts: Distended gallbladder with minimal pericholecystic fluid. 3 calcified gallstones are present in the gallbladder. Dilated common bile duct, measuring 14.5 mm. No distal ductal calcification. Spleen: Normal appearance. Pancreas: Normal appearance. No ductal dilatation. No mass. No peripancreatic stranding. Adrenal glands: Thickened left adrenal gland. Negative right adrenal gland. Kidneys: No hydronephrosis or renal stones. Vasculature: No abdominal aortic aneurysm. Calcified plaque present. Negative IVC. Lymph nodes: No adenopathy. GI: Small hiatal hernia. Percutaneous gastrostomy tube, tip and balloon in the gastric lumen. Mildly dilated air and fluid-filled small bowel loops left and right abdomen. Nondistended, stool containing colon. Gas distended sigmoid colon extends into the mid abdomen. Diverticulosis descending colon. Malrotated cecum. Peritoneal cavity: No free fluid or free air. CT pelvis GI: Negative terminal ileum. The appendix is not identified. Sigmoid diverticulosis. Sigmoid colon extends into the midabdomen. Negative rectum. : Jaime catheter decompresses the urinary bladder. Small uterus. 2.4 cm right ovarian cyst. Atrophic left ovary. Peritoneal cavity: No free fluid or loculated fluid collections. Lymph nodes: No adenopathy. Osseous structures: Bones are demineralized. No lytic or blastic lesions. No endplate fractures. IMPRESSION: 1. Cholelithiasis with distended gallbladder suspected acute cholecystitis. 2. Dilated common bile duct to the level of the ampulla. Differential diagnosis includes choledocholithiasis, distal duct sludge and distal duct stricture. 3. Atelectasis posterior inferior lower lobes. For percutaneous gastrostomy tube, tip and balloon in the gastric lumen. 5. Gas distended sigmoid colon extending to the mid abdomen. No evidence of obstruction. 6. Mildly dilated air and fluid-filled small bowel loops, probable ileus. 7. 2.4 cm right ovarian cyst.. RPTAT: HLRS Physician Silvestre Date Time Electronically viewed and signed by Physician Silvestre on 11/19/2018 23:22 PROCEDURE: CT Brain without contrast. CLINICAL INDICATION: Infectious process. Right craniotomy. TECHNIQUE: A CT of the brain was performed utilizing axial imaging from the skull base through the vertex without IV contrast. Multiplanar reformatted images were made. Images were reviewed on a PACS workstation. The CTDIvol is 38.79 mGy and the DLP is 778.03 mGycm. DICOM images are available. One or more of the following dose reduction techniques were utilized: 1.) Automated exposure control 2.) Adjustment of the mA +/- kV according to patient's size 3.) Use of iterative reconstruction technique. COMPARISON: None FINDINGS: Remote right frontal temporal parietal craniotomy. Chronic changes of atrophy and small vessel disease of white matter, greater in the posterior fossa. Dilation of the left lateral ventricle may be secondary to volume loss. The remaining ventricles are unremarkable. 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 There is no intracranial hemorrhage, mass effect, or midline shift. No extra- axial fluid collection is seen. The sulci are otherwise normal in size and configuration. The density of the remaining brain is otherwise normal, and the bautista white matter differentiation appears well-preserved. The visualized paranasal sinuses and osseous structures are grossly unremarkable. IMPRESSION: 1. Dilation left lateral ventricle may be secondary to volume loss. 2. Chronic changes of atrophy and small vessel disease white matter, greater in the posterior fossa. 3. Small remote infarct in the left todd radiata. 4. Otherwise, no evident acute process in the head. RPTAT: UU Physician Bridgette Date Time Electronically viewed and signed by Physician Bridgette on 11/19/2018 22:43 Hx of Present Illness Chief complaint: Sent for evaluation of low blood pressure The following history was obtained from the ED physician documentation as well as from the chart as patient is not able to provide history given her clinical condition. 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 Patient was noted to have low blood pressures and presented to the ER. Recent lab work that was performed as an outpatient was significant for a white blood cell count of 15.01 hemoglobin of 10.5 hematocrit of 34.3 a sodium of 149 and potassium of 5.1 creatinine 0.87 as well as AST of 273 ALT of 437 and an alk phos of 302 and a total bilirubin of 4.8. Patient was noted to be hypotensive in the ED and a central line was placed and vasopressors were started. CT scan of the abdomen pelvis was ordered which showed Dilated common bile duct to the level of the ampulla. Differential diagnosis includes choledocholithiasis, distal duct sludge and distal duct stricture. Dr. Bartholomew of GI was consulted. Patient was subsequently brought to the ICU secondary to hypotension requiring pressor support. Patient apparently at baseline does track with her eyes, which she was doing less of as well today. Allergies: NKDA Hospital Course Patient was admitted to ICU secondary to septic shock requiring pressor support. Patient was found with acute choledocholithiasis with possible cholangitis which was most likely the source of sepsis. Patient was evaluated by Nephrology given new onset JUSTO and fluids were continued. Patient was experiencing respiratory distress and placed on mechanical ventilation and Concrete [employer] was consulted for management. Patient was also having episodes of sinus tachycardia up to 200s and Cardiology was consulted for further recommendations. GI was consulted and ERCP was performed with improvement in patient overall status. She was continued on IV antibiotics per Infectious disease recommendations. Patient was evaluated by General Surgery given findings of acute cholecystitis and did not recommend any intervention given high risk candidate for surgical intervention. Patients overall clinical picture improved and LFTs normalized. Patients vitals remained stable and sepsis resolved. Patient still had mild JUSTO which was continued to be managed by Nephrology. There were concerns that given patients vegetative state with poor quality of life, patients code status should be addressed. Bioethic meeting was held and patients code status was changed to DNR/DNI. Patient completed antibiotics with no signs of further infections. Patient remained on ventilator support which was a change from her initial baseline prior to admission. Patient remained stable and was discharged to LTAC for continued treatment of pulmonary and renal issues. Home Meds Active Scripts [Furosemide] 10 MG/ML SOLN No Conflict Check, 20 MG IV DAILY for 30 Days, #1 VIAL Prov:KENNETH SANTILLAN MD 12/02/18 Reported Medications Ranitidine Hcl* (Ranitidine Hcl*) 150 Mg Tablet, 150 MG GTB Q12, #60 TAB 11/19/18 Cholecalciferol* (Vitamin D*) 400 Unit Tablet, 400 UNIT GTB DAILY, TAB 11/19/18 Amino Acids/Protein Hydrolys (Pro-Stat 64 Liquid) 887 Ml Liquid, 30 ML GTB BID 11/19/18 Albuterol Sulfate* (Albuterol Sulfate* Neb) 0.083%-3 Ml Neb, 2.5 MG NEB Q6 PRN for WHEEZING AND SOB, #30 VIAL 11/19/18 Levetiracetam* (Keppra* (Ped)) 100 Mg/Ml Liq, 1500 MG GTB BID for 30 Days, BOTTLE 11/19/18 Sennosides* (Senna Lax*) 8.6 Mg Tablet, 1 TAB GTB DAILY, TAB 11/19/18 Folic Acid* (Folic Acid*) 1 Mg Tablet, 1 MG GTB DAILY, TAB 11/19/18 Phenobarbital* (Phenobarbital* Liq) 20 Mg/5 Ml Elix, 5 MG GTB BID for 30 Days, BOTTLE 11/19/18 Ferrous Sulfate (Ferrous Sulfate) 300 Mg/5 Ml Liquid, 300 MG GTB BID 11/19/18 Clonidine Hcl* (Clonidine Hcl*) 0.1 Mg Tab, 0.1 MG GTB Q6 PRN for ELEVATED BLOOD PRESSURE, TAB 11/19/18 Calcium Carbonate* (Calcium Carbonate*) 600 MG Ca Tab, 1200 MG GTB DAILY, TAB 11/19/18 Aspirin* (Aspirin* Chew) 81 Mg Tab.chew, 81 MG GTB DAILY, TAB.CHEW 11/19/18 Acetaminophen* (Acetaminophen*) 650 Mg Tablet, 650 MG GTB Q6H PRN for MILD PAIN LEVEL 1-3, #30 TAB 11/19/18 Ascorbic Acid* (Vitamin C*) 500 Mg Capsule.sa, 500 MG GTB DAILY, CAP 11/19/18 Discontinued Reported Medications Labetalol Hcl* (Labetalol Hcl*) 200 Mg Tablet, 200 MG GTB BID PRN for ELEVATED BLOOD PRESSURE, TAB 11/19/18 Lisinopril* (Lisinopril*) 10 Mg Tablet, 10 MG GTB DAILY, #30 TAB 11/19/18 Follow-up Plan 1. Follow up with your primary care physician in 1 week 2. Continue all medications as prescribed 3. If experiencing any concerning symptoms, please go to your nearest emergency department Primary Care Provider Walker Montalvo MD Time spent on discharge: > 30 minutes Pending Labs Laboratory Tests Test 12/03/18 06:15 Sodium Level 146 mmol/L (135-144) Potassium Level 3.5 mmol/L (3.5-5.1) Chloride Level 102 mmol/L (97-110) Carbon Dioxide Level 34 mmol/L (21-31) Anion Gap 10 (5-13) Blood Urea Nitrogen 23 mg/dl (7-20) Creatinine 1.43 mg/dl (0.44-1.00) Est Glomerular Filtrat Rate mL/min 36 mL/min (>60) Glucose Level 112 mg/dl (70-220) Calcium Level 8.8 mg/dl (8.4-10.2) Total Bilirubin 0.3 mg/dl (0.2-1.3) Direct Bilirubin 0.00 mg/dl (0.00-0.20) Indirect Bilirubin 0.3 mg/dl (0-1.1) Aspartate Amino Transf (AST/SGOT) 23 IU/L (15-46) Alanine Aminotransferase (ALT/SGPT) 23 IU/L (13-69) Alkaline Phosphatase 127 IU/L (42-121) Total Protein 6.6 g/dl (6.1-8.1) Albumin 3.6 g/dl (3.3-4.9) Globulin 3.00 g/dl (1.3-3.2) Albumin/Globulin Ratio 1.20 KENNETH SANTILLAN MD Dec 03, 2018 15:54
[2018-12-03] MEDS: EPOETIN 4000 UNITS/ML (NON ESRD/NON ONCOLOGY) SC SCH (16:15)
--- NOTE | 2018-12-03 23:05 | CONS ---
Assessment/Plan Assessment/Plan Hospital Course (Demo Recall) Pt with multiple medical problems: renal domínguez she has improved. Will continue close follow up Consultation Date/Type/Reason Admit Date/Time Nov 19, 2018 at 19:01 Initial Consult Date 11/23/18 Type of Consult Nephrology Requesting Provider: GUIDO SANTIAGO MD Date/Time of Note DATE: 12/02/18 TIME: 11:56 24 HR Interval Summary Free Text/Dictation Pt is non verbal & vegetative Exam/Review of Systems Exam Vitals Vital Signs Date Temp Pulse Resp B/P (MAP) Pulse Ox O2 O2 Flow FiO2 Time Delivery Rate 12/03/18 75 18 99 30 21:10 12/03/18 98.5 164/92 Mechanical 19:00 (116) Ventilator Intake and Output 12/02/18 12/02/18 12/03/18 1515:00 23:00 07:00 IntakeIntake Total 690 ml 660 ml OutputOutput Total 1200 ml 550 ml BalanceBalance -510 ml 110 ml Exam No response whatsoever Constitutional: non-verbal Eyes: PERRL ENMT: intubated Neck: other (Trach in place) Cardiovascular: edema Gastrointestinal: distended Genitourinary - Female: other (Jaime in place) Neurological: unresponsive Results Result Diagram: 12/01/18 0808 12/03/18 0615 Results 24hrs Laboratory Tests Test 12/03/18 06:15 Sodium Level 146 H Potassium Level 3.5 Chloride Level 102 Carbon Dioxide Level 34 H Anion Gap 10 Blood Urea Nitrogen 23 H Creatinine 1.43 H Est Glomerular Filtrat Rate mL/min 36 L Glucose Level 112 Calcium Level 8.8 Total Bilirubin 0.3 Direct Bilirubin 0.00 Indirect Bilirubin 0.3 Aspartate Amino Transf (AST/SGOT) 23 Alanine Aminotransferase (ALT/SGPT) 23 Alkaline Phosphatase 127 H Total Protein 6.6 Albumin 3.6 Globulin 3.00 Albumin/Globulin Ratio 1.20 Imaging Imaging Renal fn continues to improve Medications Medication In light of rising SNa may consider lowering dose of KARL Bailey MD Dec 03, 2018 23:05
--- NOTE | 2018-12-03 23:08 | QN ---
Documentation Comment Pt seen at 5:30 PM today. Chart reviewed & pt examined No significant change is note. Will change lasix to PO Continue to monitor I/O, Labs intermittently KARL MADRID MD Dec 03, 2018 23:08
[2018-12-04] MEDS ORDERED: FUROSEMIDE 40 MG TAB PO SCH (06:00)
--- NOTE | 2018-12-04 06:40 | CONS ---
Assessment/Plan Assessment/Plan Assessment/Plan (Daily) Stated note on visit December 03, 2018. In the interim patient has been transferred to [facility]. Patient was admitted to the intensive care unit with sepsis syndrome dehydration fluid and electrolyte abnormalities mental status changes morbid obesity. Recommendations were made to do a bioethics consultation as patient is conserved. 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 Because of the underlying major medical and renal conditions patient will be transferred to [facility] for further care. Other medical problems including elevated liver functions tests acute Aparna lithiasis, fluid electrolyte abnormalities, acute kidney injury and history of seizure disorder have been stabilized and patient is back to her baseline medical condition. We will follow patient upon readmission to [facility] in the event that she deteriorates which she certainly will do once again in the future she should be re-presented to the bioethics committee at [facility] for consideration of comfort measures only in my opinion. Consultation Date/Type/Reason Admit Date/Time Nov 19, 2018 at 19:01 Initial Consult Date 11/23/18 Requesting Provider: GUIDO SANTIAGO MD Date/Time of Note DATE: 12/04/18 TIME: 06:40 Exam/Review of Systems Exam Vitals Vital Signs Date Temp Pulse Resp B/P (MAP) Pulse Ox O2 O2 Flow FiO2 Time Delivery Rate 12/03/18 75 18 99 30 21:10 12/03/18 98.5 164/92 Mechanical 19:00 (116) Ventilator Intake and Output 12/03/18 12/03/18 12/04/18 1515:00 23:00 07:00 IntakeIntake Total 755 ml OutputOutput Total 1500 ml BalanceBalance -745 ml Results Result Diagram: 12/01/18 0808 12/03/18 0615 HERBERT ANN Dec 04, 2018 06:40
[2018-12-04] MEDS ORDERED: AMIODARONE 200 MG TAB PO SCH (09:00)
--- NOTE | 2018-12-06 06:50 | GILP ---
DATE OF PROCEDURE: 11/25/2018 NAME OF PROCEDURE: Esophagogastroduodenoscopy. PREOPERATIVE DIAGNOSES: The patient has history of abnormal bile duct, including a dilated common bi le duct, possible common bile duct stone, possibly common bile duct stricture. Because of this, proc edure is performed. Previously ERCP scope was introduced into the oropharynx. However, it could not be advanced through the esophagus into the stomach and because of this, procedure is performed. POSTOPERATIVE DIAGNOSES: The superior esophageal sphincter area seems to be rather tight. However, the scope was advanced through the superior esophageal sphincter into the esophagus and stomach. At this time, patient is intubated. The patient is unable to sign the consent because of the emergen cy procedure is performed. The patient while she was intubated, the Olympus video upper endoscope was introduced into the oropha rynx, then into the esophagus. Upper esophageal area was visualized very thoroughly. There seems to be deviation of the esophagus and also narrowing of the upper esophageal sphincter area. However, t he scope was advanced with manipulation and gently into the esophagus, stomach and duodenum. Stomach appeared to show minimal gastritis. Duodenum appeared normal. Endoscope at this time was withdrawn and the procedure was terminated. PLAN: Recommend proceeding with ERCP. Dictated By: FRANKLIN BROWN/LOUIS Conf#: [id number] DID#: [id number]
== END 2018-12-03 22:53 | DRG 870 ==
LOC: E/R 18:16 → ICU 19:01 → TEL 11-29 18:34
PROVIDERS: ADMIT Internal Medicine; ATTEND Internal Medicine
PROC: 06HY33Z Insertion of Infusion Device into Lower Vein, Percutaneous Approach (ICD-10-PCS; principal; 2018-11-19)
PROC: 5A1955Z Respiratory Ventilation, Greater than 96 Consecutive Hours (ICD-10-PCS; 2018-11-20)
PROC: 02H633Z Insertion of Infusion Device into Right Atrium, Percutaneous Approach (ICD-10-PCS; 2018-11-24)
PROC: 0F798DZ Dilation of Common Bile Duct with Intraluminal Device, Via Natural or Artificial Opening Endoscopic (ICD-10-PCS; 2018-11-25)
PROC: 0DJ08ZZ Inspection of Upper Intestinal Tract, Via Natural or Artificial Opening Endoscopic (ICD-10-PCS; 2018-11-25)
DX: A41.9 Sepsis, unspecified organism (principal); R65.21 Severe sepsis with septic shock; I50.33 Acute on chronic diastolic (congestive) heart failure; N17.9 Acute kidney failure, unspecified; E87.0 Hyperosmolality and hypernatremia; G93.49 Other encephalopathy; C71.9 Malignant neoplasm of brain, unspecified; K80.43 Calculus of bile duct with acute cholecystitis with obstruction; J96.10 Chronic respiratory failure, unspecified whether with hypoxia or hypercapnia; I48.0 Paroxysmal atrial fibrillation; G40.909 Epilepsy, unspecified, not intractable, without status epilepticus; D50.9 Iron deficiency anemia, unspecified; E86.0 Dehydration; R13.10 Dysphagia, unspecified; I11.0 Hypertensive heart disease with heart failure; E66.01 Morbid (severe) obesity due to excess calories; E87.5 Hyperkalemia; Z93.1 Gastrostomy status; Z93.0 Tracheostomy status; Z74.01 Bed confinement status; Z68.38 Body mass index [BMI] 38.0-38.9, adult; Z66 Do not resuscitate
CPT/HCPCS: 36430; 36569; 36600; 70450; 71045; 74176; 74330; 76775; 76937; 78226; 80048; 80053; 80061; 80184; 80202; 80307; 82150; 82270; 82607; 82728; 82746; 82803; 83540; 83605; 83690; 83735; 84100; 84439; 84443; 84481; 85025; 85610; 85730; 86140; 86644; 86704; 86706; 86708; 86709; 86803; 86850; 86900; 86901; 86920; 87040; 87081; 87340; 93005; 93306; 94002; 94003; 94640; 94664; A9537; C2617; C9113; J0282; J0360; J0885; J1200; J1940; J1953; J2060; J2185; J2543; J2560; J2916; J3010; J3370; J3475; J3480; J7030; J7040; J7042; J7050; J7060; J7070; P9016; P9047; Q9967